=== PATIENT | male | born 1965 | race Caucasian/White ===

== ENCOUNTER 2019-08-26 09:54 | Inpatient (IN) | payer OTHER ==
[2019-08-26] MEDS ORDERED: FUROSEMIDE 10 MG/ML 4 ML VIAL IV STA (10:17)
--- NOTE | 2019-08-26 10:19 | ED ---
General Adult HPI - General Chief complaint: Shortness of Breath Stated complaint: Edema Time Seen by Provider: 08/26/19 10:04 Source: patient, RN notes reviewed, old records reviewed Mode of arrival: wheelchair Limitations: physical limitation - History of Present Illness Initial comments: 54-year-old male patient past history significant for congestive heart failure previously for chief complaint of lower extremity edema, shortness of breath. Patient reports that he has not been taking his Lasix for at least a week. States that he feels that he is overloaded on fluid and that is making it difficult to breathe. Denies any chest pain. Denies any other focal area of pain. Denies any other complaints. Systemic: Pt denies fatigue, fever/chills, rash. Pt denies weakness, night sweats, weight loss. Neuro: Pt denies headache, visual disturbances, syncope or pre-syncope. HEENT: Pt denies ocular discharge or irritation, otalgia, rhinorrhea, phar yngitis or notable lymphadenopathy. Cardiopulmonary: Pt denies chest pain, heart palpitations, dyspnea on exertion. Abdominal/GI: Pt denies abdominal pain, n/v/d. : Pt denies dysuria, burning w/ urination, frequency/urgency. Denies new onset urinary or bowel incontinence. MSK: Pt denies myalgia, loss of strength or function in extremities. Neuro: Pt denies new onset weakness, paresthesias. - Related Data Allergies Allergy/AdvReac Type Severity Reaction Status Date / Time latex Allergy Rash/Hives Verified 08/26/19 09:59 Review of Systems ROS Statement: Those systems with pertinent positive or pertinent negative responses have been documented in the HPI. ROS Other: All systems not noted in ROS Statement are negative. Past Medical History Past Medical History: COPD, Hyperlipidemia, Hypertension Additional Past Medical History / Comment(s): chf, sleep apnea History of Any Multi-Drug Resistant Organisms: None Reported Past Surgical History: No Surgical Hx Reported Past Psychological History: No Psychological Hx Reported Smoking Status: Never smoker Past Alcohol Use History: None Reported Past Drug Use History: None Reported General Exam - General Exam Comments Initial Comments: Constitutional: NAD, AOX3, Pt has pleasant affect. HEENT: NC/AT, trachea midline, neck supple, no lymphadenopathy. Posterior pharynx non erythematous, without exudates. External ears appear normal, without discharge. Mucous membranes moist. Eyes PERRLA, EOM intact. There is no scleral icterus. No pallor noted. Cardiopulmonary: RRR, no murmurs, rubs or gallops, no JVD noted. Crackles noted in lower lung gomez. +3 pitting peripheral edema. Abdominal exam: Abdomen soft and non-distended. Abdomen non-tender to palpation in all 4 quadrants. Bowel sounds active in LLQ. No hepatosplenomegaly. No ecchymosis Neuro: CN II-XII grossly intact. No nuchal rigidity. No raccon eyes, no suggs sign. MSK: No posterior calf tenderness bilaterally, homans sign negative bilaterally. Sensation intact in upper and lower extremities. Full active ROM in upper and lower extremities. Limitations: physical limitation Course Vital Signs 08/26/19 08/26/19 09:57 11:27 Temperature 99.1 F Pulse Rate 87 62 Respiratory 26 H 18 Rate Blood Pressure 156/86 154/91 O2 Sat by Pulse 87 L 94 L Oximetry Medical Decision Making - Medical Decision Making 54-year-old male patient past history significant for congestive heart failure previously for chief complaint of lower extremity edema, shortness of breath. Patient reports that he has not been taking his Lasix for at least a week. States that he feels that he is overloaded on fluid and that is making it difficult to breathe. Denies any chest pain. Denies any other focal area of pain. Denies any other complaints. Patient vital signs initially displayed oxygen saturation of 87% on room air. Patient sitting comfortably 94% on 2 L. Physical exam doesn't display bilateral pitting edema lower extremities. There are some crackles noted in lower lung gomez. Laboratory investigations are obtained, and this is significant for an elevated BNP of 4620. Troponin is very mildly elevated 0.037. EKG not concerning for acute ischemia patient continues to deny any chest pain. Patient was administered aspirin. Chest x-ray displayed large cardiomediastinal silhouette that may relate to cardiomegaly muscle mass or pericardial effusion. Round density in the left hilum clearly due to large pulmonary artery and pulmonary arterial hypertension adenopathy or perihilar mass. Obscuration of the left hemidiaphragm there is a small left pleural effusion and atelectasis or pneumonia. Multifocal platelike midlung atelectasis. Patient will be initiated on Lasix and will be admitted for further evaluation. Case discussed with Dr. Bearden. - Lab Data Result diagrams: 08/26/19 Unknown 08/26/19 Unknown Lab Results 08/26/19 08/26/19 08/26/19 Range/Units Unknown Unknown Unknown WBC 8.3 (3.8-10.6) k/uL RBC 4.62 (4.30-5.90) m/uL Hgb 12.4 L (13.0-17.5) gm/dL Hct 42.3 (39.0-53.0) % MCV 91.6 (80.0-100.0) fL MCH 26.8 (25.0-35.0) pg MCHC 29.3 L (31.0-37.0) g/dL RDW 16.8 H (11.5-15.5) % Plt Count 268 (150-450) k/uL Neutrophils % 76 % Lymphocytes % 12 % Monocytes % 6 % Eosinophils % 3 % Basophils % 1 % Neutrophils # 6.3 (1.3-7.7) k/uL Lymphocytes # 1.0 (1.0-4.8) k/uL Monocytes # 0.5 (0-1.0) k/uL Eosinophils # 0.2 (0-0.7) k/uL Basophils # 0.1 (0-0.2) k/uL Hypochromasia Marked Anisocytosis Slight Sodium 135 L (137-145) mmol/L Potassium 4.5 (3.5-5.1) mmol/L Chloride 92 L (98-107) mmol/L Carbon Dioxide 37 H (22-30) mmol/L Anion Gap 6 mmol/L BUN 22 H (9-20) mg/dL Creatinine 0.86 (0.66-1.25) mg/dL Est GFR (CKD-EPI)AfAm >90 (>60 ml/min/1.73 sqM) Est GFR (CKD-EPI)NonAf >90 (>60 ml/min/1.73 sqM) Glucose 105 H (74-99) mg/dL Calcium 8.9 (8.4-10.2) mg/dL Magnesium 2.0 (1.6-2.3) mg/dL Total Bilirubin 0.8 (0.2-1.3) mg/dL AST 26 (17-59) U/L ALT 12 (4-49) U/L Alkaline Phosphatase 75 (38-126) U/L Troponin I 0.037 H* (0.000-0.034) ng/mL NT-Pro-B Natriuret Pep pg/mL Total Protein 7.0 (6.3-8.2) g/dL Albumin 3.6 (3.5-5.0) g/dL 08/26/19 Range/Units Unknown WBC (3.8-10.6) k/uL RBC (4.30-5.90) m/uL Hgb (13.0-17.5) gm/dL Hct (39.0-53.0) % MCV (80.0-100.0) fL MCH (25.0-35.0) pg MCHC (31.0-37.0) g/dL RDW (11.5-15.5) % Plt Count (150-450) k/uL Neutrophils % % Lymphocytes % % Monocytes % % Eosinophils % % Basophils % % Neutrophils # (1.3-7.7) k/uL Lymphocytes # (1.0-4.8) k/uL Monocytes # (0-1.0) k/uL Eosinophils # (0-0.7) k/uL Basophils # (0-0.2) k/uL Hypochromasia Anisocytosis Sodium (137-145) mmol/L Potassium (3.5-5.1) mmol/L Chloride (98-107) mmol/L Carbon Dioxide (22-30) mmol/L Anion Gap mmol/L BUN (9-20) mg/dL Creatinine (0.66-1.25) mg/dL Est GFR (CKD-EPI)AfAm (>60 ml/min/1.73 sqM) Est GFR (CKD-EPI)NonAf (>60 ml/min/1.73 sqM) Glucose (74-99) mg/dL Calcium (8.4-10.2) mg/dL Magnesium (1.6-2.3) mg/dL Total Bilirubin (0.2-1.3) mg/dL AST (17-59) U/L ALT (4-49) U/L Alkaline Phosphatase (38-126) U/L Troponin I (0.000-0.034) ng/mL NT-Pro-B Natriuret Pep 4620 pg/mL Total Protein (6.3-8.2) g/dL Albumin (3.5-5.0) g/dL - EKG Data -: EKG Interpreted by Me (and Dr. Bearden ) EKG Comments: Ventricular rate 80, UT interval 212, QRS 114, QT/QTC 418/42. Tense rhythm with first AV block. Possible left atrial enlargement. Left axis deviation. Right bundle branch block. Cannot rule out anterior infarct age undetermined. No concern for acute ischemia at this time. Disposition Clinical Impression: CHF exacerbation Disposition: ADMITTED IP TO THIS HOSP Condition: Serious Is patient prescribed a controlled substance at d/c from ED?: No Referrals: Leighann Tejada MD [Primary Care Provider] - 1-2 days
[2019-08-26 10:46] LABS: Anisocytosis Slight; Basophils # (A) 0.1 k/uL (0-0.2); Basophils % (A) 1 %; Eosinophils # (A) 0.2 k/uL (0-0.7); Eosinophils % (A) 3 %; HCT 42.3 % (39.0-53.0); HGB 12.4 gm/dL (13.0-17.5); Hypochromasia Marked; Lymphocytes % (A) 12 %; MCH 26.8 pg (25.0-35.0); MCHC 29.3 g/dL (31.0-37.0); MCV 91.6 fL (80.0-100.0); Mean Platelet Volume 8.5; Monocytes # (A) 0.5 k/uL (0-1.0); Monocytes % (A) 6 %; Neutrophils # (A) 6.3 k/uL (1.3-7.7); Neutrophils % (A) 76 %; Platelet Count 268 k/uL (150-450); RBC 4.62 m/uL (4.30-5.90); RDW 16.8 % (11.5-15.5); WBC 8.3 k/uL (3.8-10.6)
[2019-08-26 10:54] LABS: ALT 12 U/L (4-49); AST 26 U/L (17-59); African American GFR (CKD) >90 (>60 ml/min/1.73 sqM); Albumin 3.6 g/dL (3.5-5.0); Alkaline Phosphatase 75 U/L (38-126); Anion Gap 6 mmol/L; Blood Urea Nitrogen 22 mg/dL (9-20); Calcium 8.9 mg/dL (8.4-10.2); Carbon Dioxide 37 mmol/L (22-30); Chloride 92 mmol/L (98-107); Glucose 105 mg/dL (74-99); Non-African American GFR(CKD) >90 (>60 ml/min/1.73 sqM); Potassium 4.5 mmol/L (3.5-5.1); Sodium 135 mmol/L (137-145); Total Bilirubin 0.8 mg/dL (0.2-1.3)
--- NOTE | 2019-08-26 11:01 | XR ---
EXAMINATION TYPE: XR chest 2V DATE OF EXAM: 08/26/2019 COMPARISON: NONE HISTORY: Chest pain and shortness of breath TECHNIQUE: Frontal and lateral views of the chest are obtained. FINDINGS: Enlarged cardiomediastinal silhouette with rounded density at the left hilum and obscurati on of the left hemidiaphragm. Platelike multifocal left midlung atelectasis. Right lung remains well aerated. Mild degenerative change of the spine. No sizable pneumothorax. IMPRESSION: 1. Enlarged cardiomediastinal silhouette that may relate to cardiomegaly, mediastinal mass, or perica rdial effusion. 2. Rounded density at the left hilum could relate to an enlarged pulmonary artery and pulmonary arter ial hypertension, adenopathy, or perihilar mass. 3. Obscuration left hemidiaphragm there is a small left pleural effusion and atelectasis or pneumonia . 4. Multifocal platelike left midlung atelectasis.
[2019-08-26] MEDS ORDERED: ASPIRIN 81 MG PO STA (11:33)
[2019-08-26] MEDS ORDERED: NALOXONE 0.4 MG/ML 1 ML VIAL IV PRN (12:04)
[2019-08-26] MEDS ORDERED: NITROGLYCERIN SL TABS 0.4 MG TAB SUBLINGUAL PRN (12:05)
[2019-08-26 12:12] LABS: INR 1.2 (<1.2); Partial Thromboplastin Time 24.4 sec (22.0-30.0); Prothrombin Time 11.8 sec (9.0-12.0)
--- NOTE | 2019-08-26 16:18 | P.HPIM ---
History of Present Illness 54-year-old male came in with comments of shortness of breath and bilateral lower extremity edema patient is morbidly obese unable to provide any history. Patient is excessively drowsy and sleepy patient does have history of sleep a pnea unsure whether he uses CPAP machinePeter patient CC bicarbonate the is a 37 consistent with chronic CO2 retention. Patient had a chest x-ray did show enlarged heart and some possibility of midgastric Solomon although this chest x- ray is not accurate because of his obesity. There is no pulmonary edema on the chest x-ray. Patient had does have elevated BNP him unable to assess JVD patient does have significant lower extremity edema. I'm unable to get any history of the patient regarding orthopnea proximal nocturnal dyspnea patient denied any chest pain patient denied any dysuria at this time. Review of Systems unable to obtain due to his clinical condition Past Medical History Past Medical History: Heart Failure, COPD, Hyperlipidemia, Hypertension Additional Past Medical History / Comment(s): chf, sleep apnea History of Any Multi-Drug Resistant Organisms: None Reported Past Surgical History: No Surgical Hx Reported Past Psychological History: No Psychological Hx Reported Smoking Status: Never smoker Past Alcohol Use History: None Reported Past Drug Use History: None Reported Medications and Allergies Home Medications Medication Instructions Recorded Confirmed Type Aspirin EC [Ecotrin Low Dose] 81 mg PO DAILY 08/26/19 08/26/19 History Carvedilol [Coreg] 12.5 mg PO BID 08/26/19 08/26/19 History Docusate Sodium [Dok] 200 mg PO DAILY 08/26/19 08/26/19 History Furosemide [Lasix] 80 mg PO DAILY 08/26/19 08/26/19 History Loratadine [Claritin] 10 mg PO DAILY 08/26/19 08/26/19 History Losartan Potassium [Cozaar] 100 mg PO DAILY 08/26/19 08/26/19 History Pantoprazole [Protonix] 40 mg PO DAILY 08/26/19 08/26/19 History Allergies Allergy/AdvReac Type Severity Reaction Status Date / Time latex Allergy Rash/Hives Verified 08/26/19 12:10 Physical Exam Vitals: Vital Signs Temp Pulse Pulse Resp BP BP Pulse Ox 08/26/19 15:58 81 14 129/70 95 08/26/19 15:36 85 L 08/26/19 14:00 22 08/26/19 13:52 97.4 F L 22 134/77 92 L 08/26/19 12:26 84 20 148/87 97 08/26/19 11:27 62 18 154/91 94 L 08/26/19 09:57 99.1 F 87 26 H 156/86 87 L Intake and Output 08/26/19 08/26/19 08/26/19 06:59 14:59 22:59 Output Total 750 Balance -750 Output: Urine 750 Other: Voiding Method Indwelling Catheter Weight 197 kg PHYSICAL EXAMINATION: GENERAL: patient is excessively drowsy, not in any acute distress. morbidly obese HEENT: Pupils are round and equally reacting to light. EOMI. No scleral icterus. No conjunctival pallor. Normocephalic, atraumatic. No pharyngeal erythema. No thyromegaly. CARDIOVASCULAR: S1 and S2 present. No murmurs, rubs, or gallops. PULMONARY: Chest is clear to auscultation, no wheezing or crackles. ABDOMEN: Soft, nontender, nondistended, normoactive bowel sounds. No palpable organomegaly. MUSCULOSKELETAL: No joint swelling or deformity. EXTREMITIES: No cyanosis, clubbing.extensive bilateral pedal edema. 3+ pitting NEUROLOGICAL: Gross neurological examination did not reveal any focal deficits. SKIN: No rashes. Results CBC & Chem 7: 08/26/19 10:30 08/26/19 10:30 Labs: Abnormal Lab Results - Last 24 Hours (Table) 08/26/19 08/26/19 08/26/19 Range/Units 10:30 10:30 10:30 Hgb 12.4 L (13.0-17.5) gm/dL MCHC 29.3 L (31.0-37.0) g/dL RDW 16.8 H (11.5-15.5) % INR 1.2 H (<1.2) Sodium 135 L (137-145) mmol/L Chloride 92 L (98-107) mmol/L Carbon Dioxide 37 H (22-30) mmol/L BUN 22 H (9-20) mg/dL Glucose 105 H (74-99) mg/dL Troponin I (0.000-0.034) ng/mL 08/26/19 Range/Units 10:30 Hgb (13.0-17.5) gm/dL MCHC (31.0-37.0) g/dL RDW (11.5-15.5) % INR (<1.2) Sodium (137-145) mmol/L Chloride (98-107) mmol/L Carbon Dioxide (22-30) mmol/L BUN (9-20) mg/dL Glucose (74-99) mg/dL Troponin I 0.037 H* (0.000-0.034) ng/mL Thrombosis Risk Factor Assmnt - Choose All That Apply Any of the Below Risk Factors Present?: Yes Each Factor Represents 1 point: Age 41-60 years, Obesity (BMI >25) Other Risk Factors: Yes (chf) Thrombosis Risk Factor Assessment Total Risk Factor Score: 2 Thrombosis Risk Factor Assessment Level: Low Risk Assessment and Plan Plan: --excessive drowsiness, encephalopathy mostly metabolic encephalopathy from a CO2 retention, patient is morbidly obese has sleep apnea may haveobesity hypoventilation syndrome. I'll obtain ABG depending an ABG patient need to be started on BiPAP patient will be started on that patient does have history of sleep apnea unsure whether he uses CPAP machine at home. -Acute hypoxic hypercapnic respiratory failure probably secondary to restrictive lung disease and morbid obesity rather than CHF although I cannot completely rule out CHF. -Bilateral pedal edema: I'll obtain echocardiogram mostly pedal edema is secondary to either right-sided heart failure chronic venous insufficiency 8 cannot asses the JVD because of his obesity possibility of for left-sided heart failure is low patient is on Lasix IV twice a day which will be continued for now because of extensive peripheral edema patient uses 80 mg daily of Lasix for pedal edema.possible data pulmonary hypertension -COPD without any acute exacerbation
[2019-08-26] MEDS: FUROSEMIDE 10 MG/ML 4 ML VIAL IV SCH (21:25)
[2019-08-26] MEDS: CARVEDILOL 12.5 MG TAB PO SCH (21:25)
[2019-08-27] MEDS ORDERED: HYDROcodone/APAP 5-325MG 1 EACH TAB PO STA (02:44)
[2019-08-27] MEDS: CARVEDILOL 12.5 MG TAB PO SCH ×2 (06:06→17:20)
[2019-08-27] MEDS: PANTOPRAZOLE 40 MG TABLET PO SCH (06:06)
[2019-08-27 07:43] LABS: African American GFR (CKD) >90 (>60 ml/min/1.73 sqM); Blood Urea Nitrogen 20 mg/dL (9-20); Calcium 8.7 mg/dL (8.4-10.2); Chloride 90 mmol/L (98-107); Glucose 111 mg/dL (74-99); Non-African American GFR(CKD) >90 (>60 ml/min/1.73 sqM); Potassium 4.8 mmol/L (3.5-5.1); Sodium 138 mmol/L (137-145)
[2019-08-27 07:50] LABS: Anion Gap 3 mmol/L
[2019-08-27 07:52] LABS: Carbon Dioxide 45 mmol/L (22-30)
[2019-08-27] MEDS: FUROSEMIDE 10 MG/ML 4 ML VIAL IV SCH (08:54)
[2019-08-27] MEDS: ASPIRIN 81 MG PO SCH (08:54)
[2019-08-27] MEDS ORDERED: ASPIRIN 325 MG TAB PO SCH (09:00)
--- NOTE | 2019-08-27 09:48 | ECHOF ---
Referral Reason:CHF MEASUREMENTS -------- HEIGHT: 180.3 cm WEIGHT: 193.7 kg BP: RAP: 5.00 mmHg RVSP: 10.17 mmHg FINDINGS -------- Sinus rhythm. This was a technically difficult study with suboptimal views. Morbid Obesity Limited Study Cheng not well visulized due to Morbid Obesity. Unable to comment on EF. The RV was not well visualized. The left atrium was not well visualized. The right atrium was not well visualized. Lumason used The aortic valve was not well visualized. The mitral valve was not well visualized. The tricuspid valve was not well visualized. The pulmonic valve was not well visualized. CONCLUSIONS -------- 1. Sinus rhythm. 2. This was a technically difficult study with suboptimal views. 3. Morbid Obesity 4. Limited Study 5. Cheng not well visulized due to Morbid Obesity. 6. Unable to comment on EF. 7. The RV was not well visualized. 8. The left atrium was not well visualized. 9. The right atrium was not well visualized. 10. Lumason used 11. The aortic valve was not well visualized. 12. The mitral valve was not well visualized. 13. The tricuspid valve was not well visualized. 14. The pulmonic valve was not well visualized. POLICE LIEUTENANT: Latoya Domínguez RDCS
--- NOTE | 2019-08-27 09:55 | P.CRDCN ---
History of Present Illness Consult date: 08/27/19 Requesting physician: Jimmie Whalen Consult reason: congestive heart failure Chief complaint: Shortness of breath History of present illness: This is a pleasant 54-year-old gentleman who has known history of morbid obesity, chronic bilateral peripheral edema, hypertension, hyperlip idemia, sleep apnea, patient is unable to use a CPAP machine, he states that he has tried several but because of his claustrophobia is unable to use it. Patient also states that he had a recent admission to [facility] with CHF exacerbation, was discharged home on Friday and felt as though he was just acidic as when he presented there. He comes to our hospital here with symptoms of progressively worsening shortness of breath and significant swelling in his bilateral lower extremities and scrotal area. Chest x-ray shows enlarged cardiomediastinal silhouette that may relate to cardiomegaly,, mediastinotomy mass, pericardial effusion. Rounded density at the left hilum could relate to an enlarged pulmonary artery and pulmonary arterial hypertension, adenopathy,. Obscuration of the left hemidiaphragm, small left pleural effusion and atelectasis. EKG shows normal sinus rhythm with first-degree AV block, nonspecific ST-T wave changes, incomplete right bundle branch block pattern. Blood pressure on arrival here 156/86, heart rate 26, 87% on room air, temperature 99.1. This mornings blood pressure 104/60, heart rate in the 50s, 94% on 2 L of oxygen. White blood cell count is normal, hemoglobin 12.4, platelet count 268. Sodium 138, potassium 4.8, BUN 20, creatinine 0.8. Troponin 0.0 37, 0.035, 0.036. BNP level 4620. Vidal virus not detected. At the time of my examination this morning, patient is sitting up in a chair at bedside, he does state that he feels as though he lost some weight, his breathing is mildly improved today. He continues to have significant bilateral peripheral edema Past Medical History Past Medical History: Heart Failure, COPD, Hyperlipidemia, Hypertension Additional Past Medical History / Comment(s): chf, sleep apnea History of Any Multi-Drug Resistant Organisms: None Reported Past Surgical History: No Surgical Hx Reported Past Psychological History: No Psychological Hx Reported Smoking Status: Never smoker Past Alcohol Use History: None Reported Past Drug Use History: None Reported Medications and Allergies Home Medications Medication Instructions Recorded Confirmed Type Aspirin EC [Ecotrin Low Dose] 81 mg PO DAILY 08/26/19 08/26/19 History Carvedilol [Coreg] 12.5 mg PO BID 08/26/19 08/26/19 History Docusate Sodium [Dok] 200 mg PO DAILY 08/26/19 08/26/19 History Furosemide [Lasix] 80 mg PO DAILY 08/26/19 08/26/19 History Loratadine [Claritin] 10 mg PO DAILY 08/26/19 08/26/19 History Losartan Potassium [Cozaar] 100 mg PO DAILY 08/26/19 08/26/19 History Pantoprazole [Protonix] 40 mg PO DAILY 08/26/19 08/26/19 History Allergies Allergy/AdvReac Type Severity Reaction Status Date / Time latex Allergy Rash/Hives Verified 08/26/19 12:10 Physical Exam Vitals: Vital Signs Temp Pulse Pulse Resp BP BP Pulse Ox 08/27/19 07:47 97.7 F 53 L 16 104/63 94 L 08/27/19 04:00 98.2 F 61 20 121/73 91 L 08/27/19 00:00 98.4 F 70 22 142/70 94 L 08/26/19 20:00 98.1 F 83 20 127/68 93 L 08/26/19 18:07 94 L 08/26/19 16:00 81 14 08/26/19 15:58 81 14 129/70 95 08/26/19 15:36 85 L 08/26/19 14:00 22 08/26/19 13:52 97.4 F L 22 134/77 92 L 08/26/19 12:26 84 20 148/87 97 08/26/19 11:27 62 18 154/91 94 L 08/26/19 09:57 99.1 F 87 26 H 156/86 87 L Intake and Output 08/26/19 08/27/19 08/27/19 22:59 06:59 14:59 Intake Total 477 240 180 Output Total 325 800 250 Balance 152 -560 -70 Intake: Oral 477 240 180 Output: Urine 325 800 250 Other: Voiding Method Indwelling Catheter Indwelling Catheter Weight 194 kg PHYSICAL EXAMINATION: GENERAL: 54-year-old gentleman in no acute distress at the time of my examination HEENT: Head is atraumatic, normocephalic. Pupils equal, round. Sclera anicteric. Conjunctiva are clear. Mucous membranes of the mouth are moist. Neck is supple. Unable to assess for elevated jugular venous pressure. No carotid bruit is heard. HEART EXAMINATION: Heart S1, S2 normal. No murmur or gallop heard. CHEST EXAMINATION: Lungs are clear with diminished air entry to the bases posteriorly ABDOMEN: Soft, obese nontender. Bowel sounds are heard. No organomegaly noted. EXTREMITIES:[1+ peripheral pulses with evidence of bilateral chronic edema to the lower extremities, scrotum has a significant amount of swelling. NEUROLOGIC patient is awake, alert and oriented 3 . . Results 08/26/19 10:30 08/27/19 06:38 Cardiac Enzymes 08/26/19 08/26/19 08/26/19 Range/Units 10:30 10:30 16:37 AST 26 (17-59) U/L Troponin I 0.037 H* 0.035 H* (0.000-0.034) ng/mL 08/26/19 Range/Units 23:13 AST (17-59) U/L Troponin I 0.036 H* (0.000-0.034) ng/mL Coagulation 08/26/19 Range/Units 10:30 PT 11.8 (9.0-12.0) sec APTT 24.4 (22.0-30.0) sec CBC 08/26/19 Range/Units 10:30 WBC 8.3 (3.8-10.6) k/uL RBC 4.62 (4.30-5.90) m/uL Hgb 12.4 L (13.0-17.5) gm/dL Hct 42.3 (39.0-53.0) % Plt Count 268 (150-450) k/uL Comprehensive Metabolic Panel 08/26/19 08/27/19 Range/Units 10:30 06:38 Sodium 135 L 138 (137-145) mmol/L Potassium 4.5 4.8 (3.5-5.1) mmol/L Chloride 92 L 90 L (98-107) mmol/L Carbon Dioxide 37 H 45 H* (22-30) mmol/L BUN 22 H 20 (9-20) mg/dL Creatinine 0.86 0.87 (0.66-1.25) mg/dL Glucose 105 H 111 H (74-99) mg/dL Calcium 8.9 8.7 (8.4-10.2) mg/dL AST 26 (17-59) U/L ALT 12 (4-49) U/L Alkaline Phosphatase 75 (38-126) U/L Total Protein 7.0 (6.3-8.2) g/dL Albumin 3.6 (3.5-5.0) g/dL Current Medications Generic Name Dose Route Start Last Admin Trade Name Freq PRN Reason Stop Dose Admin Aspirin 81 mg 08/27/19 09:00 08/27/19 08:54 Aspirin PO 81 mg DAILY MEGAN Administration Carvedilol 12.5 mg 08/26/19 17:30 08/27/19 06:06 Coreg PO 12.5 mg BID-W/MEALS MEGAN Administration Docusate Sodium 200 mg 08/27/19 09:00 Colace PO DAILY MEGAN Furosemide 100 mg/ Sodium 100 mls @ 10 mls/hr 08/27/19 09:15 Chloride IV .Q10H MEGAN 10 MG/HR Naloxone HCl 0.2 mg 08/26/19 12:04 Narcan IV Q2M PRN Opioid Reversal Nitroglycerin 0.4 mg 08/26/19 12:05 Nitrostat SUBLINGUAL Q5M PRN Chest Pain Pantoprazole Sodium 40 mg 08/27/19 07:30 08/27/19 06:06 Protonix PO 40 mg [id number] MEGAN Administration Intake and Output 08/26/19 08/27/19 08/27/19 22:59 06:59 14:59 Intake Total 477 240 180 Output Total 325 800 250 Balance 152 -560 -70 Intake: Oral 477 240 180 Output: Urine 325 800 250 Other: Voiding Method Indwelling Catheter Indwelling Catheter Weight 194 kg 08/26/19 10:30 08/27/19 06:38 EKG Interpretations (text) EKG shows a normal sinus rhythm with first-degree AV block, incomplete right bundle branch block pattern and nonspecific ST-T wave changes Assessment and Plan Plan: Assessment and plan #1 congestive heart failure exacerbation, LV function unknown #2 morbid obesity #3 hypertension #4 hyperlipidemia #5 sleep apnea, patient unable to use a CPAP because of claustrophobia #6 abnormality in troponin, not consistent with acute coronary syndrome, likely secondary to hypoxia. No significant rise and fall pattern #7 chronic lower extremity edema and discoloration #8 COPD Plan We will discontinue the IV push Lasix and start the patient on a Lasix drip. Monitor the intake and output closely as well as lytes BUN and creatinine daily. We will obtain records from [facility] where the patient was just recently discharged on Friday. Further recommendations to follow. DNP note has been reviewed, I agree with a documented findings and plan of care. Patient was seen and examined.
--- NOTE | 2019-08-27 10:43 | P.CNPUL ---
History of Present Illness Consult date: 08/27/19 Reason for consult: dyspnea, hypoxemia, obstructive sleep apnea Chief complaint: Progressive SOB, along with increased swelling of the lower extremities History of present illness: This is a morbidly obese 54-year-old male well-known to me patient has a hypercapnic hypoxic chronic respiratory failure due to obesity hypoventilation as well as severe sleep apnea she has been prescribed CPAP machine the past but couldn't use it due to claustrophobia, he came into the hospital with the somnolence altered mental status, increased lower extremity, she had he appears to have a component of congestive heart failure with chronic lower extremity edema with acute worsening also his bicarb is chronically elevated suggestive of chronic hypercapnia related responded to Lasix Mohs awake and arousable denies any cough or sputum production denies any chest pain, status post echocardiogram unable to comment on ejection fraction due to the size as well as suboptimal study patient has a chest x-ray suggestive of CHF along with of cardiomegaly mediastinal/pericardial effusion, rounded density left hilum likely pulmonary artery and pulmonary hypertension, will get a computed tomography scan of the chest as well as renal functions are normal, his troponin high likely suggestive of the demand ischemia versus non-Q-wave [place], BNP is elevated for thousand Review of Systems All systems: negative Past Medical History Past Medical History: Heart Failure, COPD, Hyperlipidemia, Hypertension Additional Past Medical History / Comment(s): chf, sleep apnea History of Any Multi-Drug Resistant Organisms: None Reported Past Surgical History: No Surgical Hx Reported Past Psychological History: No Psychological Hx Reported Smoking Status: Never smoker Past Alcohol Use History: None Reported Past Drug Use History: None Reported Medications and Allergies Home Medications Medication Instructions Recorded Confirmed Type Aspirin EC [Ecotrin Low Dose] 81 mg PO DAILY 08/26/19 08/26/19 History Carvedilol [Coreg] 12.5 mg PO BID 08/26/19 08/26/19 History Docusate Sodium [Dok] 200 mg PO DAILY 08/26/19 08/26/19 History Furosemide [Lasix] 80 mg PO DAILY 08/26/19 08/26/19 History Loratadine [Claritin] 10 mg PO DAILY 08/26/19 08/26/19 History Losartan Potassium [Cozaar] 100 mg PO DAILY 08/26/19 08/26/19 History Pantoprazole [Protonix] 40 mg PO DAILY 08/26/19 08/26/19 History Allergies Allergy/AdvReac Type Severity Reaction Status Date / Time latex Allergy Rash/Hives Verified 08/26/19 12:10 Physical Exam Vitals: Vital Signs Temp Pulse Pulse Resp BP BP Pulse Ox 08/27/19 08:00 53 L 16 08/27/19 07:47 97.7 F 53 L 16 104/63 94 L 08/27/19 04:00 98.2 F 61 20 121/73 91 L 08/27/19 00:00 98.4 F 70 22 142/70 94 L 08/26/19 20:00 98.1 F 83 20 127/68 93 L 08/26/19 18:07 94 L 08/26/19 16:00 81 14 08/26/19 15:58 81 14 129/70 95 08/26/19 15:36 85 L 08/26/19 14:00 22 08/26/19 13:52 97.4 F L 22 134/77 92 L 08/26/19 12:26 84 20 148/87 97 08/26/19 11:27 62 18 154/91 94 L Intake and Output 08/26/19 08/27/19 08/27/19 22:59 06:59 14:59 Intake Total 477 240 180 Output Total 325 800 250 Balance 152 -560 -70 Intake: Oral 477 240 180 Output: Urine 325 800 250 Other: Voiding Method Indwelling Catheter Indwelling Catheter Indwelling Catheter Weight 194 kg - Constitutional General appearance: disheveled, mild distress, morbidly obese - EENT Eyes: PERRLA Ears: bilateral: normal - Neck Neck: normal ROM Carotids: bilateral: bruit absent - Respiratory Respiratory: bilateral: diminished - Cardiovascular Rhythm: regular Heart sounds: normal: S1, S2 - Gastrointestinal General gastrointestinal: hyperactive bowel sounds - Integumentary Lower extremity +3 edema with chronic swelling and chronic skin changes - Neurologic Neurologic: CNII-XII intact - Musculoskeletal Musculoskeletal: gait normal, generalized weakness, strength equal bilaterally - Psychiatric Psychiatric: A&O x's 3, appropriate affect, intact judgment & insight Results - Laboratory Findings CBC and BMP: 08/26/19 10:30 08/27/19 06:38 PT/INR, D-dimer PT 11.8 sec (9.0-12.0) 08/26/19 10:30 INR 1.2 (<1.2) H 08/26/19 10:30 Abnormal lab findings: Abnormal Labs 08/26/19 08/26/19 08/26/19 10:30 10:30 10:30 Hgb 12.4 L MCHC 29.3 L RDW 16.8 H INR 1.2 H Sodium 135 L Chloride 92 L Carbon Dioxide 37 H BUN 22 H Glucose 105 H Troponin I 08/26/19 08/26/19 08/26/19 10:30 16:37 23:13 Hgb MCHC RDW INR Sodium Chloride Carbon Dioxide BUN Glucose Troponin I 0.037 H* 0.035 H* 0.036 H* 08/27/19 06:38 Hgb MCHC RDW INR Sodium Chloride 90 L Carbon Dioxide 45 H* BUN Glucose 111 H Troponin I - Diagnostic Findings Chest x-ray: report reviewed, image reviewed (Finding as noted above) Assessment and Plan Assessment: Acute exacerbation of heart failure likely as the failure Acute hypoxic and hypercapnic respiratory failure Obesity hypoventilation syndrome Severe degree of obstructive sleep apnea Hypertension hypertensive cardiovascular disease Dyslipidemia Elevated troponin likely demand ischemia versus non-ST segment elevated [place] Plan: Agree with plans with diuresis Continue supplemental oxygen Continue home medications Have a detailed discussion with the patient about sleep study, BiPAP or CPAP mac eryn, patient continued to refuse CPAP or BiPAP machine Obtain computed tomography scan of the chest to assess amount of pericardial effusion mass in the left side as well as assessment of PA and mediastinal density as noted on x-ray Time with Patient: Greater than 30
[2019-08-27] MEDS: FUROSEMIDE 100 MG in SODIUM CHLORIDE 0.9% 90 ML IV SCH ×2 (10:53→20:31)
--- NOTE | 2019-08-27 11:33 | P.PN ---
Subjective Patient is admitted for possible right-sided heart failure peripheral edema may be due to venous insufficiency was recently discharged from [facility] patient is highly noncompliant with medications are his CPAP machine. I spent extensive amount of time every single day when she when he was admitted to [facility] discussing the management and the importance of wearing a CPAP machine was supposed to. Nasal CPAP which he agreed to wear during his last hospitalization and supposed to follow-up with the parts sales associate to get new CPAP machine which is mostly of nasal CPAP which she never followed up with patient didn't take any of his medication since he doesn't have any of his medications with the he did have prescription of all his medications at the time of last discharge. Had a lengthy discussion with the patient to try to provide insight and patient just doesn't understand anything is highly noncompliant with any re commendations. Nothing much can be offered to the patient from my perspective patient is presently on IV Lasix being diuresed. Patient doesn't want to wear CPAP or BiPAP his main issues CO2 retention from his sleep apnea Objective - Vital Signs Vital signs: Vital Signs Temp 97.7 F 08/27/19 07:47 Pulse 53 L 08/27/19 08:00 Resp 16 08/27/19 08:00 BP 104/63 08/27/19 07:47 Pulse Ox 94 L 08/27/19 07:47 Intake & Output 08/26/19 08/27/19 08/27/19 18:59 06:59 18:59 Intake Total 237 480 180 Output Total 750 1125 250 Balance -513 -645 -70 Weight 197 kg 194 kg Intake: Oral 237 480 180 Output: Urine 750 1125 250 Other: Voiding Method Indwelling Catheter Indwelling Catheter Indwelling Catheter # Bowel Movements 1 - Exam PHYSICAL EXAMINATION: GENERAL: patient is excessively drowsy, not in any acute distress. morbidly obese HEENT: Pupils are round and equally reacting to light. EOMI. No scleral icterus. No conjunctival pallor. Normocephalic, atraumatic. No pharyngeal erythema. No thyromegaly. CARDIOVASCULAR: S1 and S2 present. No murmurs, rubs, or gallops. PULMONARY: Chest is clear to auscultation, no wheezing or crackles. ABDOMEN: Soft, nontender, nondistended, normoactive bowel sounds. No palpable organomegaly. MUSCULOSKELETAL: No joint swelling or deformity. EXTREMITIES: No cyanosis, clubbing.extensive bilateral pedal edema. 3+ pitting NEUROLOGICAL: Gross neurological examination did not reveal any focal deficits. SKIN: No rashes. - Labs CBC & Chem 7: 08/26/19 10:30 08/27/19 06:38 Labs: Abnormal Lab Results - Last 24 Hours (Table) 08/26/19 08/26/19 08/26/19 Range/Units 10:30 10:30 10:30 Hgb 12.4 L (13.0-17.5) gm/dL MCHC 29.3 L (31.0-37.0) g/dL RDW 16.8 H (11.5-15.5) % INR 1.2 H (<1.2) Sodium 135 L (137-145) mmol/L Chloride 92 L (98-107) mmol/L Carbon Dioxide 37 H (22-30) mmol/L BUN 22 H (9-20) mg/dL Glucose 105 H (74-99) mg/dL Troponin I (0.000-0.034) ng/mL 08/26/19 08/26/19 08/26/19 Range/Units 10:30 16:37 23:13 Hgb (13.0-17.5) gm/dL MCHC (31.0-37.0) g/dL RDW (11.5-15.5) % INR (<1.2) Sodium (137-145) mmol/L Chloride (98-107) mmol/L Carbon Dioxide (22-30) mmol/L BUN (9-20) mg/dL Glucose (74-99) mg/dL Troponin I 0.037 H* 0.035 H* 0.036 H* (0.000-0.034) ng/mL 08/27/19 Range/Units 06:38 Hgb (13.0-17.5) gm/dL MCHC (31.0-37.0) g/dL RDW (11.5-15.5) % INR (<1.2) Sodium (137-145) mmol/L Chloride 90 L (98-107) mmol/L Carbon Dioxide 45 H* (22-30) mmol/L BUN (9-20) mg/dL Glucose 111 H (74-99) mg/dL Troponin I (0.000-0.034) ng/mL Assessment and Plan Plan: --excessive drowsiness, encephalopathy mostly metabolic encephalopathy from a CO2 retention, patient is morbidly obese has sleep apnea may haveobesity hypoventilation syndrome. Patient is declining to wear CPAP or BiPAP -Acute hypoxic hypercapnic respiratory failure probably secondary to restrictive lung disease and morbid obesity.. -Possible congestive heart failure chronic diastolic dysfunction patient had a normal EF in the past. Patient most probably has cor pulmonale right-sided heart failure rather than diastolic dysfunction he may even have severe chronic venous insufficiency from morbid obesity. Patient is on Lasix drip -Alkalosis: There is a competent of counteraction alkalosis due to diuresis some metabolic compensation from chronic CO2 retention -COPD without any acute exacerbation Mildly elevated troponin: Secondary to heart failure -obesity hypoventilation syndrome
--- NOTE | 2019-08-27 13:10 | US ---
EXAMINATION TYPE: US venous doppler duplex LE DATE OF EXAM: 08/27/2019 12:55 PM COMPARISON: NONE CLINICAL HISTORY: dvt. Edema bilateral legs, worse on the right SIDE PERFORMED: bilateral TECHNIQUE: The lower extremity deep venous system is examined utilizing real time linear array sonog myrna with graded compression, doppler sonography and color-flow sonography. VESSELS IMAGED: External Iliac Vein (EIV) Common Femoral Vein Deep Femoral Vein Greater Saphenous Vein * Femoral Vein Popliteal Vein Small Saphenous Vein * Proximal Calf Veins (* superficial vessels) Technical limitations due to patient's body habitus Right Leg: No evidence of DVT as visualized, unable to visualize lower femoral vein for compression. Complex anechoic area right popliteal fossa = 5.7 x 1.8 x 4.1cm, Maradiaga's cyst Left Leg: No evidence of DVT as visualized. Unable to visualize lower femoral vein. Grayscale, color doppler, spectral doppler imaging performed of the deep veins of the lower extremiti es. . IMPRESSION: Suboptimal study due to patient's extreme large body habitus. Some portions not adequate ly assessed. Visualized portions show no evidence of acute DVT bilaterally. Incidentally moderate siz e right-sided Maradiaga cyst noted.
--- NOTE | 2019-08-27 16:23 | CT ---
EXAMINATION TYPE: CT angio chest DATE OF EXAM: 08/27/2019 COMPARISON: Chest x-ray dated 08/26/2019 HISTORY: SOB. hx of COPD, CHF CT DLP: 1161.8 mGycm. Automated Exposure Control for Dose Reduction was Utilized. CONTRAST: CTA scan of the thorax is performed with IV Contrast, patient injected with 100cc mL of Isovue 370, p ulmonary embolism protocol. MIP Images are created on CT scanner and reviewed. FINDINGS: Exam is suboptimal secondary to patient body habitus. The entirety of the patient is not in cluded in imaging given patient body habitus and cannot be evaluated. LUNGS: Multifocal subsegmental atelectasis. Motion artifact limits evaluation of the left lower lobe. 3 mm pulmonary nodule is solid within the right middle lobe on image 81. 2 mm pulmonary nodule in th e right upper lobe on image 52. The lungs are grossly clear, there is no concerning parenchymal mass or nodule identified. There is no pleural effusion or pneumothorax seen. The tracheobronchial tree is patent. MEDIASTINUM: The enlarged lobular contour of the mediastinum on chest x-ray of 08/26/2019 relates to lo bular contour the heart and enlarged left main pulmonary artery measuring 5.3 cm. There is left hemit horax volume loss in shift of the mediastinum to the left. There is reflux of contrast into the infer ior vena cava. Nondiagnostic evaluation of the left lower lobe pulmonary arteries for pulmonary embol us. Suboptimal evaluation of the remainder of the pulmonary arteries. Similar degree of contrast in t he aorta and main pulmonary artery as well as limitation by patient body habitus and patient motion. Severely limited evaluation of the pulmonary arteries to the left upper lobe. 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 Artifact from patient body habitus and motion as well as ot her CT artifact limiting evaluation of the upper abdomen. At least mild grade hepatic steatosis sugge sted by low attenuation the hepatic parenchyma. Some anasarca also seen with subcutaneous fat strandi ng/edema. Bilateral probable retroareolar gynecomastia is seen, left greater than right. Thyroid glan d is slightly heterogenous. Mild multilevel degenerative change of the spine. IMPRESSION: 1. Markedly limited evaluation for subsegmental pulmonary embolus and evaluation of the left lower lo be. No central pulmonary embolus seen. 2. Shift of the mediastinum leftward and left hemithorax volume loss of unknown etiology with cardiom egaly and lobular contour the mediastinum. 3. Left basilar airspace disease although favored to represent atelectasis is severely limited by pat ient motion and could represent pneumonia. 4. Subcentimeter right pulmonary nodules for which follow-up CT thorax is recommended in 12 months to establish stability.
[2019-08-27] MEDS: DOCUSATE 100 MG CAP PO SCH (17:21)
[2019-08-28] MEDS: FUROSEMIDE 100 MG in SODIUM CHLORIDE 0.9% 90 ML IV SCH ×3 (04:26→23:15)
[2019-08-28 06:30] LABS: African American GFR (CKD) >90 (>60 ml/min/1.73 sqM); Blood Urea Nitrogen 17 mg/dL (9-20); Calcium 8.4 mg/dL (8.4-10.2); Chloride 85 mmol/L (98-107); Glucose 105 mg/dL (74-99); Magnesium 1.4 mg/dL (1.6-2.3); Non-African American GFR(CKD) >90 (>60 ml/min/1.73 sqM); Potassium 4.7 mmol/L (3.5-5.1); Sodium 136 mmol/L (137-145)
[2019-08-28 06:37] LABS: Anion Gap 5 mmol/L; Carbon Dioxide 46 mmol/L (22-30)
[2019-08-28] MEDS: PANTOPRAZOLE 40 MG TABLET PO SCH (06:44)
[2019-08-28] MEDS: CARVEDILOL 12.5 MG TAB PO SCH ×2 (06:44→17:55)
[2019-08-28] MEDS: ASPIRIN 81 MG PO SCH (08:45)
[2019-08-28] MEDS: DOCUSATE 100 MG CAP PO SCH (08:45)
[2019-08-28 13:01] VITALS: BMI 59.5
--- NOTE | 2019-08-28 13:29 | P.PN ---
Subjective This is Claudette Gaona PA-C dictating a progress note on this patient The patient was interviewed and examined by me Case discussed with Dr. Byrne and he agrees with the plan of care HPI/interval history Patient is a 54-year-old male with a history of chronic bilateral peripheral edema, obesity, hypertension, dyslipidemia, sleep apnea who presented with complaints of worsening shortness of breath and lower extremity edema. His been admitted for treatment of CHF exacerbation. He has been on IV Lasix drip. He is diuresing, almost 4 liters, however his weight remains the same. Patient seen and examined sitting up in the chair. Remains short of breath and fatigued. States he does not feel the Lasix drip has helped much. EXAMINATION Patient is afebrile, pulse in the 70s, respirations in the 20s, blood pressure 107/42, oxygen saturation 95% on 2 L nasal cannula Patient seen and examined sitting up in the chair, in no acute distress Lungs are diminished bilaterally Heart is regular, no audible murmurs 1-2+ lower extremity edema bilaterally Unable to assess JVD due to body habitus REVIEW OF LABS, ECG Potassium 4.7, BUN 17, creatinine 0.71, co2 [address] did not show any central pulmonary embolism but was limited by motion artifact Recent echocardiogram was suboptimal due to morbid obesity an EF cannot be assessed Recent lower extremity Dopplers were also suboptimal due to the patient's body habitus but did not show any acute DVT , showed Maradiaga cyst IMPRESSION / ASSESSMENT: #1 shortness of breath and lower extremity edema possibly secondary to CHF exacerbation, EF not be assessed on echocardiogram due to morbid obesity and suboptimal views #2 abnormal troponin no significant rise and fall pattern, likely due to hypoxia #3 morbid obesity #4 hypertension #5 dyslipidemia #6 obstructive sleep apnea, unable to use CPAP due to claustrophobia #7 chronic lower extremity edema #8 COPD PLAN: Continue Lasix drip monitor BMP Accurate daily weights I's and O's Objective - Vital Signs Vital signs: Vital Signs Temp 98.0 F 08/28/19 11:44 Pulse 73 08/28/19 11:50 Resp 22 08/28/19 11:50 BP 107/42 08/28/19 11:44 Pulse Ox 95 08/28/19 11:44 Intake & Output 08/27/19 08/28/19 08/28/19 18:59 06:59 18:59 Intake Total 657 175.500 657 Output Total 1250 3325 Balance -593 -3149.500 657 Weight 193.7 kg 193.7 kg Intake: Intake, IV Titration 175.500 Amount Furosemide 100 mg In 175.500 Sodium Chloride 0.9% 90 ml @ 10 MG/HR 10 mls/hr IV .Q10H [facility] Rx#: [id number] Oral 657 657 Output: Urine 1250 3325 Other: Voiding Method Indwelling Catheter Indwelling Catheter Indwelling Catheter # Bowel Movements 1 - Labs CBC & Chem 7: 08/26/19 10:30 08/28/19 05:49 Labs: Abnormal Lab Results - Last 24 Hours (Table) 08/28/19 Range/Units 05:49 Sodium 136 L (137-145) mmol/L Chloride 85 L (98-107) mmol/L Carbon Dioxide 46 H* (22-30) mmol/L Glucose 105 H (74-99) mg/dL Magnesium 1.4 L (1.6-2.3) mg/dL
[2019-08-28] MEDS ORDERED: Magnesium Replacement Protocol 1 EACH MISC MISCELLANE PRN (17:34)
[2019-08-28] MEDS ORDERED: Potassium Replacement Protocol 1 EACH MISC MISCELLANE PRN (17:34)
[2019-08-28] MEDS ORDERED: HYDROcodone/APAP 5-325MG 1 EACH TAB PO PRN (17:35)
[2019-08-28] MEDS ORDERED: ALPRAZolam 0.25 MG TAB PO PRN (17:35)
[2019-08-28] MEDS ORDERED: HYDROmorphone 0.5 MG/0.5 ML SYRINGE IVP PRN (17:35)
[2019-08-28] MEDS ORDERED: TEMAZEPAM 15 MG CAP PO PRN (17:35)
[2019-08-28 18:28] LABS: Appearance,Urine Clear (Clear); Bacteria,Urine Rare /hpf; Bilirubin,Urine Negative (Negative); Blood,Urine Moderate (Negative); Color,Urine Yellow; Glucose,Urine (UA) Negative (Negative); Hyaline Casts,Urine 1 /lpf (0-2); Ketones,Urine Negative (Negative); Leukocyte Esterase,Urine Large (Negative); Mucus,Urine Rare /hpf; Nitrite,Urine Negative (Negative); Protein,Urine Negative (Negative); RBC,Urine 164 /hpf (0-5); Specific Gravity,Urine 1.012 (1.001-1.035); Squamous Epithelial Cell,Urine <1 /hpf (0-4); Urobilinogen,Urine <2.0 mg/dL (<2.0); WBC,Urine 9 /hpf (0-5)
--- NOTE | 2019-08-28 19:29 | PN ---
PROGRESS NOTE DATE OF SERVICE: 08/28/2019 This 54-year-old gentleman being followed by Dr. Leighann Tejada in the outpatient setting was admitted with shortness of breath and bilateral leg edema. The possibility of CHF acute exacerbation was considered. The patient has also had an element of cor pulmonale. The patient had CO2 retention secondary from possible obesity hypoventilation syndrome and Pickwickian syndrome. The patient being closely monitored at this time. The patient was started on IV Lasix at this time by Cardiology. The fluid intake has also been restricted at this time. The daily weight was showing a 1 pound drop from yesterday. PAST MEDICAL HISTORY: Reviewed. REVIEW OF SYSTEMS: CARDIOVASCULAR SYSTEM: As mentioned earlier. RESPIRATORY: As mentioned earlier. GI no nausea or vomiting. no dysuria. NERVOUS SYSTEM: No numbness or weakness. CURRENT MEDICATIONS: Reviewed and include: 1. [place] 10 mg q.6 p.r.n. 2. Xanax 0.5 t.i.d. 3. Aspirin 81 mg. 4. Coreg 12.5 mg b.i.d. 5. Colace 200 mg p.o. daily. 6. Heparin. 7. Dilaudid. 8. Claritin. 9. Zaroxolyn. 10.Protonix. PHYSICAL EXAM: Patient is alert, oriented x3. Pulse 61. Blood pressure 150/84, respiration 20, temperature 97.9, pulse ox 98% on 2 L. HEENT is conjunctivae normal. NECK: No JVD. CARDIOVASCULAR: S1, S2 muffled. RESPIRATORY: Breath sounds diminished in the bases. A few scattered rhonchi and crackles. ABDOMEN: Soft, obese. Bilateral swelling of the scrotum also present. LEGS: Bilateral leg edema, mass present. Pulses diminished bilaterally. NERVOUS SYSTEM: Higher functions as mentioned. Moves all four limbs. No focal motor or sensory deficits. Lymphatics: No lymph nodes palpable in the neck, axillae or groin. SKIN: No ulcer, no rashes and no bleeding. JOINTS no active deforming arthropathy. LABS: Hemoglobin 12.2, sodium 130, potassium 4.7, Troponin 0.036. ASSESSMENT: 1. Congestive heart failure acute exacerbation with possible ejection fraction unknown. 2. Possible acute cor pulmonale. 3. Acute hypoxic respiratory failure secondary to obesity hypoventilation syndrome. 4. Change in mental status, metabolic encephalopathy secondary to hypercarbia. 5. The patient unable to do BiPAP because of claustrophobia. 6. Acute hypoxic hypercarbic respiratory failure. 7. Bilateral leg edema. 8. Chronic obstructive pulmonary disease. 9. Troponin 0.036 indeterminate. 10.Hyponatremia. 11.Increased CO2. 12.Anemia, normocytic anemia of chronic disease. 13.History of hypertension. 14.History of hyperlipidemia. 15.Sleep apnea. 16.Obesity with body mass index of 59.6. 17.FULL CODE. RECOMMENDATIONS AND DISCUSSION: This 54-year-old gentleman who presented with multiple complex medical issues, we will monitor the patient closely, continue the current management and symptomatic treatment. Continue with Lasix drip. Otherwise, I would recommend to add Zaroxolyn to the current regimen. Otherwise, continue the DVT prophylaxis. Continue the rest of medications. Monitor fluid and electrolytes balance closely. Fluid restriction 1200 mL per 24 hours. Prognosis guarded because of multiple complex medical issues. 2D echo was not really able to determine any conclusive evidence because of the patient's extreme morbid obesity. Further recommendations to follow. We will monitor the patient closely in telemetry. Copy of dictation being forwarded to Dr. Leighann Tejada. MMNELIL / IJN: [id number] /
[2019-08-28] MEDS: HEPARIN SODIUM,PORCINE 5,000 UNIT/ML 1 ML VIAL SQ SCH (19:53)
[2019-08-28] MEDS: MAGNESIUM SULFATE-D5W PMX 1 GM in DEXTROSE/WATER 1 100ML.BAG IVPB SCH ×3 (19:54→22:02)
[2019-08-29] MEDS: CARVEDILOL 12.5 MG TAB PO SCH ×2 (06:36→17:30)
[2019-08-29] MEDS: PANTOPRAZOLE 40 MG TABLET PO SCH (06:36)
[2019-08-29 06:41] LABS: Basophils % (A) 1 %; Eosinophils # (A) 0.2 k/uL (0-0.7); Eosinophils % (A) 3 %; HCT 39.9 % (39.0-53.0); HGB 11.8 gm/dL (13.0-17.5); Hypochromasia Marked; Lymphocytes % (A) 14 %; MCHC 29.5 g/dL (31.0-37.0); MCV 94.9 fL (80.0-100.0); Mean Platelet Volume 8.2; Monocytes # (A) 0.5 k/uL (0-1.0); Monocytes % (A) 8 %; Neutrophils % (A) 73 %; Platelet Count 252 k/uL (150-450); Poikilocytosis Slight; RBC 4.21 m/uL (4.30-5.90); WBC 6.8 k/uL (3.8-10.6)
[2019-08-29 06:48] LABS: African American GFR (CKD) >90 (>60 ml/min/1.73 sqM); Blood Urea Nitrogen 14 mg/dL (9-20); Calcium 8.2 mg/dL (8.4-10.2); Chloride 83 mmol/L (98-107); Glucose 102 mg/dL (74-99); Magnesium 1.7 mg/dL (1.6-2.3); Non-African American GFR(CKD) >90 (>60 ml/min/1.73 sqM); Potassium 4.5 mmol/L (3.5-5.1); Sodium 136 mmol/L (137-145)
[2019-08-29 06:56] LABS: Anion Gap 4 mmol/L
[2019-08-29 07:01] LABS: Carbon Dioxide 49 mmol/L (22-30)
[2019-08-29] MEDS: DOCUSATE 100 MG CAP PO SCH (08:44)
[2019-08-29] MEDS: LORATADINE 10 MG TAB PO SCH (08:44)
[2019-08-29] MEDS: HEPARIN SODIUM,PORCINE 5,000 UNIT/ML 1 ML VIAL SQ SCH ×2 (08:44→20:57)
[2019-08-29] MEDS: ASPIRIN 81 MG PO SCH (08:44)
[2019-08-29] MEDS: METOLAZONE 5 MG TAB PO SCH (08:45)
--- NOTE | 2019-08-29 13:19 | P.PN ---
Subjective This is Claudette Gaona PA-C dictating a progress note on this patient The patient was interviewed and examined by me as well as by Dr. Byrne Case discussed with Dr. Byrne and he agrees with the plan of care HPI/interval history Patient is a 54-year-old male with a history of chronic bilateral peripheral edema, obesity, hypertension, dyslipidemia, sleep apnea who presented with complaints of worsening shortness of breath and lower extremity edema. His been admitted for treatment of CHF exacerbation. He has been on IV Lasix drip. He has lost about 2 kg since yesterday. He continues to complain of abdominal bloating and fluid retention. Feels that the Lasix drip is not helping. EXAMINATION Patient is afebrile, pulse in the 50s, respirations 20, blood pressure 151/76, oxygen saturation 94% on 2 L nasal cannula Patient seen and examined sitting up in the chair, in no acute distress Lungs are diminished bilaterally Heart is regular, no audible murmurs 1-2+ lower extremity edema bilaterally Unable to assess JVD due to body habitus REVIEW OF LABS, ECG WBC 6.8, hemoglobin 11.8, platelets 252, potassium 4.5, chloride 83, carbon dioxide [address] did not show any central pulmonary embolism but was limited by motion artifact Recent echocardiogram was suboptimal due to morbid obesity an EF cannot be assessed Recent lower extremity Dopplers were also suboptimal due to the patient's body habitus but did not show any acute DVT , showed Maradiaga cyst IMPRESSION / ASSESSMENT: #1 shortness of breath, abdominal bloating, fluid retention, and lower extremity edema, possibly secondary to right sided heart failure, EF not be assessed on echocardiogram due to morbid obesity and suboptimal views #2 abnormal troponin no significant rise and fall pattern, likely due to hypoxia #3 morbid obesity #4 hypertension #5 dyslipidemia #6 obstructive sleep apnea, unable to use CPAP due to claustrophobia #7 chronic lower extremity edema #8 COPD PLAN: consider RHC to assess pressures due to very suboptimal views secondary to body habitis, Dr. Byrne will speak with Dr. Ayon Stop Lasix drip and switch to IV lasix tomorrow add spironolactone monitor BMP Accurate daily weights I's and O's Objective - Vital Signs Vital signs: Vital Signs Temp 97.1 F L 08/29/19 12:00 Pulse 53 L 08/29/19 12:00 Resp 20 08/29/19 12:00 BP 151/76 08/29/19 12:00 Pulse Ox 94 L 08/29/19 12:00 Intake & Output 08/28/19 08/29/19 08/29/19 18:59 06:59 18:59 Intake Total 997 74.833 Output Total 1550 2175 1850 Balance -553 -2100.167 -1850 Weight 193.7 kg 191.6 kg Intake: Intake, IV Titration 100 74.833 Amount Furosemide 100 mg In 100 74.833 Sodium Chloride 0.9% 90 ml @ 10 MG/HR 10 mls/hr IV .Q10H [facility] Rx#: [id number] Oral 897 Output: Urine 1550 2175 1850 Uretheral (Rosa) 375 1100 Other: Voiding Method Indwelling Catheter Indwelling Catheter Indwelling Catheter - Labs CBC & Chem 7: 08/29/19 05:34 08/29/19 05:34 Labs: Abnormal Lab Results - Last 24 Hours (Table) 08/28/19 08/29/19 08/29/19 Range/Units 18:00 05:34 05:34 RBC 4.21 L (4.30-5.90) m/uL Hgb 11.8 L (13.0-17.5) gm/dL MCHC 29.5 L (31.0-37.0) g/dL RDW 16.0 H (11.5-15.5) % Sodium 136 L (137-145) mmol/L Chloride 83 L (98-107) mmol/L Carbon Dioxide 49 H* (22-30) mmol/L Glucose 102 H (74-99) mg/dL Calcium 8.2 L (8.4-10.2) mg/dL Urine Blood Moderate H (Negative) Ur Leukocyte Esterase Large H (Negative) Urine RBC 164 H (0-5) /hpf Urine WBC 9 H (0-5) /hpf Urine Bacteria Rare H (None) /hpf Urine Mucus Rare H (None) /hpf
[2019-08-29] MEDS: FUROSEMIDE 100 MG in SODIUM CHLORIDE 0.9% 90 ML IV SCH (16:46)
[2019-08-29] MEDS: FUROSEMIDE 10 MG/ML 4 ML VIAL IV SCH (20:58)
--- NOTE | 2019-08-30 00:38 | PN ---
PROGRESS NOTE DATE OF SERVICE: 08/29/2019 This 54-year-old gentleman who was admitted with CHF acute exacerbation also had possible acute cor pulmonale. Patient is receiving IV Lasix drip. The patient also started on Zaroxolyn also. The patient appears to be negative fluid balance at this time. No chest pain or palpitations. PAST MEDICAL HISTORY: Reviewed. REVIEW OF SYSTEMS: CARDIOVASCULAR SYSTEM: No angina. RESPIRATORY SYSTEM: As mentioned earlier. GI: As mentioned earlier. : No dysuria. NERVOUS SYSTEM: No numbness or weakness. CURRENT MEDICATIONS: Current medications are reviewed and include: 1. [place] 5 mg q.6 p.r.n. 2. Xanax 0.25 t.i.d. 3. Aspirin 81 mg. 4. Coreg 12.5 mg b.i.d. 5. Colace 200 mg p.o. daily. 6. Lasix 40 mg IV b.i.d. 7. Heparin 5000 subcu b.i.d. 8. Dilaudid p.r.n. 9. Claritin. 10.Zaroxolyn 5 mg p.o. daily. 11.Narcan. 12.Nitrostat. 13.Protonix. 14.Aldactone. 15.Restoril. PHYSICAL EXAMINATION: Patient is alert and oriented x3. Pulse 67, blood pressure is 149/78, respirations 16, temperature 97.4, pulse ox 95% on 2 L. HEENT: Conjunctivae normal. Oral mucosa moist. NECK: Obese. CARDIOVASCULAR: S1, S2, muffled. No S3, no S4. RESPIRATORY: Breath sounds diminished at the bases. A few scattered rhonchi. ABDOMEN: Soft, obese, nontender. LEGS: Bilateral leg edema. Scrotal edema also present. NERVOUS SYSTEM: No focal deficits. LABS: WBC 6.8, hemoglobin 11.8, sodium 136, potassium 4.5. UA noted mostly hematuria. ASSESSMENT: 1. Congestive heart failure acute exacerbation with ejection fraction unknown. 2. Possible acute cor pulmonale. 3. Acute hypoxic respiratory failure secondary to obesity hypoventilation syndrome. 4. Change in mental status, metabolic encephalopathy secondary to hypercarbia. 5. Patient unable to do BiPAP because of claustrophobia. 6. Acute hypoxic hypercarbic respiratory failure secondary to #1. 7. Bilateral leg edema. 8. Chronic obstructive pulmonary disease. 9. Troponin 0.036 indeterminate. 10.Hyponatremia. 11.Increased CO2. 12.Anemia, normocytic anemia of chronic disease. 13.History of hypertension. 14.History of hyperlipidemia. 15.History of sleep apnea. 16.Obesity with body mass index of 59.6. 17.FULL CODE. RECOMMENDATIONS AND DISCUSSION: Recommend to continue current medications, continue symptomatic treatment. Continue with IV Lasix drip with Zaroxolyn. Monitor fluid electrolytes closely. Local bandages. Otherwise, limited fluid intake to 1200 mL per 24 hours. I would also recommend to follow closely with Cardiology. Otherwise, fluid electrolyte balance will be monitored. Overall prognosis extremely guarded because of multiple complex medical issues. Further recommendations to follow. Apparently the patient was not able to take medication because of the COVID crisis. Recommend close followup with primary care physician in the outpatient setting. Discussed with the patient, understands and agrees. LOUIS / THIAGO: [id number] /
[2019-08-30 06:23] LABS: Anisocytosis Slight; HCT 41.8 % (39.0-53.0); HGB 12.5 gm/dL (13.0-17.5); Hypochromasia Marked; MCH 27.8 pg (25.0-35.0); MCHC 29.8 g/dL (31.0-37.0); MCV 93.3 fL (80.0-100.0); Platelet Count 293 k/uL (150-450); RBC 4.48 m/uL (4.30-5.90); RDW 16.1 % (11.5-15.5); WBC 8.4 k/uL (3.8-10.6)
[2019-08-30 06:36] LABS: African American GFR (CKD) >90 (>60 ml/min/1.73 sqM); Blood Urea Nitrogen 18 mg/dL (9-20); Calcium 9.3 mg/dL (8.4-10.2); Chloride 80 mmol/L (98-107); Glucose 104 mg/dL (74-99); Magnesium 1.7 mg/dL (1.6-2.3); Non-African American GFR(CKD) >90 (>60 ml/min/1.73 sqM); Potassium 4.2 mmol/L (3.5-5.1); Sodium 135 mmol/L (137-145)
[2019-08-30] MEDS: PANTOPRAZOLE 40 MG TABLET PO SCH (06:42)
[2019-08-30] MEDS: CARVEDILOL 12.5 MG TAB PO SCH ×2 (06:42→18:09)
[2019-08-30 06:44] LABS: Anion Gap 4 mmol/L
[2019-08-30 06:49] LABS: Carbon Dioxide 51 mmol/L (22-30)
[2019-08-30 07:09] LABS: Eosinophils # (M) 0.17 k/uL (0-0.7); Lymphocytes # (M) 1.26 k/uL (1.0-4.8); Monocytes # (M) 1.43 k/uL (0-1.0); Neutrophils # (M) 5.54 k/uL (1.3-7.7); Neutrophils % (M) 66 %; Nucleated Red Blood Cells 0 /100 WBC (0-0); Total Cells Counted 100
[2019-08-30] MEDS: LORATADINE 10 MG TAB PO SCH (08:01)
[2019-08-30] MEDS: DOCUSATE 100 MG CAP PO SCH (08:01)
[2019-08-30] MEDS: SPIRONOLACTONE 25 MG TAB PO SCH (08:01)
[2019-08-30] MEDS: ASPIRIN 81 MG PO SCH (08:01)
[2019-08-30] MEDS: FUROSEMIDE 10 MG/ML 4 ML VIAL IV SCH ×2 (08:01→20:24)
[2019-08-30] MEDS: METOLAZONE 5 MG TAB PO SCH (08:02)
[2019-08-30] MEDS: HEPARIN SODIUM,PORCINE 5,000 UNIT/ML 1 ML VIAL SQ SCH ×2 (08:02→20:24)
--- NOTE | 2019-08-30 11:10 | PN ---
PROGRESS NOTE Mr. Dubois is a 54-year-old male who presented with worsening peripheral edema and worsening dyspnea. He has a history of obstructive sleep apnea, but unable to tolerate the CPAP. He has a history of obesity, hypertension, hyperlipidemia. He ran out of his medication recently and he has the progressive symptoms. He is feeling slightly better today. His breathing is slightly better. His peripheral edema is improving. He still has abdominal distention. He denies any dizziness or palpitation. He has chronic significant peripheral edema and dyspnea on exertion. MEDICATION: At this time include carvedilol 12.5 mg twice a day, aspirin once a day, furosemide 40 mg IV q.12 hours, metolazone 5 mg daily and spironolactone 25 mg daily. PHYSICAL EXAMINATION: Blood pressure 143/60 with a heart rate in 60. LUNGS: With decreased air exchange, no wheezes. HEART: Regular rate and rhythm, S1, S2. No S3. No rub. ABDOMEN: Soft, obese, nontender, firm. EXTREMITIES: +2 to 3 edema with chronic skin changes. LAB DATA: Revealed a BUN and creatinine of 18 and 0.8. His bicarb is 51, potassium 4.2, sodium 135, hemoglobin of 12.5. He has lost according to the data about 5 kg. He was -7 L. IMPRESSION: 1. Symptoms of congestive heart failure with fluid overload. The evaluation of his systolic function was not done because of very poor quality echocardiogram because of his size. 2. Elevation of his bicarb, probably with contraction alkalosis. 3. Chronic obtuse obstructive sleep apnea, intolerant to the CPAP. 4. Obesity. RECOMMENDATION: I will add Diamox to his regimen. Will see if an echocardiogram can be done with contrast to improve the images, and depending on his progress, further recommendation will be made. MMODL / IJN: [id number] /
[2019-08-30] MEDS: acetaZOLAMIDE 250 MG TAB PO SCH ×2 (12:55→20:24)
--- NOTE | 2019-08-30 16:26 | P.PN ---
Subjective Progress Note Date: 08/30/19 Principal diagnosis: Acute exacerbation of heart failure likely as the failure Acute hypoxic and hypercapnic respiratory failure Obesity hypoventilation syndrome Severe degree of obstructive sleep apnea Hypertension hypertensive cardiovascular disease Dyslipidemia Elevated troponin likely demand ischemia versus non-ST segment elevated MN Likely pulmonary hypertension group 3 versus group 5 08/30/2019, patient seen eval examined during the round still have ongoing shor tness of breath, any cough or congestion, third spacing and lower extremity edema remains present, he shouldn't has been considered for right heart cath likely patient has secondary pulmonary hypertension either group 3 hour group 5 or maybe combination, and Lasix strip have been changed to oral overall lower extremity swelling has not much changed, computed tomography scan of the chest is nondiagnostic for pulmonary embolism, lobular structures seen on chest x-ray appeared to be left main PA and secondary loss of volume on the left hemithorax This is a morbidly obese 54-year-old male well-known to me patient has a hypercapnic hypoxic chronic respiratory failure due to obesity hypoventilation as well as severe sleep apnea she has been prescribed CPAP machine the past but couldn't use it due to claustrophobia, he came into the hospital with the somnolence altered mental status, increased lower extremity, she had he appears to have a component of congestive heart failure with chronic lower extremity edema with acute worsening also his bicarb is chronically elevated suggestive of chronic hypercapnia related responded to Lasix Mohs awake and arousable denies any cough or sputum production denies any chest pain, status post echocardiogram unable to comment on ejection fraction due to the size as well as suboptimal study patient has a chest x-ray suggestive of CHF along with of cardiomegaly mediastinal/pericardial effusion, rounded density left hilum likely pulmonary artery and pulmonary hypertension, will get a computed tomography scan of the chest as well as renal functions are normal, his troponin high likely suggestive of the demand ischemia versus non-Q-wave MN, BNP is elevated for thousand Objective - Vital Signs Vital signs: Vital Signs Temp 97.2 F L 08/30/19 11:38 Pulse 52 L 08/30/19 11:38 Resp 16 08/30/19 11:38 BP 143/58 08/30/19 11:38 Pulse Ox 96 08/30/19 11:38 Intake & Output 06/07/20 06/08/20 06/08/20 18:59 06:59 18:59 Intake Total 780 600 Output Total 4650 3500 5100 Balance -3870 -3500 -4500 Weight 186.6 kg Intake: Intake, IV Titration 100 Amount Furosemide 100 mg In 100 Sodium Chloride 0.9% 90 ml @ 10 MG/HR 10 mls/hr IV .Q10H [facility] Rx#: [id number] Oral 680 600 Output: Urine 4650 3500 5100 Uretheral (Rosa) 2000 700 1900 Other: Voiding Method Indwelling Catheter Indwelling Catheter Indwelling Catheter - Exam - Constitutional General appearance: disheveled, mild distress, morbidly obese - EENT Eyes: PERRLA Ears: bilateral: normal - Neck Neck: normal ROM Carotids: bilateral: bruit absent - Respiratory Respiratory: bilateral: diminished - Cardiovascular Rhythm: regular Heart sounds: normal: S1, S2 - Gastrointestinal General gastrointestinal: hyperactive bowel sounds - Integumentary Lower extremity +3 edema with chronic swelling and chronic skin changes - Neurologic Neurologic: CNII-XII intact - Musculoskeletal Musculoskeletal: gait normal, generalized weakness, strength equal bilaterally - Psychiatric Psychiatric: A&O x's 3, appropriate affect, intact judgment & insight - Labs CBC & Chem 7: 08/30/19 05:58 08/30/19 05:58 Labs: Abnormal Lab Results - Last 24 Hours (Table) 08/30/19 08/30/19 Range/Units 05:58 05:58 Hgb 12.5 L (13.0-17.5) gm/dL MCHC 29.8 L (31.0-37.0) g/dL RDW 16.1 H (11.5-15.5) % Monocytes # (Manual) 1.43 H (0-1.0) k/uL Sodium 135 L (137-145) mmol/L Chloride 80 L (98-107) mmol/L Carbon Dioxide 51 H* (22-30) mmol/L Glucose 104 H (74-99) mg/dL Assessment and Plan Assessment: Severe pulmonary hypertension likely group 3 or 5 or combination Enlarged left PA 5.3 cm diameter Acute exacerbation of heart failure likely as the failure Acute hypoxic and hypercapnic respiratory failure Obesity hypoventilation syndrome Severe degree of obstructive sleep apnea Hypertension hypertensive cardiovascular disease Dyslipidemia Elevated troponin likely demand ischemia versus non-ST segment elevated MN Plan: Agree with cardiac cath and angiogram but however would recommend transfer to tertiary care center for more definitive evaluation of pulmonary circulation and aneurysm Agree with plans with diuresis Continue supplemental oxygen Continue home medications Have a detailed discussion with the patient about sleep study, BiPAP or CPAP machine, patient continued to refuse CPAP or BiPAP machine Reviewed computed tomography scan finding as noted above Time with Patient: Greater than 30
--- NOTE | 2019-08-30 16:58 | PN ---
PROGRESS NOTE DATE OF SERVICE: 08/30/2019 This is a 54-year-old gentleman who was admitted with CHF acute exacerbation, is on Lasix drip at this time. Patient also using a Zaroxolyn. Patient is apparently using more than [address] chest was done the day before yesterday which showed no evidence of any pulmonary embolism, but the study was limited. Left basilar airspace disease was suspected. PAST MEDICAL HISTORY: Reviewed. REVIEW OF SYSTEMS: CARDIOVASCULAR SYSTEM: As mentioned earlier. GI: As mentioned earlier. : As mentioned earlier. NERVOUS SYSTEM: As mentioned earlier. CURRENT MEDICATIONS: Reviewed and include: 1. [place] 5 mg. 2. Diamox 250 mg p.o. b.i.d. 3. Xanax 0.5 t.i.d. 4. Aspirin. 5. Coreg 12.5 mg b.i.d. 6. Colace. 7. Lasix drip. 8. Heparin. 9. Dilaudid. 10.Claritin. 11.Zaroxolyn. 12.Narcan. 13.Nitrostat. 14.Protonix. 15.Aldactone. 16.Restoril. PHYSICAL EXAM: Patient is alert, oriented x2. Pulse 52, blood pressure 143/58, respirations 16, temperature is 97.2, pulse ox 98% on 2 L. HEENT: Conjunctivae normal, oral mucosa moist. NECK: Obese. CARDIOVASCULAR: S1, S2, muffled. RESPIRATIONS: Breath sounds reduced at the bases, a few scattered rhonchi. No crackles. ABDOMEN: Soft, obese. LEGS: Bilateral leg edema. NERVOUS SYSTEM: No focal deficits. LABS: WBC is 8.1, hemoglobin is 12.5, sodium 135, CO2 is 51. UA noted. ASSESSMENT: 1. Congestive heart failure acute exacerbation, with ejection fraction unknown, possibly acute diastolic dysfunction. 2. Possible acute on chronic cor pulmonale. 3. Acute hypoxic respiratory failure secondary to obesity hypoventilation syndrome. 4. Change in mental status, metabolic encephalopathy, scant hypercarbia. 5. The patient unable to do a BiPAP because of claustrophobia. 6. Acute hypoxic hypercarbia. respiratory failure, on 2nd #1. 7. Leg edema. 8. Chronic obstructive pulmonary disease. 9. Troponin 0.036 indeterminate. 10.Hyponatremia. 11.Increased CO2. 12.Anemia, normocytic anemia of chronic disease. 13.Hypertension. 14.Hyperlipidemia. 15.History of sleep apnea. 16.Obesity with body mass index of 15.6. 17.FULL CODE. COMMENTS: Continue current management and diuretics. Monitor closely. Monitor CO2 closely. Otherwise, monitor balance and daily weights. Fluid restriction. Closely follow with Cardiology guarded. The BUN, creatinine normal. Guarded prognosis because of multiple complex medical. Further recommendation to follow. MMODL / IJN: [id number] /
[2019-08-31] MEDS: CARVEDILOL 12.5 MG TAB PO SCH ×2 (05:59→18:37)
[2019-08-31] MEDS: PANTOPRAZOLE 40 MG TABLET PO SCH (06:00)
[2019-08-31 07:22] LABS: Anisocytosis Slight; Basophils # (A) 0.1 k/uL (0-0.2); Basophils % (A) 1 %; Eosinophils # (A) 0.3 k/uL (0-0.7); Eosinophils % (A) 4 %; HCT 43.9 % (39.0-53.0); Hypochromasia Marked; Lymphocytes # (A) 1.1 k/uL (1.0-4.8); Lymphocytes % (A) 14 %; MCH 27.2 pg (25.0-35.0); MCHC 29.5 g/dL (31.0-37.0); MCV 92.3 fL (80.0-100.0); Mean Platelet Volume 7.5; Monocytes # (A) 0.6 k/uL (0-1.0); Monocytes % (A) 7 %; Neutrophils # (A) 5.7 k/uL (1.3-7.7); Neutrophils % (A) 73 %; Platelet Count 304 k/uL (150-450); RBC 4.76 m/uL (4.30-5.90); RDW 16.7 % (11.5-15.5); WBC 7.8 k/uL (3.8-10.6)
[2019-08-31 07:34] LABS: African American GFR (CKD) >90 (>60 ml/min/1.73 sqM); Blood Urea Nitrogen 17 mg/dL (9-20); Calcium 10.3 mg/dL (8.4-10.2); Chloride 86 mmol/L (98-107); Glucose 112 mg/dL (74-99); Magnesium 1.8 mg/dL (1.6-2.3); Non-African American GFR(CKD) 89 (>60 ml/min/1.73 sqM); Potassium 4.4 mmol/L (3.5-5.1); Sodium 134 mmol/L (137-145)
[2019-08-31 07:42] LABS: Anion Gap 5 mmol/L
[2019-08-31 08:03] LABS: Carbon Dioxide 43 mmol/L (22-30)
[2019-08-31] MEDS: DOCUSATE 100 MG CAP PO SCH (09:43)
[2019-08-31] MEDS: METOLAZONE 5 MG TAB PO SCH (09:43)
[2019-08-31] MEDS: ASPIRIN 81 MG PO SCH (09:44)
[2019-08-31] MEDS: LORATADINE 10 MG TAB PO SCH (09:44)
[2019-08-31] MEDS: FUROSEMIDE 10 MG/ML 4 ML VIAL IV SCH ×2 (09:44→19:30)
[2019-08-31] MEDS: HEPARIN SODIUM,PORCINE 5,000 UNIT/ML 1 ML VIAL SQ SCH ×2 (09:44→19:30)
[2019-08-31] MEDS: SPIRONOLACTONE 25 MG TAB PO SCH (09:44)
[2019-08-31] MEDS: acetaZOLAMIDE 250 MG TAB PO SCH (09:44)
[2019-08-31 11:47] LABS: ABG Base Excess 22.3 mmol/L; ABG Oxygen Saturation 90.9 % (94-97); ABG PH 7.42 (7.35-7.45); ABG PO2 63 mmHg (83-108); ABG TCO2 49 mmol/L (19-24); Allen Test Performed? Yes
[2019-08-31 11:50] LABS: ABG PCO2 73 mmHg (35-45)
[2019-08-31 11:51] LABS: ABG HCO3 47 mmol/L (21-25)
--- NOTE | 2019-08-31 12:29 | PN ---
PROGRESS NOTE Mr. Dubois is a 54-year-old male with history of morbid obesity, history of chronic obstructive lung disease, who presented with worsening dyspnea and peripheral edema. He has not been using his CPAP. He is feeling better overall. His breathing is improved. His abdominal distention improved. He declined ABGs yesterday. [place] [facility] [place] reported an ejection fraction of 40%. He continues to be at this time on aspirin, Coreg 12.5 mg twice a day, Lasix 40 mg IV q.12 hours, metolazone 5 mg daily, spironolactone 25 mg daily. PHYSICAL EXAMINATION: Blood pressure running in the 120s to 140s with a heart rate in the 60s. LUNGS: No wheezes. HEART: Irregular, regular rate and rhythm. S1, S2. No S3. No rub. ABDOMEN: Soft, nontender, obese, less distended. EXTREMITIES: +2 to 3 edema with chronic skin changes. LAB DATA: Revealed a carbon dioxide down to 43, potassium 4.4, BUN and creatinine of 17 and 0.98. Hemoglobin of 13. IMPRESSION: 1. Evidence of congestive heart failure with probably cor pulmonale related to obstructive sleep apnea. 2. History of cardiomyopathy by echocardiography, although suboptimal echo. 3. Chronic obstructive sleep apnea. 4. Obesity. RECOMMENDATION: I will stop the Diamox at this point. Continue rest of his medical regimen. Follow his renal function. Continue IV diuretic for another 24 hours. Unfortunately, without treating his sleep apnea, the recurrence of his symptoms is quite high with acute hypoxic and hypercapnic respiratory failure. MMODL / IJN: [id number] /
--- NOTE | 2019-08-31 15:34 | CDI ---
Documentation Clarification Form Date: 08/31/2019 CDS: Amina BangCarrera, CCS, CCDS Admit Date: 08/26/2019 Patient Name: Teddy Dubois Discharge Date: ATTENTION: The Clinical Documentation Specialists (CDI) and [facility] Coding Staff appreciate your assistance in clarifying documentation. Please respond to the clarification below the line at the bottom and electronically sign. The CDI & [facility] Coding staff will review the response and follow-up if needed. Please note: Queries are made part of the Legal Health Record. If you have any questions, please contact the author of this message via ITS. Dear Dr. Alvarado Shirley: Per the Pulmonary Consult on 08/26 and the Progress Note on 08/29 the following is documented: " Elevated troponin likely demand ischemia versus non-ST segment elevated." Per the Cardiology Consult on 08/26: "Abnormality in troponin, not consistent with acute coronary syndrome, likely secondary to hypoxia." Patient History/Risk Factors: Heart Failure, EF unknown; COPD, Hyperlipidemia, Hypertension, Obstructive sleep apnea, CO2 retention, Chronic Hypoxic & Hypercapnic Respiratory Failure, Noncompliant with CPAP due to Claustrophobia. Clinical Indicators: Presented to the ED on 08/25 with SOB, bilateral lower extremity edema & not taking prescribed Lasix for at least a week. Troponin 08/25: 0.037^^, 08/26: 0.035^^ & 0.036^^ EKG Results: R 80 Sinus rhythm w/1st degree AV block, Possible left atrial enlargement, Left axis deviation, Incomplete RBBB, Cannot r/o Anterior infarct, age undetermined, Abnormal EKG. Treatment since admit date: IV Lasix push, IV Lasix drip, po ASA, IV MagSulfate, Heparin sq, For accurate documentation please clarify the diagnosis of Demand Ischemia vs NSTEMI: NSTEMI ruled out NSTEMI Demand Ischemia ruled out Demand ischemia, please specify cause as: o Type II PR o Other, please specify: o Unable to determine Other, please specify: Unable to determine (Last Revision: March 2019) Query response answered by attending in discharge summary: Troponin 0.036, indeterminate. Also per Cardiology consult: abnormality in troponin, not consistent with ACS likely secondary to hypoxia. MA/CDI MTDD
--- NOTE | 2019-08-31 19:04 | P.PN ---
Subjective Progress Note Date: 08/31/19 Principal diagnosis: This is a 54 year old male who was recently admitted with congestive heart failure acute exacerbation and is being closely monitored. Patient being seen and evaluated by pulmonary and cardiology. Patient remains on IV lasix twice daily and is diuresing well. Patient states his shortness of breath has improved. Patient continues to refuse CPAP and BIPAP and diamox has been discontinued. Patient had an ABG today which shows bicarb of 47 and PC02 of 73. Patient continues to have extensive bilateral lower extremity edema with 2-3 + pitting and instructed to elevate while at rest. PT/OT to evaluate the patient and he continues to require assistance with gait. Case management following for possible placement if needed. Patient is a high risk for readmission given his current medical conditions. Objective - Vital Signs Vital signs: Vital Signs Temp 98.2 F 08/31/19 08:00 Pulse 50 L 08/31/19 12:00 Resp 18 08/31/19 12:00 BP 144/62 08/31/19 12:00 Pulse Ox 92 L 08/31/19 12:00 Intake & Output 08/30/19 08/31/19 08/31/19 18:59 06:59 18:59 Intake Total 1200 240 Output Total 5800 4700 3000 Balance -4600 -4700 -2760 Weight 178.1 kg Intake: Oral 1200 240 Output: Urine 5800 4700 3000 Uretheral (Rosa) 1900 Other: Voiding Method Indwelling Catheter Indwelling Catheter Indwelling Catheter - Exam Gen: This is a 54-year-old male up in the chair, awake, alert and oriented 3, well-developed, well-nourished. Obese HEENT: Head is atraumatic, normocephalic. Pupils equal, round. Sclerae is anicteric. NECK: Supple. No JVD. No lymphadenopathy. No thyromegaly. LUNGS: Breath sounds diminished at the bases with a few scattered rhonchi noted. No intercostal retractions. HEART: S1, S2 are muffled ABDOMEN: Soft. obese. Bowel sounds are present. No masses. No tenderness. EXTREMITIES: No calf tenderness. bilateral lower extremity edema 2-3+ pitting edema noted. NEUROLOGICAL: Patient is awake, alert and oriented x3. No focal deficits noted - Labs CBC & Chem 7: 08/31/19 07:04 08/31/19 07:04 Labs: Abnormal Lab Results - Last 24 Hours (Table) 08/31/19 08/31/19 08/31/19 Range/Units 07:04 07:04 11:44 MCHC 29.5 L (31.0-37.0) g/dL RDW 16.7 H (11.5-15.5) % ABG pCO2 73 H* (35-45) mmHg ABG pO2 63 L (83-108) mmHg ABG HCO3 47 H* (21-25) mmol/L ABG Total CO2 49 H (19-24) mmol/L ABG O2 Saturation 90.9 L (94-97) % Sodium 134 L (137-145) mmol/L Chloride 86 L (98-107) mmol/L Carbon Dioxide 43 H* (22-30) mmol/L Glucose 112 H (74-99) mg/dL Calcium 10.3 H (8.4-10.2) mg/dL Assessment and Plan Assessment: Congestive heart failure, acute exacerbation, with ejection fraction unknown, possibly acute diastolic dysfunction Possible acute on chronic cor pulmonale Acute hypoxic respiratory failure secondary obesity hypoventilation syndrome Change in mental status, metabolic encephalopathy, scant hypercarbia Inability to use BiPAP as patient is severely claustrophobic Acute hypoxic hypercarbia, respiratory failure, on 2 L O2 Leg edema COPD Obesity with a BMI of 54.8 Sleep Apnea Troponin 0.036, indeterminate Hyponatremia Increased CO2 Anemia, normocytic anemia of chronic disease Hypertension Plan: Continue IV lasix for another 24 hours. PT/OT to evaluate the patient as he cont inues to require assistance getting up. Patient continues to refuse cpap or bipap and has high readmission rate due to noncompliance with treatment plan. Case management following and assisting with possible discharge planning needs. Will repeat BMP in am. Diamox being discontinued. Will continue to monitor. Further recommendations to follow.
[2019-09-01] MEDS: CARVEDILOL 12.5 MG TAB PO SCH (06:20)
[2019-09-01] MEDS: PANTOPRAZOLE 40 MG TABLET PO SCH (06:21)
[2019-09-01 07:35] LABS: African American GFR (CKD) >90 (>60 ml/min/1.73 sqM); Anion Gap 8 mmol/L; Blood Urea Nitrogen 20 mg/dL (9-20); Calcium 10.3 mg/dL (8.4-10.2); Carbon Dioxide 40 mmol/L (22-30); Chloride 86 mmol/L (98-107); Glucose 99 mg/dL (74-99); Non-African American GFR(CKD) 86 (>60 ml/min/1.73 sqM); Potassium 4.7 mmol/L (3.5-5.1); Sodium 134 mmol/L (137-145)
[2019-09-01 09:10] VITALS: TEMP 98.1
--- NOTE | 2019-09-01 09:10 | P.PN ---
Subjective Progress Note Date: 09/01/19 Principal diagnosis: Acute exacerbation of heart failure likely as the failure Acute hypoxic and hypercapnic respiratory failure Obesity hypoventilation syndrome Severe degree of obstructive sleep apnea Hypertension hypertensive cardiovascular disease Dyslipidemia Elevated troponin likely demand ischemia versus non-ST segment elevated NJ Likely pulmonary hypertension group 3 versus group 5 08/31/2019, patient seen and evaluated examined during the rounds he remains on supplemental oxygen, denies any chest pain, ongoing shortness of breath is present does have cough, swelling in the lower extremity have improved significantly patient remains on diuretic, refused the CPAP or BiPAP machine, patient also refused further evaluation at a tertiary care center, he expresses wishes to go home, 08/30/2019, patient seen eval examined during the round still have ongoing shortness of breath, any cough or congestion, third spacing and lower extremity edema remains present, he shouldn't has been considered for right heart cath likely patient has secondary pulmonary hypertension either group 3 hour group 5 or maybe combination, and Lasix strip have been changed to oral overall lower extremity swelling has not much changed, computed tomography scan of the chest is nondiagnostic for pulmonary embolism, lobular structures seen on chest x-ray appeared to be left main PA and secondary loss of volume on the left hemithorax This is a morbidly obese 54-year-old male well-known to me patient has a hypercapnic hypoxic chronic respiratory failure due to obesity hypoventilation as well as severe sleep apnea she has been prescribed CPAP machine the past but couldn't use it due to claustrophobia, he came into the hospital with the somnolence altered mental status, increased lower extremity, she had he appears to have a component of congestive heart failure with chronic lower extremity edema with acute worsening also his bicarb is chronically elevated suggestive of chronic hypercapnia related responded to Lasix Mohs awake and arousable denies any cough or sputum production denies any chest pain, status post echocardiogram unable to comment on ejection fraction due to the size as well as suboptimal study patient has a chest x-ray suggestive of CHF along with of cardiomegaly mediastinal/pericardial effusion, rounded density left hilum likely pulmonary artery and pulmonary hypertension, will get a computed tomography scan of the chest as well as renal functions are normal, his troponin high likely suggestive of the demand ischemia versus non-Q-wave NJ, BNP is elevated for thousand Objective - Vital Signs Vital signs: Vital Signs Temp 98.2 F 09/01/19 04:00 Pulse 75 09/01/19 04:00 Resp 18 09/01/19 04:00 BP 128/62 09/01/19 04:00 Pulse Ox 93 L 09/01/19 04:00 Intake & Output 08/31/19 09/01/19 09/01/19 18:59 06:59 18:59 Intake Total 477 20 240 Output Total 3400 3451 Balance -2923 -3431 240 Weight 174.4 kg Intake: IV 20 Invasive Line 3 20 Oral 477 240 Output: Urine 3400 3450 Urine/Stool Mix 1 Other: Voiding Method Indwelling Catheter Indwelling Catheter - Exam - Constitutional General appearance: disheveled, mild distress, morbidly obese - EENT Eyes: PERRLA Ears: bilateral: normal - Neck Neck: normal ROM Carotids: bilateral: bruit absent - Respiratory Respiratory: bilateral: diminished, few crackles at bilateral bases - Cardiovascular Rhythm: regular Heart sounds: normal: S1, S2 - Gastrointestinal General gastrointestinal: hyperactive bowel sounds - Integumentary Lower extremity +3 edema with chronic swelling and chronic skin changes slightly improved compared to prior exam - Neurologic Neurologic: CNII-XII intact - Musculoskeletal Musculoskeletal: gait normal, generalized weakness, strength equal bilaterally - Psychiatric Psychiatric: A&O x's 3, appropriate affect, intact judgment & insight - Labs CBC & Chem 7: 08/31/19 07:04 09/01/19 06:27 Labs: Abnormal Lab Results - Last 24 Hours (Table) 08/31/19 09/01/19 Range/Units 11:44 06:27 ABG pCO2 73 H* (35-45) mmHg ABG pO2 63 L (83-108) mmHg ABG HCO3 47 H* (21-25) mmol/L ABG Total CO2 49 H (19-24) mmol/L ABG O2 Saturation 90.9 L (94-97) % Sodium 134 L (137-145) mmol/L Chloride 86 L (98-107) mmol/L Carbon Dioxide 40 H (22-30) mmol/L Calcium 10.3 H (8.4-10.2) mg/dL Assessment and Plan Assessment: Severe pulmonary hypertension likely group 3 or 5 or combination Enlarged left PA 5.3 cm diameter Acute exacerbation of heart failure likely acute diastolic heart failure however due to size undetermined echocardiogram Acute hypoxic and hypercapnic respiratory failure Obesity hypoventilation syndrome Severe degree of obstructive sleep apnea, morbid obesity Hypertension hypertensive cardiovascular disease Dyslipidemia Elevated troponin likely demand ischemia versus non-ST segment elevated NJ Noncompliance Plan: Patient has refused further evaluation at a tertiary care center, will continue current plan of care with gentle diuresis and supportive care, patient also continued to refuse positive pressure ventilation Agree with plans with diuresis Continue supplemental oxygen Continue home medications Have a detailed discussion with the patient about sleep study, BiPAP or CPAP machine, patient continued to refuse CPAP or BiPAP machine Reviewed computed tomography scan finding as noted above Time with Patient: Greater than 30
[2019-09-01] MEDS: ASPIRIN 81 MG PO SCH (09:40)
[2019-09-01] MEDS: DOCUSATE 100 MG CAP PO SCH (09:40)
[2019-09-01] MEDS: LORATADINE 10 MG TAB PO SCH (09:40)
[2019-09-01] MEDS: METOLAZONE 5 MG TAB PO SCH (09:41)
[2019-09-01] MEDS: HEPARIN SODIUM,PORCINE 5,000 UNIT/ML 1 ML VIAL SQ SCH (09:41)
[2019-09-01] MEDS: SPIRONOLACTONE 25 MG TAB PO SCH (09:41)
[2019-09-01] MEDS: FUROSEMIDE 10 MG/ML 4 ML VIAL IV SCH (09:41)
[2019-09-01 12:11] VITALS: BP 132/78; RESP 18
[2019-09-01 12:25] VITALS: PULSE 68
--- NOTE | 2019-09-01 14:10 | P.PN ---
Subjective Progress Note Date: 09/01/19 This is 54-year-old gentleman with history of morbid obesity, chronic obstructive lung disease, and obstructive sleep apnea. Presented with worsening dyspnea and peripheral edema. He has a long-standing history of sleep apnea and refuses CPAP or BiPAP. Since admission his breathing has improved. Abdominal distention and edema have improved. He has lost weight. [facility] although was limited reported an ejection fraction of 40%. He is currently on aspirin 81 mg by mouth daily, carvedilol 12.5 mg by mouth twice a day, Lasix 40 mg IV every 12 hours, metolazone 5 mg by mouth daily and Aldactone 25 mg by mouth daily. Vital signs are stable. Labs this morning show sodium 134, potassium 4.7, chloride 86, carbon dioxide 40, BUN 20 and creatinine 1.0. He did have ABGs drawn yesterday that showed a pH 7.42, pCO2 73, pO2 63, bicarb 47. Objective - Vital Signs Vital signs: Vital Signs Temp 98.1 F 09/01/19 08:00 Pulse 68 09/01/19 12:00 Resp 18 09/01/19 12:00 BP 132/78 09/01/19 12:00 Pulse Ox 100 09/01/19 12:00 Intake & Output 08/31/19 09/01/19 09/01/19 18:59 06:59 18:59 Intake Total 477 20 240 Output Total 3400 3451 650 Balance -2923 -3431 -410 Weight 174.4 kg Intake: IV 20 Invasive Line 3 20 Oral 477 240 Output: Urine 3400 3450 650 Urine/Stool Mix 1 Other: Voiding Method Indwelling Catheter Indwelling Catheter Indwelling Catheter - Exam PHYSICAL EXAMINATION: HEENT: Head is atraumatic, normocephalic. Pupils equal, round. Neck is supple. There is no elevated jugular venous pressure. HEART EXAMINATION: Heart sounds regular, S1 and S2 normal. No murmur or gallop heard. CHEST EXAMINATION: Lungs reveal diminished air entry bilaterally. No chest wall tenderness is noted on palpation or with deep breathing. ABDOMEN: Obese, nontender, less distended. Bowel sounds are heard. No organomegaly noted. EXTREMITIES: 2+ peripheral pulses with evidence of +2-3 peripheral edema with chronic skin changes. NEUROLOGIC patient is awake, alert and oriented x3. . - Labs CBC & Chem 7: 08/31/19 07:04 09/01/19 06:27 Labs: Abnormal Lab Results - Last 24 Hours (Table) 09/01/19 Range/Units 06:27 Sodium 134 L (137-145) mmol/L Chloride 86 L (98-107) mmol/L Carbon Dioxide 40 H (22-30) mmol/L Calcium 10.3 H (8.4-10.2) mg/dL Assessment and Plan Assessment: #1 evidence of congestive heart failure with probable cor pulmonale related to obstructive sleep apnea #2 history of cardiomyopathy by echocardiogram with suboptimal echo #3 obstructive sleep apnea, chronic, untreated #4 morbid obesity Plan: From cardiology's perspective, patient may be transitioned to by mouth Lasix. Discussed with patient that unfortunately without treatment of sleep apnea recurrence of CO2 retention and recurrence of symptoms is quite high. Patient continues to decline BiPAP or CPAP. From our standpoint, patient may be discharged home and follow-up as an outpatient. MANUFACTURING TECHNOLOGIST note has been reviewed, I agree with a documented findings and plan of care. Patient was seen and examined.
--- NOTE | 2019-09-02 09:09 | P.DS ---
Providers Date of admission: 08/26/19 12:29 Expected date of discharge: 09/01/19 Attending physician: Jimmie Whalen Consults: 08/26/19 12:04 Consult Physician Stat Consulting Provider: Ej Ayon Consult Reason/Comments: CHF exacerbation, elevated troponin Do you want consulting provider notified?: Yes 08/26/19 16:18 Consult Physician Routine Consulting Provider: Alvarado Shirley Consult Reason/Comments: Hypoxia Do you want consulting provider notified?: Yes Primary care physician: [facility] Course: Final diagnosis Congestive heart failure, acute exacerbation, with ejection fraction unknown, possibly acute diastolic dysfunction Possible acute on chronic cor pulmonale Acute hypoxic respiratory failure secondary obesity hypoventilation syndrome Change in mental status, metabolic encephalopathy, scant hypercarbia Inability to use BiPAP as patient is severely claustrophobic Acute hypoxic hypercarbia, respiratory failure, on 2 L O2 Leg edema COPD Obesity with a BMI of 54.8 Sleep Apnea Troponin 0.036, indeterminate Hyponatremia Increased CO2 Anemia, normocytic anemia of chronic disease Hypertension Discharge disposition Patient is being discharged in a stable condition with guarded prognosis to home and will follow-up with Dr. Tejada in the outpatient setting. Patient is scheduled to be going to [place] on 09/10/2019 for alcohol rehab. Total time taken is 35 minutes. History of present illness This is a 54-year-old male who was recently admitted with congestive heart failure acute exacerbation and was being closely monitored. Patient was seen and evaluated by cardiology and pulmonary and continues to refuse BiPAP or CPAP and states he will not use this. Patient was initiated on IV Lasix and will continue with 80 mg of Lasix daily in the outpatient setting. Patient was seen and evaluated by PT/OT for gait dysfunction and weakness and will not require rehab upon discharge. Patient refusing rehab at this time anyway. Patient continues to have bilateral lower extremity edema although has improved with diuresis. Patient instructed to elevate lower extremities while at rest. Currently no reports of chest pain, worsening shortness of breath, or palpitations. Patient is afebrile. No reports of nausea or vomiting and patient is tolerating diet. Patient is alert and oriented 3. Patient will be discharged home today. On exam vital signs are stable. Temp is 98.1F, pulse is 82, respirations are 18, blood pressure is 132/78, oxygen saturation is 100% on 2 L via nasal cannula. Cardio S1, S2 are present. Respiratory shows diminished breath sounds at the bases with a few scattered rhonchi noted. Abdomen is soft, obese, and nontender. Nervous system shows no focal deficits. Please refer to medication reconciliation sheet for a list of medications. Patient Condition at Discharge: Fair Plan - Discharge Summary Discharge Rx Participant: No New Discharge Prescriptions: New Spironolactone [Aldactone] 25 mg PO DAILY 30 Days #30 tab Metolazone [Zaroxolyn] 5 mg PO DAILY 30 Days #30 tab Continue Pantoprazole [Protonix] 40 mg PO DAILY Aspirin EC [Ecotrin Low Dose] 81 mg PO DAILY Loratadine [Claritin] 10 mg PO DAILY Furosemide [Lasix] 80 mg PO DAILY Carvedilol [Coreg] 12.5 mg PO BID Docusate Sodium [Dok] 200 mg PO DAILY Discontinued Losartan Potassium [Cozaar] 100 mg PO DAILY Discharge Medication List Aspirin EC [Ecotrin Low Dose] 81 mg PO DAILY 08/26/19 [History] Carvedilol [Coreg] 12.5 mg PO BID 08/26/19 [History] Docusate Sodium [Dok] 200 mg PO DAILY 08/26/19 [History] Furosemide [Lasix] 80 mg PO DAILY 08/26/19 [History] Loratadine [Claritin] 10 mg PO DAILY 08/26/19 [History] Pantoprazole [Protonix] 40 mg PO DAILY 08/26/19 [History] Metolazone [Zaroxolyn] 5 mg PO DAILY 30 Days #30 tab 09/01/19 [Rx] Spironolactone [Aldactone] 25 mg PO DAILY 30 Days #30 tab 09/01/19 [Rx] Follow up Appointment(s)/Referral(s): Leighann Tejada MD [Primary Care Provider] - 09/02/19 8:30 am Alvarado Shirley MD [STAFF PHYSICIAN] - 09/17/19 10:45 am Ambulatory/Diagnostic Orders: Basic Metabolic Panel [LAB.AMB] Time Frame: 2 Days, Location: None Selected Patient Instructions/Handouts: Heart Failure (DC), Sleep Apnea (DC) Activity/Diet/Wound Care/Special Instructions: Activity Limited until follow-up Continue with 80 mg of Lasix daily Follow-up with pulmonary in the outpatient setting Follow-up with her primary care provider upon discharge Repeat labs in 2-3 days Continue with a heart healthy diet Discharge Disposition: HOME SELF-CARE
== END 2019-09-01 14:53 | disposition home or self-care (01) | DRG 291 ==
LOC: EC 09:54 → 3SCARD 12:29
PROVIDERS: ADMIT Internal Medicine; ATTEND Internal Medicine
DX: I11.0 Hypertensive heart disease with heart failure (principal); G93.41 Metabolic encephalopathy; J96.21 Acute and chronic respiratory failure with hypoxia; J96.22 Acute and chronic respiratory failure with hypercapnia; I50.31 Acute diastolic (congestive) heart failure; E66.2 Morbid (severe) obesity with alveolar hypoventilation; E87.4 Mixed disorder of acid-base balance; E87.1 Hypo-osmolality and hyponatremia; Z68.43 Body mass index [BMI] 50.0-59.9, adult; I31.3 Pericardial effusion (noninflammatory); G47.33 Obstructive sleep apnea (adult) (pediatric); I27.81 Cor pulmonale (chronic); E78.5 Hyperlipidemia, unspecified; I27.29 Other secondary pulmonary hypertension; D63.8 Anemia in other chronic diseases classified elsewhere; I45.10 Unspecified right bundle-branch block; J44.9 Chronic obstructive pulmonary disease, unspecified; I44.0 Atrioventricular block, first degree; I42.9 Cardiomyopathy, unspecified; F40.240 Claustrophobia; Z11.59 Encounter for screening for other viral diseases; Z79.899 Other long term (current) drug therapy; Z79.82 Long term (current) use of aspirin; Z91.040 Latex allergy status; Z91.14 Patient's other noncompliance with medication regimen; Z91.19 Patient's noncompliance with other medical treatment and regimen
CPT/HCPCS: 36415; 36600; 71046; 71275; 80048; 80053; 81001; 82805; 83735; 83880; 84484; 85025; 85610; 85730; 93005; 93308; 93970; 96374; 99285

== ENCOUNTER 2021-12-13 08:40 | Inpatient (IN) | payer OTHER ==
[2021-12-13] MEDS ORDERED: SODIUM CHLORIDE 0.9% 1,000 ML IV ONE (08:47)
[2021-12-13] MEDS ORDERED: SODIUM CHLORIDE 0.9% 500 ML 500 ML IV ONE (08:47)
[2021-12-13] MEDS ORDERED: IPRATROPIUM 0.5 MG/2.5 ML NEBU INHALATION STA (08:55)
[2021-12-13] MEDS ORDERED: ALBUTEROL NEBULIZED (CONC) 5 MG, SODIUM CHLORIDE 0.9% NEBULIZ 3 ML INHALATION STA ×2 (08:55)
--- NOTE | 2021-12-13 09:02 | ED ---
General Adult HPI - General Stated complaint: Fall Time Seen by Provider: 12/13/21 08:40 Source: patient, RN notes reviewed, old records reviewed - History of Present Illness Initial comments: This is a 56-year-old male who states he fell and his downstairs appointment. Patient states she doesn't remember falling down or why he fell down her what his symptoms were prior to falling down. Patient states been lying on the floor for about 3 days he was unable to get up. Patient denies any headache patient denies any neck pain he states overall he has achiness everywhere but no specific area of pain. Patient states his knees and hips hurt a little but that is his baseline. Patient denies any chest pain but he does complain of difficulty breathing. Patient denies nausea vomiting diarrhea. Patient states he didn't have a phone said no way of contacting any way to come get him. Patient does not know who called EMS. Patient states he does have COPD. Per EMS patient's pulse ox was in the 50s when they arrived. - Related Data Home Medications Medication Instructions Recorded Confirmed Aspirin EC [Ecotrin Low Dose] 81 mg PO DAILY 08/26/19 08/26/19 Docusate Sodium [Dok] 200 mg PO DAILY 08/26/19 08/26/19 Furosemide [Lasix] 80 mg PO DAILY 08/26/19 08/26/19 Loratadine [Claritin] 10 mg PO DAILY 08/26/19 08/26/19 Pantoprazole [Protonix] 40 mg PO DAILY 08/26/19 08/26/19 carvediloL [Coreg] 12.5 mg PO BID 08/26/19 08/26/19 Previous Rx's Medication Instructions Recorded Spironolactone [Aldactone] 25 mg PO DAILY 30 Days #30 tab 09/01/19 metOLazone [Zaroxolyn] 5 mg PO DAILY 30 Days #30 tab 09/01/19 Allergies Allergy/AdvReac Type Severity Reaction Status Date / Time latex Allergy Rash/Hives Verified 08/26/19 12:10 Review of Systems ROS Statement: Those systems with pertinent positive or pertinent negative responses have been documented in the HPI. ROS Other: All systems not noted in ROS Statement are negative. Past Medical History Past Medical History: Heart Failure, COPD, Hyperlipidemia, Hypertension Additional Past Medical History / Comment(s): chf, sleep apnea History of Any Multi-Drug Resistant Organisms: None Reported Past Surgical History: No Surgical Hx Reported Past Psychological History: No Psychological Hx Reported Past Alcohol Use History: None Reported Past Drug Use History: None Reported General Exam - General Exam Comments Initial Comments: GENERAL: Patient is well-developed and well-nourished. Patient is nontoxic and well- hydrated and is in mild distress. ENT: Neck is soft and supple. No significant lymphadenopathy is noted. Oropharynx is clear. Moist mucous membranes. Neck has full range of motion without eliciting any pain. EYES: The sclera were anicteric and conjunctiva were pink and moist. Extraocular movements were intact and pupils were equal round and reactive to light. Eyelids were unremarkable. PULMONARY: Significantly decreased breath sounds CARDIOVASCULAR: There is a regular rate and rhythm without any murmurs gallops or rubs. ABDOMEN: Soft and nontender with normal bowel sounds. SKIN: Skin is clear with no lesions or rashes and otherwise unremarkable. NEUROLOGIC: Patient is alert and oriented x3. Cranial nerves II through XII are grossly intact. Motor and sensory are also intact. Normal speech, volume and content. Symmetrical smile. MUSCULOSKELETAL: Normal extremities with adequate strength and full range of motion. Chronic edema LYMPHATICS: No significant lymphadenopathy is noted PSYCHIATRIC: Normal psychiatric evaluation. Course Vital Signs 12/13/21 12/13/21 12/13/21 08:41 09:01 09:07 Temperature 98.3 F Pulse Rate 90 90 88 Respiratory 24 20 Rate Blood Pressure 141/105 140/77 O2 Sat by Pulse 82 L 96 Oximetry 12/13/21 12/13/21 12/13/21 09:32 09:51 11:03 Temperature Pulse Rate 89 86 87 Respiratory 18 18 Rate Blood Pressure 155/92 129/74 O2 Sat by Pulse 88 L 89 L Oximetry Medical Decision Making - Medical Decision Making EKG shows sinus rhythm at a rate of 80 bpm [place] interval is 2:15 QRSs 122 QT interval 372 QTC is 418. Patient's EKG shows no ST segment elevation or depression however patient does have Q waves inferiorly as well as in precordial leads V3 through V6. CT of the brain and C-spine showed no acute abnormality. Chest x-ray shows possibly some early pulmonary edema. Patient was put on BiPAP because patient was hypercapnic 102 and a pO2 of 66.8. I spoke with the [facility] agreed to admit the patient admitted the patient wrote admitting orders I consult pulmonology. - Lab Data Result diagrams: 12/13/21 08:57 12/13/21 08:57 Lab Results 12/13/21 12/13/21 12/13/21 Range/Units 08:57 08:57 08:57 WBC 11.6 H (3.8-10.6) k/uL RBC 6.45 H (4.30-5.90) m/uL Hgb 15.8 (13.0-17.5) gm/dL Hct 57.8 H* (39.0-53.0) % MCV 89.5 (80.0-100.0) fL MCH 24.5 L (25.0-35.0) pg MCHC 27.4 L (31.0-37.0) g/dL RDW 20.7 H (11.5-15.5) % Plt Count 324 (150-450) k/uL MPV 8.7 Neutrophils % 74 % Lymphocytes % 8 % Monocytes % 15 % Eosinophils % 1 % Basophils % 1 % Neutrophils # 8.6 H (1.3-7.7) k/uL Lymphocytes # 0.9 L (1.0-4.8) k/uL Monocytes # 1.7 H (0-1.0) k/uL Eosinophils # 0.1 (0-0.7) k/uL Basophils # 0.2 (0-0.2) k/uL Manual Slide Review Performed Polychromasia Present Hypochromasia Marked Poikilocytosis Slight Anisocytosis Moderate Sodium 139 (137-145) mmol/L Potassium 5.8 H (3.5-5.1) mmol/L Chloride 91 L (98-107) mmol/L Carbon Dioxide 39 H (22-30) mmol/L Anion Gap 9 mmol/L BUN 78 H (9-20) mg/dL Creatinine 2.35 H (0.66-1.25) mg/dL Est GFR (CKD-EPI)AfAm 35 (>60 ml/min/1.73 sqM) Est GFR (CKD-EPI)NonAf 30 (>60 ml/min/1.73 sqM) Glucose 110 H (74-99) mg/dL Plasma Lactic Acid Bryon 1.2 (0.7-2.0) mmol/L Calcium 9.9 (8.4-10.2) mg/dL Magnesium 2.3 (1.6-2.3) mg/dL Total Bilirubin 2.3 H (0.2-1.3) mg/dL AST 32 (17-59) U/L ALT 22 (4-49) U/L Alkaline Phosphatase 104 (38-126) U/L Total Creatine Kinase (55-170) U/L CK-MB (CK-2) (0.0-2.4) ng/mL CK-MB (CK-2) Rel Index Troponin I (0.000-0.034) ng/mL Total Protein 7.0 (6.3-8.2) g/dL Albumin 3.8 (3.5-5.0) g/dL 12/13/21 Range/Units 08:57 WBC (3.8-10.6) k/uL RBC (4.30-5.90) m/uL Hgb (13.0-17.5) gm/dL Hct (39.0-53.0) % MCV (80.0-100.0) fL MCH (25.0-35.0) pg MCHC (31.0-37.0) g/dL RDW (11.5-15.5) % Plt Count (150-450) k/uL MPV Neutrophils % % Lymphocytes % % Monocytes % % Eosinophils % % Basophils % % Neutrophils # (1.3-7.7) k/uL Lymphocytes # (1.0-4.8) k/uL Monocytes # (0-1.0) k/uL Eosinophils # (0-0.7) k/uL Basophils # (0-0.2) k/uL Manual Slide Review Polychromasia Hypochromasia Poikilocytosis Anisocytosis Sodium (137-145) mmol/L Potassium (3.5-5.1) mmol/L Chloride (98-107) mmol/L Carbon Dioxide (22-30) mmol/L Anion Gap mmol/L BUN (9-20) mg/dL Creatinine (0.66-1.25) mg/dL Est GFR (CKD-EPI)AfAm (>60 ml/min/1.73 sqM) Est GFR (CKD-EPI)NonAf (>60 ml/min/1.73 sqM) Glucose (74-99) mg/dL Plasma Lactic Acid Bryon (0.7-2.0) mmol/L Calcium (8.4-10.2) mg/dL Magnesium (1.6-2.3) mg/dL Total Bilirubin (0.2-1.3) mg/dL AST (17-59) U/L ALT (4-49) U/L Alkaline Phosphatase (38-126) U/L Total Creatine Kinase 92 (55-170) U/L CK-MB (CK-2) 3.1 H (0.0-2.4) ng/mL CK-MB (CK-2) Rel Index 3.4 Troponin I 0.092 H* (0.000-0.034) ng/mL Total Protein (6.3-8.2) g/dL Albumin (3.5-5.0) g/dL Critical Care Time Critical Care Time: Yes Total Critical Care Time: 35 Disposition Clinical Impression: Fall, COPD exacerbation, Hypercapnia, Acute renal failure, Elevated troponin, Dehydration, Hyperkalemia Disposition: ADMITTED IP TO THIS HOSP Referrals: Leighann Tejada MD [Primary Care Provider] - 1-2 days Time of Disposition: 11:31
[2021-12-13] MEDS ORDERED: ALBUTEROL NEBULIZED 2.5 MG/3 ML INHALATION STA (09:05)
[2021-12-13 09:08] LABS: Anisocytosis Moderate; Basophils # (A) 0.2 k/uL (0-0.2); Basophils % (A) 1 %; Eosinophils # (A) 0.1 k/uL (0-0.7); Eosinophils % (A) 1 %; HGB 15.8 gm/dL (13.0-17.5); Hypochromasia Marked; Lymphocytes # (A) 0.9 k/uL (1.0-4.8); Lymphocytes % (A) 8 %; MCH 24.5 pg (25.0-35.0); MCHC 27.4 g/dL (31.0-37.0); MCV 89.5 fL (80.0-100.0); Mean Platelet Volume 8.7; Monocytes # (A) 1.7 k/uL (0-1.0); Monocytes % (A) 15 %; Neutrophils # (A) 8.6 k/uL (1.3-7.7); Neutrophils % (A) 74 %; Platelet Count 324 k/uL (150-450); Poikilocytosis Slight; RBC 6.45 m/uL (4.30-5.90); RDW 20.7 % (11.5-15.5); WBC 11.6 k/uL (3.8-10.6)
[2021-12-13 09:19] LABS: Albumin 3.8 g/dL (3.5-5.0); Calcium 9.9 mg/dL (8.4-10.2); Magnesium 2.3 mg/dL (1.6-2.3); Potassium 5.8 mmol/L (3.5-5.1); Total Bilirubin 2.3 mg/dL (0.2-1.3)
[2021-12-13 09:26] LABS: HCT 57.8 % (39.0-53.0)
[2021-12-13 09:43] LABS: Creatine Kinase MB 3.1 ng/mL (0.0-2.4)
[2021-12-13 09:50] LABS: Troponin I 0.092 ng/mL (0.000-0.034)
[2021-12-13 10:00] LABS: Polychromasia Present
--- NOTE | 2021-12-13 10:23 | CT ---
EXAMINATION TYPE: CT brain cspine wo con CT DLP: 2155.9 mGycm, Automated exposure control for dose reduction was used. DATE OF EXAM: 12/13/2021 9:47 AM COMPARISON: None.. CLINICAL INDICATION:Male, 56 years old with history of Trauma; FALL TECHNIQUE: Brain: Multiple axial CT images of the brain were obtained without IV contrast. Cspine: Axial CT images from the skull base to the inferior aspect of T2 we obtained without intraven ous contrast. Coronal and sagittal reformatted images were also reviewed. FINDINGS: Brain: Extra-axial spaces: No abnormal extra-axial fluid collections. Ventricular system: Within normal limits Cerebral parenchyma: No acute intraparenchymal hemorrhage or mass effect. The morfin-white junction is well differentiated. Cerebellum: Unremarkable. Mass effect: No evidence of midline shift. Intracranial vasculature: Atherosclerotic calcifications of the intracranial vessels. Soft tissues: Mild left scalp edema. Calvarium/osseous structures: No depressed skull fracture. Paranasal sinuses and mastoid air cells: Clear. Visualized orbits: Orbital contents are intact. Cervical spine: Motion limits evaluation of the cervical spine. Fracture: None. Osseous structures: Anatomic nonfusion of the posterior arch of C1. Multilevel degenerative disc dise ase changes with endplate spurring and disc osteophyte complex's. Vertebral alignment: Within normal limits. Spinal canal/Neural Foramina: No evidence of significant spinal canal narrowing. No evidence for sign ificant neural foraminal stenosis. Neck soft tissues: Prevertebral soft tissues are within normal limits. Other: The airway is patent. The lung apices are clear. IMPRESSION: 1. No acute intracranial process. 2. Mild left scalp edema. No evidence of cervical spine fracture. 3. Mild multilevel degenerative disc disease.
--- NOTE | 2021-12-13 10:56 | XR ---
EXAMINATION TYPE: XR chest 1V DATE OF EXAM: 12/13/2021 10:49 AM COMPARISON: CT angiogram chest 08/26/2021, CT chest 08/26/2019 TECHNIQUE: XR chest 1V Frontal view of the chest. CLINICAL INDICATION:Male, 56 years old with history of Difficulty breathing ; FINDINGS: Lungs/Pleura: There is no evidence of pleural effusion, focal consolidation, or pneumothorax. Pulmonary vascularity: Pulmonary vascular congestion. Heart/mediastinum: Cardiomediastinal silhouette is enlarged and stable. The heart is shifted to the l eft. There is a large left trunk as seen on prior CT. Musculoskeletal: No acute osseous pathology. IMPRESSION: 1. Cardiomegaly and mild pulmonary vascular congestion. Correlate with BNP for congestive heart fail ure. 2. Findings suggestive of pulmonary hypertension as seen on prior CT.
[2021-12-13 11:20] LABS: ABG Base Excess 9.8 mmol/L; ABG HCO3 38 mmol/L (21-25); ABG Hematocrit 50 % (34.0-46.0); ABG Oxygen Saturation 85.3 % (94-97); ABG PO2 67 mmHg (83-108); ABG TCO2 41 mmol/L (19-24); Allen Test Performed? Yes
[2021-12-13] MEDS ORDERED: methylPREDNISolone SOD SUCCI 125 MG/2 ML VIAL IV STA ×2 (11:30→11:33)
[2021-12-13] MEDS ORDERED: NALOXONE 0.4 MG/ML 1 ML VIAL IVP PRN (11:33)
[2021-12-13 11:38] LABS: ABG PCO2 102 mmHg (35-45); ABG PH 7.18 (7.35-7.45)
[2021-12-13 14:17] LABS: Glucose,Whole Blood 110 mg/dL (70-110)
[2021-12-13] MEDS: IPRATROPIUM-ALBUTEROL 3 ML NEB INHALATION PRN ×2 (15:33→19:32)
--- NOTE | 2021-12-13 16:00 | P.CNPUL ---
History of Present Illness Consult date: 12/13/21 Reason for consult: dyspnea History of present illness: 56-year-old morbidly obese male patient who was found in his apartment on the ground and he had fell apparently a few days back and hasn't remember falling down and he does not recall any other symptoms proceeded his follow-up. He states that he has been lying down on the floor for at least 3 days, unable to get up and he was getting progressively more sick. Ultimately, he was found and the patient got moved to the emergency department. No headaches. No neck stiffness. No trauma. No chest pain. He was having some increased shortness of breath. No nausea or vomiting. No reported aspiration. The patient presented to the ED and he was somewhat lethargic. His blood gases showed a pH of 7.18 with a pCO2 of 102 and pO2 of 67 and this was on FiO2 of 36%. At that point, the patient was placed on a BiPAP and ICU transfer was recommended. On his blood work, the patient was found to have a proBNP level of 11,600 and troponins were slightly elevated at 0.09 and 0.07 respectively 2. He also was found to be in renal failure with a 70 connected. 2.35, acute versus chronic and the patient's and his serum bicarb of 39 with a potassium level of 5.8. Sodium level was at 139. The patient had a white cell count 11.6 with a hemoglobin 15.8 and a platelet count of 324. The chest x-ray was suboptimal due to patient's body habitus. HEENT thyromegaly a mild four-vessel congestion. He also had large pulmonary arteries suggesting pulmonary arterial hypertension. The computed tomography scan of the brain was also done showing acute intracranial process. Based on review of his medication, the patient has been taking a combination of Lasix 80 mg by mouth daily and lisinopril 5 mg by mouth daily at home. He is known to have chronic hypoxic and hypercapnic respiratory failure and this was attributed to severe sleep apnea and a component of obesity hypoventilation syndrome. He has chronic metabolic alkalosis and chronic hypercapnic respiratory failure. He also has history of hypertension and hyperlipidemia. He is a lifetime nonsmoker. Review of Systems Constitutional: Reports daytime sleepiness, Reports fatigue, Reports weakness, Reports weight gain Eyes: denies as per HPI, denies blurred vision, denies bulging eye, denies decreased vision, denies diplopia, denies discharge, denies dry eye, denies irritation, denies itching, denies pain, denies photophobia, denies loss of peripheral vision, denies loss of vision, denies tunnel vision/blind spots Ears: deny: decreased hearing, ear discharge, earache, tinnitus Ears, nose, mouth and throat: Reports as per HPI Breasts: absent: as per HPI, gynecomastia Cardiovascular: Reports decreased exercise tolerance, Reports dyspnea on exertion, Reports leg edema, Reports shortness of breath Respiratory: Reports as per HPI, Reports dyspnea, Reports home oxygen, Reports sleep apnea, Reports snoring Gastrointestinal: Reports as per HPI Genitourinary: Reports as per HPI Musculoskeletal: Reports as per HPI, Reports muscle weakness Musculoskeletal: bilateral: ankle swelling, absent: ankle pain, ankle stiffness Integumentary: Reports as per HPI Neurological: Reports as per HPI, Reports gait dysfunction Psychiatric: Reports as per HPI Endocrine: Reports as per HPI, Reports fatigue Hematologic/Lymphatic: Reports as per HPI Allergic/Immunologic: Reports as per HPI Past Medical History Past Medical History: Heart Failure, COPD, Hyperlipidemia, Hypertension, Sleep Apnea/CPAP/BIPAP Additional Past Medical History / Comment(s): chf, sleep apnea History of Any Multi-Drug Resistant Organisms: None Reported Past Surgical History: No Surgical Hx Reported Past Psychological History: No Psychological Hx Reported Past Alcohol Use History: None Reported Past Drug Use History: None Reported Medications and Allergies Home Medications Medication Instructions Recorded Confirmed Type Furosemide [Lasix] 80 mg PO DAILY 08/26/19 12/13/21 History carvediloL [Coreg] 12.5 mg PO BID 08/26/19 12/13/21 History Spironolactone [Aldactone] 25 mg PO DAILY 30 Days #30 tab 09/01/19 12/13/21 Rx metOLazone [Zaroxolyn] 5 mg PO DAILY 30 Days #30 tab 09/01/19 12/13/21 Rx Acetaminophen [Tylenol 8 Hour] 1,300 mg PO Q8H PRN 12/13/21 12/13/21 History Aspirin 81 mg PO DAILY 12/13/21 12/13/21 History Gabapentin [Neurontin] 300 mg PO BID 12/13/21 12/13/21 History Ibuprofen [Motrin] 800 mg PO TID PRN 12/13/21 12/13/21 History Losartan Potassium 100 mg PO DAILY 12/13/21 12/13/21 History Allergies Allergy/AdvReac Type Severity Reaction Status Date / Time cat dander Allergy Anaphylaxis Verified 12/13/21 11:40 latex Allergy Rash/Hives Verified 12/13/21 11:40 Physical Exam Vitals: Vital Signs Temp Pulse Resp BP Pulse Ox FiO2 12/13/21 13:00 74 18 143/94 90 L 12/13/21 12:00 79 18 133/93 92 L 12/13/21 11:40 40 12/13/21 11:03 87 18 129/74 89 L 12/13/21 09:51 86 18 155/92 88 L 12/13/21 09:32 89 12/13/21 09:07 88 12/13/21 09:01 90 20 140/77 96 12/13/21 08:41 98.3 F 90 24 141/105 82 L Intake and Output 12/12/21 12/13/21 12/13/21 22:59 06:59 14:59 Output Total 225 Balance -225 Output: Urine 225 Uretheral (Rosa) 225 Other: Weight 204.117 kg GENERAL: patient is excessively drowsy, not in any acute distress. morbidly obese , currently on a BiPAP she is able to tolerate without any major di fficulties with a fullface mask. The patient is morbidly obese. Head exam was generally normal. There was no scleral icterus or corneal arcus. Mucous membranes were moist. HEENT: Pupils are round and equally reacting to light. EOMI. No scleral icterus. No conjunctival pallor. Normocephalic, atraumatic. No pharyngeal erythema. No thyromegaly. The patient has a Mallampati class IV CARDIOVASCULAR: S1 and S2 present. No murmurs, rubs, or gallops. Oral heart sounds are distant PULMONARY: Lungs are diminished in the mid and lower lung his bilaterally. No cervical breath sounds are appreciated. ABDOMEN: Soft, nontender, nondistended, normoactive bowel sounds. No palpable organomegaly. MUSCULOSKELETAL: No joint swelling or deformity. EXTREMITIES: No cyanosis, clubbing.extensive bilateral pedal edema. 3+ pitting NEUROLOGICAL: Lethargic and somnolent due to a component of CO2 narcosis. Neur ologic exam is nonfocal. Examination of the skin revealed no evidence of significant rashes, suspicious appearing nevi or other concerning lesions. Results - Laboratory Findings CBC and BMP: 12/13/21 08:57 12/13/21 08:57 ABG WBC 11.6 k/uL (3.8-10.6) H 12/13/21 08:57 RBC 6.45 m/uL (4.30-5.90) H 12/13/21 08:57 Hgb 15.8 gm/dL (13.0-17.5) 12/13/21 08:57 Hct 57.8 % (39.0-53.0) H* 12/13/21 08:57 MCV 89.5 fL (80.0-100.0) 12/13/21 08:57 MCH 24.5 pg (25.0-35.0) L 12/13/21 08:57 MCHC 27.4 g/dL (31.0-37.0) L 12/13/21 08:57 RDW 20.7 % (11.5-15.5) H 12/13/21 08:57 Plt Count 324 k/uL (150-450) 12/13/21 08:57 MPV 8.7 12/13/21 08:57 Neutrophils % 74 % 12/13/21 08:57 Lymphocytes % 8 % 12/13/21 08:57 Monocytes % 15 % 12/13/21 08:57 Eosinophils % 1 % 12/13/21 08:57 Basophils % 1 % 12/13/21 08:57 Neutrophils # 8.6 k/uL (1.3-7.7) H 12/13/21 08:57 Lymphocytes # 0.9 k/uL (1.0-4.8) L 12/13/21 08:57 Monocytes # 1.7 k/uL (0-1.0) H 12/13/21 08:57 Eosinophils # 0.1 k/uL (0-0.7) 12/13/21 08:57 Basophils # 0.2 k/uL (0-0.2) 12/13/21 08:57 Manual Slide Review Performed 12/13/21 08:57 Polychromasia Present 12/13/21 08:57 Hypochromasia Marked 12/13/21 08:57 Poikilocytosis Slight 12/13/21 08:57 Anisocytosis Moderate 12/13/21 08:57 ABG pH 7.18 (7.35-7.45) L* 12/13/21 11:10 ABG pCO2 102 mmHg (35-45) H* 12/13/21 11:10 ABG pO2 67 mmHg (83-108) L 12/13/21 11:10 ABG O2 Saturation 85.3 % (94-97) L 12/13/21 11:10 Sodium 139 mmol/L (137-145) 12/13/21 08:57 Potassium 5.8 mmol/L (3.5-5.1) H 12/13/21 08:57 Chloride 91 mmol/L (98-107) L 12/13/21 08:57 Carbon Dioxide 39 mmol/L (22-30) H 12/13/21 08:57 Anion Gap 9 mmol/L 12/13/21 08:57 BUN 78 mg/dL (9-20) H 12/13/21 08:57 Creatinine 2.35 mg/dL (0.66-1.25) H 12/13/21 08:57 Est GFR (CKD-EPI)AfAm 35 (>60 ml/min/1.73 sqM) 12/13/21 08:57 Est GFR (CKD-EPI)NonAf 30 (>60 ml/min/1.73 sqM) 12/13/21 08:57 Glucose 110 mg/dL (74-99) H 12/13/21 08:57 Plasma Lactic Acid Bryon 1.2 mmol/L (0.7-2.0) 12/13/21 08:57 Calcium 9.9 mg/dL (8.4-10.2) 12/13/21 08:57 Magnesium 2.3 mg/dL (1.6-2.3) 12/13/21 08:57 Total Bilirubin 2.3 mg/dL (0.2-1.3) H 12/13/21 08:57 AST 32 U/L (17-59) 12/13/21 08:57 ALT 22 U/L (4-49) 12/13/21 08:57 Alkaline Phosphatase 104 U/L (38-126) 12/13/21 08:57 Total Creatine Kinase 92 U/L (55-170) 12/13/21 08:57 CK-MB (CK-2) 3.1 ng/mL (0.0-2.4) H 12/13/21 08:57 CK-MB (CK-2) Rel Index 3.4 12/13/21 08:57 Troponin I 0.071 ng/mL (0.000-0.034) H* 12/13/21 11:51 NT-Pro-B Natriuret Pep 01223 pg/mL 12/13/21 08:57 Total Protein 7.0 g/dL (6.3-8.2) 12/13/21 08:57 Albumin 3.8 g/dL (3.5-5.0) 12/13/21 08:57 Abnormal lab findings: Abnormal Labs 12/13/21 12/13/21 12/13/21 08:57 08:57 08:57 WBC 11.6 H RBC 6.45 H Hct 57.8 H* MCH 24.5 L MCHC 27.4 L RDW 20.7 H Neutrophils # 8.6 H Lymphocytes # 0.9 L Monocytes # 1.7 H ABG pH ABG pCO2 ABG pO2 ABG HCO3 ABG Total CO2 ABG O2 Saturation ABG Hematocrit Potassium 5.8 H Chloride 91 L Carbon Dioxide 39 H BUN 78 H Creatinine 2.35 H Glucose 110 H Total Bilirubin 2.3 H CK-MB (CK-2) 3.1 H Troponin I 0.092 H* 12/13/21 12/13/21 11:10 11:51 WBC RBC Hct MCH MCHC RDW Neutrophils # Lymphocytes # Monocytes # ABG pH 7.18 L* ABG pCO2 102 H* ABG pO2 67 L ABG HCO3 38 H ABG Total CO2 41 H ABG O2 Saturation 85.3 L ABG Hematocrit 50 H Potassium Chloride Carbon Dioxide BUN Creatinine Glucose Total Bilirubin CK-MB (CK-2) Troponin I 0.071 H* - Diagnostic Findings Chest x-ray: image reviewed Assessment and Plan Plan: Acute on chronic hypoxic hypercapnic respiratory failure, with possibly a component of fluid overload/CHF. Aspiration cannot be completely ruled out. The patient's blood gas shows a component of acute on chronic hypercapnic respiratory failure. The patient's baseline pCO2 is in the 70 range. At a time of his ICU arrival, the patient was obtunded and lethargic and he was a CO2 narcosis. He was on a BiPAP at a pressure of 18/6 cm of water. She tidal volume was around 360 mL with a minute ventilation of 7.2 and a respiratory rate of 20. He was withdrawing to painful stimulation. Otherwise, he was not following any commands. Fall without any traumatic injuries. CAT scan of the brain is negative. No skeletal injuries noted. Acute kidney injury, likely secondary to intravascular volume depletion dehydration and the patient had a fall and he was undergone for the past 3 days and the patient has not been taken any of his medication over the past 3 days. Apparently the patient was also taking nonsteroidal anti-inflammatory medicat ions on outpatient basis Chronic hypoxic respiratory failure Chronic hypercapnic respiratory failure Obstructive sleep apnea/obesity hypoventilation syndrome with chronic hypoxic and hypercapnic respiratory failure and the patient has been unable to tolerate BiPAP therapy and is on no treatment for now Altered mental status secondary to above Hypertension Chronic lower extremity edema maintained on a combination of Lasix and Zaroxolyn Hyperlipidemia Morbid obesity Suspect chronic diastolic heart failure/pulmonary hypertension Plan Continue BiPAP For now, keep same BiPAP pressures for now. His current pulse ox is 93%. I'm going to establish triple-lumen catheter and arterial line Will monitor his CVP With incidental triple-lumen catheter and arterial line, Continue hydration with IV fluids almost saline at rate of 100 mL an hour as the patient is an acute kidney injury This is a Rosa catheter monitor urine output continue the diuretics and the nonsteroidal anti-inflammatory medications the patient was taken outpatient basis Monitor the blood gases DuoNeb nebulized treatments around the clock Lovenox for prophylaxis Check pro calcitonin level Use empiric antibiotic coverage with IV Zosyn We'll continue to follow
--- NOTE | 2021-12-13 16:38 | P.PCN ---
Date of Procedure: 12/13/21 Preoperative Diagnosis: Acute hypoxic/hypercapnic respiratory failure Postoperative Diagnosis: same Procedure(s) Performed: Triple-lumen cath, arterial line catheter Anesthesia: local Surgeon: Rodger Parker Estimated Blood Loss (ml): 0 Pathology: other Condition: critical Disposition: ICU Operative Findings: Triple lumen catheter Indication: Hemodynamic monitoring/Intravenous access. A time-out was completed verifying correct patient, procedure, site, positioning, and implant(s) or special equipment if applicable. The patient was placed in a dependent position appropriate for central line placement based on the vein to be cannulated. The patients left neck was prepped and draped in sterile fashion. 1% Lidocaine was used to anesthetize the surrounding skin area. A triple lumen 9F Cordis catheter was introduced into the left internal jugular vein using Seldinger technique. The catheter was threaded smoothly over the guide wire and appropriate blood return was obtained. Each lumen of the catheter was evacuated of air and flushed with sterile sali ne. The catheter was then sutured in place to the skin and a sterile dressing applied. Perfusion to the extremity distal to the point of catheter insertion was checked and found to be adequate. The patient tolerated the procedure well and there were no complications. Arterial line catheter Indication: Hemodynamic monitoring. A time-out was completed verifying correct patient, procedure, site, positioning, and implant(s) or special equipment if applicable. Allens test was performed to ensure adequate perfusion. The patients left wrist was prepped and draped in sterile fashion. 1% Lidocaine was used to anesthetize the area. An 18G Arrow arterial line was introduced into the left radial artery. The catheter was threaded over the guide wire and the needle was removed with appropriate pulsatile blood return. Blood loss was minimal. The catheter was then sutured in place to the skin and a sterile dressing applied. Perfusion to the extremity distal to the point of catheter insertion was checked and found to be adequate. The patient tolerated the procedure well and there were no complications.
--- NOTE | 2021-12-13 16:52 | XR ---
EXAMINATION TYPE: XR chest 1V DATE OF EXAM: 12/13/2021 4:29 PM COMPARISON: Chest radiographs from 12/13/2021 TECHNIQUE: XR chest 1V Frontal view of the chest. CLINICAL INDICATION:Male, 56 years old with history of Central line placement; FINDINGS: Lungs/Pleura: Moderate left pleural effusion. Right basilar patchy airspace disease with worsening le ft lung airspace disease. Pulmonary vascularity: Pulmonary vascular congestion. Heart/mediastinum: Cardiomediastinal silhouette is enlarged and partially obscured. Musculoskeletal: No acute osseous pathology. Lines/Tubes: Left internal jugular central venous catheter with distal tip at the brachiocephalic junction. IMPRESSION: 1. Worsening bilateral patchy airspace opacities with increased moderate left pleural effusion and c ardiomegaly with pulmonary vascular congestion. Findings are concerning for CHF exacerbation with sup erimposed infectious a possibility. 2. Left IJ central venous catheter with tip at the brachiocephalic junction. No definitive pneumotho rax.
[2021-12-13 17:37] LABS: Appearance,Urine Turbid (Clear); Bilirubin,Urine Negative (Negative); Blood,Urine Negative (Negative); Calcium Carbonate Crystals,Ur Moderate /hpf; Color,Urine Yellow; Glucose,Urine (UA) Negative (Negative); Hyaline Casts,Urine 1 /lpf (0-2); Ketones,Urine Negative (Negative); Leukocyte Esterase,Urine Negative (Negative); Mucus,Urine Rare /hpf; Nitrite,Urine Negative (Negative); Protein,Urine Trace (Negative); Specific Gravity,Urine 1.012 (1.001-1.035); Squamous Epithelial Cell,Urine <1 /hpf (0-4); Uric Acid Crystals,Urine Moderate /hpf; Urobilinogen,Urine <2.0 mg/dL (<2.0); WBC,Urine 3 /hpf (0-5)
[2021-12-13 17:42] LABS: Amphetamine Screen,Urine Not Detected (NotDetected); Barbiturate Screen,Urine Not Detected (NotDetected); Benzodiazepines Screen,Urine Not Detected (NotDetected); Cocaine Screen,Urine Not Detected (NotDetected); Methadone Screen, Urine Not Detected (NotDetected); Opiate Screen,Urine Not Detected (NotDetected); Oxycodone Screen, Urine Not Detected (NotDetected); Phencyclidine Screen,Urine Not Detected (NotDetected); Tricyclic Antidepressant,Urine Not Detected (NotDetected); Urn Cannabinoid Scrn Not Detected (NotDetected)
[2021-12-13 17:48] LABS: ABG Base Excess 10.9 mmol/L; ABG Oxygen Saturation 94.6 % (94-97); ABG PO2 93 mmHg (83-108); ABG TCO2 44 mmol/L (19-24)
[2021-12-13 17:51] LABS: ABG PH 7.13 (7.35-7.45)
[2021-12-13 17:52] LABS: ABG HCO3 40 mmol/L (21-25); ABG PCO2 120 mmHg (35-45); Allen Test Performed? no
[2021-12-13 18:00] LABS: Glucose,Whole Blood 133 mg/dL (70-110)
[2021-12-13] MEDS: PIPERACILLIN-TAZOBACTAM 3.375 GM in SODIUM CHLORIDE 0.9% 100 ML IVPB SCH ×2 (18:43→23:56)
[2021-12-13] MEDS: SODIUM CHLORIDE 0.9% 1,000 ML IV SCH ×2 (18:43→18:46)
[2021-12-13] MEDS: HEPARIN SODIUM,PORCINE/PF 5,000 UNIT/0.5 ML SYRINGE SQ SCH ×2 (18:43→23:56)
[2021-12-13] MEDS: FORMOTEROL FUMARATE 20 MCG/2 ML NEBU INHALATION SCH ×2 (19:16→19:32)
[2021-12-13] MEDS: BUDESONIDE 1 MG/2 ML NEBU INHALATION SCH (19:32)
[2021-12-13] MEDS ORDERED: AMOXIC-POT CLAV 875-125MG 1 EACH TAB PO SCH (21:00)
[2021-12-14 00:09] LABS: Glucose,Whole Blood 134 mg/dL (70-110)
--- NOTE | 2021-12-14 03:55 | HP ---
HISTORY AND PHYSICAL CHIEF COMPLAINT: Shortness of breath. HISTORY OF PRESENT ILLNESS: This is a 56-year-old gentleman with a past medical history of multiple medical problems including CHF, COPD, being followed by Dr. Leighann Tejada in the outpatient setting, was found lying on the floor of his apartment for several days after a fall. The patient is significantly short of breath. The patient started on BiPAP in the ER. The patient also had features of pneumonia. The patient was started on broad-spectrum IV antibiotics. The patient is monitored in the ICU. Dr. Parker is following the patient closely. PAST MEDICAL HISTORY: Reviewed include COPD. HOME MEDICATIONS: Reviewed include Lasix 80 mg p.o. daily, rest of the medication doses are reviewed. ALLERGIES: Cat dander. FAMILY HISTORY: Could not be taken. SOCIAL HISTORY: Could not be taken. REVIEW OF SYSTEMS: Could not be taken. PHYSICAL EXAMINATION: GENERAL: The patient is drowsy. VITAL SIGNS: Pulse 72, blood pressure 140/80, respirations 20, pulse ox 96% on BiPAP. HEENT: Conjunctivae normal. NECK: No JVD. CARDIOVASCULAR: S1, S2. RESPIRATIONS: Bilateral scattered rhonchi and crackles. ABDOMEN: Soft, obese. LEGS: Bilateral leg edema. NERVOUS SYSTEM: Could not be examined completely. SKIN: No ulcers or rashes. JOINTS: No active deforming arthropathy. LABORATORY DATA: Reviewed. WBC 11.2. ASSESSMENT: 1. Bilateral pneumonia, possibly aspiration with acute hypoxic respiratory failure, on BiPAP. 2. Acute renal failure. 3. Troponin 0.09 indeterminate. 4. History of congestive heart failure. RECOMMENDATIONS AND DISCUSSION: This is a 56-year-old gentleman, who presented with multiple complex medical issues, we will monitor the patient closely. Otherwise, I will initiate bronchodilators, broad- spectrum IV antibiotics and steroids also have been given from the ER. We will continue to monitor the patient in the ICU along with Dr. Parker and cultures also will be obtained. COVID-19 has been ordered. Prognosis is guarded because of multiple complex medical issues. MMODL / IJN: [id number] /
[2021-12-14 05:47] LABS: Anisocytosis Moderate; Basophils % (A) 0 %; Eosinophils % (A) 0 %; HGB 14.3 gm/dL (13.0-17.5); Hypochromasia Marked; Lymphocytes # (A) 0.2 k/uL (1.0-4.8); Lymphocytes % (A) 3 %; MCH 24.8 pg (25.0-35.0); MCHC 26.4 g/dL (31.0-37.0); MCV 93.8 fL (80.0-100.0); Macrocytosis Slight; Mean Platelet Volume 9.5; Monocytes % (A) 13 %; Neutrophils # (A) 6.5 k/uL (1.3-7.7); Neutrophils % (A) 83 %; Platelet Count 238 k/uL (150-450); Poikilocytosis Slight; RBC 5.76 m/uL (4.30-5.90); RDW 20.2 % (11.5-15.5); WBC 7.8 k/uL (3.8-10.6)
[2021-12-14 05:50] LABS: Albumin 3.2 g/dL (3.5-5.0); Calcium 9.1 mg/dL (8.4-10.2); Total Bilirubin 1.8 mg/dL (0.2-1.3)
[2021-12-14 06:09] LABS: Potassium 6.4 mmol/L (3.5-5.1)
[2021-12-14 06:20] LABS: Glucose,Whole Blood 123 mg/dL (70-110)
[2021-12-14 06:24] LABS: ABG Base Excess 10.8 mmol/L; ABG HCO3 39 mmol/L (21-25); ABG Oxygen Saturation 95.3 % (94-97); ABG PO2 84 mmHg (83-108); ABG TCO2 42 mmol/L (19-24)
[2021-12-14 06:27] LABS: ABG PCO2 103 mmHg (35-45); ABG PH 7.19 (7.35-7.45); Allen Test Performed? No
[2021-12-14] MEDS ORDERED: DEXTROSE 50% SYRINGE 50 ML IVP ONE (06:34)
[2021-12-14] MEDS ORDERED: SODIUM BICARB 8.4% 50 ML SYR (1 MEQ/ML) IV ONE (06:34)
[2021-12-14] MEDS ORDERED: SODIUM BICARB 8.4% 50 ML SYR (1 MEQ/ML) IV STA ×2 (06:36→10:36)
[2021-12-14 06:43] LABS: Polychromasia Present
[2021-12-14] MEDS ORDERED: INSULIN REGULAR 100 UNIT/ML VIAL (IV) IV ONE (06:45)
[2021-12-14] MEDS: BUDESONIDE 1 MG/2 ML NEBU INHALATION SCH (07:57)
[2021-12-14] MEDS: IPRATROPIUM-ALBUTEROL 3 ML NEB INHALATION PRN (07:57)
[2021-12-14] MEDS: FORMOTEROL FUMARATE 20 MCG/2 ML NEBU INHALATION SCH ×2 (07:57→19:49)
[2021-12-14] MEDS: PIPERACILLIN-TAZOBACTAM 3.375 GM in SODIUM CHLORIDE 0.9% 100 ML IVPB SCH ×3 (07:59→23:43)
[2021-12-14] MEDS: DEXMEDETOMIDINE/0.9% NACL(PMX) 400 MCG in EMPTY BAG 1 BAG IV SCH ×2 (08:00→11:06)
[2021-12-14] MEDS: HEPARIN SODIUM,PORCINE/PF 5,000 UNIT/0.5 ML SYRINGE SQ SCH ×3 (08:00→21:39)
--- NOTE | 2021-12-14 08:13 | XR ---
EXAMINATION TYPE: XR chest 1V portable DATE OF EXAM: 12/14/2021 COMPARISON: 12/13/2021 HISTORY: Shortness of breath FINDINGS: Continued cardiomegaly with pulmonary venous congestion and underlying congestive failure. Infiltrate s of other etiology not excluded given airspace disease right medial lung base and left lower lobe. IMPRESSION: Findings compatible with congestive failure. Infiltrates of other etiology are not excluded. Clinical correlation and progress studies are recommended.
--- NOTE | 2021-12-14 08:35 | P.CRDCN ---
History of Present Illness Consult date: 12/14/21 History of present illness: History of Present Illness: The patient is a 56-year-old male, morbidly obese who apparently fell in his apartment and was found to be unresponsive with progressive dyspnea. He was started on a BiPAP and admitted for further evaluation. Cardiology consultation was requested because of mild troponin elevation. The patient has a known hist ory of chronic hypoxemia and hypercapnia respiratory failure, he has a history of obstructive sleep apnea but not using his CPAP. There is a possibility of cor pulmonale in the past. He is more awake yet continues to be confused. He is in sinus mechanism and his blood pressure is stable. He has peripheral edema. In the past his echocardiogram was suboptimal a good images could be obtained. He has dilatation of the pulmonary artery consistent with pulmonary hypertension. There is no documentations of obstructive coronary artery disease. He has a prior history of hypertension. No other history could be obtained from him at this time. On presentation his troponin was mildly elevated and he had an elevated NT proBNP. He continues to be acidotic and hypercapnic. His blood pressure has been under good control. Medications: Lasix 80 mg daily, aspirin once a day, Zaroxolyn 5 mg daily, Coreg 12-1/2 mg twice a day, Aldactone 25 mg daily, losartan 100 mg daily Review of Systems: Could not be obtained, he shouldn't is awake but confused. Physical examination: 56-year-old male, moderately obese, alert confused on BiPAP. Blood pressure 150/80 with a heart rate in the 80s Head normocephalic Eyes sclera nonicteric Neck unable to evaluate jugular venous venous pressure Lungs: Clear to auscultation anteriorly with decreased air exchange Heart:[Regular rate and rhythm, S1-S2, no S3, no rub. No murmur.] Abdomen: [Soft nontender, obese, positive bowel sounds no organomegaly.] Extremities: [ +2edema, intact distal pulses, chronic skin changes .] Labs: [Hemoglobin 5.7, pH 7.13, pCO2 120, pO2 93. His pH this morning 7.19, BUN 78, creatinine 2.35 this morning down to 1.77. Troponin 0.058. NT proBNP 11,600. Potassium 6.4. Chest x-ray of poor quality but evidence of fluid overload and possible atelectasis in the left lung ] EKG: [Sinus mechanism rate of 88 fascicular block, cannot exclude anteroapical myocardial infarction ] Impression: 1. [ respiratory failure in a patient with known history of hypercapnic hypoventilation, not using CPAP. ] 2. [Troponin elevation most likely representing type II myocardial infarction ] 3. [ Evidence of heart failure, probably related to the hypoxemia with probable preserved systolic function] 4. [ morbid obesity 5. History of hypertension 6. Morbid obesity 7. Acute renal injury 8. Pulmonary hypertension ] Plan: 1. [obtain an echocardiogram with Doppler ] 2. [ continue diuresis] 3. [ follow renal functions ] 4. [depending on his progress further recommendations will be made ] 5. [ thank you for this consult we will follow with you] Past Medical History Past Medical History: Heart Failure, COPD, Hyperlipidemia, Hypertension, Sleep Apnea/CPAP/BIPAP Additional Past Medical History / Comment(s): chf, sleep apnea History of Any Multi-Drug Resistant Organisms: None Reported Past Surgical History: No Surgical Hx Reported Past Psychological History: No Psychological Hx Reported Past Alcohol Use History: None Reported Past Drug Use History: None Reported - Past Family History Mother Family Medical History: Hypertension Additional Family Medical History / Comment(s): Stroke, Thyroid issues Medications and Allergies Home Medications Medication Instructions Recorded Confirmed Type Furosemide [Lasix] 80 mg PO DAILY 08/26/19 12/13/21 History carvediloL [Coreg] 12.5 mg PO BID 08/26/19 12/13/21 History Spironolactone [Aldactone] 25 mg PO DAILY 30 Days #30 tab 09/01/19 12/13/21 Rx metOLazone [Zaroxolyn] 5 mg PO DAILY 30 Days #30 tab 09/01/19 12/13/21 Rx Acetaminophen [Tylenol 8 Hour] 1,300 mg PO Q8H PRN 12/13/21 12/13/21 History Aspirin 81 mg PO DAILY 12/13/21 12/13/21 History Gabapentin [Neurontin] 300 mg PO BID 12/13/21 12/13/21 History Ibuprofen [Motrin] 800 mg PO TID PRN 12/13/21 12/13/21 History Losartan Potassium 100 mg PO DAILY 12/13/21 12/13/21 History Allergies Allergy/AdvReac Type Severity Reaction Status Date / Time cat dander Allergy Anaphylaxis Verified 12/13/21 11:40 latex Allergy Rash/Hives Verified 12/13/21 11:40 Physical Exam Vitals: Vital Signs Temp Pulse Resp BP Pulse Ox FiO2 12/14/21 07:57 98 12/14/21 07:54 80 12/14/21 07:00 85 35 H 158/87 92 L 12/14/21 06:30 94 24 93 L 12/14/21 06:00 77 28 H 93 L 12/14/21 05:30 78 46 H 96 12/14/21 05:00 67 49 H 93 L 12/14/21 04:30 64 28 H 92 L 12/14/21 04:00 96.9 F L 68 35 H 92 L 80 12/14/21 03:30 63 14 92 L 12/14/21 03:25 80 12/14/21 03:00 63 17 93 L 12/14/21 02:30 67 19 93 L 12/14/21 02:00 72 18 93 L 12/14/21 01:30 65 18 92 L 12/14/21 01:00 64 17 93 L 12/14/21 00:30 75 18 94 L 12/14/21 00:00 97.9 F 71 22 95 80 12/13/21 23:30 74 19 92 L 80 12/13/21 23:04 70 18 92 L 12/13/21 23:00 78 19 91 L 12/13/21 22:30 71 20 91 L 12/13/21 22:00 63 19 91 L 12/13/21 21:30 63 18 91 L 12/13/21 21:00 71 24 91 L 12/13/21 20:30 68 21 91 L 12/13/21 20:06 70 12/13/21 20:00 97.7 F 66 25 H 92 L 80 12/13/21 19:51 58 L 12/13/21 19:50 58 L 12/13/21 19:33 64 80 12/13/21 19:30 67 24 91 L 12/13/21 19:00 69 24 158/87 91 L 12/13/21 18:30 75 27 H 158/87 90 L 12/13/21 18:00 71 25 H 158/87 90 L 12/13/21 17:30 74 30 H 90 L 12/13/21 17:00 75 23 91 L 12/13/21 16:30 79 47 H 158/87 93 L 12/13/21 16:00 75 20 170/92 92 L 80 12/13/21 15:45 77 12/13/21 15:33 85 12/13/21 15:30 72 27 H 91 L 12/13/21 15:00 73 30 H 91 L 80 12/13/21 14:56 80 12/13/21 14:30 97.7 F 72 20 141/80 96 100 12/13/21 13:00 74 18 143/94 90 L 12/13/21 12:00 79 18 133/93 92 L 12/13/21 11:40 40 12/13/21 11:03 87 18 129/74 89 L 12/13/21 09:51 86 18 155/92 88 L 12/13/21 09:32 89 12/13/21 09:07 88 12/13/21 09:01 90 20 140/77 96 12/13/21 08:41 98.3 F 90 24 141/105 82 L Intake and Output 12/13/21 12/14/21 12/14/21 22:59 06:59 14:59 Intake Total 800 900 100 Output Total 770 500 20 Balance 30 400 80 Intake: IV 800 900 100 Piperacillin-Tazobactam 3 100 100 .375 gm In Sodium Chloride 0.9% 100 ml @ 25 mls/hr IVPB Q8HR [facility] Rx# :[id number] Sodium Chloride 0.9% 1, 700 800 100 000 ml @ 100 mls/hr IV . Q10H [facility] Rx#:[id number] Output: Urine 770 500 20 Other: Voiding Method Indwelling Catheter Indwelling Catheter Weight 206.8 kg ABP, PAP, CO, CI - Last 8 Hours Arterial Blood Pressure 110/62 Arterial Blood Pressure 159/81 Arterial Blood Pressure 134/64 Arterial Blood Pressure 124/64 Arterial Blood Pressure 103/47 Arterial Blood Pressure 102/47 Arterial Blood Pressure 106/46 Arterial Blood Pressure 99/44 Arterial Blood Pressure 96/47 Arterial Blood Pressure 112/48 Arterial Blood Pressure 109/49 Arterial Blood Pressure 106/47 Arterial Blood Pressure 119/53 Arterial Blood Pressure 111/49 Results 12/14/21 05:14 12/14/21 05:14 Cardiac Enzymes 12/13/21 12/13/21 12/13/21 Range/Units 08:57 08:57 11:51 AST 32 (17-59) U/L CK-MB (CK-2) 3.1 H (0.0-2.4) ng/mL Troponin I 0.092 H* 0.071 H* (0.000-0.034) ng/mL 12/13/21 12/14/21 Range/Units 18:15 05:14 AST 21 (17-59) U/L CK-MB (CK-2) (0.0-2.4) ng/mL Troponin I 0.058 H* (0.000-0.034) ng/mL CBC 12/13/21 12/14/21 Range/Units 08:57 05:14 WBC 11.6 H 7.8 (3.8-10.6) k/uL RBC 6.45 H 5.76 (4.30-5.90) m/uL Hgb 15.8 14.3 (13.0-17.5) gm/dL Hct 57.8 H* 54.0 H (39.0-53.0) % Plt Count 324 238 (150-450) k/uL Comprehensive Metabolic Panel 12/13/21 12/14/21 Range/Units 08:57 05:14 Sodium 139 141 (137-145) mmol/L Potassium 5.8 H 6.4 H* (3.5-5.1) mmol/L Chloride 91 L 95 L (98-107) mmol/L Carbon Dioxide 39 H 39 H (22-30) mmol/L BUN 78 H 67 H (9-20) mg/dL Creatinine 2.35 H 1.77 H (0.66-1.25) mg/dL Glucose 110 H 131 H (74-99) mg/dL Calcium 9.9 9.1 (8.4-10.2) mg/dL AST 32 21 (17-59) U/L ALT 22 17 (4-49) U/L Alkaline Phosphatase 104 75 (38-126) U/L Total Protein 7.0 6.0 L (6.3-8.2) g/dL Albumin 3.8 3.2 L (3.5-5.0) g/dL Current Medications Generic Name Dose Route Start Last Admin Trade Name Freq PRN Reason Stop Dose Admin Albuterol/Ipratropium 3 ml 12/13/21 11:33 12/14/21 07:57 Ipratropium-Albuterol 3 Ml Neb INHALATION 3 ml RT-Q2H PRN Administration Shortness Of Breath Or Wheezing Budesonide 1 mg 12/13/21 20:00 12/14/21 07:57 Budesonide 1 Mg/2 Ml Nebu INHALATION 1 mg RT-BID MEGAN Administration Formoterol Fumarate 20 mcg 12/13/21 16:49 12/14/21 07:57 Formoterol Fumarate 20 Mcg/2 Ml Nebu INHALATION 20 mcg RT-BID MEGAN Administration Heparin Sodium (Porcine) 5,000 unit 12/13/21 16:00 12/14/21 08:00 Heparin Sodium,Porcine/Pf 5,000 Unit/0.5 Ml Syringe SQ 5,000 unit Q8HR MEGAN Administration Piperacillin Sod/Tazobactam 100 mls @ 25 mls/hr 12/13/21 17:00 12/14/21 07:59 Sod 3.375 gm/ Sodium Chloride IVPB 25 mls/hr Q8HR MEGAN Administration Protocol Sodium Chloride 1,000 mls @ 100 mls/hr 12/13/21 18:30 12/13/21 18:46 Saline 0.9% IV 100 mls/hr .Q10H MEGAN Administration Dexmedetomidine HCl 400 mcg/ 100 mls @ 10.34 mls/hr 12/14/21 08:30 12/14/21 08:00 IV Solution IV 0.2 mcg/kg/hr .[id number] MEGAN 10.34 mls/hr Administration Protocol 0.2 MCG/KG/HR Naloxone HCl 0.2 mg 12/13/21 11:33 Naloxone 0.4 Mg/Ml 1 Ml Vial IVP Q2M PRN Opioid Reversal Pantoprazole Sodium 40 mg 12/14/21 09:00 12/14/21 07:59 Pantoprazole 40 Mg/10 Ml Vial IV 40 mg DAILY MEGAN Administration Intake and Output 12/13/21 12/14/21 12/14/21 22:59 06:59 14:59 Intake Total 800 900 100 Output Total 770 500 20 Balance 30 400 80 Intake: IV 800 900 100 Piperacillin-Tazobactam 3 100 100 .375 gm In Sodium Chloride 0.9% 100 ml @ 25 mls/hr IVPB Q8HR [facility] Rx# :[id number] Sodium Chloride 0.9% 1, 700 800 100 000 ml @ 100 mls/hr IV . Q10H [facility] Rx#:[id number] Output: Urine 770 500 20 Other: Voiding Method Indwelling Catheter Indwelling Catheter Weight 206.8 kg 12/14/21 05:14 12/14/21 05:14
--- NOTE | 2021-12-14 08:42 | P.PN ---
Subjective Progress Note Date: 12/14/21 56-year-old morbidly obese male patient who was found in his apartment on the ground and he had fell apparently a few days back and hasn't remember falling down and he does not recall any other symptoms proceeded his follow-up. He states that he has been lying down on the floor for at least 3 days, unable to get up and he was getting progressively more sick. Ultimately, he was found and the patient got moved to the emergency department. No headaches. No neck stiffness. No trauma. No chest pain. He was having some increased shortness of breath. No nausea or vomiting. No reported aspiration. The patient presented to the ED and he was somewhat lethargic. His blood gases showed a pH of 7.18 with a pCO2 of 102 and pO2 of 67 and this was on FiO2 of 36%. At that point, the patient was placed on a BiPAP and ICU transfer was recommended. On his blood work, the patient was found to have a proBNP level of 11,600 and troponins were slightly elevated at 0.09 and 0.07 respectively 2. He also was found to be in renal failure with a 70 connected. 2.35, acute versus chronic and the patient's and his serum bicarb of 39 with a potassium level of 5.8. Sodium level was at 139. The patient had a white cell count 11.6 with a hemoglobin 15.8 and a platelet count of 324. The chest x-ray was suboptimal due to patient's body habitus. HEENT thyromegaly a mild four-vessel congestion. He also had large pulmonary arteries suggesting pulmonary arterial hypertension. The computed tomography scan of the brain was also done showing acute intracranial process. Based on review of his medication, the patient has been taking a combination of Lasix 80 mg by mouth daily and lisinopril 5 mg by mouth daily at home. He is known to have chronic hypoxic and hypercapnic respiratory failure and this was attributed to severe sleep apnea and a component of obesity hypoventilation syndrome. He has chronic metabolic alkalosis and chronic hypercapnic respiratory failure. He also has history of hypertension and hyperlipidemia. He is a lifetime nonsmoker. On today's evaluation of 12/14/2021, the patient is slightly more awake. Earlier this morning, the patient became restless and agitated and tachypneic and tachycardic. He was getting more delirious. Based on that, he was started on Precedex drip which is currently running at 0.3 mcg/kg/h. Things have settled since. The patient is more responsive at this point in time. He is following some occasional simple commands. For the most part he remains confused. He remains on a BiPAP and his right synchronous. He is on a BiPAP at a pressure of 18/6 cm of water and FiO2 of 80%. Generated tidal volumes around 350 with a respiratory rate of 20 and a minute of ventilation it's ranging between 6 and 8. He has a good mask seal with limited amount of leaks. Chest x-rays obviously suboptimal due to his body habitus. He has massive cardiomegaly, possibly a left-sided pleural effusion, atelectatic changes are seen bilaterally in the left upper lobe and the right lower lobe. Most recent blood gas shows a pH of 7.19 with a pCO2 of 103 and pO2 of 84. Based on his underlying acidosis, the patient has developed some hypokalemia and potassium level from this morning was up to 6.4. Based on that, the patient was given D50 insulin and the patient was given IV bicarbonate total of 100 mEq. Repeat potassium is still pending for now. No EKG changes related to hyperkalemia. At the same time, his renal function continues to improve. Creatinine is down to 1.7 and sodium level is at 141. The patient continues to receive IV fluids in the form of normal saline at the rate of 100 mL an hour. The patient is also on IV Zosyn as empiric antibiotic coverage. Overall fluid balance over the past 24 hours has been essentially positive in the order of 100 mL. He has a Rosa catheter in place and the urine output is in order of 20-30 mL an hour. The triple-lumen catheter was established in his left IJ. He also has a arterial line in his left radial artery. Neurologic exam is nonfocal. Is moving all 4 extremities without any limitation. Objective - Vital Signs Vital signs: Vital Signs Temp 96.9 F L 12/14/21 04:00 Pulse 92 12/14/21 08:18 Resp 35 H 12/14/21 07:00 BP 158/87 12/14/21 07:00 Pulse Ox 92 L 12/14/21 07:00 FiO2 80 12/14/21 07:54 Intake & Output 0912/14/21 12/14/21 18:59 06:59 18:59 Intake Total 400 1300 104.998 Output Total 735 870 20 Balance -335 430 84.998 Weight 204.117 kg 206.8 kg Intake: IV 400 1300 100 Piperacillin-Tazobactam 3 100 100 .375 gm In Sodium Chloride 0.9% 100 ml @ 25 mls/hr IVPB Q8HR [facility] Rx# :[id number] Sodium Chloride 0.9% 1, 300 1200 100 000 ml @ 100 mls/hr IV . Q10H [facility] Rx#:[id number] Intake, IV Titration 4.998 Amount Dexmedetomidine/0.9% NaCl 4.998 (Pmx) 400 mcg In Empty Bag 1 bag @ 0.2 MCG/KG/HR 10.34 mls/hr IV .Q9H41M [facility] Rx#:[id number] Output: Urine 735 870 20 Uretheral (Rosa) 225 Other: Voiding Method Indwelling Catheter Indwelling Catheter ABP, PAP, CO, CI - Last Documented Arterial Blood Pressure 110/62 - Exam GENERAL: patient is excessively drowsy, not in any acute distress. morbidly obese , currently on a BiPAP she is able to tolerate without any major difficulties with a fullface mask. The patient is morbidly obese. Currently is on Precedex. He is also on a BiPAP at a pressure of 18/6 cm of water. Head exam was generally normal. There was no scleral icterus or corneal arcus. Mucous membranes were moist. HEENT: Pupils are round and equally reacting to light. EOMI. No scleral icterus. No conjunctival pallor. Normocephalic, atraumatic. No pharyngeal erythema. No thyromegaly. The patient has a Mallampati class IV CARDIOVASCULAR: S1 and S2 present. No murmurs, rubs, or gallops. Oral heart sounds are distant PULMONARY: Lungs are diminished in the mid and lower lung his bilaterally. No cervical breath sounds are appreciated. ABDOMEN: Soft, nontender, nondistended, normoactive bowel sounds. No palpable organomegaly. MUSCULOSKELETAL: No joint swelling or deformity. EXTREMITIES: No cyanosis, clubbing.extensive bilateral pedal edema. 1 having much edema right leg + pitting NEUROLOGICAL: Lethargic and somnolent due to a component of CO2 narcosis. Neurologic exam is nonfocal. Examination of the skin revealed no evidence of significant rashes, suspicious appearing nevi or other concerning lesions. - Labs CBC & Chem 7: 12/14/21 05:14 12/14/21 05:14 Labs: Abnormal Lab Results - Last 24 Hours (Table) 12/13/21 12/13/21 12/13/21 Range/Units 08:57 08:57 08:57 WBC 11.6 H (3.8-10.6) k/uL RBC 6.45 H (4.30-5.90) m/uL Hct 57.8 H* (39.0-53.0) % MCH 24.5 L (25.0-35.0) pg MCHC 27.4 L (31.0-37.0) g/dL RDW 20.7 H (11.5-15.5) % Neutrophils # 8.6 H (1.3-7.7) k/uL Lymphocytes # 0.9 L (1.0-4.8) k/uL Monocytes # 1.7 H (0-1.0) k/uL ABG pH (7.35-7.45) ABG pCO2 (35-45) mmHg ABG pO2 (83-108) mmHg ABG HCO3 (21-25) mmol/L ABG Total CO2 (19-24) mmol/L ABG O2 Saturation (94-97) % ABG Hematocrit (34.0-46.0) % Potassium 5.8 H (3.5-5.1) mmol/L Chloride 91 L (98-107) mmol/L Carbon Dioxide 39 H (22-30) mmol/L BUN 78 H (9-20) mg/dL Creatinine 2.35 H (0.66-1.25) mg/dL Glucose 110 H (74-99) mg/dL POC Glucose (mg/dL) (70-110) mg/dL Total Bilirubin 2.3 H (0.2-1.3) mg/dL CK-MB (CK-2) 3.1 H (0.0-2.4) ng/mL Troponin I 0.092 H* (0.000-0.034) ng/mL Total Protein (6.3-8.2) g/dL Albumin (3.5-5.0) g/dL Urine Protein (Negative) Calcium Carbonate Cryst (None) /hpf Uric Acid Crystals (None) /hpf Urine Mucus (None) /hpf 12/13/21 12/13/21 12/13/21 Range/Units 11:10 11:51 16:52 WBC (3.8-10.6) k/uL RBC (4.30-5.90) m/uL Hct (39.0-53.0) % MCH (25.0-35.0) pg MCHC (31.0-37.0) g/dL RDW (11.5-15.5) % Neutrophils # (1.3-7.7) k/uL Lymphocytes # (1.0-4.8) k/uL Monocytes # (0-1.0) k/uL ABG pH 7.18 L* (7.35-7.45) ABG pCO2 102 H* (35-45) mmHg ABG pO2 67 L (83-108) mmHg ABG HCO3 38 H (21-25) mmol/L ABG Total CO2 41 H (19-24) mmol/L ABG O2 Saturation 85.3 L (94-97) % ABG Hematocrit 50 H (34.0-46.0) % Potassium (3.5-5.1) mmol/L Chloride (98-107) mmol/L Carbon Dioxide (22-30) mmol/L BUN (9-20) mg/dL Creatinine (0.66-1.25) mg/dL Glucose (74-99) mg/dL POC Glucose (mg/dL) (70-110) mg/dL Total Bilirubin (0.2-1.3) mg/dL CK-MB (CK-2) (0.0-2.4) ng/mL Troponin I 0.071 H* (0.000-0.034) ng/mL Total Protein (6.3-8.2) g/dL Albumin (3.5-5.0) g/dL Urine Protein Trace H (Negative) Calcium Carbonate Cryst Moderate H (None) /hpf Uric Acid Crystals Moderate H (None) /hpf Urine Mucus Rare H (None) /hpf 12/13/21 12/13/21 12/13/21 Range/Units 17:46 17:58 18:15 WBC (3.8-10.6) k/uL RBC (4.30-5.90) m/uL Hct (39.0-53.0) % MCH (25.0-35.0) pg MCHC (31.0-37.0) g/dL RDW (11.5-15.5) % Neutrophils # (1.3-7.7) k/uL Lymphocytes # (1.0-4.8) k/uL Monocytes # (0-1.0) k/uL ABG pH 7.13 L* (7.35-7.45) ABG pCO2 120 H* (35-45) mmHg ABG pO2 (83-108) mmHg ABG HCO3 40 H* (21-25) mmol/L ABG Total CO2 44 H (19-24) mmol/L ABG O2 Saturation (94-97) % ABG Hematocrit (34.0-46.0) % Potassium (3.5-5.1) mmol/L Chloride (98-107) mmol/L Carbon Dioxide (22-30) mmol/L BUN (9-20) mg/dL Creatinine (0.66-1.25) mg/dL Glucose (74-99) mg/dL POC Glucose (mg/dL) 133 H (70-110) mg/dL Total Bilirubin (0.2-1.3) mg/dL CK-MB (CK-2) (0.0-2.4) ng/mL Troponin I 0.058 H* (0.000-0.034) ng/mL Total Protein (6.3-8.2) g/dL Albumin (3.5-5.0) g/dL Urine Protein (Negative) Calcium Carbonate Cryst (None) /hpf Uric Acid Crystals (None) /hpf Urine Mucus (None) /hpf 12/14/21 12/14/21 12/14/21 Range/Units 00:07 05:14 05:14 WBC (3.8-10.6) k/uL RBC (4.30-5.90) m/uL Hct 54.0 H (39.0-53.0) % MCH 24.8 L (25.0-35.0) pg MCHC 26.4 L (31.0-37.0) g/dL RDW 20.2 H (11.5-15.5) % Neutrophils # (1.3-7.7) k/uL Lymphocytes # 0.2 L (1.0-4.8) k/uL Monocytes # (0-1.0) k/uL ABG pH (7.35-7.45) ABG pCO2 (35-45) mmHg ABG pO2 (83-108) mmHg ABG HCO3 (21-25) mmol/L ABG Total CO2 (19-24) mmol/L ABG O2 Saturation (94-97) % ABG Hematocrit (34.0-46.0) % Potassium 6.4 H* (3.5-5.1) mmol/L Chloride 95 L (98-107) mmol/L Carbon Dioxide 39 H (22-30) mmol/L BUN 67 H (9-20) mg/dL Creatinine 1.77 H (0.66-1.25) mg/dL Glucose 131 H (74-99) mg/dL POC Glucose (mg/dL) 134 H (70-110) mg/dL Total Bilirubin 1.8 H (0.2-1.3) mg/dL CK-MB (CK-2) (0.0-2.4) ng/mL Troponin I (0.000-0.034) ng/mL Total Protein 6.0 L (6.3-8.2) g/dL Albumin 3.2 L (3.5-5.0) g/dL Urine Protein (Negative) Calcium Carbonate Cryst (None) /hpf Uric Acid Crystals (None) /hpf Urine Mucus (None) /hpf 12/14/21 12/14/21 Range/Units 06:12 06:17 WBC (3.8-10.6) k/uL RBC (4.30-5.90) m/uL Hct (39.0-53.0) % MCH (25.0-35.0) pg MCHC (31.0-37.0) g/dL RDW (11.5-15.5) % Neutrophils # (1.3-7.7) k/uL Lymphocytes # (1.0-4.8) k/uL Monocytes # (0-1.0) k/uL ABG pH 7.19 L* (7.35-7.45) ABG pCO2 103 H* (35-45) mmHg ABG pO2 (83-108) mmHg ABG HCO3 39 H (21-25) mmol/L ABG Total CO2 42 H (19-24) mmol/L ABG O2 Saturation (94-97) % ABG Hematocrit (34.0-46.0) % Potassium (3.5-5.1) mmol/L Chloride (98-107) mmol/L Carbon Dioxide (22-30) mmol/L BUN (9-20) mg/dL Creatinine (0.66-1.25) mg/dL Glucose (74-99) mg/dL POC Glucose (mg/dL) 123 H (70-110) mg/dL Total Bilirubin (0.2-1.3) mg/dL CK-MB (CK-2) (0.0-2.4) ng/mL Troponin I (0.000-0.034) ng/mL Total Protein (6.3-8.2) g/dL Albumin (3.5-5.0) g/dL Urine Protein (Negative) Calcium Carbonate Cryst (None) /hpf Uric Acid Crystals (None) /hpf Urine Mucus (None) /hpf Assessment and Plan Plan: Acute on chronic hypoxic hypercapnic respiratory failure, with possibly a component of fluid overload/CHF. Aspiration cannot be completely ruled out. The patient's blood gas shows a component of acute on chronic hypercapnic respiratory failure. The patient's baseline pCO2 is in the 70 range. At a time of his ICU arrival, the patient was obtunded and lethargic and he was a CO2 narcosis. This morning, the patient became more agitated and restless, he was found to be more awake and at times confused. He was started on Precedex. He is more success with the BiPAP mask. Blood gases are essentially unchanged and he continues to tolerate the BiPAP. He has a full CODE STATUS. Chest x-ray showing atelectatic changes, this is mainly in the right lower lobe and the left upper lobe. There is also significant cardiomegaly. And there is also evidence of pulmonary vascular congestion. Fall without any traumatic injuries. CAT scan of the brain is negative. No skeletal injuries noted. Acute kidney injury, likely secondary to intravascular volume depletion dehydration , improving and the creatinine is down to 1.7 Chronic hypoxic respiratory failure Chronic hypercapnic respiratory failure Obstructive sleep apnea/obesity hypoventilation syndrome with chronic hypoxic and hypercapnic respiratory failure and the patient has been unable to tolerate BiPAP therapy and is on no treatment for now Altered mental status secondary to above Hypertension Chronic lower extremity edema maintained on a combination of Lasix and Zaroxolyn, edema is minimal in his lower extremities for now Hyperlipidemia Morbid obesity Suspect chronic diastolic heart failure/pulmonary hypertension Acute hyperkalemia, related to acidosis and potassium cellular shift Plan Continue Precedex and titrate the dose for comfort Hyperkalemia was treated and the patient's potassium level needs to be repeated Continue BiPAP For now, keep same BiPAP pressures for now. His current pulse ox is 93%. CVP is currently at 19 Continue hydration with IV fluids almost saline at rate of 100 mL an hour as the patient is an acute kidney injury This is a Rosa catheter monitor urine output continue the diuretics and the nonsteroidal anti-inflammatory medications the patient was taken outpatient basis Monitor the blood gases DuoNeb nebulized treatments around the clock Lovenox for prophylaxis Check pro calcitonin level Use empiric antibiotic coverage with IV Zosyn We'll continue to follow Condition remains critical. High likelihood for respiratory failure requiring intubation mechanical ventilation. Accordingly, he'll be kept in ICU under close monitoring. This is a critically care evaluation. The patient will be monitored very closel y. I'm going to attend on the patient's during his ICU course and decide if intubation is needed. Her blood gases will be obtained also at 9 AM., Critically care evaluation was done more than 30 minutes.
[2021-12-14] MEDS ORDERED: PANTOPRAZOLE 40 MG/10 ML VIAL IV SCH (09:00)
[2021-12-14 09:08] LABS: ABG Oxygen Saturation 94.5 % (94-97); ABG PH 7.24 (7.35-7.45); ABG PO2 77 mmHg (83-108); ABG TCO2 43 mmol/L (19-24); Allen Test Performed? Yes
[2021-12-14 09:10] LABS: ABG HCO3 40 mmol/L (21-25); ABG PCO2 94 mmHg (35-45)
[2021-12-14 10:21] LABS: Calcium 9.1 mg/dL (8.4-10.2); Potassium 5.8 mmol/L (3.5-5.1)
[2021-12-14] MEDS ORDERED: HALOPERIDOL LACTATE 5 MG/ML 1 ML VIAL IVP PRN (11:24)
[2021-12-14 13:19] LABS: Glucose,Whole Blood 112 mg/dL (70-110)
[2021-12-14] MEDS: SODIUM CHLORIDE 0.9% 1,000 ML IV SCH ×3 (14:11→23:41)
[2021-12-14] MEDS ORDERED: propofoL 100 ML IV ONE (15:37)
[2021-12-14 15:41] LABS: ABG Oxygen Saturation 88.4 % (94-97); ABG PH 7.23 (7.35-7.45); ABG PO2 65 mmHg (83-108); ABG TCO2 46 mmol/L (19-24); Allen Test Performed? Yes
[2021-12-14] MEDS ORDERED: NOREPINEPHRINE 32 MG in SODIUM CHLORIDE 0.9% 218 ML IV SCH (15:45)
[2021-12-14 15:50] LABS: ABG HCO3 43 mmol/L (21-25); ABG PCO2 101 mmHg (35-45)
[2021-12-14] MEDS ORDERED: ATROPINE SULFATE 0.1 MG/ML 10ML SYRINGE ONE (16:33)
[2021-12-14] MEDS ORDERED: MORPHINE SULFATE 4 MG/ML SYRINGE IV PRN (17:18)
[2021-12-14] MEDS ORDERED: MORPHINE SULFATE (100 MG/2 ML) 100 MG in SODIUM CHLORIDE 0.9% 100 ML IV SCH (17:30)
--- NOTE | 2021-12-14 18:04 | CA ---
Transthoracic Echo Report Name: Teddy Dubois Age: 56 Gender: M : 1965 Exam Date: 12/14/2021 15:32 Exam Location: [facility] Ht (in): 71 Wt (lb): 455 Ordering Physician: Reggie Ochoa MD ([id number]) Attending/Referring Phys: [employer] Representative Elke Oliva, LATOYA Procedure CPT: Indications: chf Cardiac Hx: limited windows Technical Quality: Very technically difficult study Contrast 1: Lumason Total Dose (mL): 5 Contrast 2: Total Dose (mL): MEASUREMENTS (Male / Female) Normal Values 2D ECHO LV Diastolic Diameter PLAX 4.5 cm 4.2 - 5.9 / 3.9 - 5.3 cm LV Systolic Diameter PLAX 3.3 cm IVS Diastolic Thickness 1.7 cm 0.6 - 1.0 / 0.6 - 0.9 cm LVPW Diastolic Thickness 1.5 cm 0.6 - 1.0 / 0.6 - 0.9 cm LV Relative Wall Thickness 0.7 RV Internal Dim ED PLAX 4.8 cm LA Systolic Diameter LX 3.9 cm 3.0 - 4.0 / 2.7 - 3.8 cm M-MODE Aortic Root Diameter MM 3.3 cm MV E Point Septal Separation 0.6 cm DOPPLER TR Peak Velocity 221.9 cm/s TR Peak Gradient 19.7 mmHg Right Ventricular Systolic Press 34.3 mmHg FINDINGS Left Ventricle Left ventricular ejection fraction is estimated at 55-60 %. Moderate concentric left ventricular hypertrophy. Left ventricular cavity size normal. Right Ventricle Severe right ventricular dilatation. Mild pulmonary hypertension. Right Atrium Right atrium not well visualized. Left Atrium Left atrial size at the upper limits of normal. Mitral Valve Mitral valve not well visualized. Aortic Valve Aortic valve not well visualized. Tricuspid Valve Mild tricuspid regurgitation. Pulmonic Valve Pulmonic valve not well visualized. Pericardium No pericardial effusion. Aorta Normal size aortic root and proximal ascending aorta. CONCLUSIONS Technically difficult study. Overall left ventricle size and systolic function are normal Dilated right ventricle Valvular structures were not visualized. Previewed by: Dr. Reggie Ochoa MD (Electronically Signed) Final Date: 14 December 2021 18:04
[2021-12-14] MEDS: IPRATROPIUM-ALBUTEROL 3 ML NEB INHALATION SCH ×2 (19:49→23:14)
[2021-12-14 23:58] LABS: Glucose,Whole Blood 102 mg/dL (70-110)
[2021-12-15] MEDS: IPRATROPIUM-ALBUTEROL 3 ML NEB INHALATION SCH ×6 (04:09→23:54)
[2021-12-15 05:43] LABS: Glucose,Whole Blood 94 mg/dL (70-110)
[2021-12-15 05:56] LABS: Anisocytosis Moderate; Basophils # (A) 0.1 k/uL (0-0.2); Basophils % (A) 0 %; Eosinophils # (A) 0.1 k/uL (0-0.7); Eosinophils % (A) 1 %; HCT 54.2 % (39.0-53.0); HGB 14.2 gm/dL (13.0-17.5); Hypochromasia Marked; Lymphocytes # (A) 0.9 k/uL (1.0-4.8); Lymphocytes % (A) 8 %; MCH 24.7 pg (25.0-35.0); MCHC 26.2 g/dL (31.0-37.0); MCV 94.3 fL (80.0-100.0); Macrocytosis Slight; Mean Platelet Volume 7.9; Monocytes # (A) 1.3 k/uL (0-1.0); Monocytes % (A) 11 %; Neutrophils # (A) 8.9 k/uL (1.3-7.7); Neutrophils % (A) 79 %; Platelet Count 199 k/uL (150-450); Poikilocytosis Slight; RBC 5.74 m/uL (4.30-5.90); RDW 20.5 % (11.5-15.5); WBC 11.3 k/uL (3.8-10.6)
[2021-12-15 06:11] LABS: Calcium 9.1 mg/dL (8.4-10.2); Potassium 5.5 mmol/L (3.5-5.1)
[2021-12-15 06:34] LABS: Polychromasia Present
--- NOTE | 2021-12-15 07:38 | XR ---
EXAMINATION TYPE: XR chest 1V portable DATE OF EXAM: 12/15/2021 HISTORY: Shortness of breath. COMPARISON: 12/14/2021 TECHNIQUE: Single view of the chest is submitted. FINDINGS: Persistent cardiomegaly with pulmonary venous congestion and infiltrates throughout both lung gomez. The findings may reflect of pulmonary edema however underlying infiltrates of other etiology not exc luded. Correlate clinically and progress studies are advised. Graft left IJ central venous line uncha nged in position. Hilar and mediastinal structures are within normal limits. Degenerative changes are seen of the dorsal spine. IMPRESSION: 1. Findings felt to reflect congestive failure although infiltrates of other etiology not excluded. Correlate clinically and progress studies are advised.
[2021-12-15] MEDS: PIPERACILLIN-TAZOBACTAM 3.375 GM in SODIUM CHLORIDE 0.9% 100 ML IVPB SCH ×3 (07:44→23:52)
[2021-12-15] MEDS: HEPARIN SODIUM,PORCINE/PF 5,000 UNIT/0.5 ML SYRINGE SQ SCH ×2 (07:45→20:47)
[2021-12-15] MEDS: PANTOPRAZOLE 40 MG/10 ML VIAL IVP SCH (07:45)
[2021-12-15] MEDS: FORMOTEROL FUMARATE 20 MCG/2 ML NEBU INHALATION SCH ×2 (07:50→20:03)
--- NOTE | 2021-12-15 09:35 | P.PN ---
Subjective Progress Note Date: 12/15/21 PROGRESS NOTE The patient is a 56-year-old male, morbidly obese, history of obstructive sleep apnea who presented was progressive dyspnea. He continues to be on the BiPAP, he is more awake and alert. His blood pressure and heart rate are stable. His echocardiogram was suboptimal but showed a preserved systolic function. He denies any chest discomfort or dizziness. He has no evidence of malignant ar rhythmia. His urinary output has been stable. Medications: Zosyn, DuoNeb, subcu heparin PHYSICAL EXAMINATION: Blood pressure 128/50 heart rate 60, on the BiPAP, more awake and alert LUNGS: Decreased breath sounds on the left more than the right HEART: Regular rate and rhythm, S1, S2. No S3. No systolic murmur ABDOMEN: Soft, nontender, no organomegaly, obese EXTREMETIES: +1 edema, improved with chronic skin changes LAB: Hemoglobin 11.2, BUN 60, creatinine 1.34, potassium 5.5 IMPRESSION: 1. Respiratory failure with hypoxemia and hypercapnia, improving 2. Troponin elevation secondary to type II myocardial infarction 3. Heart failure with preserved systolic function 4. Morbid obesity 5. History of hypertension 6. Acute renal injury PLAN: 1. Continue to monitor renal function 2. The patient would require CPAP 3. Follow blood pressure reinitiate treatment depending on the trend 4. Increase physical activity Objective - Vital Signs Vital signs: Vital Signs Temp 98.0 F 12/15/21 08:00 Pulse 67 12/15/21 09:00 Resp 14 12/15/21 09:00 BP 158/87 12/14/21 08:30 Pulse Ox 84 L 12/15/21 09:00 FiO2 40 12/15/21 08:05 Intake & Output 12/14/21 12/15/21 12/15/21 18:59 06:59 18:59 Intake Total 5833.011 3634 250 Output Total 695 1360 390 Balance 697.779 490 -140 Weight 207.6 kg 207.6 kg Intake: IV 1300 650 250 Piperacillin-Tazobactam 3 200 100 100 .375 gm In Sodium Chloride 0.9% 100 ml @ 25 mls/hr IVPB Q8HR [facility] Rx# :[id number] Sodium Chloride 0.9% 1, 1100 550 150 000 ml @ 100 mls/hr IV . Q10H [facility] Rx#:[id number] Intake, IV Titration 92.779 Amount Dexmedetomidine/0.9% NaCl 91.079 (Pmx) 400 mcg In Empty Bag 1 bag @ 0.2 MCG/KG/HR 10.34 mls/hr IV .Q9H41M [facility] Rx#:[id number] Morphine Sulfate (100 mg/ 1.700 2 ml) 100 mg In Sodium Chloride 0.9% 100 ml @ 1 MG/HR 1.02 mls/hr IV . Q24H [facility] Rx#:[id number] Oral 1200 Output: Urine 695 1360 390 Other: Voiding Method Indwelling Catheter Indwelling Catheter # Voids 1 ABP, PAP, CO, CI - Last Documented Arterial Blood Pressure 128/50 - Labs CBC & Chem 7: 12/15/21 05:35 12/15/21 05:35 Labs: Abnormal Lab Results - Last 24 Hours (Table) 12/14/21 12/14/21 12/14/21 Range/Units 05:14 09:58 13:17 WBC (3.8-10.6) k/uL Hct (39.0-53.0) % MCH (25.0-35.0) pg MCHC (31.0-37.0) g/dL RDW (11.5-15.5) % Neutrophils # (1.3-7.7) k/uL Lymphocytes # (1.0-4.8) k/uL Monocytes # (0-1.0) k/uL ABG pH (7.35-7.45) ABG pCO2 (35-45) mmHg ABG pO2 (83-108) mmHg ABG HCO3 (21-25) mmol/L ABG Total CO2 (19-24) mmol/L ABG O2 Saturation (94-97) % Potassium 5.8 H (3.5-5.1) mmol/L Chloride 97 L (98-107) mmol/L Carbon Dioxide 39 H (22-30) mmol/L BUN 67 H (9-20) mg/dL Creatinine 1.58 H (0.66-1.25) mg/dL Glucose 124 H (74-99) mg/dL POC Glucose (mg/dL) 112 H (70-110) mg/dL Procalcitonin 0.40 H (0.02-0.09) ng/mL 09/12/14/21 12/15/21 Range/Units 15:33 15:50 05:35 WBC 11.3 H (3.8-10.6) k/uL Hct 54.2 H (39.0-53.0) % MCH 24.7 L (25.0-35.0) pg MCHC 26.2 L (31.0-37.0) g/dL RDW 20.5 H (11.5-15.5) % Neutrophils # 8.9 H (1.3-7.7) k/uL Lymphocytes # 0.9 L (1.0-4.8) k/uL Monocytes # 1.3 H (0-1.0) k/uL ABG pH 7.23 L (7.35-7.45) ABG pCO2 101 H* (35-45) mmHg ABG pO2 65 L (83-108) mmHg ABG HCO3 43 H* (21-25) mmol/L ABG Total CO2 46 H (19-24) mmol/L ABG O2 Saturation 88.4 L (94-97) % Potassium 5.6 H (3.5-5.1) mmol/L Chloride (98-107) mmol/L Carbon Dioxide (22-30) mmol/L BUN (9-20) mg/dL Creatinine (0.66-1.25) mg/dL Glucose (74-99) mg/dL POC Glucose (mg/dL) (70-110) mg/dL Procalcitonin (0.02-0.09) ng/mL 12/15/21 Range/Units 05:35 WBC (3.8-10.6) k/uL Hct (39.0-53.0) % MCH (25.0-35.0) pg MCHC (31.0-37.0) g/dL RDW (11.5-15.5) % Neutrophils # (1.3-7.7) k/uL Lymphocytes # (1.0-4.8) k/uL Monocytes # (0-1.0) k/uL ABG pH (7.35-7.45) ABG pCO2 (35-45) mmHg ABG pO2 (83-108) mmHg ABG HCO3 (21-25) mmol/L ABG Total CO2 (19-24) mmol/L ABG O2 Saturation (94-97) % Potassium 5.5 H (3.5-5.1) mmol/L Chloride 94 L (98-107) mmol/L Carbon Dioxide 40 H (22-30) mmol/L BUN 60 H (9-20) mg/dL Creatinine 1.34 H (0.66-1.25) mg/dL Glucose 102 H (74-99) mg/dL POC Glucose (mg/dL) (70-110) mg/dL Procalcitonin (0.02-0.09) ng/mL Microbiology - Last 24 Hours (Table) 12/13/21 17:50 Blood Culture - Preliminary Blood No Growth after 24 hours
--- NOTE | 2021-12-15 09:47 | PN ---
PROGRESS NOTE SUBJECTIVE: This 56-year-old gentleman who was admitted with respiratory failure, possibly aspiration pneumonia, and COPD exacerbation. The patient is being closely monitored in ICU. Patient is on BiPAP at this time. Patient on broad spectrum IV antibiotics. PAST MEDICAL HISTORY: Reviewed. REVIEW OF SYSTEMS: Could not be taken as the patient is sedated. CURRENT MEDICATIONS: Reviewed include Zosyn and dose and rest of medications reviewed. PHYSICAL EXAMINATION: VITAL SIGNS: Pulse is 60, blood pressure is ntd, respirations 20. HEENT: Conjunctivae normal. NECK: No jugular venous distention. CARDIOVASCULAR: S1, S2 muffled. RESPIRATION: Bilateral scattered rhonchi and crackles. ABDOMEN: Obese. LEGS: No edema. NERVOUS SYSTEM: Cannot be examined completely. LABS: Reviewed, ABGs reviewed. Potassium 5.3. ASSESSMENT: 1. Acute bilateral pneumonia, possibly aspiration with acute hypoxic respiratory failure, on BiPAP. 2. Chronic obstructive pulmonary disease acute exacerbation. 3. Acute renal failure. 4. Troponin 0.0 indeterminate. 5. History of congestive heart failure. 6. Multiple medical issues. RECOMMENDATIONS: This 56-year-old gentleman with multiple complex medical issues, we will monitor the patient closely. Continue the current medications, continue the bronchodilators, otherwise continue empiric antibiotics and bronchodilators, also recommended COVID-19 testing. Guarded prognosis. Further recommendations to follow. Chest x-ray reviewed personally. MMODL / IJN: [id number] / MTDD
--- NOTE | 2021-12-15 10:07 | P.PN ---
Subjective Progress Note Date: 12/15/21 56-year-old morbidly obese male patient who was found in his apartment on the ground and he had fell apparently a few days back and hasn't remember falling down and he does not recall any other symptoms proceeded his follow-up. He states that he has been lying down on the floor for at least 3 days, unable to get up and he was getting progressively more sick. Ultimately, he was found and the patient got moved to the emergency department. No headaches. No neck stiffness. No trauma. No chest pain. He was having some increased shortness of breath. No nausea or vomiting. No reported aspiration. The patient presented to the ED and he was somewhat lethargic. His blood gases showed a pH of 7.18 with a pCO2 of 102 and pO2 of 67 and this was on FiO2 of 36%. At that point, the patient was placed on a BiPAP and ICU transfer was recommended. On his blood work, the patient was found to have a proBNP level of 11,600 and troponins were slightly elevated at 0.09 and 0.07 respectively 2. He also was found to be in renal failure with a 70 connected. 2.35, acute versus chronic and the patient's and his serum bicarb of 39 with a potassium level of 5.8. Sodium level was at 139. The patient had a white cell count 11.6 with a hemoglobin 15.8 and a platelet count of 324. The chest x-ray was suboptimal due to patient's body habitus. HEENT thyromegaly a mild four-vessel congestion. He also had large pulmonary arteries suggesting pulmonary arterial hypertension. The computed tomography scan of the brain was also done showing acute intracranial process. Based on review of his medication, the patient has been taking a combination of Lasix 80 mg by mouth daily and lisinopril 5 mg by mouth daily at home. He is known to have chronic hypoxic and hypercapnic respiratory failure and this was attributed to severe sleep apnea and a component of obesity hypoventilation syndrome. He has chronic metabolic alkalosis and chronic hypercapnic respiratory failure. He also has history of hypertension and hyperlipidemia. He is a lifetime nonsmoker. On today's evaluation of 12/14/2021, the patient is slightly more awake. Earlier this morning, the patient became restless and agitated and tachypneic and tachycardic. He was getting more delirious. Based on that, he was started on Precedex drip which is currently running at 0.3 mcg/kg/h. Things have settled since. The patient is more responsive at this point in time. He is following some occasional simple commands. For the most part he remains confused. He remains on a BiPAP and his right synchronous. He is on a BiPAP at a pressure of 18/6 cm of water and FiO2 of 80%. Generated tidal volumes around 350 with a respiratory rate of 20 and a minute of ventilation it's ranging between 6 and 8. He has a good mask seal with limited amount of leaks. Chest x-rays obviously suboptimal due to his body habitus. He has massive cardiomegaly, possibly a left-sided pleural effusion, atelectatic changes are seen bilaterally in the left upper lobe and the right lower lobe. Most recent blood gas shows a pH of 7.19 with a pCO2 of 103 and pO2 of 84. Based on his underlying acidosis, the patient has developed some hypokalemia and potassium level from this morning was up to 6.4. Based on that, the patient was given D50 insulin and the patient was given IV bicarbonate total of 100 mEq. Repeat potassium is still pending for now. No EKG changes related to hyperkalemia. At the same time, his renal function continues to improve. Creatinine is down to 1.7 and sodium level is at 141. The patient continues to receive IV fluids in the form of normal saline at the rate of 100 mL an hour. The patient is also on IV Zosyn as empiric antibiotic coverage. Overall fluid balance over the past 24 hours has been essentially positive in the order of 100 mL. He has a Rosa catheter in place and the urine output is in order of 20-30 mL an hour. The triple-lumen catheter was established in his left IJ. He also has a arterial line in his left radial artery. Neurologic exam is nonfocal. Is moving all 4 extremities without any limitation. On today's evaluation of 12/15/2021, the patient is arousable and awake in his following simple commands. He is on a BiPAP at a pressure of 18/6 cm of water and FiO2 of 4040%. The generator tidal volume was the order of 350 mL. The patient was kept on BiPAP throughout the night. Yesterday afternoon, he was briefly placed on nasal cannula high flow at 12 L and he did well. Subsequently became slightly more lethargic and had to be placed on a BiPAP which she stayed on throughout the night. The most recent blood gases from yesterday showed a pH of 7.23 with a pCO2 of 11 and pO2 of 65 and this was done on while the patient being on a BiPAP. The chest x-ray showing cardiomegaly, left lung bases very much opacified could be related to fluid versus consolidation. There is also right lower lobe pulmonary infiltrate. Nevertheless, the chest x-ray findings are somewhat suboptimal because of his body habitus. His pro BNP level was elevated. Nevertheless, the patient was dry and he was in acute kidney injury. He was given IV fluids that was running in order of 100 mL an hour of normal saline and this was gradually reduced down to 50 mL. His creatinine is improved and is currently down to 1.34 with mean of 60. Potassium level is at 5.5 and a sodium level is at 141. White cell count is 11.3 with hemoglobin 14.2. Pro- calcitonin level is at 0.4 and the patient is on IV Zosyn as an empiric antibiotic coverage. Cardiac rhythm is sinus. Currently is calm and c omfortable. I did to transitioning him from a BiPAP to high flow nasal cannula at 12 L. Current pulse ox is around 86-87%. EKG echocardiogram showed a preserved LV function, there was concentric LVH. The right ventricle was significantly enlarged and this is consistent with right-sided failure and cor pulmonale. Objective - Vital Signs Vital signs: Vital Signs Temp 98.0 F 12/15/21 08:00 Pulse 67 12/15/21 09:00 Resp 14 12/15/21 09:00 BP 158/87 12/14/21 08:30 Pulse Ox 84 L 12/15/21 09:00 FiO2 40 12/15/21 08:05 Intake & Output 12/14/21 12/15/21 12/15/21 18:59 06:59 18:59 Intake Total 8717.455 9525 250 Output Total 695 1360 390 Balance 697.779 490 -140 Weight 207.6 kg 207.6 kg Intake: IV 1300 650 250 Piperacillin-Tazobactam 3 200 100 100 .375 gm In Sodium Chloride 0.9% 100 ml @ 25 mls/hr IVPB Q8HR [facility] Rx# :[id number] Sodium Chloride 0.9% 1, 1100 550 150 000 ml @ 100 mls/hr IV . Q10H [facility] Rx#:[id number] Intake, IV Titration 92.779 Amount Dexmedetomidine/0.9% NaCl 91.079 (Pmx) 400 mcg In Empty Bag 1 bag @ 0.2 MCG/KG/HR 10.34 mls/hr IV .[id number] [facility] Rx#:[id number] Morphine Sulfate (100 mg/ 1.700 2 ml) 100 mg In Sodium Chloride 0.9% 100 ml @ 1 MG/HR 1.02 mls/hr IV . Q24H [facility] Rx#:[id number] Oral 1200 Output: Urine 695 1360 390 Other: Voiding Method Indwelling Catheter Indwelling Catheter # Voids 1 ABP, PAP, CO, CI - Last Documented Arterial Blood Pressure 128/50 - Exam GENERAL: patient is excessively drowsy, not in any acute distress. morbidly obese , awake and alert and following commands currently on 12 L of oxygen nasal cannula with a pulse ox of 89%. Head exam was generally normal. There was no scleral icterus or corneal arcus. Mucous membranes were moist. HEENT: Pupils are round and equally reacting to light. EOMI. No scleral icterus. No conjunctival pallor. Normocephalic, atraumatic. No pharyngeal erythema. No thyromegaly. The patient has a Mallampati class IV CARDIOVASCULAR: S1 and S2 present. No murmurs, rubs, or gallops. Oral heart sounds are distant PULMONARY: Lungs are diminished in the mid and lower lung his bilaterally. No cervical breath sounds are appreciated. ABDOMEN: Soft, nontender, nondistended, normoactive bowel sounds. No palpable organomegaly. MUSCULOSKELETAL: No joint swelling or deformity. EXTREMITIES: No cyanosis, clubbing.extensive bilateral pedal edema. 1 having much edema right leg + pitting NEUROLOGICAL: alert and awake, not much cooperative, moving all 4 extremities. The patient is answering questions appropriately. Moving all 4 extremities. He is profoundly weak. Examination of the skin revealed no evidence of significant rashes, suspicious appearing nevi or other concerning lesions. - Labs CBC & Chem 7: 12/15/21 05:35 12/15/21 05:35 Labs: Abnormal Lab Results - Last 24 Hours (Table) 0912/14/21 12/14/21 Range/Units 09:58 13:17 15:33 WBC (3.8-10.6) k/uL Hct (39.0-53.0) % MCH (25.0-35.0) pg MCHC (31.0-37.0) g/dL RDW (11.5-15.5) % Neutrophils # (1.3-7.7) k/uL Lymphocytes # (1.0-4.8) k/uL Monocytes # (0-1.0) k/uL ABG pH 7.23 L (7.35-7.45) ABG pCO2 101 H* (35-45) mmHg ABG pO2 65 L (83-108) mmHg ABG HCO3 43 H* (21-25) mmol/L ABG Total CO2 46 H (19-24) mmol/L ABG O2 Saturation 88.4 L (94-97) % Potassium 5.8 H (3.5-5.1) mmol/L Chloride 97 L (98-107) mmol/L Carbon Dioxide 39 H (22-30) mmol/L BUN 67 H (9-20) mg/dL Creatinine 1.58 H (0.66-1.25) mg/dL Glucose 124 H (74-99) mg/dL POC Glucose (mg/dL) 112 H (70-110) mg/dL 12/14/21 12/15/21 12/15/21 Range/Units 15:50 05:35 05:35 WBC 11.3 H (3.8-10.6) k/uL Hct 54.2 H (39.0-53.0) % MCH 24.7 L (25.0-35.0) pg MCHC 26.2 L (31.0-37.0) g/dL RDW 20.5 H (11.5-15.5) % Neutrophils # 8.9 H (1.3-7.7) k/uL Lymphocytes # 0.9 L (1.0-4.8) k/uL Monocytes # 1.3 H (0-1.0) k/uL ABG pH (7.35-7.45) ABG pCO2 (35-45) mmHg ABG pO2 (83-108) mmHg ABG HCO3 (21-25) mmol/L ABG Total CO2 (19-24) mmol/L ABG O2 Saturation (94-97) % Potassium 5.6 H 5.5 H (3.5-5.1) mmol/L Chloride 94 L (98-107) mmol/L Carbon Dioxide 40 H (22-30) mmol/L BUN 60 H (9-20) mg/dL Creatinine 1.34 H (0.66-1.25) mg/dL Glucose 102 H (74-99) mg/dL POC Glucose (mg/dL) (70-110) mg/dL Microbiology - Last 24 Hours (Table) 12/13/21 17:50 Blood Culture - Preliminary Blood No Growth after 24 hours Assessment and Plan Plan: Acute on chronic hypoxic hypercapnic respiratory failure, improving and the patient was taken off the BiPAP and the patient is currently on 12 L of oxygen by nasal cannula. The follow-up blood gases will be done while the patient on nasal cannula. He does have a component of acute on chronic hypoxic/hypercapnic respiratory failure. Echo showed a preserved LV function with severe pulmonary hypertension. The patient was extremely dehydrated at time of admission, resuscitated in the creatinine is improved. IV fluids were cut down. There may be a component of pneumonia. There may be also a component of left-sided pleural effusion. Patient is currently on Zosyn. Pro-calcitonin level is mildly elevated. Fall without any traumatic injuries. CAT scan of the brain is negative. No skeletal injuries noted. Acute kidney injury, likely secondary to intravascular volume depletion dehydration , improving and the creatinine is down to 1.34 Chronic hypoxic respiratory failure Chronic hypercapnic respiratory failure Obstructive sleep apnea/obesity hypoventilation syndrome with chronic hypoxic and hypercapnic respiratory failure and the patient has been unable to tolerate BiPAP therapy and is on no treatment for now Altered mental status secondary to above Hypertension Chronic lower extremity edema maintained on a combination of Lasix and Zaroxolyn, edema is minimal in his lower extremities for now Hyperlipidemia Morbid obesity Suspect chronic diastolic heart failure/pulmonary hypertension Acute hyperkalemia, related to acidosis and potassium cellular shift Plan No sedation for now Wean down the FiO2 as tolerated to maintain saturation above 90% Provide an incentive spirometer Set him up on a chair if possible Use BiPAP on and off during the day especially when he becomes drowsy and sleepy and uses continuously overnight IV fluids to KVO Provide diet Monitor the blood gases DuoNeb nebulized treatments around the clock Lovenox for prophylaxis Use empiric antibiotic coverage with IV Zosyn We'll continue to follow Despite some limited improvement, his overall prognosis remains poor. His CODE STATUS is full at this point in time. His condition remains critical. High likelihood for respiratory failure requiring intubation mechanical ventilation. Accordingly, he'll be kept in ICU under close monitoring. This is a critically care evaluation. Critically care evaluation was done more than 30 minutes. Time with Patient: Greater than 30
[2021-12-15 10:52] LABS: ABG Base Excess 17.5 mmol/L; ABG Oxygen Saturation 89.6 % (94-97); ABG PH 7.29 (7.35-7.45); ABG PO2 62 mmHg (83-108); ABG TCO2 47 mmol/L (19-24)
[2021-12-15 10:57] LABS: ABG HCO3 44 mmol/L (21-25); ABG PCO2 92 mmHg (35-45); Allen Test Performed? no
[2021-12-15 11:40] LABS: Glucose,Whole Blood 96 mg/dL (70-110)
[2021-12-15] MEDS ORDERED: ACETAMINOPHEN TAB 325 MG TAB PO PRN (16:25)
[2021-12-15] MEDS ORDERED: hydrALAZINE HCL 20 MG/ML 1 ML VIAL IVP PRN (16:27)
[2021-12-15] MEDS ORDERED: FUROSEMIDE 10 MG/ML 4 ML VIAL IV STA (16:50)
[2021-12-15] MEDS: carvediloL 12.5 MG TAB PO SCH (17:00)
[2021-12-15] MEDS: amLODIPine 10 MG TAB PO SCH (18:32)
--- NOTE | 2021-12-16 02:53 | PN ---
PROGRESS NOTE SUBJECTIVE: This is a 56-year-old gentleman, who was admitted with respiratory failure and possible aspiration pneumonia, is being closely monitored in ICU. The patient apparently lives in apartment with limited mobility and the patient does not drive. The patient is slightly more alert today and the chest x-ray done today showed significant cardiomegaly and as well as pneumonia too. A 2D echo with Doppler done yesterday showed normal LV systolic function. No chest pain or palpitation. PAST MEDICAL HISTORY: Reviewed. REVIEW OF SYSTEMS: Could not be taken as the patient is still slightly confused. CURRENT MEDICATIONS: Reviewed, include Perforomist, DuoNeb, and Zosyn. PHYSICAL EXAMINATION: VITAL SIGNS: Pulse is 73, blood pressure is 160/60, respirations 23. HEENT: Conjunctivae normal. NECK: No JVD. CARDIOVASCULAR: S1, S2 muffled. RESPIRATION: Breath sounds diminished at the bases. A few scattered rhonchi and crackles. ABDOMEN: Soft, nontender. LEGS: No edema. NERVOUS SYSTEM: No focal deficit. LABS: WBC 11.3. ASSESSMENT: 1. Acute bilateral pneumonia possibly aspiration with acute hypoxic respiratory failure on BiPAP, rule out left lung atelectasis and collapse. 2. Chronic obstructive pulmonary disease acute exacerbation. 3. Acute renal failure. 4. Troponin 0.058, indeterminate. 5. History of congestive heart failure with normal ejection fraction. 6. Multiple medical issues. RECOMMENDATIONS AND DISCUSSION: I recommend to continue current management and symptomatic treatment. Continue with antibiotics. Closely follow up with Dr. Parker. Repeat labs. Guarded prognosis. Further recommendations to follow. MMODL / IJN: [id number] /
[2021-12-16] MEDS: IPRATROPIUM-ALBUTEROL 3 ML NEB INHALATION SCH ×6 (04:36→23:20)
[2021-12-16 04:56] LABS: Anisocytosis Moderate; Basophils # (A) 0.1 k/uL (0-0.2); Basophils % (A) 1 %; Eosinophils # (A) 0.1 k/uL (0-0.7); Eosinophils % (A) 1 %; HCT 51.8 % (39.0-53.0); HGB 13.6 gm/dL (13.0-17.5); Hypochromasia Marked; Lymphocytes # (A) 0.8 k/uL (1.0-4.8); Lymphocytes % (A) 11 %; MCH 24.5 pg (25.0-35.0); MCHC 26.3 g/dL (31.0-37.0); Macrocytosis Slight; Mean Platelet Volume 8.2; Monocytes # (A) 0.6 k/uL (0-1.0); Monocytes % (A) 8 %; Neutrophils # (A) 5.6 k/uL (1.3-7.7); Neutrophils % (A) 78 %; Platelet Count 163 k/uL (150-450); Poikilocytosis Slight; RBC 5.57 m/uL (4.30-5.90); RDW 20.8 % (11.5-15.5); WBC 7.1 k/uL (3.8-10.6)
[2021-12-16 05:07] LABS: Albumin 2.8 g/dL (3.5-5.0); Calcium 9.3 mg/dL (8.4-10.2); Potassium 4.7 mmol/L (3.5-5.1); Total Bilirubin 1.6 mg/dL (0.2-1.3); Total Protein 5.5 g/dL (6.3-8.2)
[2021-12-16] MEDS: SODIUM CHLORIDE 0.9% 1,000 ML IV SCH (05:28)
[2021-12-16 05:59] LABS: Anisocytosis (M) Present; Large Platelets Present; Poikilocytosis (M) Present; Polychromasia Present
[2021-12-16] MEDS: FORMOTEROL FUMARATE 20 MCG/2 ML NEBU INHALATION SCH ×2 (07:36→19:42)
--- NOTE | 2021-12-16 07:37 | XR ---
EXAMINATION TYPE: XR chest 1V portable DATE OF EXAM: 12/16/2021 HISTORY: Shortness of breath. COMPARISON: 12/15/2021 TECHNIQUE: Single view of the chest is submitted. FINDINGS: Demonstrated are scattered senescent parenchymal change. There is cardiomegaly with pulmonary venous congestion scattered infiltrates likely reflective of CHF . Underlying infiltrates of other etiology not excluded. Hilar and mediastinal structures are within normal limits. Degenerative changes are seen of the dorsal spine. IMPRESSION: 1. There is stable cardiomegaly with pulmonary venous congestion scattered infiltrates likely reflec tive of CHF. Underlying infiltrates of other etiology not excluded.
[2021-12-16] MEDS: ASPIRIN 81 MG PO SCH (07:41)
[2021-12-16] MEDS: PANTOPRAZOLE 40 MG/10 ML VIAL IVP SCH (07:41)
[2021-12-16] MEDS: HEPARIN SODIUM,PORCINE/PF 5,000 UNIT/0.5 ML SYRINGE SQ SCH ×2 (07:41→20:14)
[2021-12-16] MEDS: PIPERACILLIN-TAZOBACTAM 3.375 GM in SODIUM CHLORIDE 0.9% 100 ML IVPB SCH ×2 (07:41→16:34)
[2021-12-16] MEDS: carvediloL 12.5 MG TAB PO SCH ×2 (07:42→16:52)
[2021-12-16] MEDS: amLODIPine 10 MG TAB PO SCH (07:42)
--- NOTE | 2021-12-16 08:49 | P.PN ---
Subjective Progress Note Date: 12/16/21 56-year-old morbidly obese male patient who was found in his apartment on the ground and he had fell apparently a few days back and hasn't remember falling down and he does not recall any other symptoms proceeded his follow-up. He states that he has been lying down on the floor for at least 3 days, unable to get up and he was getting progressively more sick. Ultimately, he was found and the patient got moved to the emergency department. No headaches. No neck stiffness. No trauma. No chest pain. He was having some increased shortness of breath. No nausea or vomiting. No reported aspiration. The patient presented to the ED and he was somewhat lethargic. His blood gases showed a pH of 7.18 with a pCO2 of 102 and pO2 of 67 and this was on FiO2 of 36%. At that point, the patient was placed on a BiPAP and ICU transfer was recommended. On his blood work, the patient was found to have a proBNP level of 11,600 and troponins were slightly elevated at 0.09 and 0.07 respectively 2. He also was found to be in renal failure with a 70 connected. 2.35, acute versus chronic and the patient's and his serum bicarb of 39 with a potassium level of 5.8. Sodium level was at 139. The patient had a white cell count 11.6 with a hemoglobin 15.8 and a platelet count of 324. The chest x-ray was suboptimal due to patient's body habitus. HEENT thyromegaly a mild four-vessel congestion. He also had large pulmonary arteries suggesting pulmonary arterial hypertension. The computed tomography scan of the brain was also done showing acute intracranial process. Based on review of his medication, the patient has been taking a combination of Lasix 80 mg by mouth daily and lisinopril 5 mg by mouth daily at home. He is known to have chronic hypoxic and hypercapnic respiratory failure and this was attributed to severe sleep apnea and a component of obesity hypoventilation syndrome. He has chronic metabolic alkalosis and chronic hypercapnic respiratory failure. He also has history of hypertension and hyperlipidemia. He is a lifetime nonsmoker. On today's evaluation of 12/14/2021, the patient is slightly more awake. Earlier this morning, the patient became restless and agitated and tachypneic and tachycardic. He was getting more delirious. Based on that, he was started on Precedex drip which is currently running at 0.3 mcg/kg/h. Things have settled since. The patient is more responsive at this point in time. He is following some occasional simple commands. For the most part he remains confused. He remains on a BiPAP and his right synchronous. He is on a BiPAP at a pressure of 18/6 cm of water and FiO2 of 80%. Generated tidal volumes around 350 with a respiratory rate of 20 and a minute of ventilation it's ranging between 6 and 8. He has a good mask seal with limited amount of leaks. Chest x-rays obviously suboptimal due to his body habitus. He has massive cardiomegaly, possibly a left-sided pleural effusion, atelectatic changes are seen bilaterally in the left upper lobe and the right lower lobe. Most recent blood gas shows a pH of 7.19 with a pCO2 of 103 and pO2 of 84. Based on his underlying acidosis, the patient has developed some hypokalemia and potassium level from this morning was up to 6.4. Based on that, the patient was given D50 insulin and the patient was given IV bicarbonate total of 100 mEq. Repeat potassium is still pending for now. No EKG changes related to hyperkalemia. At the same time, his renal function continues to improve. Creatinine is down to 1.7 and sodium level is at 141. The patient continues to receive IV fluids in the form of normal saline at the rate of 100 mL an hour. The patient is also on IV Zosyn as empiric antibiotic coverage. Overall fluid balance over the past 24 hours has been essentially positive in the order of 100 mL. He has a Rosa catheter in place and the urine output is in order of 20-30 mL an hour. The triple-lumen catheter was established in his left IJ. He also has a arterial line in his left radial artery. Neurologic exam is nonfocal. Is moving all 4 extremities without any limitation. On today's evaluation of 12/15/2021, the patient is arousable and awake in his following simple commands. He is on a BiPAP at a pressure of 18/6 cm of water and FiO2 of 4040%. The generator tidal volume was the order of 350 mL. The patient was kept on BiPAP throughout the night. Yesterday afternoon, he was briefly placed on nasal cannula high flow at 12 L and he did well. Subsequently became slightly more lethargic and had to be placed on a BiPAP which she stayed on throughout the night. The most recent blood gases from yesterday showed a pH of 7.23 with a pCO2 of 11 and pO2 of 65 and this was done on while the patient being on a BiPAP. The chest x-ray showing cardiomegaly, left lung bases very much opacified could be related to fluid versus consolidation. There is also right lower lobe pulmonary infiltrate. Nevertheless, the chest x-ray findings are somewhat suboptimal because of his body habitus. His pro BNP level was elevated. Nevertheless, the patient was dry and he was in acute kidney injury. He was given IV fluids that was running in order of 100 mL an hour of normal saline and this was gradually reduced down to 50 mL. His creatinine is improved and is currently down to 1.34 with mean of 60. Potassium level is at 5.5 and a sodium level is at 141. White cell count is 11.3 with hemoglobin 14.2. Pro- calcitonin level is at 0.4 and the patient is on IV Zosyn as an empiric antibiotic coverage. Cardiac rhythm is sinus. Currently is calm and c omfortable. I did to transitioning him from a BiPAP to high flow nasal cannula at 12 L. Current pulse ox is around 86-87%. EKG echocardiogram showed a preserved LV function, there was concentric LVH. The right ventricle was significantly enlarged and this is consistent with right-sided failure and cor pulmonale. 12/16/2021, the patient is lethargic yet arousable. He spent all night on a BiP AP and currently is off the BiPAP on oxygen at 11 L and his pulse ox is around 90%. He was on BiPAP throughout the night. His chest x-rays essentially unchanged. He has pulmonary infiltrates bilaterally and the left lung bases significantly opacified and there is cardiomegaly. I think a CAT scan of the chest will be needed to failure characterize those abnormalities. Yesterday, the patient became somewhat more bronchospastic and wheezy. I gave her a dose of Lasix 40 mg IV and since then he diuresed more than a liter of urine and the patient's overall fluid balance is -2 L over the past 24 hours. Morning blood gases are pending still. Meanwhile, the patient's white cell count of 7.4 h emoglobin 13.6 and the platelet count is 163. Sodium is 141. Bicarbonate of 44. Creatinine is a 48 with a creatinine of 1.1. His renal function is essentially normalized. IV fluids are currently at KVO. He remains on IV Zosyn. She is back on Norvasc 10 mg and Coreg 25 mg by mouth twice a day. He has improved also his left pressure control. He remains on heparin subcu for DVT prophylaxis. Objective - Vital Signs Vital signs: Vital Signs Temp 96.9 F L 12/16/21 04:00 Pulse 93 12/16/21 07:59 Resp 28 H 12/16/21 07:30 BP 158/87 12/14/21 08:30 Pulse Ox 89 L 12/16/21 07:30 FiO2 40 12/16/21 04:37 Intake & Output 12/15/21 12/16/21 12/16/21 18:59 06:59 18:59 Intake Total 310 220 10 Output Total 1430 1100 300 Balance -1120 -880 -290 Weight 207.6 kg 197.3 kg Intake: IV 310 220 10 KVO 30 120 10 Piperacillin-Tazobactam 3 100 100 .375 gm In Sodium Chloride 0.9% 100 ml @ 25 mls/hr IVPB Q8HR MEGAN Rx# :[id number] Sodium Chloride 0.9% 1, 180 000 ml @ 100 mls/hr IV . Q10H MEGAN Rx#:[id number] Output: Urine 1430 1100 300 Other: Voiding Method External Catheter External Catheter # Voids 1 1 # Bowel Movements 0 ABP, PAP, CO, CI - Last Documented Arterial Blood Pressure 147/65 - Exam GENERAL: patient is drowsy, not in any acute distress. morbidly obese , awake a nd alert and following commands currently on 11 L of oxygen nasal cannula with a pulse ox of 89%. He is arousable and he follows commands and answers questions appropriately. He was taken off the BiPAP this morning. Head exam was generally normal. There was no scleral icterus or corneal arcus. Mucous membranes were moist. HEENT: Pupils are round and equally reacting to light. EOMI. No scleral icterus. No conjunctival pallor. Normocephalic, atraumatic. No pharyngeal erythema. No thyromegaly. The patient has a Mallampati class IV CARDIOVASCULAR: S1 and S2 present. No murmurs, rubs, or gallops. Oral heart sounds are distant PULMONARY: Lungs are diminished in the mid and lower lung his bilaterally. No cervical breath sounds are appreciated. ABDOMEN: Soft, nontender, nondistended, normoactive bowel sounds. No palpable organomegaly. MUSCULOSKELETAL: No joint swelling or deformity. EXTREMITIES: No cyanosis, clubbing.extensive bilateral pedal edema. 1 having much edema right leg + pitting NEUROLOGICAL: alert and awake, not much cooperative, moving all 4 extremities. The patient is answering questions appropriately. Moving all 4 extremities. He is profoundly weak. Examination of the skin revealed no evidence of significant rashes, suspicious appearing nevi or other concerning lesions. - Labs CBC & Chem 7: 12/16/21 04:40 12/16/21 04:40 Labs: Abnormal Lab Results - Last 24 Hours (Table) 12/15/21 12/16/21 12/16/21 Range/Units 10:50 04:40 04:40 MCH 24.5 L (25.0-35.0) pg MCHC 26.3 L (31.0-37.0) g/dL RDW 20.8 H (11.5-15.5) % Lymphocytes # 0.8 L (1.0-4.8) k/uL ABG pH 7.29 L (7.35-7.45) ABG pCO2 92 H* (35-45) mmHg ABG pO2 62 L (83-108) mmHg ABG HCO3 44 H* (21-25) mmol/L ABG Total CO2 47 H (19-24) mmol/L ABG O2 Saturation 89.6 L (94-97) % Chloride 92 L (98-107) mmol/L Carbon Dioxide 44 H* (22-30) mmol/L BUN 48 H (9-20) mg/dL Glucose 104 H (74-99) mg/dL Total Bilirubin 1.6 H (0.2-1.3) mg/dL Total Protein 5.5 L (6.3-8.2) g/dL Albumin 2.8 L (3.5-5.0) g/dL Microbiology - Last 24 Hours (Table) 12/13/21 17:50 Blood Culture - Preliminary Blood No Growth after 48 hours Assessment and Plan Plan: Acute on chronic hypoxic hypercapnic respiratory failure, improving and the patient was taken off the BiPAP and the patient is currently on 11 L of oxygen by nasal cannula. The follow-up blood gases will be done while the patient on nasal cannula. He does have a component of acute on chronic hypoxic/hypercapnic respiratory failure. Echo showed a preserved LV function with severe pulmonary hypertension. The patient presented hypoxic and hypercapnic and he was managed with BiPAP. He was given IV fluids and acute kidney injury has recovered. Meanwhile, his mental status gradually improved. Acid base status has gradually improved pending blood gases from today. His chest x-ray shows bilateral pulmonary vascular markings and areas of consolidation. Abdomen is also some pleural effusion on the left. CAT scan of the chest will be needed to characterize those abnormalities. He is currently on 11 L of oxygen by nasal cannula. Pneumonia is doubtful. Pro-Level Was at 0.4. He Was Covered with IV Zosyn. Fall without any traumatic injuries. CAT scan of the brain is negative. No skeletal injuries noted. Acute kidney injury, likely secondary to intravascular volume depletion de hydration , improving and the creatinine is down to normal Chronic hypoxic respiratory failure, states that the patient was not even using his oxygen at home. Chronic hypercapnic respiratory failure Obstructive sleep apnea/obesity hypoventilation syndrome with chronic hypoxic and hypercapnic respiratory failure and the patient has been unable to tolerate BiPAP therapy and is on no treatment for now Altered mental status secondary to above Hypertension Chronic lower extremity edema maintained on a combination of Lasix and Zaroxolyn, edema is minimal in his lower extremities for now Hyperlipidemia Morbid obesity Suspect chronic diastolic heart failure/pulmonary hypertension Acute hyperkalemia, related to acidosis and potassium cellular shift, potassium level normalized and the bradycardia is also Plan No sedation for now Wean down the FiO2 as tolerated to maintain saturation above 90% recovered. Proceed with a noncontrast CAT scan of the chest Start the patient on Lasix 40 mg IV every 12 hours May give Diamox and the patient developed significant amount of metabolic alk alosis. Based on that, he will need daily morning blood gases BiPAP overnight Advance diet Provide an incentive spirometer Set him up on a chair if possible IV fluids to KVO Monitor the blood gases DuoNeb nebulized treatments around the clock Lovenox for prophylaxis Use empiric antibiotic coverage with IV Zosyn We'll continue to follow His overall prognosis remains poor. His CODE STATUS is full at this point in time. His condition remains critical. High likelihood for respiratory failure requiring intubation mechanical ventilation. Accordingly, he'll be kept in ICU under close monitoring. This is a critically care evaluation. Critically care evaluation was done more than 30 minutes. Time with Patient: Greater than 30
--- NOTE | 2021-12-16 09:48 | P.PN ---
Subjective Progress Note Date: 12/16/21 PROGRESS NOTE The patient is a 56-year-old male, morbidly obese, history of obstructive sleep apnea who presented was progressive dyspnea. He continues to be on the BiPAP, he is more awake and alert. His blood pressure and heart rate are stable. His echocardiogram was suboptimal but showed a preserved systolic function. He denies any chest discomfort or dizziness. He has no evidence of malignant ar rhythmia. His urinary output has been stable. December 16: The patient is more awake and alert, he continues to be in sinus mechanism. Hemodynamically stable. He is on nasal cannula. His urinary output has been stable, he received IV Lasix yesterday. There is no evidence of malignant arrhythmia. She continues to be on antibiotics. His blood pressure has been under good control. Medications: Zosyn, DuoNeb, Coreg 25 mg twice a day, amlodipine 10 mg daily, Lasix 40 mg IV every 12 hours PHYSICAL EXAMINATION: Blood pressure 147/60 heart rate 67, HEART: Regular rate and rhythm, S1, S2. No S3. No systolic murmur ABDOMEN: Soft, nontender, no organomegaly, obese EXTREMETIES: Trace to 1+ edema, improved with chronic skin changes LAB: Hemoglobin 13.6, BUN 48, creatinine 1.1, potassium 4.7 IMPRESSION: 1. Respiratory failure with hypoxemia and hypercapnia, improving 2. Troponin elevation secondary to type II myocardial infarction 3. Heart failure with preserved systolic function 4. Morbid obesity 5. History of hypertension 6. Acute renal injury PLAN: 1. Continue to monitor renal function 2. The patient would require CPAP 3. Add Farxiga for heart failure and preserved systolic function 4. Increase physical activity 5. If renal function are stable add Chris inhibitor or ARB Objective - Vital Signs Vital signs: Vital Signs Temp 96.9 F L 12/16/21 04:00 Pulse 93 12/16/21 07:59 Resp 28 H 12/16/21 07:30 BP 158/87 12/14/21 08:30 Pulse Ox 89 L 12/16/21 07:30 FiO2 40 12/16/21 04:37 Intake & Output 12/15/21 12/16/21 12/16/21 18:59 06:59 18:59 Intake Total 310 220 10 Output Total 1430 1100 300 Balance -1120 -880 -290 Weight 207.6 kg 197.3 kg Intake: IV 310 220 10 KVO 30 120 10 Piperacillin-Tazobactam 3 100 100 .375 gm In Sodium Chloride 0.9% 100 ml @ 25 mls/hr IVPB Q8HR MEGAN Rx# :[id number] Sodium Chloride 0.9% 1, 180 000 ml @ 100 mls/hr IV . Q10H MEGAN Rx#:[id number] Output: Urine 1430 1100 300 Other: Voiding Method External Catheter External Catheter # Voids 1 1 # Bowel Movements 0 ABP, PAP, CO, CI - Last Documented Arterial Blood Pressure 147/65 - Labs CBC & Chem 7: 12/16/21 04:40 12/16/21 04:40 Labs: Abnormal Lab Results - Last 24 Hours (Table) 12/15/21 12/16/21 12/16/21 Range/Units 10:50 04:40 04:40 MCH 24.5 L (25.0-35.0) pg MCHC 26.3 L (31.0-37.0) g/dL RDW 20.8 H (11.5-15.5) % Lymphocytes # 0.8 L (1.0-4.8) k/uL ABG pH 7.29 L (7.35-7.45) ABG pCO2 92 H* (35-45) mmHg ABG pO2 62 L (83-108) mmHg ABG HCO3 44 H* (21-25) mmol/L ABG Total CO2 47 H (19-24) mmol/L ABG O2 Saturation 89.6 L (94-97) % Chloride 92 L (98-107) mmol/L Carbon Dioxide 44 H* (22-30) mmol/L BUN 48 H (9-20) mg/dL Glucose 104 H (74-99) mg/dL Total Bilirubin 1.6 H (0.2-1.3) mg/dL Total Protein 5.5 L (6.3-8.2) g/dL Albumin 2.8 L (3.5-5.0) g/dL Microbiology - Last 24 Hours (Table) 12/13/21 17:50 Blood Culture - Preliminary Blood No Growth after 48 hours
[2021-12-16 10:14] LABS: ABG Oxygen Saturation 94.4 % (94-97); ABG PH 7.31 (7.35-7.45); ABG PO2 76 mmHg (83-108); ABG TCO2 52 mmol/L (19-24)
[2021-12-16 10:15] LABS: ABG PCO2 97 mmHg (35-45)
[2021-12-16 10:16] LABS: ABG HCO3 49 mmol/L (21-25); Allen Test Performed? no
[2021-12-16] MEDS: FUROSEMIDE 10 MG/ML 4 ML VIAL IV SCH ×2 (11:23→20:13)
[2021-12-16] MEDS: DAPAGLIFLOZIN PROPANEDIOL 10 MG TABLET PO SCH (11:23)
[2021-12-16 11:38] LABS: Glucose,Whole Blood 97 mg/dL (70-110)
--- NOTE | 2021-12-16 11:40 | CT ---
EXAMINATION TYPE: CT chest wo con DATE OF EXAM: 12/16/2021 COMPARISON: 08/27/2019 HISTORY: HYPOXIA CT DLP: 1527.[address] of the chest was performed with lung and mediastinal window settings submitted. The la ck of contrast limits evaluation of the vascular, mediastinal and parenchymal structures including th e upper abdomen. LUNGS: The lung volumes are diminished. There is pulmonary venous congestion with small bilateral eff usions and scattered infiltrates. Correlate for congestive failure. Underlying pneumonia is difficult to exclude however. MEDIASTINUM/LEW: Thoracic aorta is of normal caliber with limited evaluation given lack of contrast . Severe cardiomegaly noted. No evidence for mediastinal mass. No lymph nodes greater than 1cm. UPPER ABDOMEN: No significant abnormality is seen. OTHER: No significant other abnormality. IMPRESSION: 1. Findings are suspicious for congestive failure although underlying pneumonia is difficult to excl ude. Correlate clinically.
[2021-12-16 11:56] LABS: Glucose,Whole Blood 97 mg/dL (70-110)
[2021-12-16] MEDS ORDERED: DEXTROSE 50% SYRINGE 50 ML IVP PRN ×2 (12:41)
[2021-12-16] MEDS: methylPREDNISolone SOD SUCCI 125 MG/2 ML VIAL IV SCH ×2 (13:24→17:00)
[2021-12-16 16:26] LABS: Glucose,Whole Blood 133 mg/dL (70-110)
[2021-12-16] MEDS: INSULIN ASPART (NovoLOG) 100 UNIT/ML VIAL SQ SCH ×2 (16:55→20:13)
[2021-12-16 19:35] LABS: Glucose,Whole Blood 211 mg/dL (70-110)
--- NOTE | 2021-12-16 20:24 | PN ---
PROGRESS NOTE SUBJECTIVE: This is a 56-year-old gentleman admitted with aspiration pneumonia, is still hypoxic. The patient also had change in mental status. The patient is being closely monitored in ICU. Patient is on broad spectrum IV antibiotics. CT scan of the chest was reviewed, showed some possible fluid overload also. Dr. Parker is following the patient closely as Cardiology. PAST MEDICAL HISTORY: Reviewed. REVIEW OF SYSTEMS: Could not be taken as the patient is still confused. CURRENT MEDICATIONS: Reviewed include DuoNeb, doses and rest of medication noted. PHYSICAL EXAMINATION: VITAL SIGNS: Pulse is 58, blood pressure 142/60, respirations 14. HEENT: Conjunctivae normal. NECK: No JVD. CARDIOVASCULAR: S1, S2 muffled. RESPIRATIONS: Breath sounds diminished at the bases. Bilateral scattered rhonchi. ABDOMEN: Obese and soft. LEGS: No edema. NERVOUS SYSTEM: Diffusely weak. LABS: CBC noted. ABGs noted, pH is 7.31. ASSESSMENT: 1. Acute bilateral pneumonia, possibly aspiration with acute hypoxic respiratory failure, on BiPAP, rule out left lung atelectasis and collapse. 2. Chronic obstructive pulmonary disease, acute exacerbation. 3. Acute renal failure. 4. Troponin 0.058, indeterminate. 5. History of congestive heart failure with normal ejection fraction. 6. Multiple medical issues. RECOMMENDATION AND DISCUSSION: Recommend to continue current medications, symptomatic treatment. Continue with bronchodilators. Continue with monitoring the fluid balance closely. The patient was started on IV Lasix. We will monitor the labs closely. Closely follow with Cardiology, Pulmonology. Guarded prognosis because of multiple complex medical issues. Further recommendations to follow. Recommend short course of IV steroids also. MMODL / IJN: [id number] /
[2021-12-17] MEDS: PIPERACILLIN-TAZOBACTAM 3.375 GM in SODIUM CHLORIDE 0.9% 100 ML IVPB SCH ×3 (01:07→16:34)
[2021-12-17] MEDS: methylPREDNISolone SOD SUCCI 125 MG/2 ML VIAL IV SCH ×4 (01:07→17:05)
[2021-12-17] MEDS: IPRATROPIUM-ALBUTEROL 3 ML NEB INHALATION SCH ×6 (03:17→23:29)
[2021-12-17 05:49] LABS: ABG Base Excess 20.8 mmol/L; ABG Oxygen Saturation 90.3 % (94-97); ABG PH 7.29 (7.35-7.45); ABG PO2 64 mmHg (83-108); ABG TCO2 50 mmol/L (19-24); Allen Test Performed? Yes
[2021-12-17 05:50] LABS: ABG HCO3 47 mmol/L (21-25); ABG PCO2 98 mmHg (35-45)
[2021-12-17 06:09] LABS: Calcium 9.3 mg/dL (8.4-10.2); Potassium 4.6 mmol/L (3.5-5.1)
[2021-12-17 06:19] LABS: Glucose,Whole Blood 147 mg/dL (70-110)
[2021-12-17] MEDS: SODIUM CHLORIDE 0.9% 1,000 ML IV SCH (07:02)
[2021-12-17] MEDS: INSULIN ASPART (NovoLOG) 100 UNIT/ML VIAL SQ SCH ×4 (07:02→21:06)
[2021-12-17] MEDS: carvediloL 12.5 MG TAB PO SCH (07:15)
[2021-12-17] MEDS: FORMOTEROL FUMARATE 20 MCG/2 ML NEBU INHALATION SCH ×2 (07:53→20:08)
--- NOTE | 2021-12-17 08:02 | XR ---
EXAMINATION TYPE: XR chest 1V portable DATE OF EXAM: 12/17/2021 CLINICAL HISTORY: CHF and pneumonia progress study. TECHNIQUE: Single AP portable semiupright view of the chest is obtained. COMPARISON: Chest x-ray and CT chest from one day earlier FINDINGS: Stable left internal jugular central venous catheter. Persistent cardiomegaly with bilater al central increased markings along with left greater than right bilateral lower lung opacities. IMPRESSION: Cardiomegaly with moderate central vascular congestion consistent with CHF exacerbation r edemonstrated. Underlying acute infiltrates in the lower lungs cannot be excluded. No significant jean nge from one day earlier.
[2021-12-17] MEDS: PANTOPRAZOLE 40 MG/10 ML VIAL IVP SCH (09:58)
[2021-12-17] MEDS: DAPAGLIFLOZIN PROPANEDIOL 10 MG TABLET PO SCH (09:58)
[2021-12-17] MEDS: amLODIPine 10 MG TAB PO SCH (09:58)
[2021-12-17] MEDS: ASPIRIN 81 MG PO SCH (09:58)
[2021-12-17] MEDS: HEPARIN SODIUM,PORCINE/PF 5,000 UNIT/0.5 ML SYRINGE SQ SCH ×2 (09:58→20:33)
[2021-12-17] MEDS: FUROSEMIDE 10 MG/ML 4 ML VIAL IV SCH ×2 (10:01→16:34)
--- NOTE | 2021-12-17 10:19 | P.PN ---
Subjective PROGRESS NOTE The patient is a 56-year-old male, morbidly obese, history of obstructive sleep apnea who presented was progressive dyspnea. He continues to be on the BiPAP, he is more awake and alert. His blood pressure and heart rate are stable. His echocardiogram was suboptimal but showed a preserved systolic function. He denies any chest discomfort or dizziness. He has no evidence of malignant arrhythmia. His urinary output has been stable. December 16: The patient is more awake and alert, he continues to be in sinus mechanism. Hemodynamically stable. He is on nasal cannula. His urinary output has been stable, he received IV Lasix yesterday. There is no evidence of malignant arrhythmia. She continues to be on antibiotics. His blood pressure has been under good control. 12/17 Patient seen and examined. Patient agitated times and CO2 noted to be elevated at 96. Denies any chest pain or pressure. Does have mild appetite. Has not been eating or drinking much. He is minus approximately 3 L. He was increased to 3 times a day Lasix today. Chest x-ray shows continued vascular congestion. Heart rates dipping down in the 40s when he is napping. He remains on BiPAP currently. In mildly increased to 1.3. PHYSICAL EXAMINATION: Vitals reviewed HEART: Regular rate and rhythm, S1, S2. No S3. No systolic murmur ABDOMEN: Soft, nontender, no organomegaly, obese EXTREMETIES: Trace to 1+ edema, improved with chronic skin changes IMPRESSION: 1. Respiratory failure with hypoxemia and hypercapnia, improving 2. Troponin elevation secondary to type II myocardial infarction 3. Acute on chronic heart failure with preserved systolic function 4. Morbid obesity 5. History of hypertension 6. Acute renal injury PLAN: 1. Continue to monitor renal function 2. Monitor ins and outs 3. Add Farxiga for heart failure and preserved systolic function 4. Decrease carvedilol from 25-12.5 twice a day given asymptomatic bradycardia. Objective - Vital Signs Vital signs: Vital Signs Temp 97.5 F L 12/17/21 08:00 Pulse 45 L 12/17/21 10:00 Resp 24 12/17/21 10:00 BP 125/70 12/17/21 10:00 Pulse Ox 91 L 12/17/21 10:00 FiO2 50 12/17/21 10:00 Intake & Output 09/25/22 09/26/22 09/26/22 18:59 06:59 18:59 Intake Total 220 120 150 Output Total 2800 3050 400 Balance -3735 -3174 -250 Weight 198.8 kg Intake: IV 220 120 140 KVO 120 120 40 Piperacillin-Tazobactam 3 100 .375 gm In Sodium Chloride 0.9% 100 ml @ 25 mls/hr IVPB Q8HR [facility] Rx# :[id number] zosyn 100 Intake, IV Titration 10 Amount Sodium Chloride 0.9% 1, 10 000 ml @ 10 mls/hr IV . Q24H [facility] Rx#:[id number] Output: Urine 2800 3050 400 Other: Voiding Method External Catheter External Catheter ABP, PAP, CO, CI - Last Documented Arterial Blood Pressure 97/64 - Labs CBC & Chem 7: 12/16/21 04:40 12/17/21 05:40 Labs: Abnormal Lab Results - Last 24 Hours (Table) 12/16/21 12/16/21 12/16/21 Range/Units 04:40 10:08 16:25 ABG pH 7.31 L (7.35-7.45) ABG pCO2 97 H* (35-45) mmHg ABG pO2 76 L (83-108) mmHg ABG HCO3 49 H* (21-25) mmol/L ABG Total CO2 52 H (19-24) mmol/L ABG O2 Saturation (94-97) % Chloride (98-107) mmol/L Carbon Dioxide (22-30) mmol/L BUN (9-20) mg/dL Creatinine (0.66-1.25) mg/dL Glucose (74-99) mg/dL POC Glucose (mg/dL) 133 H (70-110) mg/dL Hemoglobin A1c 6.7 H (0.0-6.0) % 12/16/21 12/17/21 12/17/21 Range/Units 19:32 05:40 05:45 ABG pH 7.29 L (7.35-7.45) ABG pCO2 98 H* (35-45) mmHg ABG pO2 64 L (83-108) mmHg ABG HCO3 47 H* (21-25) mmol/L ABG Total CO2 50 H (19-24) mmol/L ABG O2 Saturation 90.3 L (94-97) % Chloride 88 L (98-107) mmol/L Carbon Dioxide 46 H* (22-30) mmol/L BUN 38 H (9-20) mg/dL Creatinine 1.32 H (0.66-1.25) mg/dL Glucose 156 H (74-99) mg/dL POC Glucose (mg/dL) 211 H (70-110) mg/dL Hemoglobin A1c (0.0-6.0) % 12/17/21 Range/Units 06:18 ABG pH (7.35-7.45) ABG pCO2 (35-45) mmHg ABG pO2 (83-108) mmHg ABG HCO3 (21-25) mmol/L ABG Total CO2 (19-24) mmol/L ABG O2 Saturation (94-97) % Chloride (98-107) mmol/L Carbon Dioxide (22-30) mmol/L BUN (9-20) mg/dL Creatinine (0.66-1.25) mg/dL Glucose (74-99) mg/dL POC Glucose (mg/dL) 147 H (70-110) mg/dL Hemoglobin A1c (0.0-6.0) % Microbiology - Last 24 Hours (Table) 12/13/21 17:50 Blood Culture - Preliminary Blood No Growth after 72 hours
[2021-12-17 10:32] LABS: ABG Base Excess 20.5 mmol/L; ABG Oxygen Saturation 90.5 % (94-97); ABG PH 7.34 (7.35-7.45); ABG PO2 61 mmHg (83-108); ABG TCO2 49 mmol/L (19-24)
[2021-12-17 10:37] LABS: ABG HCO3 46 mmol/L (21-25); ABG PCO2 86 mmHg (35-45); Allen Test Performed? no
--- NOTE | 2021-12-17 11:46 | P.PN ---
Subjective Progress Note Date: 12/17/21 Principal diagnosis: Acute on chronic hypoxic and hypercapnic respiratory failure, multifactorial 56-year-old morbidly obese male patient who was found in his apartment on the ground and he had fell apparently a few days back and hasn't remember falling down and he does not recall any other symptoms proceeded his follow-up. He states that he has been lying down on the floor for at least 3 days, unable to get up and he was getting progressively more sick. Ultimately, he was found and the patient got moved to the emergency department. No headaches. No neck stiffness. No trauma. No chest pain. He was having some increased shortness of breath. No nausea or vomiting. No reported aspiration. The patient presented to the ED and he was somewhat lethargic. His blood gases showed a pH of 7.18 with a pCO2 of 102 and pO2 of 67 and this was on FiO2 of 36%. At that point, the patient was placed on a BiPAP and ICU transfer was recommended. On his blood work, the patient was found to have a proBNP level of 11,600 and troponins were slightly elevated at 0.09 and 0.07 respectively 2. He also was found to be in renal failure with a 70 connected. 2.35, acute versus chronic and the patient's and his serum bicarb of 39 with a potassium level of 5.8. Sodium level was at 139. The patient had a white cell count 11.6 with a hemoglobin 15.8 and a platelet count of 324. The chest x-ray was suboptimal due to patient's body habitus. HEENT thyromegaly a mild four-vessel congestion. He also had large pulmonary arteries suggesting pulmonary arterial hypertension. The computed tomography scan of the brain was also done showing acute intracranial process. Based on review of his medication, the patient has been taking a combination of Lasix 80 mg by mouth daily and lisinopril 5 mg by mouth daily at home. He is known to have chronic hypoxic and hypercapnic respiratory failure and this was attributed to severe sleep apnea and a component of obesity hypoventilation syndrome. He has chronic metabolic alkalosis and chronic hypercapnic respiratory failure. He also has history of hypertension and hyperlipidemia. He is a lifetime nonsmoker. 12/16/2021, the patient is lethargic yet arousable. He spent all night on a BiPAP and currently is off the BiPAP on oxygen at 11 L and his pulse ox is around 90%. He was on BiPAP throughout the night. His chest x-rays essentially unchanged. He has pulmonary infiltrates bilaterally and the left lung bases significantly opacified and there is cardiomegaly. I think a CAT scan of the chest will be needed to failure characterize those abnormalities. Yesterday, the patient became somewhat more bronchospastic and wheezy. I gave her a dose of Lasix 40 mg IV and since then he diuresed more than a liter of urine and the patient's overall fluid balance is -2 L over the past 24 hours. Morning blood gases are pending still. Meanwhile, the patient's white cell count of 7.4 hemoglobin 13.6 and the platelet count is 163. Sodium is 141. Bicarbonate of 44. Creatinine is a 48 with a creatinine of 1.1. His renal function is essentially normalized. IV fluids are currently at [facility]. He remains on IV Zosyn. She is back on Norvasc 10 mg and Coreg 25 mg by mouth twice a day. He has improved also his left pressure control. He remains on heparin subcu for DVT prophylaxis. Reevaluated today on 12/17/2021, patient remains in the ICU, he is on BiPAP with IPAP of 18 EPAP of 6 FiO2 50% his mask was leaking hence I recommended a change of the mask to a larger mass, and his repeat ABG showed a pO2 of 61 pCO2 of 86 pH of 7.34 hence the patient clearly does not need to be intubated and mechanically ventilated at this point. Chest x-ray is showing evidence of pulmonary edema, hence I recommended increasing the Lasix to 40 mg IV push every 8 hours, patient remains on Diamox. He is also on bronchodilators and on methylprednisolone. Patient is also receiving Zosyn. And his IV fluid at KVO Objective - Vital Signs Vital signs: Vital Signs Temp 97.5 F L 12/17/21 08:00 Pulse 66 12/17/21 11:19 Resp 18 12/17/21 11:00 BP 128/66 12/17/21 11:00 Pulse Ox 93 L 12/17/21 11:00 FiO2 50 12/17/21 11:07 Intake & Output 12/16/21 12/17/21 12/17/21 18:59 06:59 18:59 Intake Total 220 120 160 Output Total 2800 3050 400 Balance -2580 -2930 -240 Weight 198.8 kg Intake: IV 220 120 150 KVO 120 120 50 Piperacillin-Tazobactam 3 100 .375 gm In Sodium Chloride 0.9% 100 ml @ 25 mls/hr IVPB Q8HR [facility] Rx# :[id number] zosyn 100 Intake, IV Titration 10 Amount Sodium Chloride 0.9% 1, 10 000 ml @ 10 mls/hr IV . Q24H [facility] Rx#:[id number] Output: Urine 2800 3050 400 Other: Voiding Method External Catheter External Catheter External Catheter # Voids 1 ABP, PAP, CO, CI - Last Documented Arterial Blood Pressure 146/75 - Exam Physical Exam: Revealed 56-year-old white male on BiPAP, arousable, follows simple instructions Head: Atraumatic, normocephalic. HEENT:[Neck is supple.] [No neck masses.] [No thyromegaly.] [No JVD.] Short obese neck, PERRLA, EOMI, nonicteric. Chest: Symmetrical chest expansion crackles at the bases no rhonchi and no wheezes Cardiac Exam: Distant S1 and S2, no S3 gallop.] Abdomen: [Morbidly obese, Soft, nontender, no megaly, no rebound, no guarding, normal bowel sounds.] Extremities: [No clubbing, trace of bipedal edema, no cyanosis.] Neurological Exam: [No focal neurologic deficit.] Arousable, follows instructions no focal deficit Psychiatric: Normal mood, flat affect, normal mental status examination. Skin: No rashes - Labs CBC & Chem 7: 12/16/21 04:40 12/17/21 05:40 Labs: Abnormal Lab Results - Last 24 Hours (Table) 12/16/21 12/16/21 12/16/21 Range/Units 04:40 16:25 19:32 ABG pH (7.35-7.45) ABG pCO2 (35-45) mmHg ABG pO2 (83-108) mmHg ABG HCO3 (21-25) mmol/L ABG Total CO2 (19-24) mmol/L ABG O2 Saturation (94-97) % Chloride (98-107) mmol/L Carbon Dioxide (22-30) mmol/L BUN (9-20) mg/dL Creatinine (0.66-1.25) mg/dL Glucose (74-99) mg/dL POC Glucose (mg/dL) 133 H 211 H (70-110) mg/dL Hemoglobin A1c 6.7 H (0.0-6.0) % 12/17/21 12/17/21 12/17/21 Range/Units 05:40 05:45 06:18 ABG pH 7.29 L (7.35-7.45) ABG pCO2 98 H* (35-45) mmHg ABG pO2 64 L (83-108) mmHg ABG HCO3 47 H* (21-25) mmol/L ABG Total CO2 50 H (19-24) mmol/L ABG O2 Saturation 90.3 L (94-97) % Chloride 88 L (98-107) mmol/L Carbon Dioxide 46 H* (22-30) mmol/L BUN 38 H (9-20) mg/dL Creatinine 1.32 H (0.66-1.25) mg/dL Glucose 156 H (74-99) mg/dL POC Glucose (mg/dL) 147 H (70-110) mg/dL Hemoglobin A1c (0.0-6.0) % 12/17/21 Range/Units 10:29 ABG pH 7.34 L (7.35-7.45) ABG pCO2 86 H* (35-45) mmHg ABG pO2 61 L (83-108) mmHg ABG HCO3 46 H* (21-25) mmol/L ABG Total CO2 49 H (19-24) mmol/L ABG O2 Saturation 90.5 L (94-97) % Chloride (98-107) mmol/L Carbon Dioxide (22-30) mmol/L BUN (9-20) mg/dL Creatinine (0.66-1.25) mg/dL Glucose (74-99) mg/dL POC Glucose (mg/dL) (70-110) mg/dL Hemoglobin A1c (0.0-6.0) % Microbiology - Last 24 Hours (Table) 12/13/21 17:50 Blood Culture - Preliminary Blood No Growth after 72 hours Assessment and Plan Assessment: Impression: Acute on chronic hypoxic and hypercapnic respiratory failure, multifactorial, I believe the patient has diastolic congestive heart failure, obstructive sleep apnea syndrome, obesity/hypoventilation syndrome, pulmonary hypertension, and possibly underlying COPD Acute kidney injury, improving. Obstructive sleep apnea syndrome with obesity/hypoventilation syndrome Acute metabolic encephalopathy Benign essential hypertension Chronic cor pulmonale Morbid obesity Chronic diastolic congestive heart failure/pulmonary hypertension Recommendation: Continue BiPAP Continue diuretics including Lasix and Diamox. Continue bronchodilators Continue to monitor electrolytes and renal profile Continue Lovenox Continue DuoNeb Continue empiric antibiotics coverage although pneumonia is rather unlikely Monitor and follow-up chest x-ray in the next 24 hours. Prognosis is guarded, we will continue to follow. Time with Patient: Less than 30
[2021-12-17 11:57] LABS: Glucose,Whole Blood 149 mg/dL (70-110)
[2021-12-17 14:34] LABS: Albumin 2.8 g/dL (3.5-5.0); Total Bilirubin 1.3 mg/dL (0.2-1.3); Total Protein 5.6 g/dL (6.3-8.2)
[2021-12-17] MEDS ORDERED: FUROSEMIDE 10 MG/ML 4 ML VIAL IV SCH (16:00)
[2021-12-17 16:37] LABS: ABG Base Excess 22.3 mmol/L; ABG Oxygen Saturation 92.6 % (94-97); ABG PH 7.37 (7.35-7.45); ABG PO2 68 mmHg (83-108); ABG TCO2 50 mmol/L (19-24)
[2021-12-17 16:40] LABS: ABG HCO3 48 mmol/L (21-25); ABG PCO2 82 mmHg (35-45); Allen Test Performed? no
[2021-12-17] MEDS ORDERED: carvediloL 12.5 MG TAB PO SCH (17:30)
[2021-12-17 17:42] LABS: Glucose,Whole Blood 132 mg/dL (70-110)
[2021-12-17 20:23] LABS: Glucose,Whole Blood 149 mg/dL (70-110)
[2021-12-17] MEDS: DEXMEDETOMIDINE/0.9% NACL(PMX) 400 MCG in EMPTY BAG 1 BAG IV SCH (22:02)
[2021-12-18] MEDS: FUROSEMIDE 10 MG/ML 4 ML VIAL IV SCH ×2 (00:01→20:08)
[2021-12-18] MEDS: methylPREDNISolone SOD SUCCI 125 MG/2 ML VIAL IV SCH ×4 (00:01→17:06)
[2021-12-18] MEDS: PIPERACILLIN-TAZOBACTAM 3.375 GM in SODIUM CHLORIDE 0.9% 100 ML IVPB SCH ×3 (00:02→15:41)
[2021-12-18] MEDS: IPRATROPIUM-ALBUTEROL 3 ML NEB INHALATION SCH ×6 (03:14→23:47)
[2021-12-18 04:53] LABS: Anisocytosis Moderate; Hypochromasia Marked; MCH 24.7 pg (25.0-35.0); MCV 91.3 fL (80.0-100.0); Macrocytosis Slight; Mean Platelet Volume 9.1; Platelet Count 155 k/uL (150-450); RBC 6.08 m/uL (4.30-5.90); RDW 20.7 % (11.5-15.5); WBC 6.4 k/uL (3.8-10.6)
[2021-12-18 05:25] LABS: HCT 55.6 % (39.0-53.0)
[2021-12-18] MEDS: SODIUM CHLORIDE 0.9% 1,000 ML IV SCH (05:59)
[2021-12-18 07:05] LABS: Glucose,Whole Blood 139 mg/dL (70-110)
--- NOTE | 2021-12-18 07:13 | P.PN ---
Subjective PROGRESS NOTE The patient is a 56-year-old male, morbidly obese, history of obstructive sleep apnea who presented was progressive dyspnea. He continues to be on the BiPAP, he is more awake and alert. His blood pressure and heart rate are stable. His echocardiogram was suboptimal but showed a preserved systolic function. He denies any chest discomfort or dizziness. He has no evidence of malignant arrhythmia. His urinary output has been stable. December 16: The patient is more awake and alert, he continues to be in sinus mechanism. Hemodynamically stable. He is on nasal cannula. His urinary output has been stable, he received IV Lasix yesterday. There is no evidence of malignant arrhythmia. She continues to be on antibiotics. His blood pressure has been under good control. 12/17 Patient seen and examined. Patient agitated times and CO2 noted to be elevated at 96. Denies any chest pain or pressure. Does have mild appetite. Has not been eating or drinking much. He is minus approximately 3 L. He was increased to 3 times a day Lasix today. Chest x-ray shows continued vascular congestion. Heart rates dipping down in the 40s when he is napping. He remains on BiPAP currently. In mildly increased to 1.3. 12/18 Patient seen and examined. Patient lethargic however arousable. Denies any pain. His carvedilol was decreased yesterday but still held secondary to bradycardia with heart rates in the 40s. He remains somewhat obtunded on BiPAP with CO2 somewhat better into the 80s. He does have contraction alkalosis with bicarbonate to 46. Nursing states patient has not really been eating much however has been drinking large amounts of fluid when he can. He became combative overnight and therefore Precedex was added however had some worsening of bradycardia with heart rates into the mid to high 30s. No significant hemodynamic compromise. PHYSICAL EXAMINATION: Vitals reviewed HEART: Regular rate and rhythm, S1, S2. No S3. No systolic murmur ABDOMEN: Soft, nontender, no organomegaly, obese LUNGS: Crackles at bases EXTREMETIES: Trace to 1+ edema, improved with chronic skin changes IMPRESSION: 1. Respiratory failure with hypoxemia and hypercapnia, improving 2. Troponin elevation secondary to type II myocardial infarction 3. Acute on chronic heart failure with preserved systolic function 4. Morbid obesity 5. History of hypertension 6. Acute renal injury PLAN: 1. Continue to monitor renal function 2. Monitor ins and outs 3. Add Farxiga for heart failure and preserved systolic function as an outpt 4. Stop carvedilol for now greater than bradycardia however much appears related to when patient is sleeping, CO2 narcosis. 5. Add Diamox for contraction alkalosis Objective - Vital Signs Vital signs: Vital Signs Temp 97.9 F 12/17/21 12:00 Pulse 45 L 12/18/21 05:00 Resp 19 12/18/21 05:00 BP 111/52 12/18/21 04:00 Pulse Ox 90 L 12/18/21 05:00 FiO2 50 12/18/21 03:15 Intake & Output 12/17/21 12/18/21 12/18/21 18:59 06:59 18:59 Intake Total 340 484.225 Output Total 2100 1030 Balance -1760 -545.775 Weight 191.416 kg Intake: IV 330 200 KVO 130 100 zosyn 200 100 Intake, IV Titration 10 59.225 Amount Dexmedetomidine/0.9% NaCl 59.225 (Pmx) 400 mcg In Empty Bag 1 bag @ 0.2 MCG/KG/HR 9.94 mls/hr IV .Q10H4M [facility] Rx#:[id number] Sodium Chloride 0.9% 1, 10 000 ml @ 10 mls/hr IV . Q24H [facility] Rx#:[id number] Oral 225 Output: Urine 2100 1030 Other: Voiding Method External Catheter External Catheter # Voids 1 ABP, PAP, CO, CI - Last Documented Arterial Blood Pressure 147/56 - Labs CBC & Chem 7: 12/18/21 04:30 12/17/21 05:40 Labs: Abnormal Lab Results - Last 24 Hours (Table) 12/17/21 12/17/21 12/17/21 Range/Units 05:40 10:29 11:55 RBC (4.30-5.90) m/uL Hct (39.0-53.0) % MCH (25.0-35.0) pg MCHC (31.0-37.0) g/dL RDW (11.5-15.5) % ABG pH 7.34 L (7.35-7.45) ABG pCO2 86 H* (35-45) mmHg ABG pO2 61 L (83-108) mmHg ABG HCO3 46 H* (21-25) mmol/L ABG Total CO2 49 H (19-24) mmol/L ABG O2 Saturation 90.5 L (94-97) % Chloride 88 L (98-107) mmol/L Carbon Dioxide 46 H* (22-30) mmol/L BUN 38 H (9-20) mg/dL Creatinine 1.32 H (0.66-1.25) mg/dL Glucose 156 H (74-99) mg/dL POC Glucose (mg/dL) 149 H (70-110) mg/dL Total Protein 5.6 L (6.3-8.2) g/dL Albumin 2.8 L (3.5-5.0) g/dL 12/17/21 12/17/21 12/17/21 Range/Units 16:29 17:40 20:21 RBC (4.30-5.90) m/uL Hct (39.0-53.0) % MCH (25.0-35.0) pg MCHC (31.0-37.0) g/dL RDW (11.5-15.5) % ABG pH (7.35-7.45) ABG pCO2 82 H* (35-45) mmHg ABG pO2 68 L (83-108) mmHg ABG HCO3 48 H* (21-25) mmol/L ABG Total CO2 50 H (19-24) mmol/L ABG O2 Saturation 92.6 L (94-97) % Chloride (98-107) mmol/L Carbon Dioxide (22-30) mmol/L BUN (9-20) mg/dL Creatinine (0.66-1.25) mg/dL Glucose (74-99) mg/dL POC Glucose (mg/dL) 132 H 149 H (70-110) mg/dL Total Protein (6.3-8.2) g/dL Albumin (3.5-5.0) g/dL 12/18/21 12/18/21 Range/Units 04:30 07:03 RBC 6.08 H (4.30-5.90) m/uL Hct 55.6 H (39.0-53.0) % MCH 24.7 L (25.0-35.0) pg MCHC 27.0 L (31.0-37.0) g/dL RDW 20.7 H (11.5-15.5) % ABG pH (7.35-7.45) ABG pCO2 (35-45) mmHg ABG pO2 (83-108) mmHg ABG HCO3 (21-25) mmol/L ABG Total CO2 (19-24) mmol/L ABG O2 Saturation (94-97) % Chloride (98-107) mmol/L Carbon Dioxide (22-30) mmol/L BUN (9-20) mg/dL Creatinine (0.66-1.25) mg/dL Glucose (74-99) mg/dL POC Glucose (mg/dL) 139 H (70-110) mg/dL Total Protein (6.3-8.2) g/dL Albumin (3.5-5.0) g/dL Microbiology - Last 24 Hours (Table) 12/13/21 17:50 Blood Culture - Preliminary Blood No Growth after 96 hours
[2021-12-18] MEDS: carvediloL 6.25 MG TAB PO SCH ×2 (07:44→16:35)
[2021-12-18] MEDS: INSULIN ASPART (NovoLOG) 100 UNIT/ML VIAL SQ SCH ×4 (07:45→20:09)
[2021-12-18 08:15] LABS: ABG Base Excess 21.6 mmol/L; ABG Oxygen Saturation 92.4 % (94-97); ABG PH 7.41 (7.35-7.45); ABG PO2 68 mmHg (83-108); ABG TCO2 49 mmol/L (19-24)
[2021-12-18 08:17] LABS: ABG HCO3 46 mmol/L (21-25); ABG PCO2 74 mmHg (35-45); Allen Test Performed? no
[2021-12-18] MEDS: FORMOTEROL FUMARATE 20 MCG/2 ML NEBU INHALATION SCH ×2 (08:20→19:35)
[2021-12-18] MEDS: DAPAGLIFLOZIN PROPANEDIOL 10 MG TABLET PO SCH (09:26)
[2021-12-18] MEDS: amLODIPine 10 MG TAB PO SCH (09:26)
[2021-12-18] MEDS: ASPIRIN 81 MG PO SCH (09:26)
[2021-12-18] MEDS: acetaZOLAMIDE 250 MG TAB PO SCH ×2 (09:26→20:08)
[2021-12-18] MEDS: PANTOPRAZOLE 40 MG/10 ML VIAL IVP SCH (09:27)
[2021-12-18] MEDS: HEPARIN SODIUM,PORCINE/PF 5,000 UNIT/0.5 ML SYRINGE SQ SCH ×2 (09:27→20:09)
[2021-12-18] MEDS: DEXMEDETOMIDINE/0.9% NACL(PMX) 400 MCG in EMPTY BAG 1 BAG IV SCH (09:43)
--- NOTE | 2021-12-18 09:48 | PN ---
PROGRESS NOTE SUBJECTIVE: This is a 56-year-old gentleman who was admitted with respiratory failure and COPD exacerbation. He is monitored in the ICU. The patient is on BiPAP at this time. Larger mask is being provided at this time. Otherwise, Dr. Parker is following the patient closely. The patient has empiric antibiotics and steroids also. PAST MEDICAL HISTORY: Reviewed. REVIEW OF SYSTEMS: A 14-point review is negative except as mentioned earlier. CURRENT MEDICATIONS: Reviewed include Lasix and Solu-Medrol. PHYSICAL EXAMINATION: VITAL SIGNS: Pulse is 64, blood pressure 127/57, respirations 23. HEENT: Conjunctivae normal. NECK: No JVD. CARDIOVASCULAR: S1, S2 muffled. RESPIRATIONS: Breath sounds diminished at the bases. Bilateral scattered rhonchi and crackles. Expiratory wheezing. ABDOMEN: Soft, obese. NERVOUS SYSTEM: Diffusely weak. LABS: ABGs reviewed. Rest of the labs also reviewed. ASSESSMENT: 1. Acute bilateral pneumonia, possibly aspiration with acute hypoxic respiratory failure, on BiPAP. 2. Chronic obstructive pulmonary disease acute exacerbation. 3. Acute renal failure. 4. Congestive heart failure acute exacerbation. 5. Troponin 0.058, indeterminate. 6. Multiple medical issues. RECOMMENDATIONS AND DISCUSSION: Recommend to continue current management and symptomatic treatment. Continue with bronchodilators. Continue with steroids. Continue with empiric antibiotics. Lasix dose has been increased. We will monitor the patient closely. Overall prognosis extremely guarded because of multiple complex medical issues. Further recommendations to follow. MMODL / IJN: [id number] /
[2021-12-18 11:23] LABS: Glucose,Whole Blood 157 mg/dL (70-110)
[2021-12-18 11:53] LABS: Calcium 9.8 mg/dL (8.4-10.2)
--- NOTE | 2021-12-18 14:09 | P.PN ---
Subjective Progress Note Date: 12/18/21 Principal diagnosis: Acute on chronic hypoxic and hypercapnic respiratory failure, multifactorial 56-year-old morbidly obese male patient who was found in his apartment on the ground and he had fell apparently a few days back and hasn't remember falling down and he does not recall any other symptoms proceeded his follow-up. He states that he has been lying down on the floor for at least 3 days, unable to get up and he was getting progressively more sick. Ultimately, he was found and the patient got moved to the emergency department. No headaches. No neck stiffness. No trauma. No chest pain. He was having some increased shortness of breath. No nausea or vomiting. No reported aspiration. The patient presented to the ED and he was somewhat lethargic. His blood gases showed a pH of 7.18 with a pCO2 of 102 and pO2 of 67 and this was on FiO2 of 36%. At that point, the patient was placed on a BiPAP and ICU transfer was recommended. On his blood work, the patient was found to have a proBNP level of 11,600 and troponins were slightly elevated at 0.09 and 0.07 respectively 2. He also was found to be in renal failure with a 70 connected. 2.35, acute versus chronic and the patient's and his serum bicarb of 39 with a potassium level of 5.8. Sodium level was at 139. The patient had a white cell count 11.6 with a hemoglobin 15.8 and a platelet count of 324. The chest x-ray was suboptimal due to patient's body habitus. HEENT thyromegaly a mild four-vessel congestion. He also had large pulmonary arteries suggesting pulmonary arterial hypertension. The computed tomography scan of the brain was also done showing acute intracranial process. Based on review of his medication, the patient has been taking a combination of Lasix 80 mg by mouth daily and lisinopril 5 mg by mouth daily at home. He is known to have chronic hypoxic and hypercapnic respiratory failure and this was attributed to severe sleep apnea and a component of obesity hypoventilation syndrome. He has chronic metabolic alkalosis and chronic hypercapnic respiratory failure. He also has history of hypertension and hyperlipidemia. He is a lifetime nonsmoker. 12/16/2021, the patient is lethargic yet arousable. He spent all night on a BiPAP and currently is off the BiPAP on oxygen at 11 L and his pulse ox is around 90%. He was on BiPAP throughout the night. His chest x-rays essentially unchanged. He has pulmonary infiltrates bilaterally and the left lung bases significantly opacified and there is cardiomegaly. I think a CAT scan of the chest will be needed to failure characterize those abnormalities. Yesterday, the patient became somewhat more bronchospastic and wheezy. I gave her a dose of Lasix 40 mg IV and since then he diuresed more than a liter of urine and the patient's overall fluid balance is -2 L over the past 24 hours. Morning blood gases are pending still. Meanwhile, the patient's white cell count of 7.4 hemoglobin 13.6 and the platelet count is 163. Sodium is 141. Bicarbonate of 44. Creatinine is a 48 with a creatinine of 1.1. His renal function is essentially normalized. IV fluids are currently at [facility]. He remains on IV Zosyn. She is back on Norvasc 10 mg and Coreg 25 mg by mouth twice a day. He has improved also his left pressure control. He remains on heparin subcu for DVT prophylaxis. Reevaluated today on 12/17/2021, patient remains in the ICU, he is on BiPAP with IPAP of 18 EPAP of 6 FiO2 50% his mask was leaking hence I recommended a change of the mask to a larger mass, and his repeat ABG showed a pO2 of 61 pCO2 of 86 pH of 7.34 hence the patient clearly does not need to be intubated and mechanically ventilated at this point. Chest x-ray is showing evidence of pulmonary edema, hence I recommended increasing the Lasix to 40 mg IV push every 8 hours, patient remains on Diamox. He is also on bronchodilators and on methylprednisolone. Patient is also receiving Zosyn. And his IV fluid at [facility] Reevaluated today on 12/18/21, patient was on BiPAP overnight, and last night he became more agitated, Precedex was tried, however the patient developed significant bradycardia hence he did not tolerate Precedex well. Patient is now on nasal cannula, sitting in bed, eating his breakfast, he is actually on 6 L/m, O2 saturation is anywhere between 89-91%, seems to be tolerating the nasal cannula well. Remains on diuretics, remains on bronchodilators, and he continues to have the BiPAP at bedside Diamox was added, patient was on Lasix and I cut it down to 40 mg every 12 hours. He is on Diamox at 250 mg twice a day. ABG this morning on BiPAP showed a pO2 of 68 pCO2 of 74 pH of 7.41 significantly improved compared to the ABG yesterday. His renal profile showed BUN 43 creatinine 1.39, baseline creatinine on admission was 2.35. Overall the patient is improving, but at this point I don't believe the patient is about ready to be transferred to a regular medical floor, and I plan to keep him in the ICU as he may still require intubation if his condition gets any worse Objective - Vital Signs Vital signs: Vital Signs Temp 97.9 F 12/17/21 12:00 Pulse 58 L 12/18/21 11:22 Resp 16 12/18/21 11:00 BP 131/97 12/18/21 09:00 Pulse Ox 90 L 12/18/21 11:00 FiO2 50 12/18/21 08:00 Intake & Output 12/17/21 12/18/21 12/18/21 18:59 06:59 18:59 Intake Total 340 494.225 710 Output Total 2100 1055 1075 Balance -1760 -560.775 -365 Weight 191.416 kg Intake: IV 330 210 10 KVO 130 110 10 zosyn 200 100 Intake, IV Titration 10 59.225 Amount Dexmedetomidine/0.9% NaCl 59.225 (Pmx) 400 mcg In Empty Bag 1 bag @ 0.2 MCG/KG/HR 9.94 mls/hr IV .Q10H4M [facility] Rx#:[id number] Sodium Chloride 0.9% 1, 10 000 ml @ 10 mls/hr IV . Q24H [facility] Rx#:[id number] Oral 225 700 Output: Urine 2100 1055 1075 Uretheral (Rosa) 400 Other: Voiding Method External Catheter External Catheter External Catheter # Voids 1 ABP, PAP, CO, CI - Last Documented Arterial Blood Pressure 158/56 - Exam Physical Exam: Revealed 56-year-old white male on 6 L nasal cannula, eating his breakfast Head: Atraumatic, normocephalic. HEENT:[Neck is supple.] [No neck masses.] [No thyromegaly.] [No JVD.] Short obese neck, PERRLA, EOMI, nonicteric. Chest: Symmetrical chest expansion crackles at the bases no rhonchi and no wheezes Cardiac Exam: Distant S1 and S2, no S3 gallop.] Abdomen: [Morbidly obese, Soft, nontender, no megaly, no rebound, no guarding, normal bowel sounds.] Extremities: [No clubbing, trace of bipedal edema, no cyanosis.] Neurological Exam: [No focal neurologic deficit.] Alert oriented 3 Psychiatric: Normal mood, flat affect, normal mental status examination. Skin: No rashes - Labs CBC & Chem 7: 12/18/21 04:30 12/18/21 11:15 Labs: Abnormal Lab Results - Last 24 Hours (Table) 12/17/21 12/17/21 12/17/21 Range/Units 05:40 16:29 17:40 RBC (4.30-5.90) m/uL Hct (39.0-53.0) % MCH (25.0-35.0) pg MCHC (31.0-37.0) g/dL RDW (11.5-15.5) % ABG pCO2 82 H* (35-45) mmHg ABG pO2 68 L (83-108) mmHg ABG HCO3 48 H* (21-25) mmol/L ABG Total CO2 50 H (19-24) mmol/L ABG O2 Saturation 92.6 L (94-97) % Chloride 88 L (98-107) mmol/L Carbon Dioxide 46 H* (22-30) mmol/L BUN 38 H (9-20) mg/dL Creatinine 1.32 H (0.66-1.25) mg/dL Glucose 156 H (74-99) mg/dL POC Glucose (mg/dL) 132 H (70-110) mg/dL Total Protein 5.6 L (6.3-8.2) g/dL Albumin 2.8 L (3.5-5.0) g/dL 12/17/21 12/18/21 12/18/21 Range/Units 20:21 04:30 07:03 RBC 6.08 H (4.30-5.90) m/uL Hct 55.6 H (39.0-53.0) % MCH 24.7 L (25.0-35.0) pg MCHC 27.0 L (31.0-37.0) g/dL RDW 20.7 H (11.5-15.5) % ABG pCO2 (35-45) mmHg ABG pO2 (83-108) mmHg ABG HCO3 (21-25) mmol/L ABG Total CO2 (19-24) mmol/L ABG O2 Saturation (94-97) % Chloride (98-107) mmol/L Carbon Dioxide (22-30) mmol/L BUN (9-20) mg/dL Creatinine (0.66-1.25) mg/dL Glucose (74-99) mg/dL POC Glucose (mg/dL) 149 H 139 H (70-110) mg/dL Total Protein (6.3-8.2) g/dL Albumin (3.5-5.0) g/dL 12/18/21 12/18/21 12/18/21 Range/Units 08:13 11:15 11:21 RBC (4.30-5.90) m/uL Hct (39.0-53.0) % MCH (25.0-35.0) pg MCHC (31.0-37.0) g/dL RDW (11.5-15.5) % ABG pCO2 74 H* (35-45) mmHg ABG pO2 68 L (83-108) mmHg ABG HCO3 46 H* (21-25) mmol/L ABG Total CO2 49 H (19-24) mmol/L ABG O2 Saturation 92.4 L (94-97) % Chloride 86 L (98-107) mmol/L Carbon Dioxide 42 H* (22-30) mmol/L BUN 43 H (9-20) mg/dL Creatinine 1.39 H (0.66-1.25) mg/dL Glucose 180 H (74-99) mg/dL POC Glucose (mg/dL) 157 H (70-110) mg/dL Total Protein (6.3-8.2) g/dL Albumin (3.5-5.0) g/dL Microbiology - Last 24 Hours (Table) 12/13/21 17:50 Blood Culture - Preliminary Blood No Growth after 96 hours Assessment and Plan Assessment: Impression: Acute on chronic hypoxic and hypercapnic respiratory failure, multifactorial, I believe the patient has diastolic congestive heart failure, obstructive sleep apnea syndrome, obesity/hypoventilation syndrome, pulmonary hypertension, and possibly underlying COPD Acute kidney injury, improving. Obstructive sleep apnea syndrome with obesity/hypoventilation syndrome Acute metabolic encephalopathy Benign essential hypertension Chronic cor pulmonale Morbid obesity Chronic diastolic congestive heart failure/pulmonary hypertension Recommendation: Continue high flow nasal cannula and use BiPAP as needed Continue diuretics including Lasix and Diamox. Continue bronchodilators Monitor electrolytes and renal profile on a daily basis Continue Lovenox Continue DuoNeb Continue empiric antibiotics coverage although pneumonia is rather unlikely Follow-up chest x-ray in a.m. Continue to monitor in ICU Prognosis is guarded, we will continue to follow. Time with Patient: Less than 30
[2021-12-18 16:12] LABS: Glucose,Whole Blood 145 mg/dL (70-110)
[2021-12-18] MEDS ORDERED: LORazepam 2 MG/ML INJ IV PRN (19:15)
[2021-12-18] MEDS: HALOPERIDOL LACTATE 5 MG/ML 1 ML VIAL IVP PRN (19:31)
[2021-12-18 20:02] LABS: Glucose,Whole Blood 164 mg/dL (70-110)
[2021-12-18] MEDS: LORazepam 1 MG/0.5 ML VIAL IV PRN (20:22)
[2021-12-19] MEDS: PIPERACILLIN-TAZOBACTAM 3.375 GM in SODIUM CHLORIDE 0.9% 100 ML IVPB SCH ×4 (00:05→23:30)
[2021-12-19] MEDS: methylPREDNISolone SOD SUCCI 125 MG/2 ML VIAL IV SCH ×3 (00:06→13:19)
[2021-12-19] MEDS: HALOPERIDOL LACTATE 5 MG/ML 1 ML VIAL IVP PRN (02:06)
[2021-12-19] MEDS: LORazepam 1 MG/0.5 ML VIAL IV PRN ×2 (02:35→20:48)
[2021-12-19] MEDS: IPRATROPIUM-ALBUTEROL 3 ML NEB INHALATION SCH ×6 (03:25→23:34)
[2021-12-19 04:37] LABS: Calcium 9.9 mg/dL (8.4-10.2); Potassium 3.6 mmol/L (3.5-5.1)
[2021-12-19 04:58] LABS: Anisocytosis Moderate; HCT 54.7 % (39.0-53.0); HGB 14.6 gm/dL (13.0-17.5); Hypochromasia Marked; MCH 24.7 pg (25.0-35.0); MCHC 26.8 g/dL (31.0-37.0); MCV 92.1 fL (80.0-100.0); Macrocytosis Slight; Mean Platelet Volume 8.6; Platelet Count 131 k/uL (150-450); Poikilocytosis Slight; RBC 5.94 m/uL (4.30-5.90); RDW 21.2 % (11.5-15.5); WBC 8.2 k/uL (3.8-10.6)
[2021-12-19 06:32] LABS: Glucose,Whole Blood 135 mg/dL (70-110)
[2021-12-19] MEDS: INSULIN ASPART (NovoLOG) 100 UNIT/ML VIAL SQ SCH ×4 (06:33→20:48)
[2021-12-19] MEDS: POTASSIUM CHLORIDE 10 MEQ in WATER FOR INJECTION 1 100ML.BAG IVPB SCH ×2 (06:34→08:06)
[2021-12-19] MEDS: carvediloL 6.25 MG TAB PO SCH ×2 (06:39→18:14)
[2021-12-19 07:00] LABS: Band Neutrophils % 7 %; Lymphocytes # (M) 0.57 k/uL (1.0-4.8); Monocytes # (M) 0.08 k/uL (0-1.0); Neutrophils % (M) 85 %; Nucleated Red Blood Cells 0 /100 WBC (0-0); Total Cells Counted 100
[2021-12-19 07:03] LABS: Large Platelets Present
[2021-12-19 07:15] LABS: Polychromasia Present
[2021-12-19] MEDS: FORMOTEROL FUMARATE 20 MCG/2 ML NEBU INHALATION SCH ×2 (07:48→19:45)
--- NOTE | 2021-12-19 08:07 | XR ---
EXAMINATION TYPE: XR chest 1V portable DATE OF EXAM: 12/19/2021 COMPARISON: 12/17/2021 INDICATION: Pneumonia TECHNIQUE: Single frontal view of the chest is obtained. FINDINGS: The heart size is enlarged. The pulmonary vasculature is normal. There is opacification to the left mid and lower lung field is stable. Some air bronchograms from the major bronchi are evident. Right lower lobe infiltrate is present. IMPRESSION: 1. Bibasilar infiltrates greater on the left. Correlate for pneumonia. Continued follow-up is recomme nded. 2. Cardiomegaly
--- NOTE | 2021-12-19 08:22 | PN ---
PROGRESS NOTE SUBJECTIVE: This 56-year-old gentleman, who was admitted with significant respiratory failure, pneumonia, is being closely monitored. Sensorium is slightly improved at this time. No chest pain. No palpitation. patient monitored in the ICU. PAST MEDICAL HISTORY: Reviewed. REVIEW OF SYSTEMS: Could not be taken as the patient is still confused. CURRENT MEDICATIONS: Reviewed and include DuoNeb. Dose and rest of medication noted. PHYSICAL EXAMINATION: VITAL SIGNS: Pulse is 60, blood pressure is 158/56, respirations 16. HEENT: Conjunctivae normal. NECK: No JVD. CARDIOVASCULAR: S1, S2. RESPIRATION: Breath sounds diminished at the bases. A few scattered rhonchi and crackles. Expiratory wheezing. ABDOMEN: Soft. NERVOUS SYSTEM: Nonfocal. LABORATORY DATA: Hemoglobin is 15. ASSESSMENT: 1. Acute bilateral pneumonia, possibly aspiration with hypoxia and respiratory failure, on BiPAP. 2. Chronic obstructive pulmonary disease acute exacerbation. 3. Acute renal failure. 4. Congestive heart failure acute exacerbation. 5. Troponin 0.058, indeterminate. 6. Multiple medical issues. RECOMMENDATIONS: I recommend to continue current . As mentioned earlier, the patient has multiple medical issues including COPD and CHF. Prognosis guarded. The patient is on IV Lasix and sodium has slightly improved. We will continue to monitor guardianship. PT/OT evaluation, possible ECF rehab. Further recommendations to follow. MMNELIL / ALISHAN: [id number] / MTDD
[2021-12-19] MEDS: PANTOPRAZOLE 40 MG/10 ML VIAL IVP SCH (08:38)
[2021-12-19] MEDS: ASPIRIN 81 MG PO SCH (08:39)
[2021-12-19] MEDS: FUROSEMIDE 10 MG/ML 4 ML VIAL IV SCH (08:39)
[2021-12-19] MEDS: DAPAGLIFLOZIN PROPANEDIOL 10 MG TABLET PO SCH (08:39)
[2021-12-19] MEDS: amLODIPine 10 MG TAB PO SCH (08:39)
[2021-12-19] MEDS: acetaZOLAMIDE 250 MG TAB PO SCH ×2 (08:39→20:49)
[2021-12-19] MEDS: HEPARIN SODIUM,PORCINE/PF 5,000 UNIT/0.5 ML SYRINGE SQ SCH ×2 (08:39→20:49)
--- NOTE | 2021-12-19 09:30 | P.PN ---
Subjective Progress Note Date: 12/19/21 Patient seen today resting comfortably in bed with no signs of acute distress. He denies chest pain or increased shortness of breath at this time. Beta blockers remain on hold due to bradycardia. Patient has been started on Diamox and Farxiga. His chest x-ray this morning shows basilar infiltrates greater on the left side, correlated for pneumonia. And cardiomegaly. Vitals are stable at this time he remains on BiPAP. Patient has noted lower extremity edema, will continue with IV Lasix area continue to follow kidney function. BUNs 48 creatinine 1.57 area Objective - Vital Signs Vital signs: Vital Signs Temp 98.0 F 12/19/21 08:00 Pulse 57 L 12/19/21 08:00 Resp 19 12/19/21 08:00 BP 154/81 12/19/21 08:00 Pulse Ox 93 L 12/19/21 08:00 FiO2 40 12/19/21 08:00 Intake & Output 12/18/21 12/19/21 12/19/21 18:59 06:59 18:59 Intake Total 910 180 100 Output Total 1350 2465 100 Balance -440 -2285 0 Weight 198.855 kg Intake: IV 10 180 100 KVO 10 80 Potassium Chloride 10 meq 100 In Water For Injection 1 100ml.bag @ 100 mls/hr IVPB Q1H [facility] Rx#: [id number] zosyn 100 Oral 900 Output: Urine 1350 2465 100 Uretheral (Rosa) 400 Other: Voiding Method Indwelling Catheter Indwelling Catheter ABP, PAP, CO, CI - Last Documented Arterial Blood Pressure 133/51 - Exam PHYSICAL EXAM: VITAL SIGNS: Reviewed. GENERAL: Well-developed in no acute distress. HEENT: Head is normocephalic. Pupils are equal, round. Sclerae anicteric. Mucous membranes of the mouth are moist. NECK: Supple. No JVD or thyromegaly RESPIRATORY: Respirations even and unlabored. Lungs are diminished with scat tered rhonchi CARDIO: Regular rate and rhythm. S1 and S2 heard. No murmur or gallops. EXTREMITIES: Normal range of motion. No clubbing or cyanosis. Peripheral pulses intact. mild bilateral lower extremity edema NEURO: Orientated to person, time, mood is appropriate - Labs CBC & Chem 7: 12/19/21 04:10 12/19/21 04:10 Labs: Abnormal Lab Results - Last 24 Hours (Table) 12/18/21 12/18/21 12/18/21 Range/Units 11:15 11:21 16:10 RBC (4.30-5.90) m/uL Hct (39.0-53.0) % MCH (25.0-35.0) pg MCHC (31.0-37.0) g/dL RDW (11.5-15.5) % Plt Count (150-450) k/uL Lymphocytes # (Manual) (1.0-4.8) k/uL Chloride 86 L (98-107) mmol/L Carbon Dioxide 42 H* (22-30) mmol/L BUN 43 H (9-20) mg/dL Creatinine 1.39 H (0.66-1.25) mg/dL Glucose 180 H (74-99) mg/dL POC Glucose (mg/dL) 157 H 145 H (70-110) mg/dL 12/18/21 12/19/21 12/19/21 Range/Units 20:00 04:10 04:10 RBC 5.94 H (4.30-5.90) m/uL Hct 54.7 H (39.0-53.0) % MCH 24.7 L (25.0-35.0) pg MCHC 26.8 L (31.0-37.0) g/dL RDW 21.2 H (11.5-15.5) % Plt Count 131 L (150-450) k/uL Lymphocytes # (Manual) 0.57 L (1.0-4.8) k/uL Chloride 86 L (98-107) mmol/L Carbon Dioxide 43 H* (22-30) mmol/L BUN 48 H (9-20) mg/dL Creatinine 1.57 H (0.66-1.25) mg/dL Glucose 160 H (74-99) mg/dL POC Glucose (mg/dL) 164 H (70-110) mg/dL 12/19/21 Range/Units 06:31 RBC (4.30-5.90) m/uL Hct (39.0-53.0) % MCH (25.0-35.0) pg MCHC (31.0-37.0) g/dL RDW (11.5-15.5) % Plt Count (150-450) k/uL Lymphocytes # (Manual) (1.0-4.8) k/uL Chloride (98-107) mmol/L Carbon Dioxide (22-30) mmol/L BUN (9-20) mg/dL Creatinine (0.66-1.25) mg/dL Glucose (74-99) mg/dL POC Glucose (mg/dL) 135 H (70-110) mg/dL Microbiology - Last 24 Hours (Table) 12/13/21 17:50 Blood Culture - Preliminary Blood No Growth after 120 hours Assessment and Plan Assessment: Troponin elevated secondary to type II myocardial infarction Respiratory failure with hypoxia and hypercapnia Acute on chronic diastolic congestive heart failure Acute kidney injury Plan: Continue with all current cardiac medications Continue to hold beta blockers due to bradycardia Continue with telemetry monitoring Continue with accurate I's and O's Continue to monitor renal function
[2021-12-19 09:57] LABS: ABG Base Excess 16.8 mmol/L; ABG Oxygen Saturation 95.3 % (94-97); ABG PH 7.33 (7.35-7.45); ABG PO2 84 mmHg (83-108); ABG TCO2 45 mmol/L (19-24)
[2021-12-19 10:03] LABS: ABG HCO3 43 mmol/L (21-25); ABG PCO2 82 mmHg (35-45); Allen Test Performed? no
[2021-12-19 11:25] LABS: Glucose,Whole Blood 162 mg/dL (70-110)
[2021-12-19 13:11] LABS: Glucose,Whole Blood 173 mg/dL (70-110)
--- NOTE | 2021-12-19 15:18 | P.PN ---
Subjective Progress Note Date: 12/19/21 Principal diagnosis: Acute on chronic hypoxic and hypercapnic respiratory failure, multifactorial 56-year-old morbidly obese male patient who was found in his apartment on the ground and he had fell apparently a few days back and hasn't remember falling down and he does not recall any other symptoms proceeded his follow-up. He states that he has been lying down on the floor for at least 3 days, unable to get up and he was getting progressively more sick. Ultimately, he was found and the patient got moved to the emergency department. No headaches. No neck stiffness. No trauma. No chest pain. He was having some increased shortness of breath. No nausea or vomiting. No reported aspiration. The patient presented to the ED and he was somewhat lethargic. His blood gases showed a pH of 7.18 with a pCO2 of 102 and pO2 of 67 and this was on FiO2 of 36%. At that point, the patient was placed on a BiPAP and ICU transfer was recommended. On his blood work, the patient was found to have a proBNP level of 11,600 and troponins were slightly elevated at 0.09 and 0.07 respectively 2. He also was found to be in renal failure with a 70 connected. 2.35, acute versus chronic and the patient's and his serum bicarb of 39 with a potassium level of 5.8. Sodium level was at 139. The patient had a white cell count 11.6 with a hemoglobin 15.8 and a platelet count of 324. The chest x-ray was suboptimal due to patient's body habitus. HEENT thyromegaly a mild four-vessel congestion. He also had large pulmonary arteries suggesting pulmonary arterial hypertension. The computed tomography scan of the brain was also done showing acute intracranial process. Based on review of his medication, the patient has been taking a combination of Lasix 80 mg by mouth daily and lisinopril 5 mg by mouth daily at home. He is known to have chronic hypoxic and hypercapnic respiratory failure and this was attributed to severe sleep apnea and a component of obesity hypoventilation syndrome. He has chronic metabolic alkalosis and chronic hypercapnic respiratory failure. He also has history of hypertension and hyperlipidemia. He is a lifetime nonsmoker. 12/16/2021, the patient is lethargic yet arousable. He spent all night on a BiPAP and currently is off the BiPAP on oxygen at 11 L and his pulse ox is around 90%. He was on BiPAP throughout the night. His chest x-rays essentially unchanged. He has pulmonary infiltrates bilaterally and the left lung bases significantly opacified and there is cardiomegaly. I think a CAT scan of the chest will be needed to failure characterize those abnormalities. Yesterday, the patient became somewhat more bronchospastic and wheezy. I gave her a dose of Lasix 40 mg IV and since then he diuresed more than a liter of urine and the patient's overall fluid balance is -2 L over the past 24 hours. Morning blood gases are pending still. Meanwhile, the patient's white cell count of 7.4 hemoglobin 13.6 and the platelet count is 163. Sodium is 141. Bicarbonate of 44. Creatinine is a 48 with a creatinine of 1.1. His renal function is essentially normalized. IV fluids are currently at [facility]. He remains on IV Zosyn. She is back on Norvasc 10 mg and Coreg 25 mg by mouth twice a day. He has improved also his left pressure control. He remains on heparin subcu for DVT prophylaxis. Reevaluated today on 12/17/2021, patient remains in the ICU, he is on BiPAP with IPAP of 18 EPAP of 6 FiO2 50% his mask was leaking hence I recommended a change of the mask to a larger mass, and his repeat ABG showed a pO2 of 61 pCO2 of 86 pH of 7.34 hence the patient clearly does not need to be intubated and mechanically ventilated at this point. Chest x-ray is showing evidence of pulmonary edema, hence I recommended increasing the Lasix to 40 mg IV push every 8 hours, patient remains on Diamox. He is also on bronchodilators and on methylprednisolone. Patient is also receiving Zosyn. And his IV fluid at [facility] Reevaluated today on 12/18/21, patient was on BiPAP overnight, and last night he became more agitated, Precedex was tried, however the patient developed significant bradycardia hence he did not tolerate Precedex well. Patient is now on nasal cannula, sitting in bed, eating his breakfast, he is actually on 6 L/m, O2 saturation is anywhere between 89-91%, seems to be tolerating the nasal cannula well. Remains on diuretics, remains on bronchodilators, and he continues to have the BiPAP at bedside Diamox was added, patient was on Lasix and I cut it down to 40 mg every 12 hours. He is on Diamox at 250 mg twice a day. ABG this morning on BiPAP showed a pO2 of 68 pCO2 of 74 pH of 7.41 significantly improved compared to the ABG yesterday. His renal profile showed BUN 43 creatinine 1.39, baseline creatinine on admission was 2.35. Overall the patient is improving, but at this point I don't believe the patient is about ready to be transferred to a regular medical floor, and I plan to keep him in the ICU as he may still require intubation if his condition gets any worse Reevaluated today on , patient has been refusing to use his BiPAP.patient has been receiving Ativan and Haldol for his extreme agitation sometimes, this morning he refuses to go back on BiPAP, he is on 6 L nasal cannula, hence an ABG was performed, and ABG showed pO2 of 84 pCO2 82 pH of 7.33. CBC is unremarkable. WBC count is 8.2 hemoglobin is 14.6.electrolytes and basic metabolic profile are normal. Renal profile is abnormal with BUN of a 48 creatinine 1.57, I have recommended cutting down on the Lasix to 40 mg daily instead of twice a day. And recommended cutting down his FiO2 is set of using 6 L patient may do well with 4 L nasal cannula instead.patient remains on bronchodilators, remains on Solu-Medrol, and he also remains on Zosyn. Plan to cut down his methylprednisolone to 40 mg IV push every 12 hours.may improve his agitation. Objective - Vital Signs Vital signs: Vital Signs Temp 99.0 F 12/19/21 12:00 Pulse 80 12/19/21 15:01 Resp 18 12/19/21 15:00 BP 154/81 12/19/21 15:00 Pulse Ox 97 12/19/21 15:00 FiO2 40 12/19/21 14:49 Intake & Output 12/18/21 12/19/21 12/19/21 18:59 06:59 18:59 Intake Total 910 180 752 Output Total 3270 1578 1400 Balance -440 -2285 -873 Weight 198.855 kg Intake: IV 10 180 272 KVO 10 80 30 Potassium Chloride 10 meq 100 In Water For Injection 1 100ml.bag @ 100 mls/hr IVPB Q1H MEGAN Rx#: [id number] pressure bag 42 zosyn 100 100 Oral 900 480 Output: Urine 1350 2465 1625 Uretheral (Rosa) 400 Other: Voiding Method Indwelling Catheter Indwelling Catheter Indwelling Catheter ABP, PAP, CO, CI - Last Documented Arterial Blood Pressure 135/53 - Exam Physical Exam: Revealed 56-year-old white male on 6 L nasal cannula, lethargic but arousable and follows instructions, prefers to be left alone, not very cooperative. Head: Atraumatic, normocephalic. HEENT:[Neck is supple.] [No neck masses.] [No thyromegaly.] [No JVD.] Short obese neck, PERRLA, EOMI, nonicteric. Chest: Symmetrical chest expansion crackles at the bases no rhonchi and no wheezes Cardiac Exam: Distant S1 and S2, no S3 gallop.] Abdomen: [Morbidly obese, Soft, nontender, no megaly, no rebound, no guarding, normal bowel sounds.] Extremities: [No clubbing, trace of bipedal edema, no cyanosis.] Neurological Exam: [No focal neurologic deficit.] Alert oriented 3 Psychiatric: Normal mood, flat affect, normal mental status examination. Skin: No rashes - Labs CBC & Chem 7: 12/19/21 04:10 12/19/21 13:10 Labs: Abnormal Lab Results - Last 24 Hours (Table) 12/18/21 12/18/21 12/19/21 Range/Units 16:10 20:00 04:10 RBC 5.94 H (4.30-5.90) m/uL Hct 54.7 H (39.0-53.0) % MCH 24.7 L (25.0-35.0) pg MCHC 26.8 L (31.0-37.0) g/dL RDW 21.2 H (11.5-15.5) % Plt Count 131 L (150-450) k/uL Lymphocytes # (Manual) 0.57 L (1.0-4.8) k/uL ABG pH (7.35-7.45) ABG pCO2 (35-45) mmHg ABG HCO3 (21-25) mmol/L ABG Total CO2 (19-24) mmol/L Chloride (98-107) mmol/L Carbon Dioxide (22-30) mmol/L BUN (9-20) mg/dL Creatinine (0.66-1.25) mg/dL Glucose (74-99) mg/dL POC Glucose (mg/dL) 145 H 164 H (70-110) mg/dL 12/19/21 12/19/21 12/19/21 Range/Units 04:10 06:31 09:55 RBC (4.30-5.90) m/uL Hct (39.0-53.0) % MCH (25.0-35.0) pg MCHC (31.0-37.0) g/dL RDW (11.5-15.5) % Plt Count (150-450) k/uL Lymphocytes # (Manual) (1.0-4.8) k/uL ABG pH 7.33 L (7.35-7.45) ABG pCO2 82 H* (35-45) mmHg ABG HCO3 43 H* (21-25) mmol/L ABG Total CO2 45 H (19-24) mmol/L Chloride 86 L (98-107) mmol/L Carbon Dioxide 43 H* (22-30) mmol/L BUN 48 H (9-20) mg/dL Creatinine 1.57 H (0.66-1.25) mg/dL Glucose 160 H (74-99) mg/dL POC Glucose (mg/dL) 135 H (70-110) mg/dL 12/19/21 12/19/21 Range/Units 11:24 13:09 RBC (4.30-5.90) m/uL Hct (39.0-53.0) % MCH (25.0-35.0) pg MCHC (31.0-37.0) g/dL RDW (11.5-15.5) % Plt Count (150-450) k/uL Lymphocytes # (Manual) (1.0-4.8) k/uL ABG pH (7.35-7.45) ABG pCO2 (35-45) mmHg ABG HCO3 (21-25) mmol/L ABG Total CO2 (19-24) mmol/L Chloride (98-107) mmol/L Carbon Dioxide (22-30) mmol/L BUN (9-20) mg/dL Creatinine (0.66-1.25) mg/dL Glucose (74-99) mg/dL POC Glucose (mg/dL) 162 H 173 H (70-110) mg/dL Microbiology - Last 24 Hours (Table) 12/13/21 17:50 Blood Culture - Preliminary Blood No Growth after 120 hours Assessment and Plan Assessment: Impression: Acute on chronic hypoxic and hypercapnic respiratory failure, multifactorial, I believe the patient has diastolic congestive heart failure, obstructive sleep apnea syndrome, obesity/hypoventilation syndrome, pulmonary hypertension, and possibly underlying COPD Acute kidney injury, improving. Obstructive sleep apnea syndrome with obesity/hypoventilation syndrome Acute metabolic encephalopathy Benign essential hypertension Chronic cor pulmonale Morbid obesity Chronic diastolic congestive heart failure/pulmonary hypertension Recommendation: change nasal cannula to 4 L Continue diuretics including Lasix and Diamox.however cut down Lasix to 40 mg IV push daily Continue bronchodilators, cut on methylprednisolone to 40 mg IV push twice a day Continue Lovenox Continue DuoNeb continue Zosyn Continue to monitor in ICU Prognosis is guarded, we will continue to follow. Time with Patient: Less than 30
[2021-12-19 16:20] LABS: Glucose,Whole Blood 122 mg/dL (70-110)
[2021-12-19] MEDS ORDERED: Potassium Replacement Protocol 1 EACH MISC MISCELLANE PRN (18:30)
[2021-12-19] MEDS: POTASSIUM CHLORIDE ER 20 MEQ TAB.ER PO SCH ×2 (19:03→20:48)
[2021-12-19 19:32] LABS: Glucose,Whole Blood 170 mg/dL (70-110)
[2021-12-19 20:42] LABS: Glucose,Whole Blood 177 mg/dL (70-110)
[2021-12-19] MEDS: methylPREDNISolone SOD SUCCI 40 MG/ML 1 ML VIAL IV SCH (20:49)
[2021-12-20] MEDS: IPRATROPIUM-ALBUTEROL 3 ML NEB INHALATION SCH ×5 (03:17→19:24)
[2021-12-20 04:52] LABS: Anisocytosis Moderate; HCT 52.6 % (39.0-53.0); HGB 14.1 gm/dL (13.0-17.5); Hypochromasia Marked; MCH 24.9 pg (25.0-35.0); MCHC 26.8 g/dL (31.0-37.0); MCV 92.9 fL (80.0-100.0); Macrocytosis Slight; Mean Platelet Volume 8.9; Platelet Count 127 k/uL (150-450); Poikilocytosis Slight; RBC 5.66 m/uL (4.30-5.90); RDW 20.5 % (11.5-15.5); WBC 8.2 k/uL (3.8-10.6)
[2021-12-20 05:03] LABS: Potassium 3.9 mmol/L (3.5-5.1)
[2021-12-20 05:29] LABS: Anisocytosis (M) Present; Band Neutrophils % 1 %; Lymphocytes # (M) 0.16 k/uL (1.0-4.8); Neutrophils % (M) 97 %; Nucleated Red Blood Cells 0 /100 WBC (0-0); Stomatocytes Present; Total Cells Counted 100
[2021-12-20] MEDS ORDERED: POTASSIUM CHLORIDE ER 20 MEQ TAB.ER PO SCH (06:00)
[2021-12-20 06:31] LABS: Glucose,Whole Blood 120 mg/dL (70-110)
[2021-12-20] MEDS: INSULIN ASPART (NovoLOG) 100 UNIT/ML VIAL SQ SCH ×4 (06:32→20:12)
[2021-12-20] MEDS: carvediloL 6.25 MG TAB PO SCH ×2 (06:33→18:15)
--- NOTE | 2021-12-20 07:41 | XR ---
EXAMINATION TYPE: XR chest 1V portable DATE OF EXAM: 12/20/2021 HISTORY: Shortness of breath. COMPARISON: 12/19 TECHNIQUE: Single view of the chest is submitted. FINDINGS: Demonstrated are scattered senescent parenchymal change. Continued cardiomegaly with pulmonary venous congestion. Left basilar opacity may reflect atelectasis , infiltrate and/or effusion. Left IJ central venous line unchanged in position. Hilar and mediastinal structures are within normal limits. Degenerative changes are seen of the dorsal spine. IMPRESSION: 1. Continued cardiomegaly with pulmonary venous congestion. Left basilar opacity may reflect atelect asis, infiltrate and/or effusion.
[2021-12-20 08:08] VITALS: BMI 61.1
[2021-12-20] MEDS: FORMOTEROL FUMARATE 20 MCG/2 ML NEBU INHALATION SCH ×2 (08:14→19:24)
[2021-12-20] MEDS: methylPREDNISolone SOD SUCCI 40 MG/ML 1 ML VIAL IV SCH (08:20)
[2021-12-20] MEDS: FUROSEMIDE 10 MG/ML 4 ML VIAL IV SCH (08:20)
[2021-12-20] MEDS: PANTOPRAZOLE 40 MG/10 ML VIAL IVP SCH (08:20)
[2021-12-20] MEDS: PIPERACILLIN-TAZOBACTAM 3.375 GM in SODIUM CHLORIDE 0.9% 100 ML IVPB SCH ×2 (08:20→18:15)
[2021-12-20] MEDS: HEPARIN SODIUM,PORCINE/PF 5,000 UNIT/0.5 ML SYRINGE SQ SCH ×2 (08:20→20:33)
[2021-12-20] MEDS: SODIUM CHLORIDE 0.9% 1,000 ML IV SCH ×2 (08:21→08:22)
[2021-12-20] MEDS: ASPIRIN 81 MG PO SCH (08:21)
[2021-12-20] MEDS: DAPAGLIFLOZIN PROPANEDIOL 10 MG TABLET PO SCH (08:21)
[2021-12-20] MEDS: amLODIPine 10 MG TAB PO SCH (08:21)
--- NOTE | 2021-12-20 09:15 | P.PN ---
Subjective Progress Note Date: 12/20/21 Patient is seen resting comfortably in the chair this morning doing much better. He denies chest pain or shortness of breath. Patient is doing well this morning is A&O 3 and on 2 L nasal cannula. IV Lasix was decreased yesterday to 40 mg IV daily, he continues on Diamox and Farxiga. This morning's chest x-ray shows cardiomegaly with pulmonary venous congestion. Left basilar opacity may reflect atelectasis, infiltrate and/or effusion. She remains in sinus rhythm with a first-degree on telemetry blood pressure is 124/62 and heart rate remains in the 70s. He does have noted lower extremity edema. Will continue with current dose of IV Lasix. Patient will be downgraded to selective today Objective - Vital Signs Vital signs: Vital Signs Temp 97.7 F 12/20/21 08:00 Pulse 60 12/20/21 08:39 Resp 21 12/20/21 08:00 BP 124/62 12/20/21 08:00 Pulse Ox 97 12/20/21 08:00 FiO2 40 12/20/21 01:00 Intake & Output 12/19/21 12/20/21 12/20/21 18:59 06:59 18:59 Intake Total 1280 1078 296 Output Total 1849 2014 140 Balance -570 -937 156 Weight 198.8 kg 198.8 kg Intake: IV 320 298 116 KVO 60 120 Normal Saline: pressure 60 78 6 bag Piperacillin-Tazobactam 3 100 .375 gm In Sodium Chloride 0.9% 100 ml @ 25 mls/hr IVPB Q8HR MEGAN Rx# :[id number] Potassium Chloride 10 meq 100 In Water For Injection 1 100ml.bag @ 100 mls/hr IVPB Q1H MEGAN Rx#: [id number] Sodium Chloride 0.9% 1, 10 000 ml @ 10 mls/hr IV . Q24H MEGAN Rx#:[id number] zosyn 100 100 Oral 960 780 180 Output: Urine 1849 2014 140 Other: Voiding Method Indwelling Catheter Indwelling Catheter # Bowel Movements 1 ABP, PAP, CO, CI - Last Documented Arterial Blood Pressure 138/61 - Exam PHYSICAL EXAM: VITAL SIGNS: Reviewed. GENERAL: Well-developed in no acute distress. HEENT: Head is normocephalic. Pupils are equal, round. Sclerae anicteric. Mucous membranes of the mouth are moist. NECK: Supple. No JVD or thyromegaly RESPIRATORY: Respirations even and unlabored. Lungs are diminished with scattered rhonchi CARDIO: Regular rate and rhythm. S1 and S2 heard. No murmur or gallops. EXTREMITIES: Normal range of motion. No clubbing or cyanosis. Peripheral pulses intact. mild bilateral lower extremity edema NEURO: Orientated to person, time, mood is appropriate - Labs CBC & Chem 7: 12/20/21 04:12 12/20/21 04:12 Labs: Abnormal Lab Results - Last 24 Hours (Table) 12/19/21 12/19/21 12/19/21 Range/Units 09:55 11:24 13:09 MCH (25.0-35.0) pg MCHC (31.0-37.0) g/dL RDW (11.5-15.5) % Plt Count (150-450) k/uL Neutrophils # (Manual) (1.3-7.7) k/uL Lymphocytes # (Manual) (1.0-4.8) k/uL ABG pH 7.33 L (7.35-7.45) ABG pCO2 82 H* (35-45) mmHg ABG HCO3 43 H* (21-25) mmol/L ABG Total CO2 45 H (19-24) mmol/L Sodium (137-145) mmol/L Chloride (98-107) mmol/L Carbon Dioxide (22-30) mmol/L BUN (9-20) mg/dL Creatinine (0.66-1.25) mg/dL Glucose (74-99) mg/dL POC Glucose (mg/dL) 162 H 173 H (70-110) mg/dL 12/19/21 12/19/21 12/19/21 Range/Units 16:19 19:30 20:41 MCH (25.0-35.0) pg MCHC (31.0-37.0) g/dL RDW (11.5-15.5) % Plt Count (150-450) k/uL Neutrophils # (Manual) (1.3-7.7) k/uL Lymphocytes # (Manual) (1.0-4.8) k/uL ABG pH (7.35-7.45) ABG pCO2 (35-45) mmHg ABG HCO3 (21-25) mmol/L ABG Total CO2 (19-24) mmol/L Sodium (137-145) mmol/L Chloride (98-107) mmol/L Carbon Dioxide (22-30) mmol/L BUN (9-20) mg/dL Creatinine (0.66-1.25) mg/dL Glucose (74-99) mg/dL POC Glucose (mg/dL) 122 H 170 H 177 H (70-110) mg/dL 12/20/21 12/20/21 12/20/21 Range/Units 04:12 04:12 06:29 MCH 24.9 L (25.0-35.0) pg MCHC 26.8 L (31.0-37.0) g/dL RDW 20.5 H (11.5-15.5) % Plt Count 127 L (150-450) k/uL Neutrophils # (Manual) 8.00 H (1.3-7.7) k/uL Lymphocytes # (Manual) 0.16 L (1.0-4.8) k/uL ABG pH (7.35-7.45) ABG pCO2 (35-45) mmHg ABG HCO3 (21-25) mmol/L ABG Total CO2 (19-24) mmol/L Sodium 135 L (137-145) mmol/L Chloride 88 L (98-107) mmol/L Carbon Dioxide 43 H* (22-30) mmol/L BUN 49 H (9-20) mg/dL Creatinine 1.42 H (0.66-1.25) mg/dL Glucose 142 H (74-99) mg/dL POC Glucose (mg/dL) 120 H (70-110) mg/dL Microbiology - Last 24 Hours (Table) 12/13/21 17:50 Blood Culture - Final Blood No Growth after 144 hours Assessment and Plan Assessment: Acute on chronic diastolic congestive heart failure Bradycardia Troponin elevated secondary to type II myocardial infarction Respiratory failure with hypoxia and hypercapnia Acute kidney injury Plan: Continue with all current cardiac medications Continue to hold beta blockers due to bradycardia Continue with telemetry monitoring Continue with accurate I's and O's Continue to monitor renal function Further recommendations based on clinical course The above impression and plan of care have been discussed and directed by the signing physician. Lauryn Uribe, nurse practitioner, acting as scribe for signing physician.
--- NOTE | 2021-12-20 11:48 | PN ---
PROGRESS NOTE SUBJECTIVE: This 56-year-old gentleman who was admitted with acute bilateral pneumonia, also had hypoxia. The patient is on BiPAP. The most recent chest x-ray was reviewed personally by me. The patient is monitored in ICU. Dr. Fine is following the patient closely. The patient also is receiving Lasix for CHF. PAST MEDICAL HISTORY: Reviewed. REVIEW OF SYSTEMS: Could not be taken. CURRENT MEDICATIONS: Reviewed include IV Lasix and DuoNeb. Dose and rest of medication noted. PHYSICAL EXAMINATION: VITAL SIGNS: Pulse is 78, blood pressure 135/55, respirations 20. HEENT: Conjunctivae normal. NECK: Obese. CARDIOVASCULAR: S1 and S2. RESPIRATION: Bilateral scattered rhonchi and crackles. ABDOMEN: Soft, obese. LEGS: No edema. NERVOUS SYSTEM: Diffusely weak. LABORATORY DATA: Labs are reviewed. ABG, 7.33. Rest of the labs are reviewed. Cultures are negative so far. ASSESSMENT: 1. Acute bilateral pneumonia, possibly aspiration with hypoxic acute respiratory failure, on BiPAP. 2. Chronic obstructive pulmonary disease, acute exacerbation. 3. Acute renal failure. 4. Congestive heart failure, acute exacerbation. 5. Troponin 0.058, indeterminate. 6. Multiple medical issues. RECOMMENDATIONS AND DISCUSSION: Recommend to continue current medications, symptomatic treatment. Otherwise, at this time, I recommend continue with IV Lasix. Continue the rest of the medications. Prognosis is guarded. Further recommendations to follow. See orders for details. Continue with broad-spectrum IV antibiotics, BiPAP. MMODL / IJN: [id number] /
[2021-12-20 11:57] LABS: Glucose,Whole Blood 157 mg/dL (70-110)
--- NOTE | 2021-12-20 12:54 | P.PN ---
Subjective Progress Note Date: 12/20/21 Principal diagnosis: Acute on chronic hypoxic and hypercapnic respiratory failure, multifactorial 56-year-old morbidly obese male patient who was found in his apartment on the ground and he had fell apparently a few days back and hasn't remember falling down and he does not recall any other symptoms proceeded his follow-up. He states that he has been lying down on the floor for at least 3 days, unable to get up and he was getting progressively more sick. Ultimately, he was found and the patient got moved to the emergency department. No headaches. No neck stiffness. No trauma. No chest pain. He was having some increased shortness of breath. No nausea or vomiting. No reported aspiration. The patient presented to the ED and he was somewhat lethargic. His blood gases showed a pH of 7.18 with a pCO2 of 102 and pO2 of 67 and this was on FiO2 of 36%. At that point, the patient was placed on a BiPAP and ICU transfer was recommended. On his blood work, the patient was found to have a proBNP level of 11,600 and troponins were slightly elevated at 0.09 and 0.07 respectively 2. He also was found to be in renal failure with a 70 connected. 2.35, acute versus chronic and the patient's and his serum bicarb of 39 with a potassium level of 5.8. Sodium level was at 139. The patient had a white cell count 11.6 with a hemoglobin 15.8 and a platelet count of 324. The chest x-ray was suboptimal due to patient's body habitus. HEENT thyromegaly a mild four-vessel congestion. He also had large pulmonary arteries suggesting pulmonary arterial hypertension. The computed tomography scan of the brain was also done showing acute intracranial process. Based on review of his medication, the patient has been taking a combination of Lasix 80 mg by mouth daily and lisinopril 5 mg by mouth daily at home. He is known to have chronic hypoxic and hypercapnic respiratory failure and this was attributed to severe sleep apnea and a component of obesity hypoventilation syndrome. He has chronic metabolic alkalosis and chronic hypercapnic respiratory failure. He also has history of hypertension and hyperlipidemia. He is a lifetime nonsmoker. 12/16/2021, the patient is lethargic yet arousable. He spent all night on a BiPAP and currently is off the BiPAP on oxygen at 11 L and his pulse ox is around 90%. He was on BiPAP throughout the night. His chest x-rays essentially unchanged. He has pulmonary infiltrates bilaterally and the left lung bases significantly opacified and there is cardiomegaly. I think a CAT scan of the chest will be needed to failure characterize those abnormalities. Yesterday, the patient became somewhat more bronchospastic and wheezy. I gave her a dose of Lasix 40 mg IV and since then he diuresed more than a liter of urine and the patient's overall fluid balance is -2 L over the past 24 hours. Morning blood gases are pending still. Meanwhile, the patient's white cell count of 7.4 hemoglobin 13.6 and the platelet count is 163. Sodium is 141. Bicarbonate of 44. Creatinine is a 48 with a creatinine of 1.1. His renal function is essentially normalized. IV fluids are currently at [facility]. He remains on IV Zosyn. She is back on Norvasc 10 mg and Coreg 25 mg by mouth twice a day. He has improved also his left pressure control. He remains on heparin subcu for DVT prophylaxis. Reevaluated today on 12/17/2021, patient remains in the ICU, he is on BiPAP with IPAP of 18 EPAP of 6 FiO2 50% his mask was leaking hence I recommended a change of the mask to a larger mass, and his repeat ABG showed a pO2 of 61 pCO2 of 86 pH of 7.34 hence the patient clearly does not need to be intubated and mechanically ventilated at this point. Chest x-ray is showing evidence of pulmonary edema, hence I recommended increasing the Lasix to 40 mg IV push every 8 hours, patient remains on Diamox. He is also on bronchodilators and on methylprednisolone. Patient is also receiving Zosyn. And his IV fluid at [facility] Reevaluated today on 12/18/21, patient was on BiPAP overnight, and last night he became more agitated, Precedex was tried, however the patient developed significant bradycardia hence he did not tolerate Precedex well. Patient is now on nasal cannula, sitting in bed, eating his breakfast, he is actually on 6 L/m, O2 saturation is anywhere between 89-91%, seems to be tolerating the nasal cannula well. Remains on diuretics, remains on bronchodilators, and he continues to have the BiPAP at bedside Diamox was added, patient was on Lasix and I cut it down to 40 mg every 12 hours. He is on Diamox at 250 mg twice a day. ABG this morning on BiPAP showed a pO2 of 68 pCO2 of 74 pH of 7.41 significantly improved compared to the ABG yesterday. His renal profile showed BUN 43 creatinine 1.39, baseline creatinine on admission was 2.35. Overall the patient is improving, but at this point I don't believe the patient is about ready to be transferred to a regular medical floor, and I plan to keep him in the ICU as he may still require intubation if his condition gets any worse Reevaluated today on , patient has been refusing to use his BiPAP.patient has been receiving Ativan and Haldol for his extreme agitation sometimes, this morning he refuses to go back on BiPAP, he is on 6 L nasal cannula, hence an ABG was performed, and ABG showed pO2 of 84 pCO2 82 pH of 7.33. CBC is unremarkable. WBC count is 8.2 hemoglobin is 14.6.electrolytes and basic metabolic profile are normal. Renal profile is abnormal with BUN of a 48 creatinine 1.57, I have recommended cutting down on the Lasix to 40 mg daily instead of twice a day. And recommended cutting down his FiO2 is set of using 6 L patient may do well with 4 L nasal cannula instead.patient remains on bronchodilators, remains on Solu-Medrol, and he also remains on Zosyn. Plan to cut down his methylprednisolone to 40 mg IV push every 12 hours.may improve his agitation. Reevaluated today on 12/20/21, patient seems to be doing much better today, his actually on room air, O2 saturation is in the low 90s, patient is sitting at a bedside chair, he required BiPAP only for 2 hours last night. He seems to be less agitated, less restless, and overall seems to be improving compared to how he presented. Chest x-ray is also showing improvement in his pulmonary edema, questionable underlying pneumonia. Nonetheless it continues to show cardiomeg leif, some pulmonary vascular congestion, and left basilar opacity reflecting probably atelectasis infiltrate or effusion CBC is normal in the clot are normal except for a bicarb of 43 creatinine is improving, 1.42 today. Better than yesterday Objective - Vital Signs Vital signs: Vital Signs Temp 97.7 F 12/20/21 08:00 Pulse 68 12/20/21 11:29 Resp 20 12/20/21 11:00 BP 124/62 12/20/21 06:00 Pulse Ox 96 12/20/21 10:00 FiO2 40 12/20/21 01:00 Intake & Output 12/19/21 12/20/21 12/20/21 18:59 06:59 18:59 Intake Total 1280 1078 328 Output Total 1849 2014 1064 Balance -570 -937 -737 Weight 198.8 kg 198.8 kg Intake: IV 320 298 148 KVO 60 120 Normal Saline: pressure 60 78 18 bag Piperacillin-Tazobactam 3 100 .375 gm In Sodium Chloride 0.9% 100 ml @ 25 mls/hr IVPB Q8HR MEGAN Rx# :[id number] Potassium Chloride 10 meq 100 In Water For Injection 1 100ml.bag @ 100 mls/hr IVPB Q1H MEGAN Rx#: [id number] Sodium Chloride 0.9% 1, 30 000 ml @ 10 mls/hr IV . Q24H MEGAN Rx#:[id number] zosyn 100 100 Oral 960 780 180 Output: Urine 1849 2014 106 Other: Voiding Method Indwelling Catheter Indwelling Catheter Indwelling Catheter # Bowel Movements 1 1 ABP, PAP, CO, CI - Last Documented Arterial Blood Pressure 143/66 - Exam Physical Exam: Revealed 56-year-old white male on room air, seems to be more cooperative and more awake this morning Head: Atraumatic, normocephalic. HEENT:[Neck is supple.] [No neck masses.] [No thyromegaly.] [No JVD.] Short obese neck, PERRLA, EOMI, nonicteric. Chest: Symmetrical chest expansion crackles at the bases no rhonchi and no wheezes Cardiac Exam: Distant S1 and S2, no S3 gallop.] Abdomen: [Morbidly obese, Soft, nontender, no megaly, no rebound, no guarding, normal bowel sounds.] Extremities: [No clubbing, trace of bipedal edema, no cyanosis.] Neurological Exam: [No focal neurologic deficit.] Alert oriented 3 Psychiatric: Normal mood, flat affect, normal mental status examination. Skin: No rashes - Labs CBC & Chem 7: 12/20/21 04:12 12/20/21 04:12 Labs: Abnormal Lab Results - Last 24 Hours (Table) 12/19/21 12/19/21 12/19/21 Range/Units 13:09 16:19 19:30 MCH (25.0-35.0) pg MCHC (31.0-37.0) g/dL RDW (11.5-15.5) % Plt Count (150-450) k/uL Neutrophils # (Manual) (1.3-7.7) k/uL Lymphocytes # (Manual) (1.0-4.8) k/uL Sodium (137-145) mmol/L Chloride (98-107) mmol/L Carbon Dioxide (22-30) mmol/L BUN (9-20) mg/dL Creatinine (0.66-1.25) mg/dL Glucose (74-99) mg/dL POC Glucose (mg/dL) 173 H 122 H 170 H (70-110) mg/dL 12/19/21 12/20/21 12/20/21 Range/Units 20:41 04:12 04:12 MCH 24.9 L (25.0-35.0) pg MCHC 26.8 L (31.0-37.0) g/dL RDW 20.5 H (11.5-15.5) % Plt Count 127 L (150-450) k/uL Neutrophils # (Manual) 8.00 H (1.3-7.7) k/uL Lymphocytes # (Manual) 0.16 L (1.0-4.8) k/uL Sodium 135 L (137-145) mmol/L Chloride 88 L (98-107) mmol/L Carbon Dioxide 43 H* (22-30) mmol/L BUN 49 H (9-20) mg/dL Creatinine 1.42 H (0.66-1.25) mg/dL Glucose 142 H (74-99) mg/dL POC Glucose (mg/dL) 177 H (70-110) mg/dL 12/20/21 12/20/21 Range/Units 06:29 11:54 MCH (25.0-35.0) pg MCHC (31.0-37.0) g/dL RDW (11.5-15.5) % Plt Count (150-450) k/uL Neutrophils # (Manual) (1.3-7.7) k/uL Lymphocytes # (Manual) (1.0-4.8) k/uL Sodium (137-145) mmol/L Chloride (98-107) mmol/L Carbon Dioxide (22-30) mmol/L BUN (9-20) mg/dL Creatinine (0.66-1.25) mg/dL Glucose (74-99) mg/dL POC Glucose (mg/dL) 120 H 157 H (70-110) mg/dL Microbiology - Last 24 Hours (Table) 12/13/21 17:50 Blood Culture - Final Blood No Growth after 144 hours Assessment and Plan Assessment: Impression: Acute on chronic hypoxic and hypercapnic respiratory failure, multifactorial, I believe the patient has diastolic congestive heart failure, obstructive sleep apnea syndrome, obesity/hypoventilation syndrome, pulmonary hypertension, and possibly underlying COPD Acute kidney injury, improving. Obstructive sleep apnea syndrome with obesity/hypoventilation syndrome Acute metabolic encephalopathy Benign essential hypertension Chronic cor pulmonale Morbid obesity Chronic diastolic congestive heart failure/pulmonary hypertension Recommendation: Titrate FiO2 to keep O2 saturation above 90% but no higher than 93% patient is now off oxygen completely Continue diuretics including Lasix and Diamox.however , his low 6 dose was adjusted yesterday Continue bronchodilators, change methylprednisolone to prednisone at a low dose 12 mg a Continue Lovenox Continue DuoNeb continue Zosyn Transfer to a monitor bed on selective today once a bed is available. Continue to have BiPAP at bedside We'll continue to follow Time with Patient: Less than 30
[2021-12-20 16:52] LABS: Glucose,Whole Blood 143 mg/dL (70-110)
[2021-12-20 20:07] LABS: Glucose,Whole Blood 139 mg/dL (70-110)
[2021-12-21] MEDS: PIPERACILLIN-TAZOBACTAM 3.375 GM in SODIUM CHLORIDE 0.9% 100 ML IVPB SCH ×4 (00:22→23:17)
[2021-12-21] MEDS: IPRATROPIUM-ALBUTEROL 3 ML NEB INHALATION SCH ×6 (00:36→20:28)
--- NOTE | 2021-12-21 05:53 | XR ---
EXAMINATION TYPE: XR chest 1V portable DATE OF EXAM: 12/21/2021 CLINICAL HISTORY: Difficulty breathing progress study. TECHNIQUE: Single AP portable upright view of the chest is obtained. COMPARISON: Chest x-ray from one day earlier and older studies. FINDINGS: Stable left internal jugular central venous catheter. Persistent cardiomegaly with central vascular congestion along with left greater than right bilateral lower lung opacities. IMPRESSION: Cardiomegaly with mild central vascular congestion consistent with CHF exacerbation redem onstrated. Underlying acute infiltrates in the lower lungs need to be considered particularly left lo wer lung. No significant change from one day earlier.
[2021-12-21 06:33] LABS: Glucose,Whole Blood 102 mg/dL (70-110)
[2021-12-21] MEDS: INSULIN ASPART (NovoLOG) 100 UNIT/ML VIAL SQ SCH ×4 (06:33→20:39)
[2021-12-21] MEDS: carvediloL 6.25 MG TAB PO SCH ×2 (06:35→17:44)
[2021-12-21 07:23] LABS: Anisocytosis Moderate; Basophils % (A) 0 %; Eosinophils # (A) 0.1 k/uL (0-0.7); Eosinophils % (A) 1 %; HCT 51.2 % (39.0-53.0); HGB 13.9 gm/dL (13.0-17.5); Hypochromasia Marked; Lymphocytes # (A) 0.8 k/uL (1.0-4.8); Lymphocytes % (A) 8 %; MCH 24.6 pg (25.0-35.0); MCHC 27.1 g/dL (31.0-37.0); MCV 90.8 fL (80.0-100.0); Macrocytosis Slight; Monocytes # (A) 0.8 k/uL (0-1.0); Monocytes % (A) 8 %; Neutrophils # (A) 8.1 k/uL (1.3-7.7); Neutrophils % (A) 81 %; Platelet Count 124 k/uL (150-450); Poikilocytosis Slight; RBC 5.63 m/uL (4.30-5.90)
[2021-12-21] MEDS: FORMOTEROL FUMARATE 20 MCG/2 ML NEBU INHALATION SCH ×2 (08:03→20:28)
[2021-12-21] MEDS: SODIUM CHLORIDE 0.9% 1,000 ML IV SCH (09:17)
[2021-12-21] MEDS: HEPARIN SODIUM,PORCINE/PF 5,000 UNIT/0.5 ML SYRINGE SQ SCH ×2 (09:19→21:14)
[2021-12-21] MEDS: predniSONE 20 MG TAB PO SCH (09:19)
[2021-12-21] MEDS: PANTOPRAZOLE 40 MG/10 ML VIAL IVP SCH (09:19)
[2021-12-21] MEDS: ASPIRIN 81 MG PO SCH (09:19)
[2021-12-21] MEDS: amLODIPine 10 MG TAB PO SCH (09:23)
[2021-12-21] MEDS: DAPAGLIFLOZIN PROPANEDIOL 10 MG TABLET PO SCH (09:23)
[2021-12-21] MEDS: FUROSEMIDE 10 MG/ML 4 ML VIAL IV SCH ×3 (09:23→19:53)
--- NOTE | 2021-12-21 10:24 | P.PN ---
Subjective Progress Note Date: 12/21/21 Patient is seen doing well today resting comfortably in the chair on room air. He denies increased shortness of breath or chest pain. He seen O 3. Chest x- ray continues to show CHF, he has moderate lower extremity edema. Will continue with Lasix IV 40 mg daily. he continues on Diamox and Farxiga. He remains sinus rhythm with a first-degree on telemetry. Patient will be downgraded to selective today Objective - Vital Signs Vital signs: Vital Signs Temp 98.3 F 12/21/21 04:00 Pulse 76 12/21/21 08:29 Resp 18 12/21/21 04:00 BP 126/71 12/21/21 04:00 Pulse Ox 92 L 12/21/21 04:00 FiO2 40 12/21/21 00:36 Intake & Output 12/20/21 12/21/21 12/21/21 18:59 06:59 18:59 Intake Total 738 110 Output Total 1865 1100 Balance -1127 -990 Weight 198.8 kg Intake: IV 198 110 Normal Saline: pressure 18 bag Piperacillin-Tazobactam 3 100 .375 gm In Sodium Chloride 0.9% 100 ml @ 25 mls/hr IVPB Q8HR MEGAN Rx# :[id number] Sodium Chloride 0.9% 1, 80 110 000 ml @ 10 mls/hr IV . Q24H MEGAN Rx#:[id number] Oral 540 Output: Urine 1865 1100 Other: Voiding Method Indwelling Catheter Indwelling Catheter # Bowel Movements 1 ABP, PAP, CO, CI - Last Documented Arterial Blood Pressure 143/66 - Exam PHYSICAL EXAM: VITAL SIGNS: Reviewed. GENERAL: Well-developed in no acute distress. HEENT: Head is normocephalic. Pupils are equal, round. Sclerae anicteric. Mucous membranes of the mouth are moist. NECK: Supple. No JVD or thyromegaly RESPIRATORY: Respirations even and unlabored. Lungs are diminished with scattered rhonchi CARDIO: Regular rate and rhythm. S1 and S2 heard. No murmur or gallops. EXTREMITIES: Normal range of motion. No clubbing or cyanosis. Peripheral pulses intact. mild bilateral lower extremity edema NEURO: Orientated to person, time, mood is appropriate - Labs CBC & Chem 7: 12/21/21 06:13 12/21/21 06:13 Labs: Abnormal Lab Results - Last 24 Hours (Table) 12/20/21 12/20/21 12/20/21 Range/Units 11:54 16:50 20:05 MCH (25.0-35.0) pg MCHC (31.0-37.0) g/dL RDW (11.5-15.5) % Plt Count (150-450) k/uL Neutrophils # (1.3-7.7) k/uL Lymphocytes # (1.0-4.8) k/uL Sodium (137-145) mmol/L Chloride (98-107) mmol/L Carbon Dioxide (22-30) mmol/L BUN (9-20) mg/dL Creatinine (0.66-1.25) mg/dL Glucose (74-99) mg/dL POC Glucose (mg/dL) 157 H 143 H 139 H (70-110) mg/dL 12/21/21 12/21/21 Range/Units 06:13 06:13 MCH 24.6 L (25.0-35.0) pg MCHC 27.1 L (31.0-37.0) g/dL RDW 21.0 H (11.5-15.5) % Plt Count 124 L (150-450) k/uL Neutrophils # 8.1 H (1.3-7.7) k/uL Lymphocytes # 0.8 L (1.0-4.8) k/uL Sodium 135 L (137-145) mmol/L Chloride 91 L (98-107) mmol/L Carbon Dioxide 39 H (22-30) mmol/L BUN 63 H (9-20) mg/dL Creatinine 1.40 H (0.66-1.25) mg/dL Glucose 116 H (74-99) mg/dL POC Glucose (mg/dL) (70-110) mg/dL Assessment and Plan Assessment: Acute on chronic diastolic congestive heart failure Bradycardia Troponin elevated secondary to type II myocardial infarction Respiratory failure with hypoxia and hypercapnia Acute kidney injury Plan: Continue with all current cardiac medications Continue to hold beta blockers due to bradycardia Continue with telemetry monitoring Continue with accurate I's and O's Continue to monitor renal function Further recommendations based on clinical course The above impression and plan of care have been discussed and directed by the signing physician. Lauryn Uribe, nurse practitioner, acting as scribe for signing physician.
--- NOTE | 2021-12-21 11:22 | PN ---
PROGRESS NOTE SUBJECTIVE: This 56-year-old gentleman, admitted with COPD exacerbation, pneumonia, and possibly aspiration. is being closely monitored. The patient is sitting by the bedside. His chest x-ray reviewed. PAST MEDICAL HISTORY: Reviewed. REVIEW OF SYSTEMS: A 14-point review of systems negative as mentioned earlier. CURRENT MEDICATIONS: Reviewed and include IV Zosyn, bronchodilators. Dose and rest of the medications noted. PHYSICAL EXAMINATION: VITAL SIGNS: Pulse is 63, blood pressure 143/62, respirations 20. HEENT: Conjunctivae normal. NECK: No JVD. CARDIOVASCULAR: S1, S2 muffled. RESPIRATIONS: Breath sounds diminished at the bases. Bilateral scattered rhonchi and crackles. ABDOMEN: Soft, obese. LEGS: No edema. NERVOUS SYSTEM: Diffusely weak. LABORATORY DATA: Reviewed. ABGs noted. Sodium 130. ASSESSMENT: 1. Acute bilateral pneumonia, possibly aspiration with acute hypoxic respiratory failure, on BiPAP. 2. Chronic obstructive pulmonary disease acute exacerbation. 3. Acute renal failure. 4. Congestive heart failure acute exacerbation. 5. Troponin 0.058, indeterminate. 6. Multiple medical issues. RECOMMENDATIONS: I recommend to continue current medications. Continue with bronchodilators. Continue with antibiotics. Continue with diuretics. Otherwise, PT/OT evaluation, possible ECF rehab. Continue the BiPAP at nighttime at least 8 p.m. to 6 a.m. because of the patient's significant . Once again, the prognosis is extremely guarded. The patient has a very poor social support also, and Social Work and Case Management team to follow. Further recommendations to follow. MMODL / IJN: [id number] / CHEIKH
[2021-12-21 12:07] LABS: Glucose,Whole Blood 127 mg/dL (70-110)
--- NOTE | 2021-12-21 12:38 | P.PN ---
Subjective Progress Note Date: 12/21/21 Principal diagnosis: Acute on chronic hypoxic and hypercapnic respiratory failure, multifactorial 56-year-old morbidly obese male patient who was found in his apartment on the ground and he had fell apparently a few days back and hasn't remember falling down and he does not recall any other symptoms proceeded his follow-up. He states that he has been lying down on the floor for at least 3 days, unable to get up and he was getting progressively more sick. Ultimately, he was found and the patient got moved to the emergency department. No headaches. No neck stiffness. No trauma. No chest pain. He was having some increased shortness of breath. No nausea or vomiting. No reported aspiration. The patient presented to the ED and he was somewhat lethargic. His blood gases showed a pH of 7.18 with a pCO2 of 102 and pO2 of 67 and this was on FiO2 of 36%. At that point, the patient was placed on a BiPAP and ICU transfer was recommended. On his blood work, the patient was found to have a proBNP level of 11,600 and troponins were slightly elevated at 0.09 and 0.07 respectively 2. He also was found to be in renal failure with a 70 connected. 2.35, acute versus chronic and the patient's and his serum bicarb of 39 with a potassium level of 5.8. Sodium level was at 139. The patient had a white cell count 11.6 with a hemoglobin 15.8 and a platelet count of 324. The chest x-ray was suboptimal due to patient's body habitus. HEENT thyromegaly a mild four-vessel congestion. He also had large pulmonary arteries suggesting pulmonary arterial hypertension. The computed tomography scan of the brain was also done showing acute intracranial process. Based on review of his medication, the patient has been taking a combination of Lasix 80 mg by mouth daily and lisinopril 5 mg by mouth daily at home. He is known to have chronic hypoxic and hypercapnic respiratory failure and this was attributed to severe sleep apnea and a component of obesity hypoventilation syndrome. He has chronic metabolic alkalosis and chronic hypercapnic respiratory failure. He also has history of hypertension and hyperlipidemia. He is a lifetime nonsmoker. 12/16/2021, the patient is lethargic yet arousable. He spent all night on a BiPAP and currently is off the BiPAP on oxygen at 11 L and his pulse ox is around 90%. He was on BiPAP throughout the night. His chest x-rays essentially unchanged. He has pulmonary infiltrates bilaterally and the left lung bases significantly opacified and there is cardiomegaly. I think a CAT scan of the chest will be needed to failure characterize those abnormalities. Yesterday, the patient became somewhat more bronchospastic and wheezy. I gave her a dose of Lasix 40 mg IV and since then he diuresed more than a liter of urine and the patient's overall fluid balance is -2 L over the past 24 hours. Morning blood gases are pending still. Meanwhile, the patient's white cell count of 7.4 hemoglobin 13.6 and the platelet count is 163. Sodium is 141. Bicarbonate of 44. Creatinine is a 48 with a creatinine of 1.1. His renal function is essentially normalized. IV fluids are currently at [facility]. He remains on IV Zosyn. She is back on Norvasc 10 mg and Coreg 25 mg by mouth twice a day. He has improved also his left pressure control. He remains on heparin subcu for DVT prophylaxis. Reevaluated today on 12/17/2021, patient remains in the ICU, he is on BiPAP with IPAP of 18 EPAP of 6 FiO2 50% his mask was leaking hence I recommended a change of the mask to a larger mass, and his repeat ABG showed a pO2 of 61 pCO2 of 86 pH of 7.34 hence the patient clearly does not need to be intubated and mechanically ventilated at this point. Chest x-ray is showing evidence of pulmonary edema, hence I recommended increasing the Lasix to 40 mg IV push every 8 hours, patient remains on Diamox. He is also on bronchodilators and on methylprednisolone. Patient is also receiving Zosyn. And his IV fluid at [facility] Reevaluated today on 12/18/21, patient was on BiPAP overnight, and last night he became more agitated, Precedex was tried, however the patient developed significant bradycardia hence he did not tolerate Precedex well. Patient is now on nasal cannula, sitting in bed, eating his breakfast, he is actually on 6 L/m, O2 saturation is anywhere between 89-91%, seems to be tolerating the nasal cannula well. Remains on diuretics, remains on bronchodilators, and he continues to have the BiPAP at bedside Diamox was added, patient was on Lasix and I cut it down to 40 mg every 12 hours. He is on Diamox at 250 mg twice a day. ABG this morning on BiPAP showed a pO2 of 68 pCO2 of 74 pH of 7.41 significantly improved compared to the ABG yesterday. His renal profile showed BUN 43 creatinine 1.39, baseline creatinine on admission was 2.35. Overall the patient is improving, but at this point I don't believe the patient is about ready to be transferred to a regular medical floor, and I plan to keep him in the ICU as he may still require intubation if his condition gets any worse Reevaluated today on , patient has been refusing to use his BiPAP.patient has been receiving Ativan and Haldol for his extreme agitation sometimes, this morning he refuses to go back on BiPAP, he is on 6 L nasal cannula, hence an ABG was performed, and ABG showed pO2 of 84 pCO2 82 pH of 7.33. CBC is unremarkable. WBC count is 8.2 hemoglobin is 14.6.electrolytes and basic metabolic profile are normal. Renal profile is abnormal with BUN of a 48 creatinine 1.57, I have recommended cutting down on the Lasix to 40 mg daily instead of twice a day. And recommended cutting down his FiO2 is set of using 6 L patient may do well with 4 L nasal cannula instead.patient remains on bronchodilators, remains on Solu-Medrol, and he also remains on Zosyn. Plan to cut down his methylprednisolone to 40 mg IV push every 12 hours.may improve his agitation. Reevaluated today on 12/20/21, patient seems to be doing much better today, his actually on room air, O2 saturation is in the low 90s, patient is sitting at a bedside chair, he required BiPAP only for 2 hours last night. He seems to be less agitated, less restless, and overall seems to be improving compared to how he presented. Chest x-ray is also showing improvement in his pulmonary edema, questionable underlying pneumonia. Nonetheless it continues to show cardiomeg leif, some pulmonary vascular congestion, and left basilar opacity reflecting probably atelectasis infiltrate or effusion CBC is normal in the clot are normal except for a bicarb of 43 creatinine is improving, 1.42 today. Better than yesterday Reevaluated today on 12/21/21, patient remains in the ICU, however he is an overflow, he is on room air at times on 2 L nasal cannula, patient is doing grea t, continues to refuse using BiPAP. He is still on Lasix, and his chest x-ray showing improvement is also on Zosyn, patient is sitting in a bedside chair, does not seem to be in any distress, I explained to him the benefit of using CPAP, but he refuses patient states that he gets claustrophobia and he cannot use it tomorrow what. CBC today is normal electrolytes are normal bicarb is 39 BUN is 63 creatinine 1.40, slightly better compared to the last 2 days. Objective - Vital Signs Vital signs: Vital Signs Temp 98.3 F 12/21/21 04:00 Pulse 74 12/21/21 11:58 Resp 18 12/21/21 04:00 BP 126/71 12/21/21 04:00 Pulse Ox 92 L 12/21/21 04:00 FiO2 40 12/21/21 00:36 Intake & Output 12/20/21 12/21/21 12/21/21 18:59 06:59 18:59 Intake Total 738 110 10 Output Total 1865 1100 350 Balance -1127 -990 -340 Weight 198.8 kg Intake: IV 198 110 10 Normal Saline: pressure 18 bag Piperacillin-Tazobactam 3 100 .375 gm In Sodium Chloride 0.9% 100 ml @ 25 mls/hr IVPB Q8HR [facility] Rx# :[id number] Sodium Chloride 0.9% 1, 80 110 10 000 ml @ 10 mls/hr IV . Q24H [facility] Rx#:[id number] Oral 540 Output: Urine 1865 1100 350 Other: Voiding Method Indwelling Catheter Indwelling Catheter Indwelling Catheter # Bowel Movements 1 ABP, PAP, CO, CI - Last Documented Arterial Blood Pressure 143/66 - Exam Physical Exam: Revealed 56-year-old white male on room air, in no distress Head: Atraumatic, normocephalic. HEENT:[Neck is supple.] [No neck masses.] [No thyromegaly.] [No JVD.] Short obese neck, PERRLA, EOMI, nonicteric. Chest: Symmetrical chest expansion crackles at the bases no rhonchi and no wheezes Cardiac Exam: Distant S1 and S2, no S3 gallop.] Abdomen: [Morbidly obese, Soft, nontender, no megaly, no rebound, no guarding, normal bowel sounds.] Extremities: [No clubbing, trace of bipedal edema, no cyanosis.] Neurological Exam: [No focal neurologic deficit.] Alert oriented 3 Psychiatric: Normal mood, flat affect, normal mental status examination. Skin: No rashes - Labs CBC & Chem 7: 12/21/21 06:13 12/21/21 06:13 Labs: Abnormal Lab Results - Last 24 Hours (Table) 12/20/21 12/20/21 12/21/21 Range/Units 16:50 20:05 06:13 MCH 24.6 L (25.0-35.0) pg MCHC 27.1 L (31.0-37.0) g/dL RDW 21.0 H (11.5-15.5) % Plt Count 124 L (150-450) k/uL Neutrophils # 8.1 H (1.3-7.7) k/uL Lymphocytes # 0.8 L (1.0-4.8) k/uL Sodium (137-145) mmol/L Chloride (98-107) mmol/L Carbon Dioxide (22-30) mmol/L BUN (9-20) mg/dL Creatinine (0.66-1.25) mg/dL Glucose (74-99) mg/dL POC Glucose (mg/dL) 143 H 139 H (70-110) mg/dL 12/21/21 12/21/21 Range/Units 06:13 12:06 MCH (25.0-35.0) pg MCHC (31.0-37.0) g/dL RDW (11.5-15.5) % Plt Count (150-450) k/uL Neutrophils # (1.3-7.7) k/uL Lymphocytes # (1.0-4.8) k/uL Sodium 135 L (137-145) mmol/L Chloride 91 L (98-107) mmol/L Carbon Dioxide 39 H (22-30) mmol/L BUN 63 H (9-20) mg/dL Creatinine 1.40 H (0.66-1.25) mg/dL Glucose 116 H (74-99) mg/dL POC Glucose (mg/dL) 127 H (70-110) mg/dL Assessment and Plan Assessment: Impression: Acute on chronic hypoxic and hypercapnic respiratory failure, multifactorial, I believe the patient has diastolic congestive heart failure, obstructive sleep apnea syndrome, obesity/hypoventilation syndrome, pulmonary hypertension, and possibly underlying COPD Acute kidney injury, improving. Obstructive sleep apnea syndrome with obesity/hypoventilation syndrome Acute metabolic encephalopathy Benign essential hypertension Chronic cor pulmonale Morbid obesity Chronic diastolic congestive heart failure/pulmonary hypertension Recommendation: Continue present supportive care measures Continue diuretics including Lasix and Diamox Continue bronchodilators, continue prednisone, 20 mg daily Continue Lovenox Continue DuoNeb continue Zosyn Transfer out of the ICU today We'll continue to follow Time with Patient: Less than 30
[2021-12-21 16:56] LABS: Glucose,Whole Blood 140 mg/dL (70-110)
[2021-12-21 20:31] LABS: Glucose,Whole Blood 139 mg/dL (70-110)
[2021-12-22] MEDS: IPRATROPIUM-ALBUTEROL 3 ML NEB INHALATION SCH ×6 (01:02→19:47)
[2021-12-22 07:08] LABS: Glucose,Whole Blood 126 mg/dL (70-110)
[2021-12-22] MEDS: FORMOTEROL FUMARATE 20 MCG/2 ML NEBU INHALATION SCH ×2 (07:49→19:47)
[2021-12-22] MEDS: amLODIPine 10 MG TAB PO SCH (08:30)
[2021-12-22] MEDS: PANTOPRAZOLE 40 MG/10 ML VIAL IVP SCH (08:30)
[2021-12-22] MEDS: HEPARIN SODIUM,PORCINE/PF 5,000 UNIT/0.5 ML SYRINGE SQ SCH ×2 (08:30→20:34)
[2021-12-22] MEDS: FUROSEMIDE 10 MG/ML 4 ML VIAL IV SCH (08:30)
[2021-12-22] MEDS: carvediloL 6.25 MG TAB PO SCH ×2 (08:31→17:20)
[2021-12-22] MEDS: predniSONE 20 MG TAB PO SCH (08:31)
[2021-12-22] MEDS: DAPAGLIFLOZIN PROPANEDIOL 10 MG TABLET PO SCH (08:31)
[2021-12-22] MEDS: ASPIRIN 81 MG PO SCH (08:31)
[2021-12-22] MEDS: INSULIN ASPART (NovoLOG) 100 UNIT/ML VIAL SQ SCH ×4 (09:26→20:14)
[2021-12-22] MEDS: SODIUM CHLORIDE 0.9% 1,000 ML IV SCH (09:26)
--- NOTE | 2021-12-22 10:03 | P.PN ---
Subjective Progress Note Date: 12/21/21 Principal diagnosis: Acute on chronic hypoxic/hypercapnic respiratory failure Acute exacerbation diastolic CHF Obstructive sleep apnea/obesity hypoventilation syndrome Acute exacerbation COPD 56-year-old morbidly obese male patient who was found in his apartment on the ground and he had fell apparently a few days back and hasn't remember falling down and he does not recall any other symptoms proceeded his follow-up. He states that he has been lying down on the floor for at least 3 days, unable to get up and he was getting progressively more sick. Ultimately, he was found and the patient got moved to the emergency department. No headaches. No neck stiffness. No trauma. No chest pain. He was having some increased shortness of breath. No nausea or vomiting. No reported aspiration. The patient presented to the ED and he was somewhat lethargic. His blood gases showed a pH of 7.18 with a pCO2 of 102 and pO2 of 67 and this was on FiO2 of 36%. At that point, the patient was placed on a BiPAP and ICU transfer was recommended. On his blood work, the patient was found to have a proBNP level of 11,600 and troponins were slightly elevated at 0.09 and 0.07 respectively 2. He also was found to be in renal failure with a 70 connected. 2.35, acute versus chronic and the patient's and his serum bicarb of 39 with a potassium level of 5.8. Sodium level was at 139. The patient had a white cell count 11.6 with a hemoglobin 15.8 and a platelet count of 324. The chest x-ray was suboptimal due to patient's body habitus. HEENT thyromegaly a mild four-vessel congestion. He also had large pulmonary arteries suggesting pulmonary arterial hypertension. The computed tomography scan of the brain was also done showing acute intracrani al process. Objective - Vital Signs Vital signs: Vital Signs Temp 98.3 F 12/21/21 04:00 Pulse 76 12/21/21 08:29 Resp 18 12/21/21 04:00 BP 126/71 12/21/21 04:00 Pulse Ox 92 L 12/21/21 04:00 FiO2 40 12/21/21 00:36 Intake & Output 12/20/21 12/21/21 12/21/21 18:59 06:59 18:59 Intake Total 738 110 Output Total 1865 1100 Balance -1127 -990 Weight 198.8 kg Intake: IV 198 110 Normal Saline: pressure 18 bag Piperacillin-Tazobactam 3 100 .375 gm In Sodium Chloride 0.9% 100 ml @ 25 mls/hr IVPB Q8HR [facility] Rx# :[id number] Sodium Chloride 0.9% 1, 80 110 000 ml @ 10 mls/hr IV . Q24H [facility] Rx#:[id number] Oral 540 Output: Urine 1864 1100 Other: Voiding Method Indwelling Catheter Indwelling Catheter # Bowel Movements 1 ABP, PAP, CO, CI - Last Documented Arterial Blood Pressure 143/66 - Exam Physical Exam: Revealed 56-year-old white male on room air, in no distress Head: Atraumatic, normocephalic. HEENT:[Neck is supple.] [No neck masses.] [No thyromegaly.] [No JVD.] Short obese neck, PERRLA, EOMI, nonicteric. Chest: Symmetrical chest expansion crackles at the bases no rhonchi and no wheezes Cardiac Exam: Distant S1 and S2, no S3 gallop.] Abdomen: [Morbidly obese, Soft, nontender, no megaly, no rebound, no guarding, normal bowel sounds.] Extremities: [No clubbing, trace of bipedal edema, no cyanosis.] Neurological Exam: [No focal neurologic deficit.] Alert oriented 3 Psychiatric: Normal mood, flat affect, normal mental status examination. Skin: No rashes - Labs CBC & Chem 7: 12/21/21 06:13 12/21/21 06:13 Labs: Abnormal Lab Results - Last 24 Hours (Table) 12/20/21 12/20/21 12/20/21 Range/Units 11:54 16:50 20:05 MCH (25.0-35.0) pg MCHC (31.0-37.0) g/dL RDW (11.5-15.5) % Plt Count (150-450) k/uL Neutrophils # (1.3-7.7) k/uL Lymphocytes # (1.0-4.8) k/uL Sodium (137-145) mmol/L Chloride (98-107) mmol/L Carbon Dioxide (22-30) mmol/L BUN (9-20) mg/dL Creatinine (0.66-1.25) mg/dL Glucose (74-99) mg/dL POC Glucose (mg/dL) 157 H 143 H 139 H (70-110) mg/dL 12/21/21 12/21/21 Range/Units 06:13 06:13 MCH 24.6 L (25.0-35.0) pg MCHC 27.1 L (31.0-37.0) g/dL RDW 21.0 H (11.5-15.5) % Plt Count 124 L (150-450) k/uL Neutrophils # 8.1 H (1.3-7.7) k/uL Lymphocytes # 0.8 L (1.0-4.8) k/uL Sodium 135 L (137-145) mmol/L Chloride 91 L (98-107) mmol/L Carbon Dioxide 39 H (22-30) mmol/L BUN 63 H (9-20) mg/dL Creatinine 1.40 H (0.66-1.25) mg/dL Glucose 116 H (74-99) mg/dL POC Glucose (mg/dL) (70-110) mg/dL Assessment and Plan Assessment: Acute on chronic hypoxic and hypercapnic respiratory failure, multifactorial -- acute exacerbation diastolic congestive heart failure -- obstructive sleep apnea syndrome -- obesity hypoventilation syndrome, pulmonary hypertension -- Acute exacerbation COPD 2. Acute kidney injury; improving 3. Obstructive sleep apnea syndrome with obesity/hypoventilation syndrome 4. Acute metabolic encephalopathy; multifactorial related to respiratory failure versus CHF versus acute renal injury 5. Benign essential hypertension 6. Chronic diastolic congestive heart failure/pulmonary hypertension 7. Morbid obesity -- Continue present supportive care measures Continue diuretics including Lasix and Diamox Continue bronchodilators, continue prednisone, 20 mg daily Continue Lovenox Continue DuoNeb continue Zosyn 1.
[2021-12-22 10:50] LABS: Anisocytosis Moderate; HCT 48.1 % (39.0-53.0); HGB 12.5 gm/dL (13.0-17.5); Hypochromasia Marked; MCH 24.3 pg (25.0-35.0); MCHC 25.9 g/dL (31.0-37.0); MCV 93.5 fL (80.0-100.0); Macrocytosis Slight; Mean Platelet Volume 8.2; Platelet Count 117 k/uL (150-450); Poikilocytosis Slight; RBC 5.14 m/uL (4.30-5.90); RDW 21.1 % (11.5-15.5); WBC 7.2 k/uL (3.8-10.6)
--- NOTE | 2021-12-22 11:07 | P.PN ---
Subjective Progress Note Date: 12/22/21 56-year-old morbidly obese male patient who was found in his apartment on the ground and he had fell apparently a few days back and hasn't remember falling down and he does not recall any other symptoms proceeded his follow-up. He states that he has been lying down on the floor for at least 3 days, unable to get up and he was getting progressively more sick. Ultimately, he was found and the patient got moved to the emergency department. No headaches. No neck stiffness. No trauma. No chest pain. He was having some increased shortness of breath. No nausea or vomiting. No reported aspiration. The patient presented to the ED and he was somewhat lethargic. His blood gases showed a pH of 7.18 with a pCO2 of 102 and pO2 of 67 and this was on FiO2 of 36%. At that point, the patient was placed on a BiPAP and ICU transfer was recommended. On his blood work, the patient was found to have a proBNP level of 11,600 and troponins were slightly elevated at 0.09 and 0.07 respectively 2. He also was found to be in renal failure with a 70 connected. 2.35, acute versus chronic and the patient's and his serum bicarb of 39 with a potassium level of 5.8. Sodium level was at 139. The patient had a white cell count 11.6 with a hemoglobin 15.8 and a platelet count of 324. The chest x-ray was suboptimal due to patient's body habitus. HEENT thyromegaly a mild four-vessel congestion. He also had large pulmonary arteries suggesting pulmonary arterial hypertension. The computed tomography scan of the brain was also done showing acute intracranial process. Based on review of his medication, the patient has been taking a combination of Lasix 80 mg by mouth daily and lisinopril 5 mg by mouth daily at home. He is known to have chronic hypoxic and hypercapnic respiratory failure and this was attributed to severe sleep apnea and a component of obesity hypoventilation syndrome. He has chronic metabolic alkalosis and chronic hypercapnic respiratory failure. He also has history of hypertension and hyperlipidemia. He is a lifetime nonsmoker. 12/16/2021, the patient is lethargic yet arousable. He spent all night on a BiPAP and currently is off the BiPAP on oxygen at 11 L and his pulse ox is around 90%. He was on BiPAP throughout the night. His chest x-rays essentially unchanged. He has pulmonary infiltrates bilaterally and the left lung bases significantly opacified and there is cardiomegaly. I think a CAT scan of the chest will be needed to failure characterize those abnormalities. Yesterday, the patient became somewhat more bronchospastic and wheezy. I gave her a dose of Lasix 40 mg IV and since then he diuresed more than a liter of urine and the patient's overall fluid balance is -2 L over the past 24 hours. Morning blood gases are pending still. Meanwhile, the patient's white cell count of 7.4 hemoglobin 13.6 and the platelet count is 163. Sodium is 141. Bicarbonate of 44. Creatinine is a 48 with a creatinine of 1.1. His renal function is essentially normalized. IV fluids are currently at [facility]. He remains on IV Zosyn. She is back on Norvasc 10 mg and Coreg 25 mg by mouth twice a day. He has improved also his left pressure control. He remains on heparin subcu for DVT prophylaxis. Reevaluated today on 12/17/2021, patient remains in the ICU, he is on BiPAP with IPAP of 18 EPAP of 6 FiO2 50% his mask was leaking hence I recommended a change of the mask to a larger mass, and his repeat ABG showed a pO2 of 61 pCO2 of 86 pH of 7.34 hence the patient clearly does not need to be intubated and mechanically ventilated at this point. Chest x-ray is showing evidence of pulmonary edema, hence I recommended increasing the Lasix to 40 mg IV push every 8 hours, patient remains on Diamox. He is also on bronchodilators and on methylprednisolone. Patient is also receiving Zosyn. And his IV fluid at [facility] Reevaluated today on 12/18/21, patient was on BiPAP overnight, and last night he became more agitated, Precedex was tried, however the patient developed significant bradycardia hence he did not tolerate Precedex well. Patient is now on nasal cannula, sitting in bed, eating his breakfast, he is actually on 6 L/m, O2 saturation is anywhere between 89-91%, seems to be tolerating the nasal cannula well. Remains on diuretics, remains on bronchodilators, and he continues to have the BiPAP at bedside Diamox was added, patient was on Lasix and I cut it down to 40 mg every 12 hours. He is on Diamox at 250 mg twice a day. ABG this morning on BiPAP showed a pO2 of 68 pCO2 of 74 pH of 7.41 significantly improved compared to the ABG yesterday. His renal profile showed BUN 43 creatinine 1.39, baseline creatinine on admission was 2.35. Overall the patient is improving, but at this point I don't believe the patient is about ready to be transferred to a regular medical floor, and I plan to keep him in the ICU as he may still require intubation if his condition gets any worse Reevaluated today on , patient has been refusing to use his BiPAP.patient has been receiving Ativan and Haldol for his extreme agitation sometimes, this morning he refuses to go back on BiPAP, he is on 6 L nasal cannula, hence an ABG was performed, and ABG showed pO2 of 84 pCO2 82 pH of 7.33. CBC is unremarkable. WBC count is 8.2 hemoglobin is 14.6.electrolytes and basic metabolic profile are normal. Renal profile is abnormal with BUN of a 48 creatinine 1.57, I have recommended cutting down on the Lasix to 40 mg daily instead of twice a day. And recommended cutting down his FiO2 is set of using 6 L patient may do well with 4 L nasal cannula instead.patient remains on bronchodilators, remains on Solu-Medrol, and he also remains on Zosyn. Plan to cut down his methylprednisolone to 40 mg IV push every 12 hours.may improve his agitation. Reevaluated today on 12/20/21, patient seems to be doing much better today, his actually on room air, O2 saturation is in the low 90s, patient is sitting at a bedside chair, he required BiPAP only for 2 hours last night. He seems to be less agitated, less restless, and overall seems to be improving compared to how he presented. Chest x-ray is also showing improvement in his pulmonary edema, questionable underlying pneumonia. Nonetheless it continues to show cardiomegaly, some pulmonary vascular congestion, and left basilar opacity reflecting probably atelectasis infiltrate or effusion CBC is normal in the clot are normal except for a bicarb of 43 creatinine is improving, 1.[address] than yesterday Reevaluated today on 12/21/21, patient remains in the ICU, however he is an overf low, he is on room air at times on 2 L nasal cannula, patient is doing great, continues to refuse using BiPAP. He is still on Lasix, and his chest x-ray showing improvement is also on Zosyn, patient is sitting in a bedside chair, does not seem to be in any distress, I explained to him the benefit of using CPAP, but he refuses patient states that he gets claustrophobia and he cannot use it tomorrow what. CBC today is normal electrolytes are normal bicarb is 39 BUN is 63 creatinine 1.40, slightly better compared to the last 2 days. The patient is seen today 12/22/2021 in follow-up on the regular medical floor. He is currently sitting up in bed. Awake and alert in no acute distress. He is maintaining good O2 saturations in the 90s on 3 L/m per nasal cannula. Blood cultures reveal no growth. Blood glucose 126. He remains on bronchodilators, IV diuretics, heparin for DVT prophylaxis. Objective - Vital Signs Vital signs: Vital Signs Temp 97.8 F 12/22/21 04:22 Pulse 72 12/22/21 08:30 Resp 16 12/22/21 04:22 BP 114/65 12/22/21 08:30 Pulse Ox 93 L 12/22/21 04:22 FiO2 40 12/21/21 00:36 Intake & Output 12/21/21 12/22/21 12/22/21 18:59 06:59 18:59 Intake Total 10 240 Output Total 350 1950 2200 Balance -340 -1710 -2200 Intake: IV 10 Sodium Chloride 0.9% 1, 10 000 ml @ 10 mls/hr IV . Q24H [facility] Rx#:[id number] Oral 240 Output: Urine 350 1950 2200 Other: Voiding Method Indwelling Catheter Indwelling Catheter Indwelling Catheter ABP, PAP, CO, CI - Last Documented Arterial Blood Pressure 143/66 - Exam GENERAL EXAM: Alert, morbidly obese 56-year-old male, on 3 L nasal cannula, comfortable in no apparent distress. HEAD: Normocephalic. EYES: Normal reaction of pupils, equal size. NOSE: Clear with pink turbinates. THROAT: No erythema or exudates. NECK: No masses, no JVD. CHEST: No chest wall deformity. LUNGS: Equal air entry with crackles in the bilateral bases. CVS: S1 and S2 normal with no audible murmur, regular rhythm. ABDOMEN: No hepatosplenomegaly, normal bowel sounds, no guarding or rigidity. SPINE: No scoliosis or deformity SKIN: No rashes CENTRAL NERVOUS SYSTEM: No focal deficits, tone is normal in all 4 extremities. EXTREMITIES: There is 1-2+ peripheral edema. Changes of chronic venous stasis. No clubbing, no cyanosis. Peripheral pulses are intact. - Labs CBC & Chem 7: 12/21/21 06:13 12/21/21 06:13 Labs: Abnormal Lab Results - Last 24 Hours (Table) 12/21/21 12/21/21 12/21/21 Range/Units 12:06 16:54 20:29 POC Glucose (mg/dL) 127 H 140 H 139 H (70-110) mg/dL 12/22/21 Range/Units 07:04 POC Glucose (mg/dL) 126 H (70-110) mg/dL Assessment and Plan Assessment: Acute on chronic hypoxic and hypercapnic respiratory failure, multifactorial, diastolic congestive heart failure, obstructive sleep apnea syndrome, obesity/hypoventilation syndrome, pulmonary hypertension, and possibly underlying COPD Acute kidney injury, improving. Obstructive sleep apnea syndrome with obesity/hypoventilation syndrome, intolerant to BiPAP Acute metabolic encephalopathy Benign essential hypertension Chronic cor pulmonale Morbid obesity Chronic diastolic congestive heart failure/pulmonary hypertension Plan: The patient was seen and evaluated Medication's and labs reviewed Continue current treatment plan Titrate down the FiO2 as tolerated Probable discharge in the next 24 hours We'll continue to follow I have personally seen and examined the patient, performed the documentation and the assessment and plan as written. Number of minutes spent on the visit: 10.
[2021-12-22 11:08] LABS: Glucose,Whole Blood 189 mg/dL (70-110)
[2021-12-22 11:08] LABS: African American GFR (CKD) >90 (>60 ml/min/1.73 sqM); Anion Gap 4 mmol/L; Blood Urea Nitrogen 57 mg/dL (9-20); Calcium 9.4 mg/dL (8.4-10.2); Chloride 93 mmol/L (98-107); Glucose 176 mg/dL (74-99); Non-African American GFR(CKD) 85 (>60 ml/min/1.73 sqM); Potassium 4.1 mmol/L (3.5-5.1); Sodium 137 mmol/L (137-145)
[2021-12-22 11:20] LABS: Carbon Dioxide 40 mmol/L (22-30)
[2021-12-22 11:55] LABS: Eosinophils # (M) 0.14 k/uL (0-0.7); Monocytes # (M) 0.72 k/uL (0-1.0); Neutrophils % (M) 82 %; Nucleated Red Blood Cells 0 /100 WBC (0-0); Total Cells Counted 200
[2021-12-22 17:11] LABS: Glucose,Whole Blood 150 mg/dL (70-110)
[2021-12-22 20:14] LABS: Glucose,Whole Blood 146 mg/dL (70-110)
--- NOTE | 2021-12-22 21:41 | PN ---
PROGRESS NOTE SUBJECTIVE: Teddy is a 56-year-old gentleman who has just been transferred out of ICU. He is doing well and is free of chest pain or difficulty in breathing. PHYSICAL EXAMINATION: GENERAL: Comfortable at rest. VITAL SIGNS: Stable. CHEST: Reveals diminished air entry at the bases. HEART: Reveals first and second heart sounds. No gallop. No murmur. EXTREMITIES: Reveal chronic stasis changes with mild edema. MEDICATIONS: The patient is currently on: 1. Aspirin. 2. Norvasc 10 mg daily. 3. Nebulizer. 4. Coreg. 5. Farxiga. 6. Lasix 40 mg IV daily. 7. Apresoline as needed. 8. Insulin. 9. Ativan. 10.Potassium. ASSESSMENT AND PLAN: 1. Acute on chronic diastolic heart failure. 2. Bradycardia. 3. Elevated troponin. 4. Respiratory failure. PLAN: I will continue to treat him with IV Lasix and increase his activity. MMODL / IJN: [id number] /
[2021-12-23] MEDS: IPRATROPIUM-ALBUTEROL 3 ML NEB INHALATION SCH ×6 (02:04→19:57)
[2021-12-23] MEDS: SODIUM CHLORIDE 0.9% 1,000 ML IV SCH (05:37)
[2021-12-23 07:10] LABS: Glucose,Whole Blood 136 mg/dL (70-110)
[2021-12-23] MEDS: FORMOTEROL FUMARATE 20 MCG/2 ML NEBU INHALATION SCH ×2 (07:24→19:57)
[2021-12-23] MEDS: PANTOPRAZOLE 40 MG/10 ML VIAL IVP SCH (07:57)
[2021-12-23] MEDS: HEPARIN SODIUM,PORCINE/PF 5,000 UNIT/0.5 ML SYRINGE SQ SCH ×2 (07:58→20:40)
[2021-12-23] MEDS: predniSONE 20 MG TAB PO SCH (07:58)
[2021-12-23] MEDS: DAPAGLIFLOZIN PROPANEDIOL 10 MG TABLET PO SCH (07:58)
[2021-12-23] MEDS: FUROSEMIDE 10 MG/ML 4 ML VIAL IV SCH (07:58)
[2021-12-23] MEDS: ASPIRIN 81 MG PO SCH (07:59)
[2021-12-23] MEDS: amLODIPine 10 MG TAB PO SCH (08:01)
[2021-12-23] MEDS: carvediloL 6.25 MG TAB PO SCH ×2 (08:01→17:38)
[2021-12-23] MEDS: INSULIN ASPART (NovoLOG) 100 UNIT/ML VIAL SQ SCH ×4 (09:01→20:34)
--- NOTE | 2021-12-23 10:25 | P.PN ---
Subjective Progress Note Date: 12/22/21 Principal diagnosis: Acute on chronic hypoxic/hypercapnic respiratory failure Acute exacerbation diastolic CHF Obstructive sleep apnea/obesity hypoventilation syndrome Acute exacerbation COPD 56-year-old morbidly obese male patient who was found in his apartment on the ground and he had fell apparently a few days back and hasn't remember falling down and he does not recall any other symptoms proceeded his follow-up. He states that he has been lying down on the floor for at least 3 days, unable to get up and he was getting progressively more sick. Ultimately, he was found and the patient got moved to the emergency department. No headaches. No neck stiffness. No trauma. No chest pain. He was having some increased shortness of breath. No nausea or vomiting. No reported aspiration. The patient presented to the ED and he was somewhat lethargic. His blood gases showed a pH of 7.18 with a pCO2 of 102 and pO2 of 67 and this was on FiO2 of 36%. At that point, the patient was placed on a BiPAP and ICU transfer was recommended. On his blood work, the patient was found to have a proBNP level of 11,600 and troponins were slightly elevated at 0.09 and 0.07 respectively 2. He also was found to be in renal failure with a 70 connected. 2.35, acute versus chronic and the patient's and his serum bicarb of 39 with a potassium level of 5.8. Sodium level was at 139. The patient had a white cell count 11.6 with a hemoglobin 15.8 and a platelet count of 324. The chest x-ray was suboptimal due to patient's body habitus. HEENT thyromegaly a mild four-vessel congestion. He also had large pulmonary arteries suggesting pulmonary arterial hypertension. The computed tomography scan of the brain was also done showing acute intracrani al process. 12/22/2021 Patient is seen and evaluated in follow-up on the regular medical floor. He is currently sitting up in bed. Awake and alert in no acute distress. He is maintaining good O2 saturations in the 90s on 3 L/m per nasal cannula. Blood cultures reveal no growth. Blood glucose 126. He remains on bronchodilators, IV diuretics, heparin for DVT prophylaxis. Titrate down the FiO2 as tolerated Probable discharge in the next 24- 48 hours Objective - Vital Signs Vital signs: Vital Signs Temp 97.8 F 12/22/21 04:22 Pulse 76 12/22/21 08:07 Resp 16 12/22/21 04:22 BP 122/64 12/22/21 04:22 Pulse Ox 93 L 12/22/21 04:22 FiO2 40 12/21/21 00:36 Intake & Output 12/21/21 12/22/21 12/22/21 18:59 06:59 18:59 Intake Total 10 240 Output Total 350 1950 2200 Balance -340 -1710 -220 Intake: IV 10 Sodium Chloride 0.9% 1, 10 000 ml @ 10 mls/hr IV . Q24H [facility] Rx#:[id number] Oral 240 Output: Urine 350 1949 2199 Other: Voiding Method Indwelling Catheter Indwelling Catheter Indwelling Catheter ABP, PAP, CO, CI - Last Documented Arterial Blood Pressure 143/66 - Exam Physical Exam: Revealed 56-year-old white male on room air, in no distress Head: Atraumatic, normocephalic. HEENT:[Neck is supple.] [No neck masses.] [No thyromegaly.] [No JVD.] Short obese neck, PERRLA, EOMI, nonicteric. Chest: Symmetrical chest expansion crackles at the bases no rhonchi and no wheezes Cardiac Exam: Distant S1 and S2, no S3 gallop.] Abdomen: [Morbidly obese, Soft, nontender, no megaly, no rebound, no guarding, normal bowel sounds.] Extremities: [No clubbing, trace of bipedal edema, no cyanosis.] Neurological Exam: [No focal neurologic deficit.] Alert oriented 3 Psychiatric: Normal mood, flat affect, normal mental status examination. Skin: No rashes - Labs CBC & Chem 7: 12/22/21 10:22 12/22/21 10:22 Labs: Abnormal Lab Results - Last 24 Hours (Table) 12/21/21 12/21/21 12/21/21 Range/Units 12:06 16:54 20:29 POC Glucose (mg/dL) 127 H 140 H 139 H (70-110) mg/dL 12/22/21 Range/Units 07:04 POC Glucose (mg/dL) 126 H (70-110) mg/dL Assessment and Plan Assessment: Acute on chronic hypoxic and hypercapnic respiratory failure, multifactorial -- acute exacerbation diastolic congestive heart failure -- obstructive sleep apnea syndrome -- obesity hypoventilation syndrome, pulmonary hypertension -- Acute exacerbation COPD 2. Acute kidney injury; improving 3. Obstructive sleep apnea syndrome with obesity/hypoventilation syndrome 4. Acute metabolic encephalopathy; multifactorial related to respiratory failure versus CHF versus acute renal injury 5. Benign essential hypertension 6. Chronic diastolic congestive heart failure/pulmonary hypertension 7. Morbid obesity -- Continue present supportive care measures Continue diuretics including Lasix and Diamox Continue bronchodilators, continue prednisone, 20 mg daily Continue Lovenox Continue DuoNeb continue Zosyn 1.
[2021-12-23 11:13] LABS: Glucose,Whole Blood 195 mg/dL (70-110)
[2021-12-23 11:27] LABS: HCT 42.9 % (39.6-50.0); HGB 11.8 g/dL (13.0-17.0); MCH 24.7 pg (27.0-32.0); MCHC 27.5 g/dL (32.0-37.0); MCV 89.9 fL (80.0-97.0); NRBC Per 100 WBC 0 /100 WBCS (0.0-0.0); Platelet Count 166 X 10*3/uL (140-440); RBC 4.77 X 10*6/uL (4.40-5.60); RDW 24.5 % (11.5-14.5); WBC 9.52 X 10*3/uL (4.50-10.00)
[2021-12-23 11:38] LABS: African American GFR (CKD) 116.6 (60.0-200.0); Anion Gap 7.6 mmol/L (10.00-18.00); BUN/Creat Ratio 52.89 Ratio (12.00-20.00); Calcium 9.8 mg/dL (8.7-10.3); Carbon Dioxide 37.2 mmol/L (20.0-27.5); Non-African American GFR(CKD) 100.6 (60.0-200.0); Potassium 4.6 mmol/L (3.5-5.5)
[2021-12-23 11:53] LABS: Basophils # (A) 0.01 X 10*3/uL (0.00-0.10); Basophils % (A) 0.1 %; Eosinophils # (A) 0.42 X 10*3/uL (0.04-0.35); Eosinophils % (A) 4.4 %; Immature Grans, Automated 0.6 %; Lymphocytes # (A) 1.19 X 10*3/uL (0.90-5.00); Lymphocytes % (A) 12.5 %; Monocytes # (A) 0.95 X 10*3/uL (0.20-1.00); Neutrophils # (A) 6.89 X 10*3/uL (1.80-7.70); Neutrophils % (A) 72.4 %
--- NOTE | 2021-12-23 13:59 | P.PN ---
Subjective Progress Note Date: 12/23/21 Principal diagnosis: Acute on chronic hypoxic/hypercapnic respiratory failure Acute exacerbation diastolic CHF Obstructive sleep apnea/obesity hypoventilation syndrome Acute exacerbation COPD 56-year-old morbidly obese male patient who was found in his apartment on the ground and he had fell apparently a few days back and hasn't remember falling down and he does not recall any other symptoms proceeded his follow-up. He states that he has been lying down on the floor for at least 3 days, unable to get up and he was getting progressively more sick. Ultimately, he was found and the patient got moved to the emergency department. No headaches. No neck stiffness. No trauma. No chest pain. He was having some increased shortness of breath. No nausea or vomiting. No reported aspiration. The patient presented to the ED and he was somewhat lethargic. His blood gases showed a pH of 7.18 with a pCO2 of 102 and pO2 of 67 and this was on FiO2 of 36%. At that point, the patient was placed on a BiPAP and ICU transfer was recommended. On his blood work, the patient was found to have a proBNP level of 11,600 and troponins were slightly elevated at 0.09 and 0.07 respectively 2. He also was found to be in renal failure with a 70 connected. 2.35, acute versus chronic and the patient's and his serum bicarb of 39 with a potassium level of 5.8. Sodium level was at 139. The patient had a white cell count 11.6 with a hemoglobin 15.8 and a platelet count of 324. The chest x-ray was suboptimal due to patient's body habitus. HEENT thyromegaly a mild four-vessel congestion. He also had large pulmonary arteries suggesting pulmonary arterial hypertension. The computed tomography scan of the brain was also done showing acute intracrani al process. 12/22/2021 Patient is seen and evaluated in follow-up on the regular medical floor. He is currently sitting up in bed. Awake and alert in no acute distress. He is maintaining good O2 saturations in the 90s on 3 L/m per nasal cannula. Blood cultures reveal no growth. Blood glucose 126. He remains on bronchodilators, IV diuretics, heparin for DVT prophylaxis. Titrate down the FiO2 as tolerated Probable discharge in the next 24- 48 hours 12/23/2021 Patient is seen and evaluated sitting up in bedside chair; reports he gets extr christopher short of breath and tired when trying to transfer Vital signs remained stable Patient remains on bronchodilators, IV diuretics, heparin for DVT prophylaxis Has been evaluated by PT/OT and is recommended skilled rehab Objective - Vital Signs Vital signs: Vital Signs Temp 98.4 F 12/23/21 04:18 Pulse 76 12/23/21 07:47 Resp 16 12/23/21 04:18 BP 128/63 12/23/21 04:18 Pulse Ox 92 L 12/23/21 07:27 FiO2 40 12/21/21 00:36 Intake & Output 12/22/21 12/23/21 12/23/21 18:59 06:59 18:59 Output Total 4501 1500 Balance -4501 -1500 Output: Urine 4500 1500 Stool 1 Other: Voiding Method Indwelling Catheter Indwelling Catheter ABP, PAP, CO, CI - Last Documented Arterial Blood Pressure 143/66 - Exam Physical Exam: Revealed 56-year-old white male on room air, in no distress Head: Atraumatic, normocephalic. HEENT:[Neck is supple.] [No neck masses.] [No thyromegaly.] [No JVD.] Short obese neck, PERRLA, EOMI, nonicteric. Chest: Symmetrical chest expansion crackles at the bases no rhonchi and no wheezes Cardiac Exam: Distant S1 and S2, no S3 gallop.] Abdomen: [Morbidly obese, Soft, nontender, no megaly, no rebound, no guarding, normal bowel sounds.] Extremities: [No clubbing, trace of bipedal edema, no cyanosis.] Neurological Exam: [No focal neurologic deficit.] Alert oriented 3 Psychiatric: Normal mood, flat affect, normal mental status examination. Skin: No rashes - Labs CBC & Chem 7: 12/23/21 06:30 12/23/21 06:30 Labs: Abnormal Lab Results - Last 24 Hours (Table) 12/22/21 12/22/21 12/22/21 Range/Units : 10: 11:04 Hgb 12.5 L (13.0-17.5) gm/dL MCH 24.3 L (25.0-35.0) pg MCHC 25.9 L (31.0-37.0) g/dL RDW 21.1 H (11.5-15.5) % Plt Count 117 L (150-450) k/uL Lymphocytes # (Manual) 0.50 L (1.0-4.8) k/uL Chloride 93 L (98-107) mmol/L Carbon Dioxide 40 H (22-30) mmol/L BUN 57 H (9-20) mg/dL Glucose 176 H (74-99) mg/dL POC Glucose (mg/dL) 189 H (70-110) mg/dL 12/22/21 12/22/21 12/23/21 Range/Units 17:11 20:12 07:09 Hgb (13.0-17.5) gm/dL MCH (25.0-35.0) pg MCHC (31.0-37.0) g/dL RDW (11.5-15.5) % Plt Count (150-450) k/uL Lymphocytes # (Manual) (1.0-4.8) k/uL Chloride (98-107) mmol/L Carbon Dioxide (22-30) mmol/L BUN (9-20) mg/dL Glucose (74-99) mg/dL POC Glucose (mg/dL) 150 H 146 H 136 H (70-110) mg/dL Assessment and Plan Assessment: Acute on chronic hypoxic and hypercapnic respiratory failure, multifactorial -- acute exacerbation diastolic congestive heart failure -- obstructive sleep apnea syndrome -- obesity hypoventilation syndrome, pulmonary hypertension -- Acute exacerbation COPD 2. Acute kidney injury; improving 3. Obstructive sleep apnea syndrome with obesity/hypoventilation syndrome 4. Acute metabolic encephalopathy; multifactorial related to respiratory failure versus CHF versus acute renal injury 5. Benign essential hypertension 6. Chronic diastolic congestive heart failure/pulmonary hypertension 7. Morbid obesity -- Continue present supportive care measures Continue diuretics including Lasix and Diamox Continue bronchodilators, continue prednisone, 20 mg daily Continue Lovenox Continue DuoNeb continue Zosyn 1.
--- NOTE | 2021-12-23 14:55 | P.PN ---
Subjective Progress Note Date: 12/23/21 Principal diagnosis: Acute on chronic hypoxic and hypercapnic respiratory failure, multifactorial 56-year-old morbidly obese male patient who was found in his apartment on the ground and he had fell apparently a few days back and hasn't remember falling down and he does not recall any other symptoms proceeded his follow-up. He states that he has been lying down on the floor for at least 3 days, unable to get up and he was getting progressively more sick. Ultimately, he was found and the patient got moved to the emergency department. No headaches. No neck stiffness. No trauma. No chest pain. He was having some increased shortness of breath. No nausea or vomiting. No reported aspiration. The patient presented to the ED and he was somewhat lethargic. His blood gases showed a pH of 7.18 with a pCO2 of 102 and pO2 of 67 and this was on FiO2 of 36%. At that point, the patient was placed on a BiPAP and ICU transfer was recommended. On his blood work, the patient was found to have a proBNP level of 11,600 and troponins were slightly elevated at 0.09 and 0.07 respectively 2. He also was found to be in renal failure with a 70 connected. 2.35, acute versus chronic and the patient's and his serum bicarb of 39 with a potassium level of 5.8. Sodium level was at 139. The patient had a white cell count 11.6 with a hemoglobin 15.8 and a platelet count of 324. The chest x-ray was suboptimal due to patient's body habitus. HEENT thyromegaly a mild four-vessel congestion. He also had large pulmonary arteries suggesting pulmonary arterial hypertension. The computed tomography scan of the brain was also done showing acute intracranial process. Based on review of his medication, the patient has been taking a combination of Lasix 80 mg by mouth daily and lisinopril 5 mg by mouth daily at home. He is known to have chronic hypoxic and hypercapnic respiratory failure and this was attributed to severe sleep apnea and a component of obesity hypoventilation syndrome. He has chronic metabolic alkalosis and chronic hypercapnic respiratory failure. He also has history of hypertension and hyperlipidemia. He is a lifetime nonsmoker. 12/16/2021, the patient is lethargic yet arousable. He spent all night on a BiPAP and currently is off the BiPAP on oxygen at 11 L and his pulse ox is around 90%. He was on BiPAP throughout the night. His chest x-rays essentially unchanged. He has pulmonary infiltrates bilaterally and the left lung bases significantly opacified and there is cardiomegaly. I think a CAT scan of the chest will be needed to failure characterize those abnormalities. Yesterday, the patient became somewhat more bronchospastic and wheezy. I gave her a dose of Lasix 40 mg IV and since then he diuresed more than a liter of urine and the patient's overall fluid balance is -2 L over the past 24 hours. Morning blood gases are pending still. Meanwhile, the patient's white cell count of 7.4 hemoglobin 13.6 and the platelet count is 163. Sodium is 141. Bicarbonate of 44. Creatinine is a 48 with a creatinine of 1.1. His renal function is essentially normalized. IV fluids are currently at [facility]. He remains on IV Zosyn. She is back on Norvasc 10 mg and Coreg 25 mg by mouth twice a day. He has improved also his left pressure control. He remains on heparin subcu for DVT prophylaxis. Reevaluated today on 12/17/2021, patient remains in the ICU, he is on BiPAP with IPAP of 18 EPAP of 6 FiO2 50% his mask was leaking hence I recommended a change of the mask to a larger mass, and his repeat ABG showed a pO2 of 61 pCO2 of 86 pH of 7.34 hence the patient clearly does not need to be intubated and mechanically ventilated at this point. Chest x-ray is showing evidence of pulmonary edema, hence I recommended increasing the Lasix to 40 mg IV push every 8 hours, patient remains on Diamox. He is also on bronchodilators and on methylprednisolone. Patient is also receiving Zosyn. And his IV fluid at [facility] Reevaluated today on 12/18/21, patient was on BiPAP overnight, and last night he became more agitated, Precedex was tried, however the patient developed significant bradycardia hence he did not tolerate Precedex well. Patient is now on nasal cannula, sitting in bed, eating his breakfast, he is actually on 6 L/m, O2 saturation is anywhere between 89-91%, seems to be tolerating the nasal cannula well. Remains on diuretics, remains on bronchodilators, and he continues to have the BiPAP at bedside Diamox was added, patient was on Lasix and I cut it down to 40 mg every 12 hours. He is on Diamox at 250 mg twice a day. ABG this morning on BiPAP showed a pO2 of 68 pCO2 of 74 pH of 7.41 significantly improved compared to the ABG yesterday. His renal profile showed BUN 43 creatinine 1.39, baseline creatinine on admission was 2.35. Overall the patient is improving, but at this point I don't believe the patient is about ready to be transferred to a regular medical floor, and I plan to keep him in the ICU as he may still require intubation if his condition gets any worse Reevaluated today on , patient has been refusing to use his BiPAP.patient has been receiving Ativan and Haldol for his extreme agitation sometimes, this morning he refuses to go back on BiPAP, he is on 6 L nasal cannula, hence an ABG was performed, and ABG showed pO2 of 84 pCO2 82 pH of 7.33. CBC is unremarkable. WBC count is 8.2 hemoglobin is 14.6.electrolytes and basic metabolic profile are normal. Renal profile is abnormal with BUN of a 48 creatinine 1.57, I have recommended cutting down on the Lasix to 40 mg daily instead of twice a day. And recommended cutting down his FiO2 is set of using 6 L patient may do well with 4 L nasal cannula instead.patient remains on bronchodilators, remains on Solu-Medrol, and he also remains on Zosyn. Plan to cut down his methylprednisolone to 40 mg IV push every 12 hours.may improve his agitation. Reevaluated today on 12/20/21, patient seems to be doing much better today, his actually on room air, O2 saturation is in the low 90s, patient is sitting at a bedside chair, he required BiPAP only for 2 hours last night. He seems to be less agitated, less restless, and overall seems to be improving compared to how he presented. Chest x-ray is also showing improvement in his pulmonary edema, questionable underlying pneumonia. Nonetheless it continues to show cardiomeg leif, some pulmonary vascular congestion, and left basilar opacity reflecting probably atelectasis infiltrate or effusion CBC is normal in the clot are normal except for a bicarb of 43 creatinine is improving, 1.42 today. Better than yesterday Reevaluated today on 12/21/21, patient remains in the ICU, however he is an overflow, he is on room air at times on 2 L nasal cannula, patient is doing grea t, continues to refuse using BiPAP. He is still on Lasix, and his chest x-ray showing improvement is also on Zosyn, patient is sitting in a bedside chair, does not seem to be in any distress, I explained to him the benefit of using CPAP, but he refuses patient states that he gets claustrophobia and he cannot use it tomorrow what. CBC today is normal electrolytes are normal bicarb is 39 BUN is 63 creatinine 1.40, slightly better compared to the last 2 days. Reevaluated today on 12/23/21, patient is doing well, remains on 2 L nasal cannula, most often he is on room air. And again he refuses to use his BiPAP at bedside. Patient is requesting his Rosa to be discontinued and I went ahead and recommended removing the Rosa catheter, patient remains on bronchodilators, remains on multiple cardiac meds, remains on diuretics/Lasix. Electrolytes today are normal bicarb is 37 BUN is 43 creatinine 0.8. Again the patient does not seem to be in any distress Objective - Vital Signs Vital signs: Vital Signs Temp 97.6 F 12/23/21 11:10 Pulse 78 12/23/21 11:10 Resp 18 12/23/21 11:10 BP 152/73 12/23/21 11:10 Pulse Ox 96 12/23/21 11:10 FiO2 40 12/21/21 00:36 Intake & Output 12/22/21 12/23/21 12/23/21 18:59 06:59 18:59 Output Total 4501 1500 1200 Balance -4501 -1500 -1200 Output: Urine 4500 1500 1200 Stool 1 Other: Voiding Method Indwelling Catheter Indwelling Catheter Indwelling Catheter ABP, PAP, CO, CI - Last Documented Arterial Blood Pressure 143/66 - Exam Physical Exam: Revealed 56-year-old white male on 2 L nasal Head: Atraumatic, normocephalic. HEENT:[Neck is supple.] [No neck masses.] [No thyromegaly.] [No JVD.] Short obese neck, PERRLA, EOMI, nonicteric. Chest: Symmetrical chest expansion diminished breath sounds at the bases no crackles or rhonchi or wheezes Cardiac Exam: Distant S1 and S2, no S3 gallop.] Abdomen: [Morbidly obese, Soft, nontender, no megaly, no rebound, no guarding, normal bowel sounds.] Extremities: [No clubbing, trace of bipedal edema, no cyanosis.] Neurological Exam: [No focal neurologic deficit.] Alert oriented 3 Psychiatric: Normal mood, flat affect, normal mental status examination. Skin: No rashes - Labs CBC & Chem 7: 12/23/21 06:30 12/23/21 06:30 Labs: Abnormal Lab Results - Last 24 Hours (Table) 12/22/21 12/22/21 12/23/21 Range/Units 17:11 20:12 06:30 Hgb 11.8 L (13.0-17.0) g/dL MCH 24.7 L (27.0-32.0) pg MCHC 27.5 L (32.0-37.0) g/dL RDW 24.5 H (11.5-14.5) % Immature Gran # 0.06 H (0.00-0.04) X 10*3/uL Eosinophils # 0.42 H (0.04-0.35) X 10*3/uL Chloride (96-109) mmol/L Carbon Dioxide (20.0-27.5) mmol/L Anion Gap (10.00-18.00) mmol/L BUN (9.0-27.0) mg/dL BUN/Creatinine Ratio (12.00-20.00) Ratio Glucose (70-110) mg/dL POC Glucose (mg/dL) 150 H 146 H (70-110) mg/dL 12/23/21 12/23/21 12/23/21 Range/Units 06:30 07:09 11:12 Hgb (13.0-17.0) g/dL MCH (27.0-32.0) pg MCHC (32.0-37.0) g/dL RDW (11.5-14.5) % Immature Gran # (0.00-0.04) X 10*3/uL Eosinophils # (0.04-0.35) X 10*3/uL Chloride 95 L (96-109) mmol/L Carbon Dioxide 37.2 H (20.0-27.5) mmol/L Anion Gap 7.60 L (10.00-18.00) mmol/L BUN 43.0 H (9.0-27.0) mg/dL BUN/Creatinine Ratio 52.89 H (12.00-20.00) Ratio Glucose 128 H (70-110) mg/dL POC Glucose (mg/dL) 136 H 195 H (70-110) mg/dL Assessment and Plan Assessment: Impression: Acute on chronic hypoxic and hypercapnic respiratory failure, multifactorial, I believe the patient has diastolic congestive heart failure, obstructive sleep apnea syndrome, obesity/hypoventilation syndrome, pulmonary hypertension, and possibly underlying COPD Acute kidney injury, improving. Obstructive sleep apnea syndrome with obesity/hypoventilation syndrome Acute metabolic encephalopathy Benign essential hypertension Chronic cor pulmonale Morbid obesity Chronic diastolic congestive heart failure/pulmonary hypertension Recommendation: Continue present supportive care measures Continue bronchodilators and prednisone will cut down the dose. Continue Lovenox Continue DuoNeb Off antibiotics Consider discharge planning I believe discharge planning is in progress to go to [facility] rehab. Time with Patient: Less than 30
[2021-12-23 17:19] LABS: Glucose,Whole Blood 185 mg/dL (70-110)
[2021-12-23 20:35] LABS: Glucose,Whole Blood 143 mg/dL (70-110)
--- NOTE | 2021-12-23 23:23 | PN ---
PROGRESS NOTE SUBJECTIVE: A 56-year-old gentleman, who is admitted to hospital with a combination of COPD and CHF exacerbations. He is morbidly obese. He is doing much better. Shortness of breath has improved and leg edema is getting better. He is on IV Lasix, which I am going to continue. OBJECTIVE: GENERAL: Comfortable at rest. VITAL SIGNS: Stable. Blood pressure is normal. CHEST: Reveals diminished air entry bilaterally without any crackles or rhonchi. HEART: Reveals first and second heart sounds. No gallop. ABDOMEN: Soft. EXTREMITIES: Reveals bilateral pigmentation with mild edema. LABORATORY DATA: Labs show that the BUN is 57, creatinine is 1; hemoglobin is 12.5. ASSESSMENT: 1. Acute exacerbation of chronic diastolic heart failure, bradycardia that has resolved. 2. Respiratory failure. PLAN: Continue IV Lasix for another day. MMODL / IJN: [id number] /
[2021-12-24] MEDS: IPRATROPIUM-ALBUTEROL 3 ML NEB INHALATION SCH ×7 (02:28→23:40)
[2021-12-24 07:04] LABS: Glucose,Whole Blood 120 mg/dL (70-110)
[2021-12-24] MEDS: FORMOTEROL FUMARATE 20 MCG/2 ML NEBU INHALATION SCH ×2 (07:43→21:16)
[2021-12-24 08:15] LABS: African American GFR (CKD) >90 (>60 ml/min/1.73 sqM); Blood Urea Nitrogen 43 mg/dL (9-20); Calcium 9.4 mg/dL (8.4-10.2); Chloride 93 mmol/L (98-107); Glucose 124 mg/dL (74-99); Non-African American GFR(CKD) >90 (>60 ml/min/1.73 sqM); Sodium 136 mmol/L (137-145)
[2021-12-24 08:21] LABS: Anion Gap 5 mmol/L; Carbon Dioxide 38 mmol/L (22-30)
[2021-12-24] MEDS: predniSONE 20 MG TAB PO SCH (08:22)
[2021-12-24] MEDS: PANTOPRAZOLE 40 MG/10 ML VIAL IVP SCH (08:22)
[2021-12-24] MEDS: FUROSEMIDE 10 MG/ML 4 ML VIAL IV SCH (08:22)
[2021-12-24] MEDS: ASPIRIN 81 MG PO SCH (08:23)
[2021-12-24] MEDS: HEPARIN SODIUM,PORCINE/PF 5,000 UNIT/0.5 ML SYRINGE SQ SCH ×2 (08:23→20:45)
[2021-12-24] MEDS: amLODIPine 10 MG TAB PO SCH (08:23)
[2021-12-24] MEDS: DAPAGLIFLOZIN PROPANEDIOL 10 MG TABLET PO SCH (08:24)
[2021-12-24] MEDS: SODIUM CHLORIDE 0.9% 1,000 ML IV SCH (08:26)
[2021-12-24] MEDS: carvediloL 12.5 MG TAB PO SCH ×2 (08:42→18:16)
[2021-12-24] MEDS: carvediloL 6.25 MG TAB PO SCH (08:43)
[2021-12-24] MEDS: INSULIN ASPART (NovoLOG) 100 UNIT/ML VIAL SQ SCH ×4 (08:45→20:45)
--- NOTE | 2021-12-24 09:47 | P.PN ---
Subjective This is a 56-year-old male with a past medical history of obstructive sleep apnea, hypertension, dyslipidemia, COPD. He does not follow with a cardi ologist. We have been following the patient secondary to elevated troponin and congestive heart failure. Patient initially presented to the emergency department on 12/13/2021 found to be unresponsive with progressive dyspnea. He was started on a BiPAP and was admitted for further evaluation. He was noted to be in respiratory failure secondary to known history of hypercapnic hypoventilation, not using his CPAP. Patient was initially admitted to the ICU and has been transferred out of the ICU on 5N medical floor. He has significantly improved since admission. He is sitting up in the bedside chair, He is feeling well. Slowly getting stronger. He denies any shortness of breath or chest pain. He is currently on IV Lasix 40mg daily. His lower extremity edema has improved. Main complaint today is constipation. Continues to refuse CPAP. Echocardiogram revealed EF 5560 percent, moderate concentric LVH, technically difficult study valvular structures are not well visualized. Labs, sodium 136, potassium 4.0, BUN 43, serum creatinine 0.7 Blood pressure 125/69, heart rate 76, afebrile, 97% on 3 L nasal cannula GENERAL: In no acute distress. NECK: Supple without JVD LUNGS: Breath sounds decreased air exchange, mild expiratory wheezing to auscultation bilaterally. Respiration equal and unlabored. HEART: Regular rate and rhythm without murmurs, rubs or gallops. S1 and S2 heard. EXTREMITIES: Normal range of motion, no edema. No clubbing or cyanosis. Peripheral pulses intact. ASSESSMENT Respiratory failure with hypoxemia and hypercapnia, improving Troponin elevation secondary to type II myocardial infarction Acute on chronic heart failure with preserved systolic function, mostly right sided heart failure Acute kidney injury, improved Morbid obesity Obstructive sleep apnea with noncompliance with CPAP COPD Dyslipidemia PLAN IV Lasix 40mg today, likely transition to PO Lasix tomorrow Continue to monitor renal function Monitor ins and outs, daily weights Continue aspirin, Coreg, amlodipine Further recommendations based on clinical course Nurse Practitioner note has been reviewed, I agree with a documented findings and plan of care. Patient was seen and examined. Objective - Vital Signs Vital signs: Vital Signs Temp 97.5 F L 12/24/21 05:00 Pulse 71 12/24/21 07:58 Resp 20 12/24/21 05:00 BP 144/71 12/24/21 05:00 Pulse Ox 86 L 12/24/21 07:44 FiO2 40 12/21/21 00:36 Intake & Output 12/23/21 12/24/21 12/24/21 18:59 06:59 18:59 Intake Total 200 Output Total 1700 350 Balance -1700 -150 Weight 184.669 kg Intake: IV 80 Sodium Chloride 0.9% 1, 80 000 ml @ 10 mls/hr IV . Q24H [facility] Rx#:[id number] Oral 120 Output: Urine 1700 350 Other: Voiding Method Indwelling Catheter Urinal ABP, PAP, CO, CI - Last Documented Arterial Blood Pressure 143/66 - Labs CBC & Chem 7: 12/23/21 06:30 12/24/21 07:32 Labs: Abnormal Lab Results - Last 24 Hours (Table) 12/23/21 12/23/21 12/23/21 Range/Units 06:30 06:30 11:12 Hgb 11.8 L (13.0-17.0) g/dL MCH 24.7 L (27.0-32.0) pg MCHC 27.5 L (32.0-37.0) g/dL RDW 24.5 H (11.5-14.5) % Immature Gran # 0.06 H (0.00-0.04) X 10*3/uL Eosinophils # 0.42 H (0.04-0.35) X 10*3/uL Chloride 95 L (96-109) mmol/L Carbon Dioxide 37.2 H (20.0-27.5) mmol/L Anion Gap 7.60 L (10.00-18.00) mmol/L BUN 43.0 H (9.0-27.0) mg/dL BUN/Creatinine Ratio 52.89 H (12.00-20.00) Ratio Glucose 128 H (70-110) mg/dL POC Glucose (mg/dL) 195 H (70-110) mg/dL 12/23/21 12/23/21 12/24/21 Range/Units 17:18 20:33 07:02 Hgb (13.0-17.0) g/dL MCH (27.0-32.0) pg MCHC (32.0-37.0) g/dL RDW (11.5-14.5) % Immature Gran # (0.00-0.04) X 10*3/uL Eosinophils # (0.04-0.35) X 10*3/uL Chloride (96-109) mmol/L Carbon Dioxide (20.0-27.5) mmol/L Anion Gap (10.00-18.00) mmol/L BUN (9.0-27.0) mg/dL BUN/Creatinine Ratio (12.00-20.00) Ratio Glucose (70-110) mg/dL POC Glucose (mg/dL) 185 H 143 H 120 H (70-110) mg/dL
[2021-12-24] MEDS ORDERED: DOCUSATE 100 MG CAP PO PRN (10:21)
--- NOTE | 2021-12-24 10:40 | P.DS ---
Providers Date of admission: 12/13/21 11:33 Attending physician: Augustina Rodas Consults: 12/13/21 11:35 Consult Physician Urgent Consulting Provider: Rodger Parker Consult Reason/Comments: COPD, hypercapnia Do you want consulting provider notified?: Yes 12/13/21 16:51 Consult Physician Routine Consulting Provider: Chris Forman Consult Reason/Comments: chf Do you want consulting provider notified?: Yes Primary care physician: [facility] Course: Final diagnosis Acute bilateral pneumonia possibly aspiration with acute hypoxic respiratory failure status post BiPAP COPD acute exacerbation next and acute renal failure next in CHF acute exacerbation Troponin 0.068 indeterminate myocardial infarction ruled out Multiple medical issues Discharge disposition The patient be discharged in a stable condition with guarded prognosis total time taken 30 mts History of present illness This 56 or gentleman with a past medical history multiple medical problems admitted unresponsive with the aspiration pneumonia and multiple medical issues as mentioned earlier patient monitored in ICU patient treated with BiPAP patient was seen by pulmonary and cardiology patient was given bronchodilators antibiotics and as well as intravenous diuretics patient improved significantly. He was evaluated patient be transferred to [facility] for with a stable condition with guarded prognosis Please refer to the previous progress notes consultations for further information On exam vitals are stable cardio S1 is normal respirator few scattered rhonchi abdomen soft no system diffusely weak and X Please refer to the medication reconciliation sheet for list of medications Plan - Discharge Summary Discharge Rx Participant: Yes New Discharge Prescriptions: New Docusate [Colace] 100 mg PO DAILY PRN cap PRN Reason: Constipation Ipratropium-Albuterol Nebulize [Duoneb 0.5 mg-3 mg/3 ml Soln] 3 ml INHALATION RT-Q4H each Dapagliflozin Propanediol [Farxiga] 10 mg PO DAILY tab Formoterol Fumarate [Perforomist] 20 mcg INHALATION RT-BID ml predniSONE 10 mg PO DIRECTED #30 tab amLODIPine [Norvasc] 10 mg PO DAILY tab Continue Furosemide [Lasix] 80 mg PO DAILY carvediloL [Coreg] 12.5 mg PO BID metOLazone [Zaroxolyn] 5 mg PO DAILY 30 Days #30 tab Gabapentin [Neurontin] 300 mg PO BID Acetaminophen [Tylenol 8 Hour] 1,300 mg PO Q8H PRN PRN Reason: Pain Aspirin 81 mg PO DAILY Discontinued Spironolactone [Aldactone] 25 mg PO DAILY 30 Days #30 tab Losartan Potassium 100 mg PO DAILY Ibuprofen [Motrin] 800 mg PO TID PRN PRN Reason: Pain Discharge Medication List Furosemide [Lasix] 80 mg PO DAILY 08/26/19 [History] carvediloL [Coreg] 12.5 mg PO BID 08/26/19 [History] metOLazone [Zaroxolyn] 5 mg PO DAILY 30 Days #30 tab 09/01/19 [Rx] Acetaminophen [Tylenol 8 Hour] 1,300 mg PO Q8H PRN 12/13/21 [History] Aspirin 81 mg PO DAILY 12/13/21 [History] Gabapentin [Neurontin] 300 mg PO BID 12/13/21 [History] Dapagliflozin Propanediol [Farxiga] 10 mg PO DAILY tab 12/24/21 [Rx] Docusate [Colace] 100 mg PO DAILY PRN cap 12/24/21 [Rx] Formoterol Fumarate [Perforomist] 20 mcg INHALATION RT-BID ml 12/24/21 [Rx] Ipratropium-Albuterol Nebulize [Duoneb 0.5 mg-3 mg/3 ml Soln] 3 ml INHALATION RT-Q4H each 12/24/21 [Rx] amLODIPine [Norvasc] 10 mg PO DAILY tab 12/24/21 [Rx] predniSONE 10 mg PO DIRECTED #30 tab 12/24/21 [Rx] Follow up Appointment(s)/Referral(s): Leighann Tejada MD [Primary Care Provider] - 1-2 days Ambulatory/Diagnostic Orders: Complete Blood Count w/diff [LAB.AMB] Location: None Selected Activity/Diet/Wound Care/Special Instructions: Diet cardiac no added salt activity limited Fluid restriction 1200 mL cc per 24 hours or so follow-up with the cardiology and pulmonology is advised
[2021-12-24 11:24] LABS: Glucose,Whole Blood 218 mg/dL (70-110)
[2021-12-24] MEDS: acetaZOLAMIDE 250 MG TAB PO SCH (12:38)
--- NOTE | 2021-12-24 13:23 | P.PN ---
Subjective Progress Note Date: 12/24/21 56-year-old morbidly obese male patient who was found in his apartment on the ground and he had fell apparently a few days back and hasn't remember falling down and he does not recall any other symptoms proceeded his follow-up. He states that he has been lying down on the floor for at least 3 days, unable to get up and he was getting progressively more sick. Ultimately, he was found and the patient got moved to the emergency department. No headaches. No neck stiffness. No trauma. No chest pain. He was having some increased shortness of breath. No nausea or vomiting. No reported aspiration. The patient presented to the ED and he was somewhat lethargic. His blood gases showed a pH of 7.18 with a pCO2 of 102 and pO2 of 67 and this was on FiO2 of 36%. At that point, the patient was placed on a BiPAP and ICU transfer was recommended. On his blood work, the patient was found to have a proBNP level of 11,600 and troponins were slightly elevated at 0.09 and 0.07 respectively 2. He also was found to be in renal failure with a 70 connected. 2.35, acute versus chronic and the patient's and his serum bicarb of 39 with a potassium level of 5.8. Sodium level was at 139. The patient had a white cell count 11.6 with a hemoglobin 15.8 and a platelet count of 324. The chest x-ray was suboptimal due to patient's body habitus. HEENT thyromegaly a mild four-vessel congestion. He also had large pulmonary arteries suggesting pulmonary arterial hypertension. The computed tomography scan of the brain was also done showing acute intracranial process. Based on review of his medication, the patient has been taking a combination of Lasix 80 mg by mouth daily and lisinopril 5 mg by mouth daily at home. He is known to have chronic hypoxic and hypercapnic respiratory failure and this was attributed to severe sleep apnea and a component of obesity hypoventilation syndrome. He has chronic metabolic alkalosis and chronic hypercapnic respiratory failure. He also has history of hypertension and hyperlipidemia. He is a lifetime nonsmoker. 12/16/2021, the patient is lethargic yet arousable. He spent all night on a BiPAP and currently is off the BiPAP on oxygen at 11 L and his pulse ox is around 90%. He was on BiPAP throughout the night. His chest x-rays essentially unchanged. He has pulmonary infiltrates bilaterally and the left lung bases significantly opacified and there is cardiomegaly. I think a CAT scan of the chest will be needed to failure characterize those abnormalities. Yesterday, the patient became somewhat more bronchospastic and wheezy. I gave her a dose of Lasix 40 mg IV and since then he diuresed more than a liter of urine and the patient's overall fluid balance is -2 L over the past 24 hours. Morning blood gases are pending still. Meanwhile, the patient's white cell count of 7.4 hemoglobin 13.6 and the platelet count is 163. Sodium is 141. Bicarbonate of 44. Creatinine is a 48 with a creatinine of 1.1. His renal function is essentially normalized. IV fluids are currently at [facility]. He remains on IV Zosyn. She is back on Norvasc 10 mg and Coreg 25 mg by mouth twice a day. He has improved also his left pressure control. He remains on heparin subcu for DVT prophylaxis. Reevaluated today on 12/17/2021, patient remains in the ICU, he is on BiPAP with IPAP of 18 EPAP of 6 FiO2 50% his mask was leaking hence I recommended a change of the mask to a larger mass, and his repeat ABG showed a pO2 of 61 pCO2 of 86 pH of 7.34 hence the patient clearly does not need to be intubated and mechanically ventilated at this point. Chest x-ray is showing evidence of pulmonary edema, hence I recommended increasing the Lasix to 40 mg IV push every 8 hours, patient remains on Diamox. He is also on bronchodilators and on methylprednisolone. Patient is also receiving Zosyn. And his IV fluid at [facility] Reevaluated today on 12/18/21, patient was on BiPAP overnight, and last night he became more agitated, Precedex was tried, however the patient developed significant bradycardia hence he did not tolerate Precedex well. Patient is now on nasal cannula, sitting in bed, eating his breakfast, he is actually on 6 L/m, O2 saturation is anywhere between 89-91%, seems to be tolerating the nasal cannula well. Remains on diuretics, remains on bronchodilators, and he continues to have the BiPAP at bedside Diamox was added, patient was on Lasix and I cut it down to 40 mg every 12 hours. He is on Diamox at 250 mg twice a day. ABG this morning on BiPAP showed a pO2 of 68 pCO2 of 74 pH of 7.41 significantly improved compared to the ABG yesterday. His renal profile showed BUN 43 creatinine 1.39, baseline creatinine on admission was 2.35. Overall the patient is improving, but at this point I don't believe the patient is about ready to be transferred to a regular medical floor, and I plan to keep him in the ICU as he may still require intubation if his condition gets any worse Reevaluated today on , patient has been refusing to use his BiPAP.patient has been receiving Ativan and Haldol for his extreme agitation sometimes, this morning he refuses to go back on BiPAP, he is on 6 L nasal cannula, hence an ABG was performed, and ABG showed pO2 of 84 pCO2 82 pH of 7.33. CBC is unremarkable. WBC count is 8.2 hemoglobin is 14.6.electrolytes and basic metabolic profile are normal. Renal profile is abnormal with BUN of a 48 creatinine 1.57, I have recommended cutting down on the Lasix to 40 mg daily instead of twice a day. And recommended cutting down his FiO2 is set of using 6 L patient may do well with 4 L nasal cannula instead.patient remains on bronchodilators, remains on Solu-Medrol, and he also remains on Zosyn. Plan to cut down his methylprednisolone to 40 mg IV push every 12 hours.may improve his agitation. Reevaluated today on 12/20/21, patient seems to be doing much better today, his actually on room air, O2 saturation is in the low 90s, patient is sitting at a bedside chair, he required BiPAP only for 2 hours last night. He seems to be less agitated, less restless, and overall seems to be improving compared to how he presented. Chest x-ray is also showing improvement in his pulmonary edema, questionable underlying pneumonia. Nonetheless it continues to show cardiomegaly, some pulmonary vascular congestion, and left basilar opacity reflecting probably atelectasis infiltrate or effusion CBC is normal in the clot are normal except for a bicarb of 43 creatinine is improving, 1.[address] than yesterday Reevaluated today on 12/21/21, patient remains in the ICU, however he is an overf low, he is on room air at times on 2 L nasal cannula, patient is doing great, continues to refuse using BiPAP. He is still on Lasix, and his chest x-ray showing improvement is also on Zosyn, patient is sitting in a bedside chair, does not seem to be in any distress, I explained to him the benefit of using CPAP, but he refuses patient states that he gets claustrophobia and he cannot use it tomorrow what. CBC today is normal electrolytes are normal bicarb is 39 BUN is 63 creatinine 1.40, slightly better compared to the last 2 days. The patient is seen today 12/22/2021 in follow-up on the regular medical floor. He is currently sitting up in bed. Awake and alert in no acute distress. He is maintaining good O2 saturations in the 90s on 3 L/m per nasal cannula. Blood cultures reveal no growth. Blood glucose 126. He remains on bronchodilators, IV diuretics, heparin for DVT prophylaxis. Reevaluated today on 12/23/21, patient is doing well, remains on 2 L nasal cannula, most often he is on room air. And again he refuses to use his BiPAP at bedside. Patient is requesting his Rosa to be discontinued and I went ahead and recommended removing the Rosa catheter, patient remains on bronchodilators, remains on multiple cardiac meds, remains on diuretics/Lasix. Electrolytes today are normal bicarb is 37 BUN is 43 creatinine 0.8. Again the patient does not seem to be in any distress The patient is seen today 12/24/2021 in follow-up on the regular medical floor. He is currently sitting up in a chair at the bedside. Awake and alert in no acute distress. He is maintaining good O2 saturations in the low 90s on room air. He is afebrile. Hemodynamically stable. Blood cultures reveal no growth. Sodium 136. Potassium 5.0. BUN 43. Creatinine 0.74. He is continued on Duo Neb inhalations, Perforomist inhalations, prednisone. Remains on IV diuretics. Heparin for DVT prophylaxis. Objective - Vital Signs Vital signs: Vital Signs Temp 97.6 F 12/24/21 11:58 Pulse 57 L 12/24/21 11:58 Resp 16 12/24/21 11:58 BP 105/61 12/24/21 11:58 Pulse Ox 91 L 12/24/21 11:58 FiO2 40 12/21/21 00:36 Intake & Output 12/23/21 12/24/21 12/24/21 18:59 06:59 18:59 Intake Total 200 Output Total 1700 350 900 Balance -1700 -150 -900 Weight 184.669 kg Intake: IV 80 Sodium Chloride 0.9% 1, 80 000 ml @ 10 mls/hr IV . Q24H MEGAN Rx#:[id number] Oral 120 Output: Urine 1700 350 900 Other: Voiding Method Indwelling Catheter Urinal Urinal ABP, PAP, CO, CI - Last Documented Arterial Blood Pressure 143/66 - Exam GENERAL EXAM: Alert, morbidly obese 56-year-old male, on room air, comfortable in no apparent distress. HEAD: Normocephalic. EYES: Normal reaction of pupils, equal size. NOSE: Clear with pink turbinates. THROAT: No erythema or exudates. NECK: No masses, no JVD. CHEST: No chest wall deformity. LUNGS: Equal air entry with crackles in the bilateral bases. CVS: S1 and S2 normal with no audible murmur, regular rhythm. ABDOMEN: No hepatosplenomegaly, normal bowel sounds, no guarding or rigidity. SPINE: No scoliosis or deformity SKIN: No rashes CENTRAL NERVOUS SYSTEM: No focal deficits, tone is normal in all 4 extremities. EXTREMITIES: There is 1-2+ peripheral edema. Changes of chronic venous stasis. No clubbing, no cyanosis. Peripheral pulses are intact. - Labs CBC & Chem 7: 12/23/21 06:30 12/24/21 07:32 Labs: Abnormal Lab Results - Last 24 Hours (Table) 12/23/21 12/23/21 12/24/21 Range/Units 17:18 20:33 07:02 Sodium (137-145) mmol/L Chloride (98-107) mmol/L Carbon Dioxide (22-30) mmol/L BUN (9-20) mg/dL Glucose (74-99) mg/dL POC Glucose (mg/dL) 185 H 143 H 120 H (70-110) mg/dL 12/24/21 12/24/21 Range/Units 07:32 11:22 Sodium 136 L (137-145) mmol/L Chloride 93 L (98-107) mmol/L Carbon Dioxide 38 H (22-30) mmol/L BUN 43 H (9-20) mg/dL Glucose 124 H (74-99) mg/dL POC Glucose (mg/dL) 218 H (70-110) mg/dL Assessment and Plan Assessment: Acute on chronic hypoxic and hypercapnic respiratory failure, multifactorial, diastolic congestive heart failure, obstructive sleep apnea syndrome, obesity/hypoventilation syndrome, pulmonary hypertension, and possibly underlying COPD Acute kidney injury, improving. Obstructive sleep apnea syndrome with obesity/hypoventilation syndrome, intolerant to BiPAP Acute metabolic encephalopathy Benign essential hypertension Chronic cor pulmonale Morbid obesity Chronic diastolic congestive heart failure/pulmonary hypertension Plan: The patient was seen and evaluated Medication's and labs reviewed Cleared for discharge from the pulmonary standpoint Plan is to discharge to [facility] I have personally seen and examined the patient, performed the documentation and the assessment and plan as written. Number of minutes spent on the visit: 10.
[2021-12-24] MEDS ORDERED: carvediloL 12.5 MG TAB PO SCH (17:30)
[2021-12-24 18:02] LABS: Glucose,Whole Blood 128 mg/dL (70-110)
[2021-12-24 20:12] LABS: Glucose,Whole Blood 169 mg/dL (70-110)
[2021-12-25] MEDS: IPRATROPIUM-ALBUTEROL 3 ML NEB INHALATION SCH ×3 (04:22→11:16)
[2021-12-25 06:48] LABS: African American GFR (CKD) >90 (>60 ml/min/1.73 sqM); Anion Gap 5 mmol/L; Blood Urea Nitrogen 39 mg/dL (9-20); Calcium 9.5 mg/dL (8.4-10.2); Carbon Dioxide 39 mmol/L (22-30); Chloride 93 mmol/L (98-107); Glucose 116 mg/dL (74-99); Non-African American GFR(CKD) >90 (>60 ml/min/1.73 sqM); Potassium 4.3 mmol/L (3.5-5.1); Sodium 137 mmol/L (137-145)
[2021-12-25 07:04] LABS: Glucose,Whole Blood 106 mg/dL (70-110)
[2021-12-25] MEDS: FORMOTEROL FUMARATE 20 MCG/2 ML NEBU INHALATION SCH (07:27)
[2021-12-25] MEDS: INSULIN ASPART (NovoLOG) 100 UNIT/ML VIAL SQ SCH ×2 (07:42→11:53)
[2021-12-25] MEDS: predniSONE 20 MG TAB PO SCH (07:58)
[2021-12-25] MEDS: FUROSEMIDE 10 MG/ML 4 ML VIAL IV SCH (07:58)
[2021-12-25] MEDS: PANTOPRAZOLE 40 MG/10 ML VIAL IVP SCH (07:58)
[2021-12-25] MEDS: ASPIRIN 81 MG PO SCH (07:58)
[2021-12-25] MEDS: DAPAGLIFLOZIN PROPANEDIOL 10 MG TABLET PO SCH (07:59)
[2021-12-25] MEDS: amLODIPine 10 MG TAB PO SCH (07:59)
[2021-12-25] MEDS: SODIUM CHLORIDE 0.9% 1,000 ML IV SCH (07:59)
[2021-12-25] MEDS: carvediloL 12.5 MG TAB PO SCH (07:59)
[2021-12-25] MEDS: acetaZOLAMIDE 250 MG TAB PO SCH (07:59)
[2021-12-25] MEDS: HEPARIN SODIUM,PORCINE/PF 5,000 UNIT/0.5 ML SYRINGE SQ SCH (08:00)
--- NOTE | 2021-12-25 09:27 | P.PN ---
Subjective This is a 56-year-old male with a past medical history of obstructive sleep apnea, hypertension, dyslipidemia, COPD. He does not follow with a cardi ologist. We have been following the patient secondary to elevated troponin and congestive heart failure. Patient initially presented to the emergency department on 12/13/2021 found to be unresponsive with progressive dyspnea. He was started on a BiPAP and was admitted for further evaluation. He was noted to be in respiratory failure secondary to known history of hypercapnic hypoventilation, not using his CPAP. Patient was initially admitted to the ICU and has been transferred out of the ICU on 5N medical floor. He has significantly improved since admission. Patient seen and examined at bedside, he is sitting up in the bedside chair, He is feeling well. Slowly getting stronger. He denies any shortness of breath or chest pain. He is currently on IV Lasix 40mg daily. Patient with 1.4L urine output over the past 24 hours. His lower extremity edema has improved. Continues to refuse CPAP. Echocardiogram revealed EF 5560%, moderate concentric LVH, technically difficult study valvular structures are not well visualized. Labs, sodium 137, potassium 4.3, BUN 39, serum creatinine 0.9 Blood pressure 119/51, heart rate 70, afebrile, 96% on 2L nasal cannula GENERAL: In no acute distress. NECK: Supple without JVD LUNGS: Breath sounds decreased air exchange, mild expiratory wheezing to auscultation bilaterally. Respiration equal and unlabored. HEART: Regular rate and rhythm without murmurs, rubs or gallops. S1 and S2 heard. EXTREMITIES: Normal range of motion, no edema. No clubbing or cyanosis. Peripheral pulses intact. ASSESSMENT Respiratory failure with hypoxemia and hypercapnia, improving Troponin elevation secondary to type II myocardial infarction Acute on chronic heart failure with preserved systolic function, mostly right sided heart failure Acute kidney injury, improved Morbid obesity Obstructive sleep apnea with noncompliance with CPAP COPD Dyslipidemia PLAN Transition to PO Lasix Continue aspirin, Coreg, amlodipine From a cardiology perspective, patient is stable for discharge to rehab, no further changes at this time. We will follow the patient as needed. Please reconsult if needed. Nurse Practitioner note has been reviewed, I agree with a documented findings and plan of care. Patient was seen and examined. Objective - Vital Signs Vital signs: Vital Signs Temp 97.6 F 12/25/21 05:00 Pulse 66 12/25/21 07:44 Resp 18 12/25/21 05:00 BP 119/51 12/25/21 05:00 Pulse Ox 92 L 12/25/21 07:28 FiO2 40 12/21/21 00:36 Intake & Output 12/24/21 12/25/21 12/25/21 18:59 06:59 18:59 Intake Total 980 Output Total 1151 300 Balance -1151 680 Intake: Oral 980 Output: Urine 1150 300 Stool 1 Other: Voiding Method Urinal Toilet Urinal ABP, PAP, CO, CI - Last Documented Arterial Blood Pressure 143/66 - Labs CBC & Chem 7: 12/23/21 06:30 12/25/21 06:11 Labs: Abnormal Lab Results - Last 24 Hours (Table) 12/24/21 12/24/21 12/24/21 Range/Units 11:22 18:00 20:04 Chloride (98-107) mmol/L Carbon Dioxide (22-30) mmol/L BUN (9-20) mg/dL Glucose (74-99) mg/dL POC Glucose (mg/dL) 218 H 128 H 169 H (70-110) mg/dL 12/25/21 Range/Units 06:11 Chloride 93 L (98-107) mmol/L Carbon Dioxide 39 H (22-30) mmol/L BUN 39 H (9-20) mg/dL Glucose 116 H (74-99) mg/dL POC Glucose (mg/dL) (70-110) mg/dL
[2021-12-25 11:05] LABS: Glucose,Whole Blood 149 mg/dL (70-110)
[2021-12-25 12:00] VITALS: BP 104/62; PULSE 64; RESP 17; TEMP 98.3
--- NOTE | 2021-12-25 12:11 | P.PN ---
Subjective Progress Note Date: 12/25/21 56-year-old morbidly obese male patient who was found in his apartment on the ground and he had fell apparently a few days back and hasn't remember falling down and he does not recall any other symptoms proceeded his follow-up. He states that he has been lying down on the floor for at least 3 days, unable to get up and he was getting progressively more sick. Ultimately, he was found and the patient got moved to the emergency department. No headaches. No neck stiffness. No trauma. No chest pain. He was having some increased shortness of breath. No nausea or vomiting. No reported aspiration. The patient presented to the ED and he was somewhat lethargic. His blood gases showed a pH of 7.18 with a pCO2 of 102 and pO2 of 67 and this was on FiO2 of 36%. At that point, the patient was placed on a BiPAP and ICU transfer was recommended. On his blood work, the patient was found to have a proBNP level of 11,600 and troponins were slightly elevated at 0.09 and 0.07 respectively 2. He also was found to be in renal failure with a 70 connected. 2.35, acute versus chronic and the patient's and his serum bicarb of 39 with a potassium level of 5.8. Sodium level was at 139. The patient had a white cell count 11.6 with a hemoglobin 15.8 and a platelet count of 324. The chest x-ray was suboptimal due to patient's body habitus. HEENT thyromegaly a mild four-vessel congestion. He also had large pulmonary arteries suggesting pulmonary arterial hypertension. The computed tomography scan of the brain was also done showing acute intracranial process. Based on review of his medication, the patient has been taking a combination of Lasix 80 mg by mouth daily and lisinopril 5 mg by mouth daily at home. He is known to have chronic hypoxic and hypercapnic respiratory failure and this was attributed to severe sleep apnea and a component of obesity hypoventilation syndrome. He has chronic metabolic alkalosis and chronic hypercapnic respiratory failure. He also has history of hypertension and hyperlipidemia. He is a lifetime nonsmoker. 12/16/2021, the patient is lethargic yet arousable. He spent all night on a BiPAP and currently is off the BiPAP on oxygen at 11 L and his pulse ox is around 90%. He was on BiPAP throughout the night. His chest x-rays essentially unchanged. He has pulmonary infiltrates bilaterally and the left lung bases significantly opacified and there is cardiomegaly. I think a CAT scan of the chest will be needed to failure characterize those abnormalities. Yesterday, the patient became somewhat more bronchospastic and wheezy. I gave her a dose of Lasix 40 mg IV and since then he diuresed more than a liter of urine and the patient's overall fluid balance is -2 L over the past 24 hours. Morning blood gases are pending still. Meanwhile, the patient's white cell count of 7.4 hemoglobin 13.6 and the platelet count is 163. Sodium is 141. Bicarbonate of 44. Creatinine is a 48 with a creatinine of 1.1. His renal function is essentially normalized. IV fluids are currently at [facility]. He remains on IV Zosyn. She is back on Norvasc 10 mg and Coreg 25 mg by mouth twice a day. He has improved also his left pressure control. He remains on heparin subcu for DVT prophylaxis. Reevaluated today on 12/17/2021, patient remains in the ICU, he is on BiPAP with IPAP of 18 EPAP of 6 FiO2 50% his mask was leaking hence I recommended a change of the mask to a larger mass, and his repeat ABG showed a pO2 of 61 pCO2 of 86 pH of 7.34 hence the patient clearly does not need to be intubated and mechanically ventilated at this point. Chest x-ray is showing evidence of pulmonary edema, hence I recommended increasing the Lasix to 40 mg IV push every 8 hours, patient remains on Diamox. He is also on bronchodilators and on methylprednisolone. Patient is also receiving Zosyn. And his IV fluid at [facility] Reevaluated today on 12/18/21, patient was on BiPAP overnight, and last night he became more agitated, Precedex was tried, however the patient developed significant bradycardia hence he did not tolerate Precedex well. Patient is now on nasal cannula, sitting in bed, eating his breakfast, he is actually on 6 L/m, O2 saturation is anywhere between 89-91%, seems to be tolerating the nasal cannula well. Remains on diuretics, remains on bronchodilators, and he continues to have the BiPAP at bedside Diamox was added, patient was on Lasix and I cut it down to 40 mg every 12 hours. He is on Diamox at 250 mg twice a day. ABG this morning on BiPAP showed a pO2 of 68 pCO2 of 74 pH of 7.41 significantly improved compared to the ABG yesterday. His renal profile showed BUN 43 creatinine 1.39, baseline creatinine on admission was 2.35. Overall the patient is improving, but at this point I don't believe the patient is about ready to be transferred to a regular medical floor, and I plan to keep him in the ICU as he may still require intubation if his condition gets any worse Reevaluated today on , patient has been refusing to use his BiPAP.patient has been receiving Ativan and Haldol for his extreme agitation sometimes, this morning he refuses to go back on BiPAP, he is on 6 L nasal cannula, hence an ABG was performed, and ABG showed pO2 of 84 pCO2 82 pH of 7.33. CBC is unremarkable. WBC count is 8.2 hemoglobin is 14.6.electrolytes and basic metabolic profile are normal. Renal profile is abnormal with BUN of a 48 creatinine 1.57, I have recommended cutting down on the Lasix to 40 mg daily instead of twice a day. And recommended cutting down his FiO2 is set of using 6 L patient may do well with 4 L nasal cannula instead.patient remains on bronchodilators, remains on Solu-Medrol, and he also remains on Zosyn. Plan to cut down his methylprednisolone to 40 mg IV push every 12 hours.may improve his agitation. Reevaluated today on 12/20/21, patient seems to be doing much better today, his actually on room air, O2 saturation is in the low 90s, patient is sitting at a bedside chair, he required BiPAP only for 2 hours last night. He seems to be less agitated, less restless, and overall seems to be improving compared to how he presented. Chest x-ray is also showing improvement in his pulmonary edema, questionable underlying pneumonia. Nonetheless it continues to show cardiomegaly, some pulmonary vascular congestion, and left basilar opacity reflecting probably atelectasis infiltrate or effusion CBC is normal in the clot are normal except for a bicarb of 43 creatinine is improving, 1.[address] than yesterday Reevaluated today on 12/21/21, patient remains in the ICU, however he is an overf low, he is on room air at times on 2 L nasal cannula, patient is doing great, continues to refuse using BiPAP. He is still on Lasix, and his chest x-ray showing improvement is also on Zosyn, patient is sitting in a bedside chair, does not seem to be in any distress, I explained to him the benefit of using CPAP, but he refuses patient states that he gets claustrophobia and he cannot use it tomorrow what. CBC today is normal electrolytes are normal bicarb is 39 BUN is 63 creatinine 1.40, slightly better compared to the last 2 days. The patient is seen today 12/22/2021 in follow-up on the regular medical floor. He is currently sitting up in bed. Awake and alert in no acute distress. He is maintaining good O2 saturations in the 90s on 3 L/m per nasal cannula. Blood cultures reveal no growth. Blood glucose 126. He remains on bronchodilators, IV diuretics, heparin for DVT prophylaxis. Reevaluated today on 12/23/21, patient is doing well, remains on 2 L nasal cannula, most often he is on room air. And again he refuses to use his BiPAP at bedside. Patient is requesting his Rosa to be discontinued and I went ahead and recommended removing the Rosa catheter, patient remains on bronchodilators, remains on multiple cardiac meds, remains on diuretics/Lasix. Electrolytes today are normal bicarb is 37 BUN is 43 creatinine 0.8. Again the patient does not seem to be in any distress The patient is seen today 12/24/2021 in follow-up on the regular medical floor. He is currently sitting up in a chair at the bedside. Awake and alert in no acute distress. He is maintaining good O2 saturations in the low 90s on room air. He is afebrile. Hemodynamically stable. Blood cultures reveal no growth. Sodium 136. Potassium 5.0. BUN 43. Creatinine 0.74. He is continued on Duo Neb inhalations, Perforomist inhalations, prednisone. Remains on IV diuretics. Heparin for DVT prophylaxis. The patient is seen today 12/25/2021 in follow-up on the regular medical floor. He is currently resting comfortably in bed. No worsening shortness of breath, cough or congestion. He is maintaining O2 saturation in the 90s on room air. Afebrile. Hemodynamically stable. Blood cultures reveal no growth. Sodium 137. Potassium 4.3. Bicarb 79. BUN 39. Creatinine 0.95. Glucose 116. He is continued on bronchodilators, prednisone. Heparin for DVT prophylaxis. Objective - Vital Signs Vital signs: Vital Signs Temp 98.3 F 12/25/21 11:41 Pulse 64 12/25/21 11:41 Resp 17 12/25/21 11:41 BP 104/62 12/25/21 11:41 Pulse Ox 94 L 12/25/21 11:41 FiO2 40 12/21/21 00:36 Intake & Output 12/24/21 12/25/21 12/25/21 18:59 06:59 18:59 Intake Total 980 Output Total 1151 300 Balance -1151 680 Weight 183.3 kg Intake: Oral 980 Output: Urine 1150 300 Stool 1 Other: Voiding Method Urinal Toilet Urinal ABP, PAP, CO, CI - Last Documented Arterial Blood Pressure 143/66 - Exam GENERAL EXAM: Alert, morbidly obese 56-year-old male, on room air, resting in bed, comfortable in no apparent distress. HEAD: Normocephalic. EYES: Normal reaction of pupils, equal size. NOSE: Clear with pink turbinates. THROAT: No erythema or exudates. NECK: No masses, no JVD. CHEST: No chest wall deformity. LUNGS: Equal air entry with crackles in the bilateral bases. CVS: S1 and S2 normal with no audible murmur, regular rhythm. ABDOMEN: No hepatosplenomegaly, normal bowel sounds, no guarding or rigidity. SPINE: No scoliosis or deformity SKIN: No rashes CENTRAL NERVOUS SYSTEM: No focal deficits, tone is normal in all 4 extremities. EXTREMITIES: There is 1-2+ peripheral edema. Changes of chronic venous stasis. No clubbing, no cyanosis. Peripheral pulses are intact. - Labs CBC & Chem 7: 12/23/21 06:30 12/25/21 06:11 Labs: Abnormal Lab Results - Last 24 Hours (Table) 12/24/21 12/24/21 12/25/21 Range/Units 18:00 20:04 06:11 Chloride 93 L (98-107) mmol/L Carbon Dioxide 39 H (22-30) mmol/L BUN 39 H (9-20) mg/dL Glucose 116 H (74-99) mg/dL POC Glucose (mg/dL) 128 H 169 H (70-110) mg/dL 12/25/21 Range/Units 11:04 Chloride (98-107) mmol/L Carbon Dioxide (22-30) mmol/L BUN (9-20) mg/dL Glucose (74-99) mg/dL POC Glucose (mg/dL) 149 H (70-110) mg/dL Assessment and Plan Assessment: Acute on chronic hypoxic and hypercapnic respiratory failure, multifactorial, diastolic congestive heart failure, obstructive sleep apnea syndrome, obesity/hypoventilation syndrome, pulmonary hypertension, and possibly underlying COPD Acute kidney injury, improving. Obstructive sleep apnea syndrome with obesity/hypoventilation syndrome, intolerant to BiPAP Acute metabolic encephalopathy Benign essential hypertension Chronic cor pulmonale Morbid obesity Chronic diastolic congestive heart failure/pulmonary hypertension Plan: The patient was seen and evaluated Medication's and labs reviewed Stable and on room air Cleared for discharge from the pulmonary standpoint Plan is to discharge to subacute rehab, [facility] I have personally seen and examined the patient, performed the documentation and the assessment and plan as written. Number of minutes spent on the visit: 10.
[2021-12-26] MEDS ORDERED: FUROSEMIDE 80 MG TAB PO SCH (09:00)
--- NOTE | 2021-12-26 15:56 | DS ---
DISCHARGE SUMMARY ADDENDUM: This is a 56-year-old gentleman admitted with multiple medical issues including bilateral pneumonia. He has improved significantly. Patient is on antibiotic and patient will be discharged at this time. No chest pain. No palpitation. PHYSICAL EXAMINATION: VITAL SIGNS: Stable. CARDIOVASCULAR: S1, S2 RESPIRATIONS: scattered rhonchi. ABDOMEN: Soft. NERVOUS SYSTEM: Nonfocal. Please refer to the previous dictation for list of medications. MMODL / IJN: [id number] / [facility] CENTERJoseph
--- NOTE | 2021-12-26 18:56 | PN ---
PROGRESS NOTE SUBJECTIVE: This 56-year-old gentleman admitted with bilateral pneumonia. He is on IV antibiotics and multiple medications. At this time, ECF rehab is being planned. No chest pain. No palpitations. OBJECTIVE: VITAL SIGNS: Stable. CARDIOVASCULAR: S1, S2. RESPIRATION: Few scattered rhonchi. ABDOMEN: Soft, obese. NERVOUS SYSTEM: Diffusely weak. LABORATORY DATA: Reviewed. ASSESSMENT: 1. Acute bilateral pneumonia with possibly aspiration, acute hypoxic respiratory failure, status post BiPAP. 2. Chronic obstructive pulmonary disease, acute exacerbation. 3. Indeterminate troponins. 4. Multiple medical issues. RECOMMENDATIONS AND DISCUSSION: Recommend to continue current medications, symptomatic treatment. Otherwise at this time PT/OT evaluation. Continue with antibiotics. Further recommendations to follow. MMODL / IJN: [id number] /
--- NOTE | 2022-01-02 11:20 | CDI ---
Documentation Clarification Form Date: 01/02/2022 11:06:00 AM From: Heike Langford Admit Date: 12/13/2021 11:33:00 AM Patient Name: Teddy Dubois Visit Number: [id number] Discharge Date: 12/25/2021 01:50:00 PM ATTENTION: The Clinical Documentation Specialists (CDI) and [facility] Coding Staff appreciate your assistance in clarifying documentation. Please respond to the clarification below the line at the bottom and electronically sign. The CDI & [facility] Coding staff will review the response and follow-up if needed. Please note: Queries are made part of the Legal Health Record. If you have any questions, please contact the author of this message via ITS. Dr. Augustina Rodas Conflicting documentation has been found in the medical record. As attending physician, please provide clarification. Type II MT documented throughout the chart. Per cardiology 12/25 PN "troponin elevation secondary to type II MT" Per your 12/24 DCS "Troponin 0.68 ubdeterminate myocardial infarction ruled out." History/Risk Factors: suspect CHF chronic diastolic, acute and chronic respiratory failure Clinical Indicators: Elevated troponins Treatment: arterial catheterization, echo and doppler, diuresis, Please clarify which diagnosis is most appropriate: [ x ] Type II MT [ ] MT ruled out [ ] Other (please specify) [ ] Unable to determine MTDD
== END 2021-12-25 13:50 | DRG 177 ==
LOC: EC 08:40 → 3SCARD 11:33 → 2SICU 13:10 → 5NMEDONC 12-21 19:50
PROVIDERS: ADMIT Hospitalist; ATTEND Hospitalist
PROC: 4A133B1 Monitoring of Arterial Pressure, Peripheral, Percutaneous Approach (ICD-10-PCS; principal; 2021-12-13)
PROC: 4A133J1 Monitoring of Arterial Pulse, Peripheral, Percutaneous Approach (ICD-10-PCS; principal; 2021-12-13)
PROC: 03HY32Z Insertion of Monitoring Device into Upper Artery, Percutaneous Approach (ICD-10-PCS; principal; 2021-12-13)
PROC: 05HN33Z Insertion of Infusion Device into Left Internal Jugular Vein, Percutaneous Approach (ICD-10-PCS; principal; 2021-12-13)
PROC: 5A09457 Assistance with Respiratory Ventilation, 24-96 Consecutive Hours, Continuous Positive Airway Pressure (ICD-10-PCS; 2021-12-13)
PROC: 05HF33Z Insertion of Infusion Device into Left Cephalic Vein, Percutaneous Approach (ICD-10-PCS; 2021-12-13)
DX: J69.0 Pneumonitis due to inhalation of food and vomit (principal); G93.41 Metabolic encephalopathy; J96.21 Acute and chronic respiratory failure with hypoxia; J96.22 Acute and chronic respiratory failure with hypercapnia; I50.33 Acute on chronic diastolic (congestive) heart failure; I21.A1 Myocardial infarction type 2; E66.2 Morbid (severe) obesity with alveolar hypoventilation; Z68.43 Body mass index [BMI] 50.0-59.9, adult; J44.1 Chronic obstructive pulmonary disease with (acute) exacerbation; N17.9 Acute kidney failure, unspecified; E87.4 Mixed disorder of acid-base balance; E78.5 Hyperlipidemia, unspecified; E86.0 Dehydration; E87.5 Hyperkalemia; I11.0 Hypertensive heart disease with heart failure; R00.1 Bradycardia, unspecified; R77.8 Other specified abnormalities of plasma proteins; I27.29 Other secondary pulmonary hypertension; Z20.822 Contact with and (suspected) exposure to COVID-19; K59.00 Constipation, unspecified; Y92.039 Unspecified place in apartment as the place of occurrence of the external cause; Z91.81 History of falling; Z79.82 Long term (current) use of aspirin; Z79.899 Other long term (current) drug therapy; Z82.49 Family history of ischemic heart disease and other diseases of the circulatory system; Z91.199 Patient's noncompliance with other medical treatment and regimen due to unspecified reason; Z91.040 Latex allergy status
CPT/HCPCS: 36410; 36415; 36600; 70450; 71045; 71250; 72125; 76937; 80048; 80053; 80306; 81001; 82550; 82553; 82805; 83036; 83605; 83735; 83880; 84132; 84145; 84484; 85025; 85027; 87040; 87635; 93005; 93306; 94640; 94660; 94760; 96361; 96374; 99291